=== PATIENT | female | born 1965 | race Caucasian/White ===

== ENCOUNTER 2017-04-23 14:02 | Inpatient (IN) | payer BC, OTHER ==
[2017-04-23 14:39] LABS: BASOPHIL % 0.1 % (0.0-0.4); Basophil (Absolute #) 0.01 (0-0.4); Eosinophil % 1.9 % (0.00-5.0); Eosinophil (Absolute #) 0.13 (0-0.5); Granulocyte Absolute (ANC) 4.84 (1.4-6.9); Granulocytes % 70.7 % (36.0-66.0); Hematocrit 44.1 % (35-47); Hemoglobin 14.4 gm/dl (12.0-16.0); Lymphocyte (Absolute #) 1.48 (1.0-4.6); Lymphocytes % 21.6 % (24.0-44.0); Mean Cell Volume 94.2 fl (78-100); Mean Corpuscular Hemoglobin 30.8 pg (26-32); Mean Corpuscular Hgb Concent. 32.7 g/dl (32-36); Mean Platelet Volume 10.5 fl (6-9.5); Monocyte (Absolute #) 0.39 (0.0-1.3); Monocytes % 5.7 % (0.0-12.0); Platelet Count 186 K/mm3 (150-450); Red Blood Count 4.68 M/mm3 (4.1-5.4); Red Cell Distribution Width 15.6 % (11.5-14.0); White Blood Count 6.9 K/mm3 (4.0-10.5)
--- NOTE | 2017-04-23 14:41 | ERPHSYRPT ---
- History of Present Illness Time Seen by Provider: 04/23/17 14:05 Source: patient, family Exam Limitations: no limitations Patient Subjective Stated Complaint: pt here for weakness,productive coug, chills. was seen at [facility] and dx with bronchitis. pt states she also she passed out and fell yesterday hurting left knee. pt able to bear wt on knee Triage Nursing Assessment: pt alert, resp easy. skin w/d pink, chest clear, no edema, able to transfer self from to bed without difficulty, Physician History: patient has syncope associated with hypoglycemia; no recent seizures or incontinence; no fever; some cough- non-productive; no vomiting or diarrhea; no fever; eating and drinkning ok; no travel; no known exposures; no recent change of meds other then started on ATBs for Bronchits 2 days ago. no MUKHERJEE; no neck pain ; hurt knee when fell two days ago- wearing a brace on left and checked at [place] and started on ATBs Witnessed: by family Prior Episodes: recent history Timing/Duration: week(s) (1), gradual onset, worse Precipitating Factors: other (when ambulates) Context: standing Loss of Consciousness: brief (seconds) Charcter of event(s): collapsed Allergies/Adverse Reactions: divalproex sodium [From Depakote] Allergy (Verified 04/23/17 14:19) morphine Allergy (Verified 04/23/17 14:19) Sulfa (Sulfonamide Antibiotics) Allergy (Verified 04/23/17 14:19) Home Medications: Albuterol Sulfate [Proair Hfa] 8.5 gm QID 04/23/17 [History] Azithromycin 250 mg [Zithromax 250 MG TABLET] 250 mg DAILY 04/23/17 [ History] Baclofen 20 mg TID 04/23/17 [History] Citalopram Hydrobromide 20 mg* [ceLEXa 20 MG] 20 mg DAILY 04/23/17 [History] Famotidine 20 mg [Pepcid 20 MG] 20 mg BID 04/23/17 [History] Meloxicam 15 mg [Meloxicam 15 MG] 15 mg PO DAILY 04/23/17 [History] Nortriptyline HCl [Pamelor] 100 mg HS 04/23/17 [History] Pantoprazole Sodium [Protonix] 40 mg BID 04/23/17 [History] Paroxetine HCl [Paxil Cr] 25 mg DAILY 04/23/17 [History] Temazepam [Restoril] 30 mg HS 04/23/17 [History] Hx Influenza Vaccination/Date Given: Yes Hx Pneumococcal Vaccination/Date Given: No Immunizations Up to Date: Yes - Past Medical History Pertinent Past Medical History: Yes Neurological History: Migraines Psycho-Social History: Anxiety, Depression - Past Surgical History Past Surgical History: Yes Female Surgical History: Section Other Surgical History: gastric bypass - Social History Smoking Status: Current every day smoker Exposure to second hand smoke: Yes Alcohol Use: Socially Drug Use: none Patient Lives Alone: No Significant Family History: no pertinent family hx - Female History Hx Last Menstrual Period: post Hx Now: No - Review of Systems Constitutional: Malaise, Weakness Eyes: No Symptoms Ears, Nose, & Throat: No Symptoms Respiratory: Cough, No Dyspnea, No Wheezing Cardiac: Syncope, No Chest Pain, No Edema, No Palpitations Abdominal/Gastrointestinal: Nausea, No Abdominal Pain, No Vomiting, No Diarrhea , No Constipation Genitourinary Symptoms: No Dysuria, No Frequency, No Hematuria, No Hesitancy, No Incontinence Musculoskeletal: Fall, Injury (left knee) Skin: No Symptoms Neurological: No Dizziness, No Focal Weakness, No Headache, No Seizure, No Vertigo Psychological: Anxiety, No Drug Abuse, No Suicidal Ideations, No Homicidal Ideations, No Hallucinations Endocrine: No Symptoms Hematologic/Lymphatic: No Symptoms Immunological/Allergic: No Symptoms Physical Exam - Nursing Vital Signs Nursing Vital Signs: Initial Vital Signs Temperature 97.5 F 04/23/17 14:09 Pulse Rate 100 H 04/23/17 14:09 Blood Pressure 108/84 04/23/17 14:09 O2 Sat by Pulse Oximetry 99 04/23/17 14:09 Pain Scale Pain Intensity 5 - [place] Coma Scale Best Eye Response (Diablo): (4) open spontaneously Best Verbal Response (Diablo): (5) oriented Best Motor Response (Diablo): (6) obeys commands [place] Total: 15 - Physical Exam General Appearance: mild distress, alert, anxiety, thin Eye Exam: bilateral eye: normal inspection, PERRL, EOMI Ears, Nose, Throat Exam: normal ENT inspection, TMs normal, pharynx normal, moist mucous membranes Neck Exam: normal inspection, non-tender, supple, full range of motion, No meningismus, No carotid bruit, No JVD Respiratory: normal breath sounds, lungs clear, airway intact, No chest tenderness, No respiratory distress Cardiovascular: regular rate/rhythm, normal heart sounds, normal peripheral pulses, tachycardia (100), capillary refill 2-3 sec, No murmur Gastrointestinal: soft, normal bowel sounds, No tenderness, No guarding, No pulsatile mass, No rebound, No organomegaly Pelvic Exam: deferred Rectal Exam: deferred Back Exam: normal inspection, normal range of motion, No CVA tenderness, No vertebral tenderness Extremity Exam: normal inspection, normal range of motion, joint swelling (left knee with brace old), tenderness (mild left knee general old), No pelvis stable , No alice's sign, No pedal edema Peripheral Pulses: carotid (R): 4+, carotid (L): 4+, femoral (R): 4+, femoral (L ): 4+, dorsalis-pedis (R): 3+, dorsalis-pedis (L): 3+ Mental Status: alert, oriented x 3, 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 Exam: normal hearing, normal speech, PERRL Coordination/Gait: negative Romberg's sign, No normal gait (light headed) Motor/Sensory: no motor deficit, no sensory deficit, no pronator drift, negative Babinski's sign DTR: knee (R): 4+ Skin Exam: normal color, warm, dry, No rash, No petechiae SpO2 Interpretation: normal SpO2: 99 Oxygen Delivery: Room Air - Course Nursing assessment & vital signs reviewed: Yes EKG Interpreted by Me: RATE (85), Left Midland Deviation, NORMAL INTERVALS, NORMAL QRS, Non-specific ST Changes Rhythm Strip: Rate (84), Normal Sinus Rhythm - Radiology Exams Chest X-ray Interpretation: Reviewed by me, Teleradiologist Report, Negative - CT Exams Chest CT Interpretation: Negative, Tele-radiologist Report, No PE Ordered Tests: Active Orders 24 hr Category Date Time Status Bedrest with BRP/BSC ROUTINE Activity 04/23/17 16:44 Active Accucheck ACHS Care 04/23/17 16:44 Active Accucheck STAT Care 04/23/17 14:33 Active Admission/Status Order ROUTINE Care 04/23/17 16:44 Active Call Admit Doctor for Orders ROUTINE Care 04/23/17 16:44 Active Director Agricultural Services STAT Care 04/23/17 14:35 Active Code Status Order ROUTINE Care 04/23/17 16:44 Active EKG-ER Only STAT Care 04/23/17 14:33 Active Fall Protocol ROUTINE Care 04/23/17 16:46 Active IV Care Q6H Care 04/23/17 16:44 Active IV Insertion STAT Care 04/23/17 14:33 Active Implement Chest Pain Pathway ROUTINE Care 04/23/17 16:44 Active Orthostatic Vital Signs STAT Care 04/23/17 14:33 Active Pulse Oximetry (ED) STAT Care 04/23/17 14:33 Active Re-Check Vital Signs STAT Care 04/23/17 14:33 Active Daniel Zelaya, Apply ROUTINE Care 04/23/17 16:44 Active Telemetry ROUTINE Care 04/23/17 16:44 Active Weight,Daily 0600 Care 04/23/17 16:44 Active Cardiac Diet Diet 04/23/17 Dinner Active CHEST 1 VIEW (PORTABLE) Stat Exams 04/23/17 14:51 Completed CHEST WITH CONTRAST [CT] Stat Exams 04/23/17 15:15 Completed CBC W DIFF Stat Lab 04/23/17 14:30 Completed CMP Stat Lab 04/23/17 14:30 Completed D-DIMER QUANTITATION Stat Lab 04/23/17 14:30 Completed ETHYL ALCOHOL Stat Lab 04/23/17 14:30 Completed LIPID PROFILE AM.LAB Lab 04/24/17 04:00 Ordered PROTIME WITH INR Stat Lab 04/23/17 14:30 Completed TROPONIN Q3H Lab 04/23/17 14:30 Completed TROPONIN Q3H Lab 04/23/17 18:00 Ordered TROPONIN Q3H Lab 04/23/17 21:00 Ordered TROPONIN Q3H Lab 04/24/17 00:00 Ordered TROPONIN Q3H Lab 04/24/17 03:00 Ordered EKG Q8HX2,QAMX3,PRN RT 04/23/17 16:44 Active Pulse Oximetry Q4H RT 04/23/17 16:44 Active Transfer Order Routine Transfer 04/23/17 Ordered Medication Summary Generic Name Dose Route Start Last Admin Trade Name Freq PRN Reason Stop Dose Admin Acetaminophen 650 mg 04/23/17 16:44 Tylenol 325 Mg PO 05/23/17 16:43 Q4H PRN PRN PAIN AND/OR FEVER Aspirin 325 mg 04/24/17 10:00 Ecotrin 325 Mg PO 05/24/17 09:59 DAILY GERI Sodium Chloride 1,000 mls @ 100 mls/hr 04/23/17 14:45 Sodium Chloride 0.9% 1000 Ml IV 05/23/17 14:44 .Q10H GERI Sodium Chloride 1,000 mls @ 999 mls/hr 04/23/17 16:21 04/23/17 14:40 Sodium Chloride 0.9% 1000 Ml IV 04/23/17 17:21 999 mls/hr .Q1H1M STA Administration Sodium Chloride 1,000 mls @ 999 mls/hr 04/23/17 16:22 04/23/17 16:23 Sodium Chloride 0.9% 1000 Ml IV 04/23/17 17:22 999 mls/hr .Q1H1M STA Administration Lab/Rad Data: Laboratory Result Diagrams 04/23/17 14:30 04/23/17 14:30 Laboratory Results 04/23/17 04/23/17 04/23/17 Range/Units 14:30 14:30 14:30 WBC (4.0-10.5) K/mm3 RBC (4.1-5.4) M/mm3 Hgb (12.0-16.0) gm/dl Hct (35-47) % MCV (78-100) fl MCH (26-32) pg MCHC (32-36) g/dl RDW (11.5-14.0) % Plt Count (150-450) K/mm3 MPV (6-9.5) fl Gran % (36.0-66.0) % Lymphocytes % (24.0-44.0) % Monocytes % (0.0-12.0) % Eosinophils % (0.00-5.0) % Basophils % (0.0-0.4) % Basophils # (0-0.4) INR 0.99 (0.8-3.0) D-Dimer 604.16 H* (0-500) ng/mL Sodium (136-145) mEq/L Potassium (3.5-5.1) mEq/L Chloride (98-107) mEq/L Carbon Dioxide (21-32) mEq/L Anion Gap (5-15) MEQ/L BUN (9-20) mg/dL Creatinine (0.55-1.30) mg/dl Estimated GFR ML/MIN Glucose (70-110) MG/DL Calcium (8.5-10.1) mg/dL Total Bilirubin (0.2-1.0) mg/dL AST (15-37) U/L ALT (12-78) U/L Alkaline Phosphatase (46-116) U/L Troponin I 0.137 H* (0.000-0.056) ng/ml Serum Total Protein (6.4-8.2) gm/dL Albumin (3.4-5.0) g/dL Ethyl Alcohol < 0.010 (0.00-0.01) % 04/23/17 04/23/17 Range/Units 14:30 14:30 WBC 6.9 (4.0-10.5) K/mm3 RBC 4.68 (4.1-5.4) M/mm3 Hgb 14.4 (12.0-16.0) gm/dl Hct 44.1 (35-47) % MCV 94.2 (78-100) fl MCH 30.8 (26-32) pg MCHC 32.7 (32-36) g/dl RDW 15.6 H (11.5-14.0) % Plt Count 186 (150-450) K/mm3 MPV 10.5 H (6-9.5) fl Gran % 70.7 H (36.0-66.0) % Lymphocytes % 21.6 L (24.0-44.0) % Monocytes % 5.7 (0.0-12.0) % Eosinophils % 1.9 (0.00-5.0) % Basophils % 0.1 (0.0-0.4) % Basophils # 0.01 (0-0.4) INR (0.8-3.0) D-Dimer (0-500) ng/mL Sodium 140 (136-145) mEq/L Potassium 3.9 (3.5-5.1) mEq/L Chloride 100 (98-107) mEq/L Carbon Dioxide 33.8 H (21-32) mEq/L Anion Gap 10.2 (5-15) MEQ/L BUN 15 (9-20) mg/dL Creatinine 1.41 H (0.55-1.30) mg/dl Estimated GFR 42 ML/MIN Glucose 117 H (70-110) MG/DL Calcium 9.3 (8.5-10.1) mg/dL Total Bilirubin 0.60 (0.2-1.0) mg/dL AST 17 (15-37) U/L ALT 13 (12-78) U/L Alkaline Phosphatase 114 (46-116) U/L Troponin I (0.000-0.056) ng/ml Serum Total Protein 7.6 (6.4-8.2) gm/dL Albumin 3.4 (3.4-5.0) g/dL Ethyl Alcohol (0.00-0.01) % reviewed - Progress Progress: improved (with fluids), re-examined Progress Note: 04/23/17 14:44 accu check 118; OSVS showed abn drop with laying to sitting so stipped and started IV fluid bolus; will monitor and recheck; EKG pending; xr pending 04/23/17 14:58 EKG non specific; cxr NAd; ; ETOH neg 04/23/17 15:16 D Dimer elevated will Get CTA to evaluate for PE 04/23/17 16:14 GRF off but we hydrated with IV Fluid bolus and then got CTA for PE- results pending; rechecked on return and feeling better; continuing IV fluids; Troponin slight elevated at 0.137; lytes ok CBC ok; will monitor and recheck 04/23/17 16:34 rechecked and still orthostatic hypotension but improved after a liter IV saline ;Dr Jones consulted and will admit ; patient and family notified Discussed with : Reza (consulted and will admit) Will see patient in: hospital (full admit) Counseled pt/family regarding: lab results, diagnosis, need for follow-up, rad results, smoking cessation - Departure Time of Disposition: 16:41 Departure Disposition: In-patient Admission Clinical Impression: Weakness, Syncope due to orthostatic hypotension, Orthostatic hypotension, Elevated troponin I level, possible non STEMI Condition: Critical Critical Care Time: Yes Critical Care Time(excluding separately billable procedures): 30-74 minutes Referrals: VIRGEN JONES MD [Primary Care Provider] -
[2017-04-23] MEDS: Sodium Chloride 0.9% 1000 ML 1,000 ML IV SCH ×3 (14:42→18:47)
[2017-04-23] MEDS ORDERED: Sodium Chloride 0.9% 1000 ML 1,000 ML ONE ×2 (14:42→16:19)
[2017-04-23 14:50] LABS: INR 0.99 (0.8-3.0)
[2017-04-23 14:57] LABS: ALBUMIN 3.4 g/dL (3.4-5.0); ANION GAP 10.2 MEQ/L (5-15); BILIRUBIN,TOTAL 0.6 mg/dL (0.2-1.0); Calcium 9.3 mg/dL (8.5-10.1); Carbon Dioxide 33.8 mEq/L (21-32); Creatinine 1 1.41 mg/dl (0.55-1.30); Potassium 3.9 mEq/L (3.5-5.1); Total Protein 7.6 gm/dL (6.4-8.2)
--- NOTE | 2017-04-23 14:59 | XRAY ---
Indication: Syncope upon standing. Comparison: None Portable chest demonstrates normal heart and lungs. Bony thorax intact with minimal degenerative changes.
[2017-04-23 15:15] LABS: D-DIMER QUANTITATION 604.16 ng/mL (0-500)
[2017-04-23] MEDS ORDERED: Sodium Chloride 0.9% 1000 ML 1,000 ML IV STA ×2 (16:21→16:22)
--- NOTE | 2017-04-23 16:22 | XRAY ---
Indication: Syncope. Elevated d-dimer. Multiple contiguous axial images obtained through the chest using 80 cc of Isovue-370 contrast and PE protocol. Comparison: None There is satisfactory opacification of the pulmonary arteries to include the lobar and segmental branches. No filling defect or pulmonary embolus. Heart is not enlarged. Aorta is normal in course and caliber. No pathologic mediastinal/hilar lymphadenopathy. Examination of the lung parenchyma demonstrates small focus of fibrosis/scarring in the inferior right upper lobe. No suspicious pulmonary mass, infiltrate, consolidation, or effusion. Bony thorax intact with mild degenerative changes throughout the spine and multilevel small Schmorl nodes. Limited upper abdomen demonstrates previous gastric bypass surgery. Impression: Negative pulmonary embolus. No acute cardiopulmonary abnormalities. CTDI 13.96
[2017-04-23] MEDS ORDERED: MILK OF MAGNESIA 30 ML PO PRN (16:44)
[2017-04-23] MEDS ORDERED: Senokot-S Tablet PO PRN (16:44)
[2017-04-23] MEDS ORDERED: MAALOX ES 30 ML UNIT DOSE PO PRN (16:44)
[2017-04-23] MEDS ORDERED: TYLENOL 325 MG PO PRN (16:44)
[2017-04-23] MEDS ORDERED: Zofran 4 MG/2 ML VIAL IV PRN (16:44)
[2017-04-23] MEDS: Nicoderm CQ 21 MG TOP SCH (21:23)
[2017-04-23] MEDS: Restoril 15 MG PO SCH (21:24)
[2017-04-23] MEDS ORDERED: Pepcid 20 MG VIAL IV SCH (22:00)
[2017-04-23] MEDS ORDERED: Restoril 15 MG PO SCH (22:00)
[2017-04-23] MEDS: ENOXAPARIN SODIUM SQ SCH (22:15)
[2017-04-23] MEDS ORDERED: PROVENTIL COMMON CANISTER IH PRN (23:46)
[2017-04-24] MEDS: Sodium Chloride 0.9% 1000 ML 1,000 ML IV SCH ×2 (03:55→13:49)
[2017-04-24 06:22] LABS: Risk Ratio 1.5
--- NOTE | 2017-04-24 09:27 | PCM.HP ---
History of Present Illness - Chief Complaint Chief Complaint: syncope History of Present Illness: is a 51 year old female.patient has syncope associated with hypoglycemia; no recent seizures or incontinence; no fever; some cough- non- productive; no vomiting or diarrhea; no fever; eating and drinkning ok; no travel; no known exposures; no recent change of meds other then started on ATBs for Bronchits 2 days ago. no MUKHERJEE; no neck pain; hurt knee when fell two days ago - wearing a brace on left and checked at [facility] and started on ATBs Witnessed: by family Prior Episodes: recent history Timing/Duration: week(s) (1), gradual onset, worse Precipitating Factors: other (when ambulates) Context: standing Loss of Consciousness: brief (seconds) Charcter of event(s): collapsed - Review of Systems Constitutional: No Fever, No Chills Eyes: No Symptoms Ears, Nose, & Throat: No Symptoms Respiratory: No Cough, No Short Of Breath Cardiac: No Chest Pain, No Edema, No Syncope Abdominal/Gastrointestinal: No Abdominal Pain, No Nausea, No Vomiting, No Diarrhea Genitourinary Symptoms: No Dysuria Musculoskeletal: No Back Pain, No Neck Pain Skin: No Rash Neurological: No Dizziness, No Focal Weakness, No Sensory Changes Psychological: No Symptoms Endocrine: No Symptoms Hematologic/Lymphatic: No Symptoms Immunological/Allergic: No Symptoms Medications & Allergies Home Medications: Home Medication List Albuterol Sulfate [Proair Hfa] 8.5 gm IH Q4HPRN PRN 04/23/17 [History Confirmed 04/24/17] Azithromycin 250 mg [Zithromax 250 MG TABLET] 250 mg PO DAILY 04/23/17 [ History Confirmed 04/24/17] Baclofen 20 mg PO TID 04/23/17 [History Confirmed 04/24/17] Citalopram Hydrobromide 20 mg* [ceLEXa 20 MG] 20 mg PO DAILY 04/23/17 [ History Confirmed 04/24/17] Famotidine 20 mg [Pepcid 20 MG] 20 mg PO BID 04/23/17 [History Confirmed 04/24/17] Meloxicam 15 mg [Meloxicam 15 MG] 15 mg PO DAILY 04/23/17 [History Confirmed ] Nortriptyline HCl [Pamelor] 100 mg PO HS 04/23/17 [History Confirmed 04/24/17] Pantoprazole Sodium [Protonix] 40 mg PO BID 04/23/17 [History Confirmed 04/24/17 ] Paroxetine HCl [Paxil Cr] 25 mg PO DAILY 04/23/17 [History Confirmed 04/24/17] Temazepam 15 mg [Restoril 15 MG] 15 mg PO HS 04/23/17 [History Confirmed 04/24/17] Temazepam [Restoril] 30 mg PO HS 04/23/17 [History Confirmed 04/24/17] Allergies/Adverse Reactions: Allergies Allergy/AdvReac Type Severity Reaction Status Date / Time divalproex sodium Allergy Verified 04/23/17 17:39 [From Depakote] morphine Allergy Verified 04/23/17 17:39 Sulfa (Sulfonamide Allergy Verified 04/23/17 17:39 Antibiotics) - Past Medical History Past Medical History: Yes Neurological History: Migraines ENT History: Cataracts Cardiac History: No Pertinent History Respiratory History: Asthma Endocrine Medical History: No Pertinent History Musculoskelatal History: No Pertinent History GI Medical History: No Pertinent History History: No Pertinent History Pyscho-Social History: Anxiety, Depression - Female History Hx Last Menstrual Period: post Are you now?: No - Past Surgical History Past Surgical History: Yes Neuro Surgical History: No Pertinent History Cardiac History: No Pertinent History Respiratory Surgery: No Pertinent History GI Surgical History: Other Genitourinary Surgical Hx: No Pertinent History Female Surgical History: Section, Other Other Surgical History: gastric bypass - Social History Smoking Status: Current every day smoker Exposure to second hand smoke: Yes Alcohol: Daily Drug Use: none Significant Family History: no pertinent family hx - Physical Exam Vital Signs: Vital Signs - 24 hr Temp Pulse Resp BP Pulse Ox 04/24/17 08:00 97.8 F 73 14 140/89 100 04/24/17 04:00 97.7 F 78 14 132/82 96 04/24/17 03:57 14 96 04/24/17 00:01 75 04/24/17 00:00 97.8 F 75 18 129/89 98 04/23/17 22:45 79 15 99 04/23/17 20:00 97.8 F 93 H 19 115/79 99 04/23/17 19:25 97.6 F 93 H 16 134/85 93 L 04/23/17 16:59 78 20 112/79 99 04/23/17 16:47 99 04/23/17 16:10 82 20 110/83 99 04/23/17 14:53 86 16 115/75 99 04/23/17 14:41 97 04/23/17 14:09 97.5 F 100 H 108/84 99 General Appearance: no apparent distress, alert Neurologic Exam: alert, oriented x 3, cooperative, normal mood/affect, nml cerebellar function, nml station & gait, sensation nml, No motor deficits Eye Exam: PERRL/EOMI, eyes nml inspection Ears, Nose, Throat Exam: normal ENT inspection, TMs normal, pharynx normal, moist mucous membranes Neck Exam: normal inspection, non-tender, supple, full range of motion Respiratory Exam: normal breath sounds, lungs clear, No respiratory distress Cardiovascular Exam: regular rate/rhythm, normal heart sounds, normal peripheral pulses Gastrointestinal/Abdomen Exam: soft, normal bowel sounds, No tenderness, No mass Back Exam: normal inspection, normal range of motion, No CVA tenderness, No vertebral tenderness Extremity Exam: normal inspection, normal range of motion, pelvis stable Skin Exam: normal color, warm, dry, No rash Lymphatic Exam: No adenopathy Results - Labs Lab/Micro Results: Accuchecks Date 04/24/17 Date 04/23/17 Time 06:21 Time 21:40 Accucheck Value: 77 Accucheck Value: 90 Lab Results-Last 24 Hours 04/23/17 04/23/17 04/24/17 Range/Units 18:05 21:30 00:30 Troponin I 0.086 H* 0.098 H* 0.086 H* (0.000-0.056) ng/ml Triglycerides (30-200) mg/dL Cholesterol (100-200) mg/dL LDL Cholesterol (5-99) mg/dL HDL Cholesterol (35-60) mg/dL Heart Disease Risk Ratio 04/24/17 04/24/17 Range/Units 04:00 04:00 Troponin I 0.074 H* (0.000-0.056) ng/ml Triglycerides 59 (30-200) mg/dL Cholesterol 139 (100-200) mg/dL LDL Cholesterol 34 (5-99) mg/dL HDL Cholesterol 91 H (35-60) mg/dL Heart Disease Risk Ratio 1.5 Accuchecks Date 04/24/17 Date 04/23/17 Time 06:21 Time 21:40 Accucheck Value: 77 Accucheck Value: 90 - Other Procedures and Tests Respiratory Therapy 04/23/17 23:46 Respiratory MDI PRN 04/25/17 05:00 EKG ONCE 04/26/17 05:00 EKG ONCE Assessment/Plan (1) NSTEMI (non-ST elevated myocardial infarction) Current Visit: Yes Status: Acute Assessment & Plan: Chief Complaint Diagnosis syncope, nonstemi, othostatic hypotension Allergies Allergy/AdvReac Type Severity Reaction Status Date / Time divalproex sodium Allergy Verified 04/23/17 17:39 [From Depakote] morphine Allergy Verified 04/23/17 17:39 Sulfa (Sulfonamide Allergy Verified 04/23/17 17:39 Antibiotics) Vital Signs (Last 24 hours) Temp Pulse Resp BP Pulse Ox 04/24/17 08:00 97.8 F 73 14 140/89 100 04/24/17 04:00 97.7 F 78 14 132/82 96 04/24/17 03:57 14 96 04/24/17 00:01 75 04/24/17 00:00 97.8 F 75 18 129/89 98 04/23/17 22:45 79 15 99 04/23/17 20:00 97.8 F 93 H 19 115/79 99 04/23/17 19:25 97.6 F 93 H 16 134/85 93 L 04/23/17 16:59 78 20 112/79 99 04/23/17 16:47 99 04/23/17 16:10 82 20 110/83 99 04/23/17 14:53 86 16 115/75 99 04/23/17 14:41 97 04/23/17 14:09 97.5 F 100 H 108/84 99 Home Medications Medication Instructions Recorded Confirmed Last Taken Type Albuterol Sulfate [Proair Hfa] 8.5 gm IH Q4HPRN PRN 04/23/17 04/24/17 04/23/17 History Azithromycin 250 mg [Zithromax 250 mg PO DAILY 04/23/17 04/24/17 04/23/17 History 250 MG TABLET] Baclofen 20 mg PO TID 04/23/17 04/24/17 04/23/17 History Citalopram Hydrobromide 20 mg* 20 mg PO DAILY 04/23/17 04/24/17 04/23/17 History [ceLEXa 20 MG] Famotidine 20 mg [Pepcid 20 20 mg PO BID 04/23/17 04/24/17 04/23/17 History MG] Meloxicam 15 mg [Meloxicam 15 MG] 15 mg PO DAILY 04/23/17 04/24/17 04/23/17 History Nortriptyline HCl [Pamelor] 100 mg PO HS 04/23/17 04/24/17 04/22/17 History Pantoprazole Sodium [Protonix] 40 mg PO BID 04/23/17 04/24/17 04/23/17 History Paroxetine HCl [Paxil Cr] 25 mg PO DAILY 04/23/17 04/24/17 04/23/17 History Temazepam 15 mg [Restoril 15 15 mg PO HS 04/23/17 04/24/17 04/22/17 History MG] Temazepam [Restoril] 30 mg PO HS 04/23/17 04/24/17 04/22/17 History Current Medications Generic Name Dose Route Start Last Admin Trade Name Freq PRN Reason Stop Dose Admin Acetaminophen 650 mg 04/23/17 16:44 Tylenol 325 Mg PO 05/23/17 16:43 Q4H PRN PRN PAIN AND/OR FEVER Al Hydrox/Mg Hydrox/Simethicone 30 ml 04/23/17 16:44 Maalox Es 30 Ml Unit Dose PO 05/23/17 16:43 Q4H PRN PRN INDIGESTION Albuterol Sulfate 2 puff 04/23/17 23:46 Proventil Common Canister IH 05/23/17 23:45 Q4HPRN PRN SHORTNESS OF BREATH/WHEEZING Aspirin 325 mg 04/24/17 10:00 Ecotrin 325 Mg PO 05/24/17 09:59 DAILY GERI Azithromycin 250 mg 04/24/17 10:00 Zithromax 250 Mg Tablet PO 04/25/17 10:01 DAILY GERI Baclofen 20 mg 04/24/17 10:00 Lioresal 10 Mg PO 05/24/17 09:59 TID GERI Citalopram Hydrobromide 20 mg 04/24/17 10:00 Celexa 20 Mg PO 05/24/17 09:59 DAILY GERI Enoxaparin Sodium 40 mg 04/23/17 22:00 04/23/17 22:15 Enoxaparin Sodium SQ 05/23/17 21:59 40 mg Q24H GERI Administration Famotidine 20 mg 04/24/17 10:00 Pepcid 20 Mg PO 05/24/17 09:59 BID GERI Sodium Chloride 1,000 mls @ 100 mls/hr 04/23/17 14:45 04/24/17 03:55 Sodium Chloride 0.9% 1000 Ml IV 05/23/17 14:44 100 mls/hr .Q10H GERI Administration Magnesium Hydroxide 30 - 60 ml 04/23/17 16:44 Milk Of Magnesia 30 Ml PO 05/23/17 16:43 QDP PRN CONSTIPATION Meloxicam 15 mg 04/24/17 10:00 Mobic 7.5 Mg PO 05/24/17 09:59 DAILY [facility] Nicotine 21 mg 04/23/17 21:00 04/23/17 21:23 Nicoderm Cq 21 Mg TOP 05/23/17 20:59 21 mg Q24H GERI Administration Nortriptyline HCl 100 mg 04/24/17 10:00 Nortriptyline Hcl PO 05/24/17 09:59 DAILY [facility] Ondansetron HCl 4 mg 04/23/17 16:44 Zofran 4 Mg/2 Ml Vial IV 05/23/17 16:43 Q4H PRN PRN NAUSEA/VOMITING Pantoprazole Sodium 40 mg 04/24/17 10:00 Protonix 40mg Tablet PO 05/24/17 09:59 BID [facility] Paroxetine HCl 25 mg 04/24/17 10:00 Paxil 12.5mg Cr PO 05/24/17 09:59 DAILY [facility] Senna/Docusate Sodium 2 udtab 04/23/17 16:44 Senokot-S Tablet PO 05/23/17 16:43 BID PRN PRN CONSTIPATION Temazepam 45 mg 04/24/17 22:00 Restoril 15 Mg PO 05/24/17 21:59 HS GERI Discontinued Medications Generic Name Dose Route Start Last Admin Trade Name Edwige PRN Reason Stop Dose Admin Famotidine 20 mg 04/23/17 22:00 04/23/17 21:24 Pepcid 20 Mg Vial IV 05/23/17 21:59 20 mg Q12HT GERI Administration Sodium Chloride 1,000 mls @ 999 mls/hr 04/23/17 16:21 04/23/17 14:40 Sodium Chloride 0.9% 1000 Ml IV 04/23/17 17:21 999 mls/hr .Q1H1M STA Administration Sodium Chloride 1,000 mls @ 999 mls/hr 04/23/17 16:22 04/23/17 16:23 Sodium Chloride 0.9% 1000 Ml IV 04/23/17 17:22 999 mls/hr .Q1H1M STA Administration Sodium Chloride Confirm 04/23/17 14:42 Sodium Chloride 0.9% 1000 Ml Administered 04/23/17 14:43 Dose 1,000 mls @ ud .ROUTE .STK-MED ONE Sodium Chloride Confirm 04/23/17 16:19 Sodium Chloride 0.9% 1000 Ml Administered 04/23/17 16:20 Dose 1,000 mls @ ud .ROUTE .STK-MED ONE Temazepam 15 mg 04/23/17 22:00 04/23/17 21:24 Restoril 15 Mg PO 05/23/17 21:59 15 mg HS GERI Administration Temazepam 30 mg 04/23/17 22:00 04/23/17 21:24 Restoril 15 Mg PO 05/23/17 21:59 30 mg HS GERI Administration Intake & Output (Last 24 hours) 04/21/17 04/22/17 04/23/17 04/24/17 11:59 11:59 11:59 11:59 Intake Total 1756 Balance 1756 Weight 76.6 kg Laboratory Results (Last 24 hours) 04/24/17 04/24/17 04/24/17 04:00 04:00 00:30 WBC RBC Hgb Hct MCV MCH MCHC RDW Plt Count MPV Gran % Lymphocytes % Monocytes % Eosinophils % Basophils % Basophils # INR D-Dimer Sodium Potassium Chloride Carbon Dioxide Anion Gap BUN Creatinine Estimated GFR Glucose Calcium Total Bilirubin AST ALT Alkaline Phosphatase Troponin I 0.074 H* 0.086 H* Serum Total Protein Albumin Triglycerides 59 Cholesterol 139 LDL Cholesterol 34 HDL Cholesterol 91 H Heart Disease Risk Ratio 1.5 Ethyl Alcohol 04/23/17 04/23/17 04/23/17 21:30 18:05 14:30 WBC RBC Hgb Hct MCV MCH MCHC RDW Plt Count MPV Gran % Lymphocytes % Monocytes % Eosinophils % Basophils % Basophils # INR D-Dimer Sodium Potassium Chloride Carbon Dioxide Anion Gap BUN Creatinine Estimated GFR Glucose Calcium Total Bilirubin AST ALT Alkaline Phosphatase Troponin I 0.098 H* 0.086 H* 0.137 H* Serum Total Protein Albumin Triglycerides Cholesterol LDL Cholesterol HDL Cholesterol Heart Disease Risk Ratio Ethyl Alcohol 04/23/17 04/23/17 04/23/17 14:30 14:30 14:30 WBC RBC Hgb Hct MCV MCH MCHC RDW Plt Count MPV Gran % Lymphocytes % Monocytes % Eosinophils % Basophils % Basophils # INR 0.99 D-Dimer 604.16 H* Sodium 140 Potassium 3.9 Chloride 100 Carbon Dioxide 33.8 H Anion Gap 10.2 BUN 15 Creatinine 1.41 H Estimated GFR 42 Glucose 117 H Calcium 9.3 Total Bilirubin 0.60 AST 17 ALT 13 Alkaline Phosphatase 114 Troponin I Serum Total Protein 7.6 Albumin 3.4 Triglycerides Cholesterol LDL Cholesterol HDL Cholesterol Heart Disease Risk Ratio Ethyl Alcohol < 0.010 04/23/17 14:30 WBC 6.9 RBC 4.68 Hgb 14.4 Hct 44.1 MCV 94.2 MCH 30.8 MCHC 32.7 RDW 15.6 H Plt Count 186 MPV 10.5 H Gran % 70.7 H Lymphocytes % 21.6 L Monocytes % 5.7 Eosinophils % 1.9 Basophils % 0.1 Basophils # 0.01 INR D-Dimer Sodium Potassium Chloride Carbon Dioxide Anion Gap BUN Creatinine Estimated GFR Glucose Calcium Total Bilirubin AST ALT Alkaline Phosphatase Troponin I Serum Total Protein Albumin Triglycerides Cholesterol LDL Cholesterol HDL Cholesterol Heart Disease Risk Ratio Ethyl Alcohol Orders (Last 24 hours) Category Date Time Status Bedrest with BRP/BSC ROUTINE Activity 04/23/17 16:44 Active Accucheck ACHS Care 04/23/17 16:44 Active Accucheck STAT Care 04/23/17 14:33 Completed Admission/Status Order ROUTINE Care 04/23/17 16:44 Active Call Admit Doctor for Orders ROUTINE Care 04/23/17 16:44 Active Family Engagement Specialist STAT Care 04/23/17 14:35 Active Code Status Order ROUTINE Care 04/23/17 16:44 Active EKG-ER Only STAT Care 04/23/17 14:33 Completed Fall Protocol Q1H Care 04/23/17 16:46 Active IV Care Q6H Care 04/23/17 16:44 Active IV Insertion STAT Care 04/23/17 14:33 Completed Implement Chest Pain Pathway ROUTINE Care 04/23/17 16:44 Active Orthostatic Vital Signs STAT Care 04/23/17 14:33 Completed Pulse Oximetry (ED) STAT Care 04/23/17 14:33 Completed Re-Check Vital Signs STAT Care 04/23/17 14:33 Completed Daniel Zelaya, [place] ROUTINE Care 04/23/17 16:44 Active Telemetry ROUTINE Care 04/23/17 16:44 Active Weight,Daily 0600 Care 04/23/17 16:44 Active Stock And Station Agent/Discharge Plan ROUTINE Cons 04/23/17 17:47 Active Cardiac Diet Diet 04/23/17 Dinner Active CHEST 1 VIEW (PORTABLE) Stat Exams 04/23/17 14:51 Completed CHEST WITH CONTRAST [CT] Stat Exams 04/23/17 15:15 Completed CBC W DIFF Stat Lab 04/23/17 14:30 Completed CMP Stat Lab 04/23/17 14:30 Completed D-DIMER QUANTITATION Stat Lab 04/23/17 14:30 Completed ETHYL ALCOHOL Stat Lab 04/23/17 14:30 Completed LIPID PROFILE AM.LAB Lab 04/24/17 04:00 Completed PROTIME WITH INR Stat Lab 04/23/17 14:30 Completed TROPONIN Q3H Lab 04/23/17 14:30 Completed TROPONIN Q3H Lab 04/23/17 18:05 Completed TROPONIN Q3H Lab 04/23/17 21:30 Completed TROPONIN Q3H Lab 04/24/17 00:30 Completed TROPONIN Q3H Lab 04/24/17 04:00 Completed Acetaminophen 325 mg [Tylenol 325 mg] Med 04/23/17 16:44 Active 650 mg PO Q4H PRN PRN Albuterol Common Canister [Proventil Common Canister Med 04/23/17 23:46 Active ] 2 puff IH Q4HPRN PRN Aspirin EC 325 mg [Ecotrin 325 MG] Med 04/24/17 10:00 Active 325 mg PO DAILY Azithromycin 250 mg [Zithromax 250 MG TABLET] Med 04/24/17 10:00 Active 250 mg PO DAILY Baclofen 10 mg [Lioresal 10 mg] Med 04/24/17 10:00 Active 20 mg PO TID Citalopram Hydrobromide 20 mg* [ceLEXa 20 MG] Med 04/24/17 10:00 Active 20 mg PO DAILY Enoxaparin Sodium [Enoxaparin Sodium] Med 04/23/17 22:00 Active 40 mg SQ Q24H Famotidine 20 mg Vial [Pepcid 20 MG VIAL] Med 04/23/17 22:00 Discontinued 20 mg IV Q12HT Famotidine 20 mg [Pepcid 20 MG] Med 04/24/17 10:00 Active 20 mg PO BID Mag Hydrox/Al Hydrox/Simeth [Maalox Es 30 ml Unit Med 04/23/17 16:44 Active Dose] 30 ml PO Q4H PRN PRN Magnesium Hydroxide 30 ml [Milk of Magnesia 30 ml Med 04/23/17 16:44 Active ] 30 - 60 ml PO QDP PRN Meloxicam 7.5 mg [Mobic 7.5 MG] Med 04/24/17 10:00 Active 15 mg PO DAILY NaCl 0.9% 1000 ml [Sodium Chloride 0.9% 1000 ML] 1,000 Med 04/23/17 14:42 Discontinued ml .ROUTE UD NaCl 0.9% 1000 ml [Sodium Chloride 0.9% 1000 ML] 1,000 Med 04/23/17 16:19 Discontinued ml .ROUTE UD NaCl 0.9% 1000 ml [Sodium Chloride 0.9% 1000 ML] 1,000 Med 04/23/17 14:45 Active ml IV 100 mls/hr NaCl 0.9% 1000 ml [Sodium Chloride 0.9% 1000 ML] 1,000 Med 04/23/17 16:21 Discontinued ml IV 999 mls/hr NaCl 0.9% 1000 ml [Sodium Chloride 0.9% 1000 ML] 1,000 Med 04/23/17 16:22 Discontinued ml IV 999 mls/hr Nicotine 21 mg [Nicoderm CQ 21 MG] Med 04/23/17 21:00 Active 21 mg TOP Q24H Nortriptyline HCl Med 04/24/17 10:00 Active 100 mg PO DAILY Ondansetron HCl 4 mg/2 ml [Zofran 4 MG/2 ML VIAL] Med 04/23/17 16:44 Active 4 mg IV Q4H PRN PRN PANTOPRAZOLE 40 mg Tablet [Protonix 40MG Tablet] Med 04/24/17 10:00 Active 40 mg PO BID Paroxetine HCl ER 12.5 mg [Paxil 12.5MG CR] Med 04/24/17 10:00 Active 25 mg PO DAILY Senna/Docusate Sodium Tab [Senokot-S Tablet] Med 04/23/17 16:44 Active 2 udtab PO BID PRN PRN Temazepam 15 mg [Restoril 15 MG] Med 04/23/17 22:00 Discontinued 15 mg PO HS Temazepam 15 mg [Restoril 15 MG] Med 04/23/17 22:00 Discontinued 30 mg PO HS Temazepam 15 mg [Restoril 15 MG] Med 04/24/17 22:00 Active 45 mg PO HS EKG ONCE RT 04/23/17 22:49 Completed EKG ONCE RT 04/24/17 05:00 Completed EKG ONCE RT 04/25/17 05:00 Active EKG ONCE RT 04/26/17 05:00 Active Pulse Oximetry Q4H RT 04/23/17 16:44 Active Respiratory MDI PRN RT 04/23/17 23:46 Active Respiratory Therapy Consult ROUTINE RT 04/23/17 23:47 Completed Smoking Cessation Education ONCE RT 04/23/17 19:41 Completed Code(s): I21.4 - NON-ST ELEVATION (NSTEMI) MYOCARDIAL INFARCTION (2) Elevated troponin I level Current Visit: Yes Status: Acute Code(s): R74.8 - ABNORMAL LEVELS OF OTHER SERUM ENZYMES (3) Orthostatic hypotension Current Visit: Yes Status: Acute Code(s): I95.1 - ORTHOSTATIC HYPOTENSION (4) Syncope due to orthostatic hypotension Current Visit: Yes Status: Acute Code(s): I95.1 - ORTHOSTATIC HYPOTENSION
[2017-04-24] MEDS ORDERED: NON-FORMULARY ITEM (Meloxicam 15 Mg [Meloxicam 15 Mg] 15 MG) PO SCH (10:00)
[2017-04-24] MEDS ORDERED: NORTRIPTYLINE HCL PO SCH (10:00)
[2017-04-24] MEDS: Protonix 40MG Tablet PO SCH ×2 (10:40→21:23)
[2017-04-24] MEDS: ceLEXa 20 MG PO SCH (10:40)
[2017-04-24] MEDS: LIORESAL 10 MG PO SCH ×3 (10:41→21:23)
[2017-04-24] MEDS: Ecotrin 325 MG PO SCH (10:41)
[2017-04-24] MEDS: Pepcid 20 MG PO SCH ×2 (10:41→21:23)
[2017-04-24] MEDS: Zithromax 250 MG TABLET PO SCH (10:41)
[2017-04-24] MEDS: Mobic 7.5 MG PO SCH (10:43)
[2017-04-24] MEDS: Paxil 12.5MG CR PO SCH (10:43)
--- NOTE | 2017-04-24 11:03 | XRAY ---
Indication: Chest pain. Positive troponins. Two-dimensional sonogram and color Doppler imaging of the carotid arteries of the neck performed. Comparison: None Examination of the right carotid circulation demonstrates very minimal soft arteriosclerotic plaquing at the level of the bulb and origin/proximal of the internal carotid artery. PSV of the CCA is 65 cm/s. PSV of the ICA is 96 cm/s. ICA/CCA ratio is 1.5. Normal antegrade vertebral artery flow. Examination of the left carotid circulation widely patent. PSV of the CCA is 71 cm/s. PSV of the ICA is 88 cm/s. ICA/CCA ratio is 1.2. Normal antegrade vertebral artery flow. Comparison: Minimal right carotid arteriosclerotic disease and widely patent left carotid circulation. Velocity measurements and ratios are negative for hemodynamically significant flow-limiting stenosis.
[2017-04-24] MEDS: Nicoderm CQ 21 MG TOP SCH (21:22)
[2017-04-24] MEDS: ENOXAPARIN SODIUM SQ SCH (21:23)
[2017-04-24] MEDS ORDERED: Restoril 15 MG PO SCH (22:00)
[2017-04-25] MEDS: Sodium Chloride 0.9% 1000 ML 1,000 ML IV SCH (00:20)
[2017-04-25] MEDS: Ecotrin 325 MG PO SCH (09:48)
[2017-04-25] MEDS: Zithromax 250 MG TABLET PO SCH (09:48)
[2017-04-25] MEDS: LIORESAL 10 MG PO SCH ×2 (09:48→14:48)
[2017-04-25] MEDS: Protonix 40MG Tablet PO SCH (09:48)
[2017-04-25] MEDS: Pepcid 20 MG PO SCH (09:48)
[2017-04-25] MEDS: ceLEXa 20 MG PO SCH (09:48)
[2017-04-25] MEDS: Mobic 7.5 MG PO SCH (09:49)
[2017-04-25] MEDS: Paxil 12.5MG CR PO SCH (09:49)
--- NOTE | 2017-04-25 13:44 | PCM.NOTE ---
Date and Time: 04/25/17 1343 Subjective Assessment: doing ok - Review of Systems Constitutional: No Fever, No Chills Eyes: No Symptoms Ears, Nose, & Throat: No Symptoms Respiratory: No Cough, No Short Of Breath Cardiac: No Chest Pain, No Edema, No Syncope Abdominal/Gastrointestinal: No Abdominal Pain, No Nausea, No Vomiting, No Diarrhea Genitourinary Symptoms: No Dysuria Musculoskeletal: No Back Pain, No Neck Pain Skin: No Rash Neurological: No Dizziness, No Focal Weakness, No Sensory Changes Psychological: No Symptoms Endocrine: No Symptoms Hematologic/Lymphatic: No Symptoms Immunological/Allergic: No Symptoms Objective Exam General Appearance: no apparent distress, alert Neurologic Exam: alert, oriented x 3, cooperative, normal mood/affect, nml cerebellar function, sensation nml, No motor deficits Skin Exam: normal color, warm, dry Eye Exam: PERRL, EOMI, eyes nml inspection Ears, Nose, Throat Exam: normal ENT inspection, pharynx normal, moist mucous membranes Neck Exam: normal inspection, non-tender, supple, full range of motion Respiratory Exam: normal breath sounds, lungs clear, No respiratory distress Cardiovascular Exam: regular rate/rhythm, normal heart sounds Gastrointestinal/Abdomen Exam: soft, No tenderness, No mass Extremity Exam: normal inspection, normal range of motion Back Exam: normal inspection, normal range of motion, No CVA tenderness, No vertebral tenderness Pelvic Exam: deferred Rectal Exam: deferred OBJECTIVE DATA Vital Signs: Vital Signs - 24 hr Temp Pulse Resp BP Pulse Ox 04/25/17 11:42 98 F 71 14 120/89 97 04/25/17 08:00 72 14 118/82 97 04/25/17 04:00 97.6 F 74 14 118/82 97 04/25/17 00:00 97.9 F 71 12 110/76 97 04/24/17 20:00 97.9 F 82 16 127/80 99 04/24/17 18:43 88 20 96 04/24/17 16:00 98.3 F 73 20 123/77 98 04/24/17 15:59 100 04/24/17 15:58 12 Pain Assessment - Last Documented Pain Intensity 0 Pain Scale Used 0-10 Pain Scale Intake and Output: Intake & Output 04/23/17 04/24/17 04/25/17 04/26/17 11:59 11:59 11:59 11:59 Intake Total 1756 4371 Balance 1756 4371 Weight 76.6 kg 80.6 kg Lab Results: Accuchecks Date 04/25/17 Date 04/25/17 Date 04/24/17 Time 11:06 Time 08:08 Time 21:30 Accucheck Value: 74 Accucheck Value: 80 Accucheck Value: 85 Accucheck Value: 81 Radiology Exams: Radiology Procedures Category Date Time Status CAROTID BILATERAL [US] Urgent Exams 04/24/17 10:50 Completed ECHO W/2D AND DOPPLER [US] Routine Exams 04/24/17 10:50 Taken Assessment/Plan (1) NSTEMI (non-ST elevated myocardial infarction) Current Visit: Yes Status: Resolved Code(s): I21.4 - NON-ST ELEVATION ( NSTEMI) MYOCARDIAL INFARCTION (2) Elevated troponin I level Current Visit: Yes Status: Resolved Code(s): R74.8 - ABNORMAL LEVELS OF OTHER SERUM ENZYMES (3) Orthostatic hypotension Current Visit: Yes Status: Resolved Code(s): I95.1 - ORTHOSTATIC HYPOTENSION (4) Syncope due to orthostatic hypotension Current Visit: Yes Status: Resolved Code(s): I95.1 - ORTHOSTATIC HYPOTENSION
[2017-04-25 15:50] VITALS: BP 125/79; PULSE 76; O2SAT 98
--- NOTE | 2017-04-26 08:23 | CONS ---
CONSULT DATE: 04/25/17 BRIEF HISTORY: This is a 51 y/o female who was seen because of passing out spells which have been going on for the last 1 month. She states that when she gets up she would faint. There were no reports of seizure activity. She finally was admitted to the hospital. Her serial troponin I is just marginally elevated. She denies any chest pains. She has had previous cardiac catheterization which shows no significant disease. She has undergone a bariatric surgery and a lot of those medications have been discontinued. However, she is still on 3 antidepressants and this has been adjusted. She denies any shortness of breath. No peripheral edema. CARDIOVASCULAR RISK FACTORS: Negative for diabetes. No hypertension. She has a history of smoking. 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 RESPIRATORY: No chronic cough. No hemoptysis. GI: No history of peptic ulcer or colon disorder. : Negative for dysuria. No hematuria. PERIPHERAL VASCULAR: No history of deep vein thrombosis or claudications. PHYSICAL EXAMINATION: Her BP is 141/88 with heart rate 77, respirations about 14. GENERAL: The patient is a middle-aged female who is alert and oriented who is not in any form of distress. HEENT: Unremarkable. NECK: No significant JVD. No carotid bruit. CHEST: The breath sounds are clear. CARDIAC: Heart tones are normal. There is no audible gallop. The rhythm is regular. ABDOMEN: Soft with normal bowel sounds. No bruit. EXTREMITIES: No significant edema with palpable distal pulses. The EKG shows normal sinus rhythm with poor R progression. CONCLUSION: IN ESSENCE, THE PATIENT HAD SOME EPISODES OF FAINTING SPELLS AND MAY BE SECONDARY TO SOME ORTHOSTASIS. Agree with stopping some of her antidepressants. Will continue to monitor her symptoms. If she continues to have fainting spells, she is to let me know. Her troponin I is marginally elevated, but she does have chest pains. I don't think she has any acute coronary syndromes at this time. Her previous cardiac catheterization did not show any significant disease. Will follow her up in the clinic.
--- NOTE | 2017-04-30 12:45 | ECHO ---
Transthoracic echocardiographic examination and color Doppler was done on 04/24/2017. INDICATION: Chest pain, history of myocardial infarction. IMPRESSION: 1) MILD LEFT VENTRICULAR HYPOKINESIA. EJECTION FRACTION AROUND 45%. 2) TRACE MITRAL REGURGITATION. 3) LEFT VENTRICULAR DIASTOLIC DYSFUNCTION. 4) LEFT VENTRICULAR HYPERTROPHY. The left ventricle is visualized and demonstrated mild left ventricular hypokinesia. Ejection fraction around 45%. There is mild left ventricular hypertrophy. The mitral valve is seen and this opens adequately. There trace mitral regurgitation. The aortic valve opens adequately. The right side chambers are normal. The Doppler study of the lateral mitral annulus suggested left ventricular diastolic dysfunction.
== END 2017-04-25 18:06 | disposition home or self-care (01) | DRG 282 ==
LOC: ED 14:02 → ICU 17:24
PROVIDERS: ADMIT General Practice; ATTEND General Practice
DX: I21.4 Non-ST elevation (NSTEMI) myocardial infarction (principal); R74.8 Abnormal levels of other serum enzymes; I95.1 Orthostatic hypotension; Z87.891 Personal history of nicotine dependence; Z79.899 Other long term (current) drug therapy; Z98.84 Bariatric surgery status
CPT/HCPCS: 36000; 36415; 71010; 71260; 80053; 80061; 82962; 83721; 84484; 85025; 85379; 85610; 93005; 93041; 93306; 93880; 94640; 96360; 96361; 99285; G0481; J1650; A9270-GY

== ENCOUNTER 2022-05-30 09:36 | Inpatient (IN) | payer OTHER ==
[2022-05-30] MEDS ORDERED: Sodium Chloride 0.9% 1000 ML 1,000 ML IV STA ×4 (10:00→13:02)
[2022-05-30] MEDS ORDERED: solu-MEDROL 125 MG, Sterile H2O 10 ml 2 ML IV ONE ×2 (10:00)
--- NOTE | 2022-05-30 10:34 | XRAY ---
Indication: Fever and cough. Comparison: April 23, 2017 Portable chest demonstrates new moderate left perihilar and mild right midlung hazy airspace disease without large effusion. Heart not enlarged. Bony thorax intact with mild degenerative changes.
[2022-05-30] MEDS ORDERED: Sodium Chloride 0.9% 1000 ML 1,000 ML ONE ×4 (10:42→13:02)
[2022-05-30] MEDS ORDERED: Sterile H2O 10 ml IJ ONE (10:42)
[2022-05-30] MEDS ORDERED: solu-MEDROL ONE (10:42)
[2022-05-30] MEDS ORDERED: SUBLIMAZE 100 MCG/2 ML IV ONE (11:17)
[2022-05-30 11:24] LABS: Hemoglobin 10.2 g/dL (12.0-16.0); Mean Cell Volume 86.6 fL (78-100); Mean Corpuscular Hemoglobin 26.8 pg (26-32); Mean Corpuscular Hgb Concent. 30.9 g/dL (32-36); Mean Platelet Volume 9.6 fL (7.5-11.0); Platelet Count 342 x10^3/uL (150-450); Red Blood Count 3.81 x10^6/uL (4.1-5.4); Red Cell Distribution Width 18.3 % (11.5-14.0); White Blood Count 23.4 x10^3/uL (4.0-10.5)
--- NOTE | 2022-05-30 11:37 | ERPHSYRPT ---
- History of Present Illness Time Seen by Provider: 05/30/22 11:35 Source: patient Exam Limitations: clinical condition Patient Subjective Stated Complaint: C/O migraine headache for 3 days. States that she currently has body aches and has been chilling. Patient reports that she had some nasal congestion prior to the start of the migraine. She is c/o weakness related to a decreased appetite; states nausea and diarrhea started last night. Triage Nursing Assessment: Patient brought back to ED in a W/C. She is alert and oriented. No SOB. Skin is pale, warm, dry, loose. Patient was able to transfer from w/c to bed with stand-by assist. Cough noted during assessment; patient reports this is not new, has been a smoker for years. Physician History: Patient is a 56-year-old female heavy smoker presents with a complaint of migraine headache for 3 days. She also complains of profound weakness. She is noted decreased urine output she has had fever since yesterday she has had generalized body aches and joint aches. Her appetite has been down she had nausea vomiting and diarrhea which started last night. She started feeling bad Saturday night and has been getting steadily worse.Patient stated that she has not urinated for 2 days. Timing/Duration: day(s) (4), worse Severity: severe Associated Symptoms: nausea, vomiting, shortness of breath, cough, fever, headaches, weakness Allergies/Adverse Reactions: divalproex sodium [From Depakote] Allergy (Verified 05/30/22 09:55) hives morphine Allergy (Verified 05/30/22 09:55) migraine Sulfa (Sulfonamide Antibiotics) Allergy (Verified 05/30/22 09:55) nausea and vomiting Home Medications: Citalopram Hydrobromide 20 mg* [ceLEXa 20 MG] 20 mg PO DAILY 04/23/17 [History] Famotidine 20 mg [Pepcid 20 MG] 20 mg PO HS 04/23/17 [History] Meloxicam 15 mg [Meloxicam 15 MG] 15 mg PO HS 04/23/17 [History] Pantoprazole Sodium [Protonix] 40 mg PO DAILY 04/23/17 [History] Fluoxetine HCl 20 mg [Prozac 20 MG] 1 cap PO DAILY 05/30/22 [History] Furosemide [Lasix] 1 tab PO DAILY 05/30/22 [History] Loratadine 10 mg [Claritin 10 mg] 1 tab PO DAILY PRN 05/30/22 [History] Montelukast Sodium 10 mg [Singulair 10 MG] 1 tab PO HS 05/30/22 [History] Ondansetron [Ondansetron Odt] 1 tab PO Q4-6HPRN PRN 05/30/22 [History] Ubrogepant [Ubrelvy] 1 tab PO Q2H/PRN PRN 05/30/22 [History] Verapamil HCl [Verapamil ER Pm] 1 cap PO HS 05/30/22 [History] lamoTRIgine [Lamotrigine] 1 tab PO TID 05/30/22 [History] Hx Tetanus, Diphtheria Vaccination/Date Given: Yes Hx Influenza Vaccination/Date Given: Yes Hx Pneumococcal Vaccination/Date Given: No Immunizations Up to Date: Yes Travel Risk - International Travel Have you traveled outside of the country in past 3 weeks: No - Coronavirus Screening Are you exhibiting any of the following symptoms?: Yes Symptoms: Fever, Cough: New Onset, Vomiting/Diarrhea, Headaches/Body Aches/Fatigue Close contact with a COVID-19 positive Pt in past 14-21 Days: No - Vaccine Status Have you recieved a Covid-19 vaccination: Yes Clinical Psychiatrist: Moderna - Vaccination Dates Date of 2cond Vaccination (if applicable): ? - Review of Systems Constitutional: Fever, Weakness, No Chills Eyes: No Symptoms Ears, Nose, & Throat: No Symptoms Respiratory: Cough, No Dyspnea Cardiac: No Chest Pain, No Edema, No Syncope Abdominal/Gastrointestinal: Nausea, Vomiting, Diarrhea, No Abdominal Pain Genitourinary Symptoms: No Dysuria Musculoskeletal: No Back Pain, No Neck Pain Skin: No Rash Neurological: No Dizziness, No Focal Weakness, No Sensory Changes Psychological: No Symptoms Endocrine: No Symptoms All Other Systems: Reviewed and Negative - Past Medical History Pertinent Past Medical History: Yes Neurological History: Migraines ENT History: Cataracts Cardiac History: No Pertinent History Respiratory History: Asthma, COPD Endocrine Medical History: No Pertinent History Musculoskeletal History: No Pertinent History GI Medical History: Gallbladder Disease History: No Pertinent History Psycho-Social History: Anxiety, Depression Female Reproductive Disorders: No Pertinent History Other Medical History: HYPOGLYCEMIA - Past Surgical History Past Surgical History: Yes Neuro Surgical History: No Pertinent History Cardiac: No Pertinent History Respiratory: No Pertinent History Gastrointestinal: Cholecystectomy, Other Genitourinary: No Pertinent History Female Surgical History: Section, Other Other Surgical History: gastric bypass - Social History Smoking Status: Current every day smoker How long have you smoked: "LONG TIME Exposure to second hand smoke: Yes Alcohol Use: Socially Drug Use: none Patient Lives Alone: No Significant Family History: no pertinent family hx - Nursing Vital Signs Nursing Vital Signs: Initial Vital Signs Temperature 98.3 F 05/30/22 09:55 Pulse Rate 74 05/30/22 09:55 Respiratory Rate 20 05/30/22 09:55 Blood Pressure 84/35 05/30/22 09:55 O2 Sat by Pulse Oximetry 99 05/30/22 09:55 Pain Scale Pain Intensity 10 - Physical Exam General Appearance: moderate distress Eye Exam: PERRL/EOMI, eyes nml inspection Ears, Nose, Throat Exam: dry mucous membranes Neck Exam: normal inspection, non-tender, supple, full range of motion Respiratory Exam: respiratory distress (Mild), airway intact, crackles/rales, rhonchi Cardiovascular Exam: regular rate/rhythm Gastrointestinal/Abdomen Exam: soft, normal bowel sounds Pelvic Exam: not done Rectal Exam: deferred Back Exam: normal inspection Extremity Exam: normal inspection Neurologic Exam: alert, oriented x 3 Skin Exam: normal color, warm, dry SpO2 Interpretation: normal SpO2: 96 O2 Delivery: Room Air - Course EKG Interpreted by Me: RATE (76), Sinus Rhythm, NORMAL AXIS, NORMAL INTERVALS, NORMAL ST-T - Radiology Exams Chest X-ray Interpretation: Reviewed by me - CT Exams Chest CT Interpretation: Other (CT scan shows bilateral pneumonia) Ordered Tests: Active Orders 24 hr Category Date Time Status EKG-ER Only STAT Care 05/30/22 10:00 Active CHEST 1 VIEW (PORTABLE) Stat Exams 05/30/22 10:01 Completed CHEST WITHOUT CONTRAST [CT] Stat Exams 05/30/22 10:47 Completed BLOOD CULTURE Stat Lab 05/30/22 11:05 Received CBC W DIFF Stat Lab 05/30/22 10:55 Completed CMP Stat Lab 05/30/22 10:55 Received CULTURE,URINE Stat Lab 05/30/22 10:03 Ordered D-DIMER QUANTITATIVE Stat Lab 05/30/22 10:55 Completed Lactic Acid Stat Lab 05/30/22 11:10 Completed Lactic Acid Stat Lab 05/30/22 13:13 Received Manual Differential NC Stat Lab 05/30/22 10:55 Completed PROCALCITONIN Stat Lab 05/30/22 10:55 Completed TROPONIN Q4H Lab 05/30/22 14:15 Ordered TROPONIN Q4H Lab 05/30/22 18:15 Ordered TROPONIN Q4H Lab 05/30/22 22:15 Ordered UA W/RFX UR CULTURE Stat Lab 05/30/22 10:00 Ordered Medication Summary Generic Name Dose Route Start Last Admin Trade Name Freq PRN Reason Stop Dose Admin Sodium Chloride 1,000 mls @ 999 mls/hr 05/30/22 13:02 05/30/22 13:03 Sodium Chloride 0.9% 1000 Ml IV 05/30/22 14:02 999 mls/hr .Q1H1M STA Administration Discontinued Medications Generic Name Dose Route Start Last Admin Trade Name Freq PRN Reason Stop Dose Admin Methylprednisolone Sodium 0 mg 05/30/22 10:00 05/30/22 10:43 Succinate 125 mg/ Sterile IV 05/30/22 10:01 125 mg Water 2 ml STAT ONE Administration Fentanyl Citrate 50 mcg 05/30/22 11:17 Fentanyl Citrate 100 Mcg/2 Ml* Vial IV 05/30/22 11:18 STAT ONE Sodium Chloride 1,000 mls @ 999 mls/hr 05/30/22 10:00 05/30/22 11:45 Sodium Chloride 0.9% 1000 Ml IV 05/30/22 11:00 Infused .Q1H1M STA Infusion Sodium Chloride Confirm 05/30/22 10:42 Sodium Chloride 0.9% 1000 Ml Administered 05/30/22 10:43 Dose 1,000 mls @ ud .ROUTE .STK-MED ONE Sodium Chloride 1,000 mls @ 999 mls/hr 05/30/22 11:40 05/30/22 12:51 Sodium Chloride 0.9% 1000 Ml IV 05/30/22 12:40 Infused .Q1H1M STA Infusion Sodium Chloride Confirm 05/30/22 11:40 Sodium Chloride 0.9% 1000 Ml Administered 05/30/22 11:41 Dose 1,000 mls @ ud .ROUTE .STK-MED ONE Sodium Chloride 1,000 mls @ 999 mls/hr 05/30/22 11:45 05/30/22 12:51 Sodium Chloride 0.9% 1000 Ml IV 05/30/22 12:45 Infused .Q1H1M STA Infusion Ceftriaxone Sodium/Dextrose 2 g in 50 mls @ 100 mls/hr 05/30/22 11:45 05/30/22 12:19 Rocephin 2 Gm-D5w 50ml Bag IV 05/30/22 12:14 Infused STAT STA Infusion Sodium Chloride Confirm 05/30/22 11:44 Sodium Chloride 0.9% 1000 Ml Administered 05/30/22 11:45 Dose 1,000 mls @ ud .ROUTE .STK-MED ONE Ceftriaxone Sodium/Dextrose Confirm 05/30/22 11:46 Rocephin 2 Gm-D5w 50ml Bag Administered 05/30/22 11:47 Dose 2 g in 50 mls @ ud IV .STK-MED ONE Sodium Chloride Confirm 05/30/22 13:02 Sodium Chloride 0.9% 1000 Ml Administered 05/30/22 13:03 Dose 1,000 mls @ ud .ROUTE .STK-MED ONE Methylprednisolone Sodium Succinate Confirm 05/30/22 10:42 Methylprednis Sod Succ 125 Mg/2 Ml Vial Administered 05/30/22 10:43 Dose 125 mg .ROUTE .STK-MED ONE Sterile Water Confirm 05/30/22 10:42 Water For Injection,Sterile 10 Ml Vial Administered 05/30/22 10:43 Dose 10 ml IJ .STK-MED ONE Lab/Rad Data: Laboratory Result Diagrams 05/30/22 10:55 05/30/22 10:55 Laboratory Results 05/30/22 05/30/22 05/30/22 Range/Units 11:10 10:55 10:55 WBC (4.0-10.5) x10^3/uL RBC (4.1-5.4) x10^6/uL Hgb (12.0-16.0) g/dL Hct (35-47) % MCV (78-100) fL MCH (26-32) pg MCHC (32-36) g/dL RDW (11.5-14.0) % Plt Count (150-450) x10^3/uL MPV (7.5-11.0) fL Segmented Neutrophils (36.0-66.0) % Band Neutrophils (0.0-2.0) % Lymphocytes (Manual) (24-44) % Monocytes (Manual) (0.0-12.0) % Eosinophils (Manual) (0.00-3.0) % Toxic Granulation Platelet Estimate (NORMAL) RBC Morphology D-Dimer (0.0-0.50) mg/L Sodium Direct (138-146) mmol/L Potassium (3.5-4.9) mmol/L Chloride (98-109) mmol/L Carbon Dioxide (24-29) mmol/L Venous BUN (8-26) mg/dL Creatinine (0.6-1.3) mg/dL Glucose (70-105) mg/dL Lactic Acid 4.3 H (0.4-2.0) Ionized Calcium (1.12-1.32) mmol/L Troponin (0.00-0.03) ng/mL Troponin I Procalcitonin 14.500 H* (0.030-0.080) ng/mL Influenza Type A Ag NEGATIVE (NEGATIVE) Influenza Type B Ag NEGATIVE (NEGATIVE) RSV (PCR) NEGATIVE (Negative) SARS-CoV-2 (PCR) NEGATIVE (NEGATIVE) 05/30/22 05/30/22 05/30/22 Range/Units 10:55 10:55 10:55 WBC 23.4 H (4.0-10.5) x10^3/uL RBC 3.81 L (4.1-5.4) x10^6/uL Hgb 10.2 L (12.0-16.0) g/dL Hct 33.0 L (35-47) % MCV 86.6 (78-100) fL MCH 26.8 (26-32) pg MCHC 30.9 L (32-36) g/dL RDW 18.3 H (11.5-14.0) % Plt Count 342 (150-450) x10^3/uL MPV 9.6 (7.5-11.0) fL Segmented Neutrophils 78 H (36.0-66.0) % Band Neutrophils 6 H (0.0-2.0) % Lymphocytes (Manual) 13 L (24-44) % Monocytes (Manual) 1 (0.0-12.0) % Eosinophils (Manual) 2 (0.00-3.0) % Toxic Granulation 2+ Platelet Estimate NORMAL (NORMAL) RBC Morphology NORMAL D-Dimer 1.26 H* (0.0-0.50) mg/L Sodium Direct 135 L (138-146) mmol/L Potassium 4.8 (3.5-4.9) mmol/L Chloride 103 (98-109) mmol/L Carbon Dioxide 19 L (24-29) mmol/L Venous BUN 37 H (8-26) mg/dL Creatinine 3.6 H (0.6-1.3) mg/dL Glucose 58 L (70-105) mg/dL Lactic Acid (0.4-2.0) Ionized Calcium 1.05 L (1.12-1.32) mmol/L Troponin 0.01 (0.00-0.03) ng/mL Troponin I Cancelled Procalcitonin (0.030-0.080) ng/mL Influenza Type A Ag (NEGATIVE) Influenza Type B Ag (NEGATIVE) RSV (PCR) (Negative) SARS-CoV-2 (PCR) (NEGATIVE) - Progress Progress: unchanged - Departure Departure Disposition: In-patient Admission Clinical Impression: Bilateral pneumonia, Acute kidney injury, Hypotension, Sepsis, Weakness Condition: Serious Critical Care Time: Yes Critical Care Time(excluding separately billable procedures): Critical 30-74 mins (55 minutes) Referrals: VIRGEN JONES MD [Primary Care Provider] - Follow up/PCP as directed
[2022-05-30] MEDS ORDERED: ROCEPHIN 2 Gm-D5w 50ML BAG** 2 G/50 ML IVPB IV STA (11:45)
[2022-05-30 11:46] LABS: BAND 6 % (0.0-2.0); Eosinophil 2 % (0.00-3.0); Lymphocytes 13 % (24-44); Monocyte 1 % (0.0-12.0); Neutrophils 78 % (36.0-66.0); Platelet Estimate NORMAL (NORMAL); Total Cells Counted 100
[2022-05-30] MEDS ORDERED: ROCEPHIN 2 Gm-D5w 50ML BAG** 2 G/50 ML IVPB IV ONE (11:46)
[2022-05-30 11:47] LABS: Toxic Granulation 2+
[2022-05-30 12:02] LABS: INFLUENZA A NEGATIVE (NEGATIVE); INFLUENZA B NEGATIVE (NEGATIVE); RESPIRATORY SYNCTIAL VIRUS NEGATIVE (Negative); SARS-CoV-2 Xpert Express NEGATIVE (NEGATIVE)
[2022-05-30 12:07] LABS: ISTAT CREA 3.6 mg/dL (0.6-1.3); ISTAT K 4.8 mmol/L (3.5-4.9); ISTAT iCA 1.05 mmol/L (1.12-1.32)
[2022-05-30 12:39] LABS: ISTAT cTNI 0.01 ng/mL (0.00-0.03)
--- NOTE | 2022-05-30 12:59 | XRAY ---
Indication: Chest pain and short of breath. Headache. Multiple contiguous axial images obtained through the chest without contrast. Comparison: April 06, 2022 New moderate-sized superior segment left lower lobe consolidating airspace disease. Also new smaller patchy right middle lobe consolidating airspace disease. No effusion or pneumothorax. Stable inferior right upper lobe fibrosis/scarring and tiny right lower lobe calcified granuloma. Heart not enlarged. Aorta is normal in course and caliber. Stable tiny right hilar calcified node. No pathologic mediastinal lymphadenopathy. Bony thorax intact again with mild degenerative changes of the spine and small multilevel Schmorl nodes. Limited upper abdomen again demonstrates gastric bypass surgery. Impression: New left lower lobe and lesser degree right middle lobe consolidating airspace disease.
[2022-05-30] MEDS ORDERED: DUONEB 0.5-3 MG/3 ml Neb IH ONE ×2 (13:58→14:01)
[2022-05-30] MEDS: Sodium Chloride 0.9% 1000 ML 1,000 ML IV SCH (14:55)
[2022-05-30] MEDS ORDERED: PHARMACY DOSING REQUEST MC ONE ×2 (16:37→16:39)
[2022-05-30] MEDS ORDERED: NON-FORMULARY ITEM (Ubrogepant [Ubrelvy] 100 MG Tablet) PO PRN (16:48)
[2022-05-30] MEDS ORDERED: NON-FORMULARY ITEM (Ondansetron 4 MG Tab.Rapdis) PO PRN (16:48)
[2022-05-30] MEDS ORDERED: ZOFRAN ODT 4 MG PO PRN (16:54)
[2022-05-30] MEDS ORDERED: MEDICATION INTERVENTION MC SCH ×2 (17:00)
[2022-05-30] MEDS ORDERED: VENTOLIN COMMON CANISTER IH PRN (17:20)
[2022-05-30] MEDS: PIPERACILLIN/TAZOBACTAM 4.5 GM in Sodium Chloride 100ML MINI-BAG PLUS 100 ML IV SCH ×2 (17:53→23:59)
[2022-05-30] MEDS: Nicoderm CQ 21 MG TOP SCH (17:54)
--- NOTE | 2022-05-30 18:19 | PCM.HP ---
History of Present Illness - Chief Complaint Chief Complaint: headache and weakness for 3 days History of Present Illness: is a 56 year old female.heavy smoker presents with a complaint of migraine headache for 3 days. She also complains of profound weakness. She is noted decreased urine output she has had fever since yesterday she has had generalized body aches and joint aches. Her appetite has been down she had nausea vomiting and diarrhea which started last night. She started feeling bad Saturday night and has been getting steadily worse.Patient stated that she has not urinated for 2 days. Timing/Duration: day(s) (4), worse Severity: severe Associated Symptoms: nausea, vomiting, shortness of breath, cough, fever, headaches, weakness - Review of Systems Constitutional: Fever, Chills, Fatigue, Lethargy, Malaise, Weakness Eyes: No Symptoms Ears, Nose, & Throat: No Symptoms Respiratory: Cough, Orthopnea, Short Of Breath, Wheezing Cardiac: Orthopnea, No Chest Pain, No Edema, No Syncope Abdominal/Gastrointestinal: No Abdominal Pain, No Nausea, No Vomiting, No Diarrhea Genitourinary Symptoms: No Dysuria Musculoskeletal: No Back Pain, No Neck Pain Skin: No Rash Neurological: Headache, No Dizziness, No Focal Weakness, No Sensory Changes Psychological: No Symptoms Endocrine: No Symptoms Hematologic/Lymphatic: No Symptoms Immunological/Allergic: No Symptoms Medications & Allergies Home Medications: Home Medication List Citalopram Hydrobromide 20 mg* [ceLEXa 20 MG] 20 mg PO DAILY 04/23/17 [History Confirmed 05/30/22] Famotidine 20 mg [Pepcid 20 MG] 20 mg PO HS 04/23/17 [History Confirmed 05/30/22] Meloxicam 15 mg [Meloxicam 15 MG] 15 mg PO HS 04/23/17 [History Confirmed 05/30/22] Pantoprazole Sodium [Protonix] 40 mg PO DAILY 04/23/17 [History Confirmed 05/30/22] Fluoxetine HCl 20 mg [Prozac 20 MG] 20 mg PO DAILY 05/30/22 [History Confirmed 05/30/22] Fluticasone/Umeclidin/Vilanter [Trelegy Ellipta 100-62.5-25] 1 puff IH DAILY 05/30/22 [History Confirmed 05/30/22] Furosemide [Lasix] 20 mg PO DAILY 05/30/22 [History Confirmed 05/30/22] Loratadine 10 mg [Claritin 10 mg] 10 mg PO DAILY 05/30/22 [History Confirmed 05/30/22] Montelukast Sodium 10 mg [Singulair 10 MG] 10 mg PO HS 05/30/22 [History Confirmed 05/30/22] Ondansetron [Ondansetron Odt] 4 mg PO Q8H PRN PRN 05/30/22 [History Confirmed 05/30/22] Ubrogepant [Ubrelvy] 100 mg PO Q2H/PRN PRN 05/30/22 [History Confirmed 05/30/22] Verapamil HCl [Verapamil ER Pm] 200 mg PO HS 05/30/22 [History Confirmed 05/30/22] lamoTRIgine [Lamotrigine] 200 mg PO TID 05/30/22 [History Confirmed 05/30/22] Allergies/Adverse Reactions: Allergies Allergy/AdvReac Type Severity Reaction Status Date / Time divalproex sodium Allergy Verified 05/30/22 09:55 [From Depakote] morphine Allergy Verified 05/30/22 09:55 Sulfa (Sulfonamide Allergy Verified 05/30/22 09:55 Antibiotics) - Past Medical History Past Medical History: Yes Neurological History: Migraines ENT History: Cataracts Cardiac History: No Pertinent History Respiratory History: Asthma, COPD Endocrine Medical History: No Pertinent History Musculoskelatal History: No Pertinent History GI Medical History: Gallbladder Disease History: No Pertinent History Pyscho-Social History: Anxiety, Depression Reproductive Disorders: No Pertinent History Comment: HYPOGLYCEMIA - Female History Are you now?: No - Past Surgical History Past Surgical History: Yes Neuro Surgical History: No Pertinent History Cardiac History: No Pertinent History Respiratory Surgery: No Pertinent History GI Surgical History: Cholecystectomy, Other Genitourinary Surgical Hx: No Pertinent History Female Surgical History: Section, Other Other Surgical History: gastric bypass - Social History Smoking Status: Heavy tobacco smoker How long have you smoked: 20 years Exposure to second hand smoke: No Alcohol: None Drug Use: none Significant Family History: no pertinent family hx - Physical Exam Vital Signs: Vital Signs - 24 hr Temp Pulse Resp BP Pulse Ox 05/30/22 17:23 78 22 97 05/30/22 15:29 77 18 97/48 100 05/30/22 15:18 97.7 F 80 15 97/48 98 05/30/22 15:04 78 19 77/53 99 05/30/22 14:02 96 05/30/22 13:38 76 18 87/51 96 05/30/22 12:47 78 19 86/56 99 05/30/22 11:48 78 20 52/30 98 05/30/22 10:36 81 16 69/35 96 05/30/22 09:55 98.3 F 74 20 84/35 99 General Appearance: no apparent distress, moderate distress, alert Neurologic Exam: alert, oriented x 3, cooperative, switching operator II-XII nml as tested, sensation nml, No motor deficits Eye Exam: PERRL/EOMI, eyes nml inspection Ears, Nose, Throat Exam: normal ENT inspection, TMs normal, pharynx normal, moist mucous membranes Neck Exam: normal inspection, non-tender, supple, full range of motion Respiratory Exam: diminished breath sounds, crackles/rales, rhonchi, wheezing, No respiratory distress Cardiovascular Exam: regular rate/rhythm, normal heart sounds, normal peripheral pulses Gastrointestinal/Abdomen Exam: soft, normal bowel sounds, No tenderness, No mass Back Exam: normal inspection, normal range of motion, No CVA tenderness, No vertebral tenderness Extremity Exam: normal inspection, normal range of motion, pelvis stable Skin Exam: normal color, warm, dry, No rash Lymphatic Exam: No adenopathy Results - Labs Lab/Micro Results: Lab Results-Last 24 Hours 05/30/22 05/30/22 05/30/22 Range/Units 10:55 10:55 10:55 WBC 23.4 H (4.0-10.5) x10^3/uL RBC 3.81 L (4.1-5.4) x10^6/uL Hgb 10.2 L (12.0-16.0) g/dL Hct 33.0 L (35-47) % MCV 86.6 (78-100) fL MCH 26.8 (26-32) pg MCHC 30.9 L (32-36) g/dL RDW 18.3 H (11.5-14.0) % Plt Count 342 (150-450) x10^3/uL MPV 9.6 (7.5-11.0) fL Segmented Neutrophils 78 H (36.0-66.0) % Band Neutrophils 6 H (0.0-2.0) % Lymphocytes (Manual) 13 L (24-44) % Monocytes (Manual) 1 (0.0-12.0) % Eosinophils (Manual) 2 (0.00-3.0) % Toxic Granulation 2+ Platelet Estimate NORMAL (NORMAL) RBC Morphology NORMAL D-Dimer 1.26 H* (0.0-0.50) mg/L Sodium Direct 135 L (138-146) mmol/L Potassium 4.8 (3.5-4.9) mmol/L Chloride 103 (98-109) mmol/L Carbon Dioxide 19 L (24-29) mmol/L Venous BUN 37 H (8-26) mg/dL Creatinine 3.6 H (0.6-1.3) mg/dL Glucose 58 L (70-105) mg/dL POC Glucometer (74 to 106) mg/dL Lactic Acid (0.4-2.0) Ionized Calcium 1.05 L (1.12-1.32) mmol/L Troponin 0.01 (0.00-0.03) ng/mL Troponin I Cancelled Procalcitonin (0.030-0.080) ng/mL Influenza Type A Ag (NEGATIVE) Influenza Type B Ag (NEGATIVE) RSV (PCR) (Negative) SARS-CoV-2 (PCR) (NEGATIVE) 05/30/22 05/30/22 05/30/22 Range/Units 10:55 10:55 11:10 WBC (4.0-10.5) x10^3/uL RBC (4.1-5.4) x10^6/uL Hgb (12.0-16.0) g/dL Hct (35-47) % MCV (78-100) fL MCH (26-32) pg MCHC (32-36) g/dL RDW (11.5-14.0) % Plt Count (150-450) x10^3/uL MPV (7.5-11.0) fL Segmented Neutrophils (36.0-66.0) % Band Neutrophils (0.0-2.0) % Lymphocytes (Manual) (24-44) % Monocytes (Manual) (0.0-12.0) % Eosinophils (Manual) (0.00-3.0) % Toxic Granulation Platelet Estimate (NORMAL) RBC Morphology D-Dimer (0.0-0.50) mg/L Sodium Direct (138-146) mmol/L Potassium (3.5-4.9) mmol/L Chloride (98-109) mmol/L Carbon Dioxide (24-29) mmol/L Venous BUN (8-26) mg/dL Creatinine (0.6-1.3) mg/dL Glucose (70-105) mg/dL POC Glucometer (74 to 106) mg/dL Lactic Acid 4.3 H (0.4-2.0) Ionized Calcium (1.12-1.32) mmol/L Troponin (0.00-0.03) ng/mL Troponin I Procalcitonin 14.500 H* (0.030-0.080) ng/mL Influenza Type A Ag NEGATIVE (NEGATIVE) Influenza Type B Ag NEGATIVE (NEGATIVE) RSV (PCR) NEGATIVE (Negative) SARS-CoV-2 (PCR) NEGATIVE (NEGATIVE) 05/30/22 05/30/22 05/30/22 Range/Units 13:13 14:33 16:34 WBC (4.0-10.5) x10^3/uL RBC (4.1-5.4) x10^6/uL Hgb (12.0-16.0) g/dL Hct (35-47) % MCV (78-100) fL MCH (26-32) pg MCHC (32-36) g/dL RDW (11.5-14.0) % Plt Count (150-450) x10^3/uL MPV (7.5-11.0) fL Segmented Neutrophils (36.0-66.0) % Band Neutrophils (0.0-2.0) % Lymphocytes (Manual) (24-44) % Monocytes (Manual) (0.0-12.0) % Eosinophils (Manual) (0.00-3.0) % Toxic Granulation Platelet Estimate (NORMAL) RBC Morphology D-Dimer (0.0-0.50) mg/L Sodium Direct (138-146) mmol/L Potassium (3.5-4.9) mmol/L Chloride (98-109) mmol/L Carbon Dioxide (24-29) mmol/L Venous BUN (8-26) mg/dL Creatinine (0.6-1.3) mg/dL Glucose (70-105) mg/dL POC Glucometer 103 (74 to 106) mg/dL Lactic Acid 2.5 H (0.4-2.0) Ionized Calcium (1.12-1.32) mmol/L Troponin (0.00-0.03) ng/mL Troponin I < 0.012 Procalcitonin (0.030-0.080) ng/mL Influenza Type A Ag (NEGATIVE) Influenza Type B Ag (NEGATIVE) RSV (PCR) (Negative) SARS-CoV-2 (PCR) (NEGATIVE) Accuchecks Date 05/30/22 Time 16:35 - Radiology Impressions Radiology Exams & Impressions: Radiology Procedures Category Date Time Status CHEST 1 VIEW (PORTABLE) Stat Exams 05/30/22 10:01 Completed CHEST WITHOUT CONTRAST [CT] Stat Exams 05/30/22 10:[address]/CHEST WITHOUT CONTRAST Indication: Chest pain and short of breath. Headache. Multiple contiguous axial images obtained through the chest without contrast. Comparison: April 06, 2022 New moderate-sized superior segment left lower lobe consolidating airspace disease. Also new smaller patchy right middle lobe consolidating airspace disease. No effusion or pneumothorax. Stable inferior right upper lobe fibrosis/scarring and tiny right lower lobe calcified granuloma. Heart not enlarged. Aorta is normal in course and caliber. Stable tiny right hilar calcified node. No pathologic mediastinal lymphadenopathy. Bony thorax intact again with mild degenerative changes of the spine and small multilevel Schmorl nodes. Limited upper abdomen again demonstrates gastric bypass surgery. Impression: New left lower lobe and lesser degree right middle lobe consolidating airspace disease. - Other Procedures and Tests Respiratory Therapy 05/30/22 17:20 Respiratory Therapy Assessment DAILY 05/30/22 17:21 Respiratory MDI BID Assessment/Plan (1) Sepsis Current Visit: Yes Status: Acute Qualifiers: Sepsis type: Pneumococcus Sepsis acute organ dysfunction status: with acute organ dysfunction Severe sepsis acute organ dysfunction type: acute renal failure Acute renal failure type: unspecified Severe sepsis shock status: with septic shock Qualified Code(s): A40.3 - Sepsis due to Streptococcus pneumoniae; R65.21 - Severe sepsis with septic shock; N17.9 - Acute kidney failure, unspecified Assessment & Plan: Chief Complaint Diagnosis sepsis Allergies Allergy/AdvReac Type Severity Reaction Status Date / Time divalproex sodium Allergy Verified 05/30/22 09:55 [From Depakote] morphine Allergy Verified 05/30/22 09:55 Sulfa (Sulfonamide Allergy Verified 05/30/22 09:55 Antibiotics) Vital Signs (Last 24 hours) Temp Pulse Resp BP Pulse Ox 05/30/22 17:23 78 22 97 05/30/22 15:29 77 18 97/48 100 05/30/22 15:18 97.7 F 80 15 97/48 98 05/30/22 15:04 78 19 77/53 99 05/30/22 14:02 96 05/30/22 13:38 76 18 87/51 96 05/30/22 12:47 78 19 86/56 99 05/30/22 11:48 78 20 52/30 98 05/30/22 10:36 81 16 69/35 96 05/30/22 09:55 98.3 F 74 20 84/35 99 Home Medications Medication Instructions Recorded Confirmed Last Taken Type Fluoxetine HCl 20 mg [Prozac 20 20 mg PO DAILY 05/30/22 05/30/22 05/30/22 History MG] Fluticasone/Umeclidin/Vilanter 1 puff IH DAILY 05/30/22 05/30/22 05/30/22 History [Trelegy Ellipta 100-62.5-25] Furosemide [Lasix] 20 mg PO DAILY 05/30/22 05/30/22 05/28/22 History Loratadine 10 mg [Claritin 10 10 mg PO DAILY 05/30/22 05/30/22 05/30/22 History mg] Montelukast Sodium 10 mg 10 mg PO HS 05/30/22 05/30/22 05/29/22 History [Singulair 10 MG] Ondansetron [Ondansetron Odt] 4 mg PO Q8H PRN PRN 05/30/22 05/30/22 Unknown History Ubrogepant [Ubrelvy] 100 mg PO Q2H/PRN PRN 05/30/22 05/30/22 Unknown History Verapamil HCl [Verapamil ER Pm] 200 mg PO HS 05/30/22 05/30/22 05/29/22 History lamoTRIgine [Lamotrigine] 200 mg PO TID 05/30/22 05/30/22 05/30/22 History Current Medications Generic Name Dose Route Start Last Admin Trade Name Freq PRN Reason Stop Dose Admin Albuterol Sulfate 4 puff 05/30/22 19:00 Albuterol Common Canister Inhaler 06/29/22 18:59 TIDRT GERI Albuterol Sulfate 4 puff 05/30/22 17:20 Albuterol Common Canister Inhaler 06/29/22 17:19 Q4H PRN PRN SHORTNESS OF BREATH/WHEEZING Citalopram Hydrobromide 20 mg 05/31/22 10:00 Citalopram Hydrobromide 20 Mg Tablet PO 06/30/22 09:59 DAILY GERI Famotidine 20 mg 05/30/22 22:00 Famotidine 20 Mg Tablet PO 06/29/22 21:59 HS GERI Fluoxetine HCl 20 mg 05/31/22 10:00 Fluoxetine Hcl 20 Mg Cap PO 06/30/22 09:59 DAILY GERI Sodium Chloride 1,000 mls @ 100 mls/hr 05/30/22 14:15 05/30/22 14:55 Sodium Chloride 0.9% 1000 Ml IV 06/29/22 14:14 100 mls/hr .Q10H GERI Administration Piperacillin Sod/Tazobactam 100 mls @ 200 mls/hr 05/30/22 18:00 05/30/22 17:53 Sod 4.5 gm/ Sodium Chloride IV 06/29/22 17:59 200 mls/hr Q6HT GERI Administration Levofloxacin/Dextrose 750 mg in 150 mls @ 100 mls/hr 05/30/22 20:00 Levofloxacin 750mg/150ml D5w IV 06/29/22 19:59 Q48H GERI Loratadine 10 mg 05/31/22 10:00 Loratadine 10 Mg Tablet PO 06/30/22 09:59 DAILY GERI Meloxicam 15 mg 05/30/22 22:00 Meloxicam 7.5 Mg Tablet PO 06/29/22 21:59 HS GERI Miscellaneous Information 1 each 05/30/22 17:00 Medication Intervention 1 Each Each 06/29/22 16:59 .RN TO CHECK GERI Miscellaneous Information 1 each 05/30/22 17:00 Medication Intervention 1 Each Each 06/29/22 16:59 .RN TO CHECK GERI Montelukast Sodium 10 mg 05/30/22 22:00 Montelukast Sodium 10 Mg Tablet PO 06/29/22 21:59 HS GERI Nicotine 21 mg 05/30/22 17:15 05/30/22 17:54 Nicotine 21 Mg/Patch Patch TOP 06/29/22 17:14 21 mg Q24H GERI Administration Ondansetron HCl 4 mg 05/30/22 16:54 Zofran 4 Mg/Udtablet Orally Disintegrating PO 06/29/22 16:53 Q8H PRN PRN NAUSEA Pantoprazole Sodium 40 mg 05/31/22 10:00 Protonix (Pantoprazole) 40 Mg Tablet PO 06/30/22 09:59 DAILY GERI Fluticasone/Salmeterol 2 puff 05/30/22 19:00 Fluticasone/Salmeterol 115/21 - 120 Puff Common Canister IH 06/29/22 18:59 BIDRT GERI Discontinued Medications Generic Name Dose Route Start Last Admin Trade Name Freq PRN Reason Stop Dose Admin Albuterol/Ipratropium Confirm 05/30/22 13:58 Ipratropium/Albuterol Sulfate 3 Ml Ampul.Neb Administered 05/30/22 13:59 Dose 3 ml IH .STK-MED ONE Albuterol/Ipratropium 3 ml 05/30/22 14:01 05/30/22 14:02 Ipratropium/Albuterol Sulfate 3 Ml Ampul.Neb IH 05/30/22 14:02 3 ml STAT ONE Administration Methylprednisolone Sodium 0 mg 05/30/22 10:00 05/30/22 10:43 Succinate 125 mg/ Sterile IV 05/30/22 10:01 125 mg Water 2 ml STAT ONE Administration Fentanyl Citrate 50 mcg 05/30/22 11:17 Fentanyl Citrate 100 Mcg/2 Ml* Vial IV 05/30/22 11:18 STAT ONE Sodium Chloride 1,000 mls @ 999 mls/hr 05/30/22 10:00 05/30/22 11:45 Sodium Chloride 0.9% 1000 Ml IV 05/30/22 11:00 Infused .Q1H1M STA Infusion Sodium Chloride Confirm 05/30/22 10:42 Sodium Chloride 0.9% 1000 Ml Administered 05/30/22 10:43 Dose 1,000 mls @ ud .ROUTE .STK-MED ONE Sodium Chloride 1,000 mls @ 999 mls/hr 05/30/22 11:40 05/30/22 12:51 Sodium Chloride 0.9% 1000 Ml IV 05/30/22 12:40 Infused .Q1H1M STA Infusion Sodium Chloride Confirm 05/30/22 11:40 Sodium Chloride 0.9% 1000 Ml Administered 05/30/22 11:41 Dose 1,000 mls @ ud .ROUTE .STK-MED ONE Sodium Chloride 1,000 mls @ 999 mls/hr 05/30/22 11:45 05/30/22 12:51 Sodium Chloride 0.9% 1000 Ml IV 05/30/22 12:45 Infused .Q1H1M STA Infusion Ceftriaxone Sodium/Dextrose 2 g in 50 mls @ 100 mls/hr 05/30/22 11:45 05/30/22 12:19 Rocephin 2 Gm-D5w 50ml Bag IV 05/30/22 12:14 Infused STAT STA Infusion Sodium Chloride Confirm 05/30/22 11:44 Sodium Chloride 0.9% 1000 Ml Administered 05/30/22 11:45 Dose 1,000 mls @ ud .ROUTE .STK-MED ONE Ceftriaxone Sodium/Dextrose Confirm 05/30/22 11:46 Rocephin 2 Gm-D5w 50ml Bag Administered 05/30/22 11:47 Dose 2 g in 50 mls @ ud IV .STK-MED ONE Sodium Chloride Confirm 05/30/22 13:02 Sodium Chloride 0.9% 1000 Ml Administered 05/30/22 13:03 Dose 1,000 mls @ ud .ROUTE .STK-MED ONE Sodium Chloride 1,000 mls @ 999 mls/hr 05/30/22 13:02 05/30/22 14:06 Sodium Chloride 0.9% 1000 Ml IV 05/30/22 14:02 Infused .Q1H1M STA Infusion Ceftriaxone Sodium/Dextrose 2 g in 50 mls @ 100 mls/hr 05/31/22 10:00 Rocephin 2 Gm-D5w 50ml Bag IV 06/03/22 09:59 Q24H10 GERI Methylprednisolone Sodium Succinate Confirm 05/30/22 10:42 Methylprednis Sod Succ 125 Mg/2 Ml Vial Administered 05/30/22 10:43 Dose 125 mg .ROUTE .STK-MED ONE Non-Formulary Medication 1 each 05/30/22 16:37 Pharmacy Dosing Request 05/30/22 16:38 STAT ONE Non-Formulary Medication 1 each 05/30/22 16:39 Pharmacy Dosing Request 05/30/22 16:40 STAT ONE Sterile Water Confirm 05/30/22 10:42 Water For Injection,Sterile 10 Ml Vial Administered 05/30/22 10:43 Dose 10 ml IJ .STK-MED ONE Intake & Output (Last 24 hours) 05/28/22 05/29/22 05/30/22 05/31/22 11:59 11:59 11:59 11:59 Intake Total 380 Balance 380 Weight 79.5 kg 83 kg Microbiology Results (Last 24 hours) 05/30/22 11:05 Blood Blood Culture Gram Stain - Pending 05/30/22 11:05 Blood Blood Culture - Pending 05/30/22 10:55 Blood Blood Culture Gram Stain - Pending 05/30/22 10:55 Blood Blood Culture - Pending Laboratory Results (Last 24 hours) 05/30/22 05/30/22 05/30/22 16:34 14:33 13:13 WBC RBC Hgb Hct MCV MCH MCHC RDW Plt Count MPV Segmented Neutrophils Band Neutrophils Lymphocytes (Manual) Monocytes (Manual) Eosinophils (Manual) Toxic Granulation Platelet Estimate RBC Morphology D-Dimer Sodium Direct Potassium Chloride Carbon Dioxide Venous BUN Creatinine Glucose POC Glucometer 103 Lactic Acid 2.5 H Ionized Calcium Troponin Troponin I < 0.012 Procalcitonin Influenza Type A Ag Influenza Type B Ag RSV (PCR) SARS-CoV-2 (PCR) 05/30/22 05/30/22 05/30/22 11:10 10:55 10:55 WBC RBC Hgb Hct MCV MCH MCHC RDW Plt Count MPV Segmented Neutrophils Band Neutrophils Lymphocytes (Manual) Monocytes (Manual) Eosinophils (Manual) Toxic Granulation Platelet Estimate RBC Morphology D-Dimer Sodium Direct Potassium Chloride Carbon Dioxide Venous BUN Creatinine Glucose POC Glucometer Lactic Acid 4.3 H Ionized Calcium Troponin Troponin I Procalcitonin 14.500 H* Influenza Type A Ag NEGATIVE Influenza Type B Ag NEGATIVE RSV (PCR) NEGATIVE SARS-CoV-2 (PCR) NEGATIVE 05/30/22 05/30/22 05/30/22 10:55 10:55 10:55 WBC 23.4 H RBC 3.81 L Hgb 10.2 L Hct 33.0 L MCV 86.6 MCH 26.8 MCHC 30.9 L RDW 18.3 H Plt Count 342 MPV 9.6 Segmented Neutrophils 78 H Band Neutrophils 6 H Lymphocytes (Manual) 13 L Monocytes (Manual) 1 Eosinophils (Manual) 2 Toxic Granulation 2+ Platelet Estimate NORMAL RBC Morphology NORMAL D-Dimer 1.26 H* Sodium Direct 135 L Potassium 4.8 Chloride 103 Carbon Dioxide 19 L Venous BUN 37 H Creatinine 3.6 H Glucose 58 L POC Glucometer Lactic Acid Ionized Calcium 1.05 L Troponin 0.01 Troponin I Cancelled Procalcitonin Influenza Type A Ag Influenza Type B Ag RSV (PCR) SARS-CoV-2 (PCR) Orders (Last 24 hours) Category Date Time Status Bedrest ROUTINE Activity 05/30/22 14:06 Active Admit as Inpatient ROUTINE Care 05/30/22 14:04 Active Catheter Care Record Q6H Care 05/30/22 17:27 Active Code Status Order ROUTINE Care 05/30/22 14:04 Active EKG-ER Only STAT Care 05/30/22 10:00 Completed [facility] [Catheter-[place] Arias] STAT Care 05/30/22 17:26 Active IV Care Q6H Care 05/30/22 14:04 Active Intake and Output 09,13,18,21 Care 05/30/22 14:04 Active Isolation, Initiate & Maintain Q6H Care 05/30/22 14:04 Completed Neuro Checks Q4H Care 05/30/22 14:04 Active POCT Glucose Check ACHS Care 05/30/22 14:04 Active Daniel Zelaya, Apply ROUTINE Care 05/30/22 14:04 Active Vital Signs Q4H Care 05/30/22 14:04 Active Weight,Daily 0600 Care 05/30/22 14:04 Active Infection Control Consult ROUTINE Cons 05/30/22 15:48 Active Promotions Intern/Discharge Plan ROUTINE Cons 05/30/22 15:48 Active Clear Liquid Diet 05/30/22 Dinner Active CHEST 1 VIEW (PORTABLE) Stat Exams 05/30/22 10:01 Completed CHEST WITHOUT CONTRAST [CT] Stat Exams 05/30/22 10:47 Completed BLOOD CULTURE Stat Lab 05/30/22 11:05 Received CBC W DIFF AM.LAB Lab 05/31/22 04:00 Ordered CBC W DIFF Stat Lab 05/30/22 10:55 Completed CMP AM.LAB Lab 05/31/22 04:00 Ordered CMP Stat Lab 05/30/22 10:55 Received COVID/FLU/RSV Panel Stat Lab 05/30/22 10:55 Completed D-DIMER QUANTITATIVE Stat Lab 05/30/22 10:55 Completed Lactic Acid AM.LAB Lab 05/31/22 04:00 Ordered Lactic Acid Stat Lab 05/30/22 11:10 Completed Lactic Acid Stat Lab 05/30/22 13:13 Completed Manual Differential NC Stat Lab 05/30/22 10:55 Completed POCT GLUCOSE Stat Lab 05/30/22 16:34 Completed PROCALCITONIN Stat Lab 05/30/22 10:55 Completed TROPONIN Q4H Lab 05/30/22 14:33 Completed TROPONIN Q4H Lab 05/30/22 18:15 Ordered TROPONIN Q4H Lab 05/30/22 22:15 Ordered UA W/RFX UR CULTURE Routine Lab 05/30/22 Ordered Albuterol Common Canister [Ventolin Common Canister* Med 05/30/22 17:20 Active ] 4 puff IH Q4H PRN PRN Albuterol Common Canister [Ventolin Common Canister* Med 05/30/22 19:00 Active ] 4 puff IH TIDRT Albuterol/Ipratropium 3ml Neb* [DUONEB 0.5-3 MG/3 ml Med 05/30/22 13:58 Discontinued Neb] 3 ml IH .STK-MED ONE Albuterol/Ipratropium 3ml Neb* [DUONEB 0.5-3 MG/3 ml Med 05/30/22 14:01 Discontinued Neb] 3 ml IH STAT ONE Ceftriaxone 2 GM/50 ML PREMIX* [ROCEPHIN 2 Gm-D5w 50ML Med 05/31/22 10:00 Discontinued BAG] 2 g in 50 ml IV Q24H10 Ceftriaxone 2 GM/50 ML PREMIX* [ROCEPHIN 2 Gm-D5w 50ML Med 05/30/22 11:45 Discontinued BAG] 2 g in 50 ml IV STAT Ceftriaxone 2 GM/50 ML PREMIX* [ROCEPHIN 2 Gm-D5w 50ML Med 05/30/22 11:46 Dis continued BAG] 2 g in 50 ml IV UD Citalopram Hydrobromide 20 mg* [ceLEXa 20 MG] Med 05/31/22 10:00 Active 20 mg PO DAILY Famotidine 20 mg [Pepcid 20 MG] Med 05/30/22 22:00 Active 20 mg PO HS Fentanyl Citrate 100 Mcg/2 ml* [Sublimaze 100 Mcg/2 ml* Med 05/30/22 11:17 Discontinued ] 50 mcg IV STAT ONE Fluoxetine HCl 20 mg [Prozac 20 MG] Med 05/31/22 10:00 Active 20 mg PO DAILY Fluticasone/Salmeterol 115/21 [Advair Hfa 115/21 Common Med 05/30/22 19:00 Active canister*] 2 puff IH BIDRT Levofloxacin [Levofloxacin 750Mg/150Ml D5w] Med 05/30/22 20:00 Active 750 mg in 150 ml IV Q48H Loratadine 10 mg [Claritin 10 mg] Med 05/31/22 10:00 Active 10 mg PO DAILY Medication Intervention Med 05/30/22 17:00 Active 1 each MC .RN TO CHECK Medication Intervention Med 05/30/22 17:00 Active 1 each MC .RN TO CHECK Meloxicam Med 05/30/22 22:00 Active 15 mg PO HS Methylprednis Sod Succ 125 mg* [solu-MEDROL] Med 05/30/22 10:42 Discontinued 125 mg .ROUTE .STK-MED ONE Methylprednis Sod Succ 125 mg* [solu-MEDROL] 125 mg Med 05/30/22 10:00 Discontinued Water For Injection,Sterile [Sterile H2O 10 ml] 2 ml IV STAT Montelukast Sodium 10 mg [Singulair 10 MG] Med 05/30/22 22:00 Active 10 mg PO HS NaCl 0.9% 1000 ml [Sodium Chloride 0.9% 1000 ML] 1,000 Med 05/30/22 10:42 Discontinued ml .ROUTE UD NaCl 0.9% 1000 ml [Sodium Chloride 0.9% 1000 ML] 1,000 Med 05/30/22 11:40 Discontinued ml .ROUTE UD NaCl 0.9% 1000 ml [Sodium Chloride 0.9% 1000 ML] 1,000 Med 05/30/22 11:44 Discontinued ml .ROUTE UD NaCl 0.9% 1000 ml [Sodium Chloride 0.9% 1000 ML] 000 Med 05/30/22 13:02 Discontinued ml .ROUTE UD NaCl 0.9% 1000 ml [Sodium Chloride 0.9% 1000 ML] Med 05/30/22 14:15 Active ml IV 100 mls/hr NaCl 0.9% 1000 ml [Sodium Chloride 0.9% 1000 ML] Med 05/30/22 10:00 Dis continued ml IV 999 mls/hr NaCl 0.9% 1000 ml [Sodium Chloride 0.9% 1000 ML] Med 05/30/22 11:40 Discontinued ml IV 999 mls/hr NaCl 0.9% 1000 ml [Sodium Chloride 0.9% 1000 ML] Med 05/30/22 11:45 Discontinued ml IV 999 mls/hr NaCl 0.9% 1000 ml [Sodium Chloride 0.9% 1000 ML] Med 05/30/22 13:02 Discontinued ml IV 999 mls/hr Nicotine 21 mg [Nicoderm CQ 21 MG] Med 05/30/22 17:15 Active 21 mg TOP Q24H Ondansetron ODT 4 MG [Zofran Odt 4 mg] Med 05/30/22 16:54 Active 4 mg PO Q8H PRN PRN PANTOPRAZOLE 40 mg Tablet [Protonix 40MG Tablet] Med 05/31/22 10:00 Active 40 mg PO DAILY Pharmacy Dosing Request Med 05/30/22 16:37 Discontinued 1 each MC STAT ONE Pharmacy Dosing Request Med 05/30/22 16:39 Discontinued 1 each MC STAT ONE Piperacillin/Tazobactam Inj [Piperacillin/Tazobactam] 4 Med 05/30/22 18:00 Active .5 gm NaCl 0.9% 100 ml Mini-Bag Plus [Sodium Chloride 100ML MINI-BAG PLUS] 100 ml IV Q6HT Water For Injection,Sterile [Sterile H2O 10 ml] Med 05/30/22 10:42 Discontinued 10 ml IJ .STK-MED ONE RT Screen per Nursing Assess ONCE RT 05/30/22 15:48 Completed Respiratory MDI BID RT 05/30/22 17:21 Active Respiratory Therapy Assessment DAILY RT 05/30/22 17:20 Active Smoking Cessation Education ONCE RT 05/30/22 15:48 Completed Transfer Order Routine Transfer 05/30/22 Completed Patient Care Notes (Last 24 hours) 05/30/22 17:28 Pharmacy Note by Cirilo Santillan PHARMACY TO DOSE ZOSYN SUGGESTED DOSE FOR PNEUMONIA: 4.5G Q6H CRCL: 43 ML/MIN RENALLY ADJUSTED DOSE: 4.5G Q6H (NO ADJUSTMENT FOR CRCL >40 ML/MIN) Initialized on 05/30/22 17:28 - END OF NOTE 05/30/22 17:26 Pharmacy Note by Cirilo Santillan PHARMACY TO DOSE LEVAQUIN SUGGESTED DOSE FOR PNEUMONIA: 750 MG Q24H CRCL: 43 ML/MIN RENALLY APPROPRIATE DOSING SELECTED: 750 MG Q48H Initialized on 05/30/22 17:26 - END OF NOTE (2) Acute kidney injury Current Visit: Yes Status: Acute Code(s): N17.9 - ACUTE KIDNEY FAILURE, UNSPECIFIED (3) Bilateral pneumonia Current Visit: Yes Status: Acute Qualifiers: Pneumonia type: due to Pneumococcus Code(s): J18.9 - PNEUMONIA, UNSPECIFIED ORGANISM (4) Hypotension Current Visit: Yes Status: Acute Code(s): I95.9 - HYPOTENSION, UNSPECIFIED
[2022-05-30] MEDS: Advair Hfa 115/21 Common canister IH SCH (18:21)
[2022-05-30] MEDS: VENTOLIN COMMON CANISTER IH SCH (18:21)
[2022-05-30 19:40] LABS: Appearance Turbid (Clear); Bilirubin Negative (Negative); Blood Small (Negative); Epithelial Cells Few /HPF (None Seen); Glucose, Urine Negative (Negative); Ketones Negative (Negative); Leukocyte Esterase Negative (Negative); Nitrite Negative (Negative); Protein,Urine Dip 100 (Negative); Specific Gravity 1.015 (1.005-1.030); Urobilinogen 0.2 mg/dL (0.2)
[2022-05-30 19:42] LABS: Hyaline Casts None Seen /LPF (0-2)
[2022-05-30 19:45] LABS: ADD URINE CULTURE? NO (NO); Bacteria Few /HPF (None Seen)
[2022-05-30 20:23] LABS: ALBUMIN 3.4 g/dL (3.5-5.0); ANION GAP 17.2 MEQ/L (5-15); BILIRUBIN,TOTAL 0.3 mg/dL (0.2-1.3); Creatinine 1 3.33 mg/dL (0.52-1.04); EST GLOMERULAR FILTRATION RATE 15.3 ML/MIN; Potassium 4.9 mmol/L (3.5-5.1); Total Protein 6.4 g/dL (6.3-8.2)
[2022-05-30] MEDS: Singulair 10 MG PO SCH (21:05)
[2022-05-30] MEDS: Pepcid 20 MG PO SCH (21:05)
[2022-05-30] MEDS: MELOXICAM PO SCH (21:06)
[2022-05-30] MEDS: LEVOFLOXACIN 750MG/150ML D5W 750 MG/150 ML BAG IV SCH (21:09)
[2022-05-30] MEDS ORDERED: NON-FORMULARY ITEM (Meloxicam 15 Mg [Meloxicam 15 Mg] 15 MG Tablet) PO SCH (22:00)
[2022-05-31] MEDS ORDERED: NOREPINEPHRINE 8 MG/250 ML-D5W 8 MG/250 ML PLAST..BAG IV PRN (00:09)
[2022-05-31] MEDS ORDERED: IMODIUM 2 MG PO PRN (00:18)
[2022-05-31] MEDS: Sodium Chloride 0.9% 1000 ML 1,000 ML IV SCH ×3 (01:48→23:09)
[2022-05-31 05:45] LABS: Hematocrit 28.9 % (35-47); Mean Cell Volume 85.3 fL (78-100); Mean Corpuscular Hemoglobin 26.5 pg (26-32); Mean Corpuscular Hgb Concent. 31.1 g/dL (32-36); Mean Platelet Volume 9.7 fL (7.5-11.0); Platelet Count 356 x10^3/uL (150-450); Red Blood Count 3.39 x10^6/uL (4.1-5.4); Red Cell Distribution Width 18.1 % (11.5-14.0)
[2022-05-31 05:55] LABS: White Blood Count 27.7 x10^3/uL (4.0-10.5)
[2022-05-31] MEDS: PIPERACILLIN/TAZOBACTAM 4.5 GM in Sodium Chloride 100ML MINI-BAG PLUS 100 ML IV SCH ×3 (05:57→21:04)
[2022-05-31 05:58] LABS: ALBUMIN 2.9 g/dL (3.5-5.0); ANION GAP 12.5 MEQ/L (5-15); BILIRUBIN,TOTAL 0.3 mg/dL (0.2-1.3); Calcium 7.3 mg/dL (8.4-10.2); Creatinine 1 1.92 mg/dL (0.52-1.04); EST GLOMERULAR FILTRATION RATE 28.8 ML/MIN; Potassium 3.9 mmol/L (3.5-5.1); Total Protein 5.8 g/dL (6.3-8.2)
[2022-05-31] MEDS: VENTOLIN COMMON CANISTER IH SCH ×3 (07:00→17:52)
[2022-05-31] MEDS: Advair Hfa 115/21 Common canister IH SCH ×2 (07:02→17:52)
--- NOTE | 2022-05-31 08:15 | PCM.NOTE ---
Date and Time: 05/31/22811 Subjective Assessment: doing better. labs reviewed. - Review of Systems Constitutional: No Fever, No Chills Eyes: No Symptoms Ears, Nose, & Throat: No Symptoms Respiratory: No Cough, No Short Of Breath Cardiac: No Chest Pain, No Edema, No Syncope Abdominal/Gastrointestinal: No Abdominal Pain, No Nausea, No Vomiting, No Diarrhea Genitourinary Symptoms: No Dysuria Musculoskeletal: No Back Pain, No Neck Pain Skin: No Rash Neurological: No Dizziness, No Focal Weakness, No Sensory Changes Psychological: No Symptoms Endocrine: No Symptoms Hematologic/Lymphatic: No Symptoms Immunological/Allergic: No Symptoms Objective Exam General Appearance: no apparent distress, alert Neurologic Exam: alert, oriented x 3, cooperative, normal mood/affect, nml cerebellar function, sensation nml, No motor deficits Skin Exam: normal color, warm, dry Eye Exam: PERRL, EOMI, eyes nml inspection Ears, Nose, Throat Exam: normal ENT inspection, pharynx normal, moist mucous membranes Neck Exam: normal inspection, non-tender, supple, full range of motion Respiratory Exam: diminished breath sounds, crackles/rales, rhonchi, wheezing, No respiratory distress Cardiovascular Exam: regular rate/rhythm, normal heart sounds Gastrointestinal/Abdomen Exam: soft, No tenderness, No mass Extremity Exam: normal inspection, normal range of motion Back Exam: normal inspection, normal range of motion, No CVA tenderness, No vertebral tenderness Pelvic Exam: deferred Rectal Exam: deferred OBJECTIVE DATA Vital Signs: Vital Signs - 24 hr Temp Pulse Resp BP Pulse Ox 05/31/22 07:47 85 05/31/22 07:14 98.0 F 80 20 120/65 98 05/31/22 06:30 78 16 120/65 98 05/31/22 06:00 82 18 115/54 98 05/31/22 05:30 80 17 106/52 97 05/31/22 05:00 82 15 113/58 97 05/31/22 04:30 81 18 112/56 96 05/31/22 04:00 98.4 F 80 22 102/53 96 05/31/22 03:30 80 17 96/52 97 05/31/22 03:00 81 17 95/55 97 05/31/22 02:30 80 19 112/62 97 05/31/22 02:00 78 19 123/63 97 05/31/22 01:49 72 20 109/58 99 05/31/22 01:00 78 19 82/47 96 05/31/22 00:01 80 05/31/22 00:00 97.9 F 80 16 84/47 98 05/30/22 23:00 83 20 86/49 97 05/30/22 22:00 74 18 90/46 99 05/30/22 21:00 76 18 87/54 97 05/30/22 20:00 76 16 104/59 97 05/30/22 19:39 78 05/30/22 19:00 98 F 78 18 92/61 98 05/30/22 18:21 80 16 97 05/30/22 17:23 78 22 97 05/30/22 15:29 77 18 97/48 100 05/30/22 15:18 97.7 F 80 15 97/48 98 05/30/22 15:04 78 19 77/53 99 05/30/22 14:02 96 05/30/22 13:38 76 18 87/51 96 05/30/22 12:47 78 19 86/56 99 05/30/22 11:48 78 20 52/30 98 05/30/22 10:36 81 16 69/35 96 05/30/22 09:55 98.3 F 74 20 84/35 99 Pain Assessment - Last Documented Pain Intensity 0 Intake and Output: Intake & Output 05/28/22 05/29/22 05/30/22 05/31/22 11:59 11:59 11:59 11:59 Intake Total 2646 Output Total 1250 Balance 1396 Weight 79.5 kg 83 kg Lab Results: Lab Results-Last 24 Hours 05/30/22 05/30/22 05/30/22 Range/Units 10:55 10:55 10:55 WBC 23.4 H (4.0-10.5) x10^3/uL RBC 3.81 L (4.1-5.4) x10^6/uL Hgb 10.2 L (12.0-16.0) g/dL Hct 33.0 L (35-47) % MCV 86.6 (78-100) fL MCH 26.8 (26-32) pg MCHC 30.9 L (32-36) g/dL RDW 18.3 H (11.5-14.0) % Plt Count 342 (150-450) x10^3/uL MPV 9.6 (7.5-11.0) fL Segmented Neutrophils 78 H (36.0-66.0) % Band Neutrophils 6 H (0.0-2.0) % Lymphocytes (Manual) 13 L (24-44) % Monocytes (Manual) 1 (0.0-12.0) % Eosinophils (Manual) 2 (0.00-3.0) % Toxic Granulation 2+ Platelet Estimate NORMAL (NORMAL) RBC Morphology NORMAL D-Dimer 1.26 H* (0.0-0.50) mg/L Sodium 135 L (137-145) mmol/L Sodium Direct (138-146) mmol/L Potassium 4.9 (3.5-5.1) mmol/L Chloride 105 (98-107) mmol/L Carbon Dioxide 19 L (22-30) mmol/L Anion Gap 17.2 H (5-15) MEQ/L BUN 30 H (7-17) mg/dL Venous BUN (8-26) mg/dL Creatinine 3.33 H (0.52-1.04) mg/dL Estimated GFR 15.3 ML/MIN Glucose 54 L (74-106) mg/dL POC Glucometer (74 to 106) mg/dL Hemoglobin A1c (4.5-6.0) % Lactic Acid (0.4-2.0) Calcium 8.0 L (8.4-10.2) mg/dL Ionized Calcium (1.12-1.32) mmol/L Total Bilirubin 0.30 (0.2-1.3) mg/dL AST 30 (14-36) U/L ALT 15 (0-35) U/L Alkaline Phosphatase 81 (38-126) U/L Troponin (0.00-0.03) ng/mL Troponin I Serum Total Protein 6.4 (6.3-8.2) g/dL Albumin 3.4 L (3.5-5.0) g/dL Procalcitonin (0.030-0.080) ng/mL Urine Color (Yellow) Urine Appearance (Clear) Urine pH (4.6-8.0) Ur Specific [place] (1.005-1.030) Urine Protein (Negative) Urine Glucose (UA) (Negative) mg/dL Urine Ketones (Negative) Urine Blood (Negative) Urine Nitrite (Negative) Urine Bilirubin (Negative) Urine Urobilinogen (0.2) mg/dL Ur Leukocyte Esterase (Negative) U Hyaline Cast (Auto) (0-2) /LPF Urine Microscopic RBC (0-5) /HPF Urine Microscopic WBC (0-5) /HPF Ur Epithelial Cells (None Seen) /HPF Urine Bacteria (None Seen) /HPF Urine Culture Reflexed (NO) Influenza Type A Ag (NEGATIVE) Influenza Type B Ag (NEGATIVE) RSV (PCR) (Negative) SARS-CoV-2 (PCR) (NEGATIVE) 05/30/22 05/30/22 05/30/22 Range/Units 10:55 10:55 10:55 WBC (4.0-10.5) x10^3/uL RBC (4.1-5.4) x10^6/uL Hgb (12.0-16.0) g/dL Hct (35-47) % MCV (78-100) fL MCH (26-32) pg MCHC (32-36) g/dL RDW (11.5-14.0) % Plt Count (150-450) x10^3/uL MPV (7.5-11.0) fL Segmented Neutrophils (36.0-66.0) % Band Neutrophils (0.0-2.0) % Lymphocytes (Manual) (24-44) % Monocytes (Manual) (0.0-12.0) % Eosinophils (Manual) (0.00-3.0) % Toxic Granulation Platelet Estimate (NORMAL) RBC Morphology D-Dimer (0.0-0.50) mg/L Sodium (137-145) mmol/L Sodium Direct 135 L (138-146) mmol/L Potassium 4.8 (3.5-5.1) mmol/L Chloride 103 (98-107) mmol/L Carbon Dioxide 19 L (22-30) mmol/L Anion Gap (5-15) MEQ/L BUN (7-17) mg/dL Venous BUN 37 H (8-26) mg/dL Creatinine 3.6 H (0.52-1.04) mg/dL Estimated GFR ML/MIN Glucose 58 L (74-106) mg/dL POC Glucometer (74 to 106) mg/dL Hemoglobin A1c (4.5-6.0) % Lactic Acid (0.4-2.0) Calcium (8.4-10.2) mg/dL Ionized Calcium 1.05 L (1.12-1.32) mmol/L Total Bilirubin (0.2-1.3) mg/dL AST (14-36) U/L ALT (0-35) U/L Alkaline Phosphatase (38-126) U/L Troponin 0.01 (0.00-0.03) ng/mL Troponin I Cancelled Serum Total Protein (6.3-8.2) g/dL Albumin (3.5-5.0) g/dL Procalcitonin 14.500 H* (0.030-0.080) ng/mL Urine Color (Yellow) Urine Appearance (Clear) Urine pH (4.6-8.0) Ur Specific [place] (1.005-1.030) Urine Protein (Negative) Urine Glucose (UA) (Negative) mg/dL Urine Ketones (Negative) Urine Blood (Negative) Urine Nitrite (Negative) Urine Bilirubin (Negative) Urine Urobilinogen (0.2) mg/dL Ur Leukocyte Esterase (Negative) U Hyaline Cast (Auto) (0-2) /LPF Urine Microscopic RBC (0-5) /HPF Urine Microscopic WBC (0-5) /HPF Ur Epithelial Cells (None Seen) /HPF Urine Bacteria (None Seen) /HPF Urine Culture Reflexed (NO) Influenza Type A Ag NEGATIVE (NEGATIVE) Influenza Type B Ag NEGATIVE (NEGATIVE) RSV (PCR) NEGATIVE (Negative) SARS-CoV-2 (PCR) NEGATIVE (NEGATIVE) 05/30/22 05/30/22 05/30/22 Range/Units 11:10 13:13 14:33 WBC (4.0-10.5) x10^3/uL RBC (4.1-5.4) x10^6/uL Hgb (12.0-16.0) g/dL Hct (35-47) % MCV (78-100) fL MCH (26-32) pg MCHC (32-36) g/dL RDW (11.5-14.0) % Plt Count (150-450) x10^3/uL MPV (7.5-11.0) fL Segmented Neutrophils (36.0-66.0) % Band Neutrophils (0.0-2.0) % Lymphocytes (Manual) (24-44) % Monocytes (Manual) (0.0-12.0) % Eosinophils (Manual) (0.00-3.0) % Toxic Granulation Platelet Estimate (NORMAL) RBC Morphology D-Dimer (0.0-0.50) mg/L Sodium (137-145) mmol/L Sodium Direct (138-146) mmol/L Potassium (3.5-5.1) mmol/L Chloride (98-107) mmol/L Carbon Dioxide (22-30) mmol/L Anion Gap (5-15) MEQ/L BUN (7-17) mg/dL Venous BUN (8-26) mg/dL Creatinine (0.52-1.04) mg/dL Estimated GFR ML/MIN Glucose (74-106) mg/dL POC Glucometer (74 to 106) mg/dL Hemoglobin A1c (4.5-6.0) % Lactic Acid 4.3 H 2.5 H (0.4-2.0) Calcium (8.4-10.2) mg/dL Ionized Calcium (1.12-1.32) mmol/L Total Bilirubin (0.2-1.3) mg/dL AST (14-36) U/L ALT (0-35) U/L Alkaline Phosphatase (38-126) U/L Troponin (0.00-0.03) ng/mL Troponin I < 0.012 Serum Total Protein (6.3-8.2) g/dL Albumin (3.5-5.0) g/dL Procalcitonin (0.030-0.080) ng/mL Urine Color (Yellow) Urine Appearance (Clear) Urine pH (4.6-8.0) Ur Specific [place] (1.005-1.030) Urine Protein (Negative) Urine Glucose (UA) (Negative) mg/dL Urine Ketones (Negative) Urine Blood (Negative) Urine Nitrite (Negative) Urine Bilirubin (Negative) Urine Urobilinogen (0.2) mg/dL Ur Leukocyte Esterase (Negative) U Hyaline Cast (Auto) (0-2) /LPF Urine Microscopic RBC (0-5) /HPF Urine Microscopic WBC (0-5) /HPF Ur Epithelial Cells (None Seen) /HPF Urine Bacteria (None Seen) /HPF Urine Culture Reflexed (NO) Influenza Type A Ag (NEGATIVE) Influenza Type B Ag (NEGATIVE) RSV (PCR) (Negative) SARS-CoV-2 (PCR) (NEGATIVE) 05/30/22 05/30/22 05/30/22 Range/Units 16:34 19:00 19:00 WBC (4.0-10.5) x10^3/uL RBC (4.1-5.4) x10^6/uL Hgb (12.0-16.0) g/dL Hct (35-47) % MCV (78-100) fL MCH (26-32) pg MCHC (32-36) g/dL RDW (11.5-14.0) % Plt Count (150-450) x10^3/uL MPV (7.5-11.0) fL Segmented Neutrophils (36.0-66.0) % Band Neutrophils (0.0-2.0) % Lymphocytes (Manual) (24-44) % Monocytes (Manual) (0.0-12.0) % Eosinophils (Manual) (0.00-3.0) % Toxic Granulation Platelet Estimate (NORMAL) RBC Morphology D-Dimer (0.0-0.50) mg/L Sodium (137-145) mmol/L Sodium Direct (138-146) mmol/L Potassium (3.5-5.1) mmol/L Chloride (98-107) mmol/L Carbon Dioxide (22-30) mmol/L Anion Gap (5-15) MEQ/L BUN (7-17) mg/dL Venous BUN (8-26) mg/dL Creatinine (0.52-1.04) mg/dL Estimated GFR ML/MIN Glucose (74-106) mg/dL POC Glucometer 103 (74 to 106) mg/dL Hemoglobin A1c 4.96 (4.5-6.0) % Lactic Acid (0.4-2.0) Calcium (8.4-10.2) mg/dL Ionized Calcium (1.12-1.32) mmol/L Total Bilirubin (0.2-1.3) mg/dL AST (14-36) U/L ALT (0-35) U/L Alkaline Phosphatase (38-126) U/L Troponin (0.00-0.03) ng/mL Troponin I < 0.012 Serum Total Protein (6.3-8.2) g/dL Albumin (3.5-5.0) g/dL Procalcitonin (0.030-0.080) ng/mL Urine Color (Yellow) Urine Appearance (Clear) Urine pH (4.6-8.0) Ur Specific [place] (1.005-1.030) Urine Protein (Negative) Urine Glucose (UA) (Negative) mg/dL Urine Ketones (Negative) Urine Blood (Negative) Urine Nitrite (Negative) Urine Bilirubin (Negative) Urine Urobilinogen (0.2) mg/dL Ur Leukocyte Esterase (Negative) U Hyaline Cast (Auto) (0-2) /LPF Urine Microscopic RBC (0-5) /HPF Urine Microscopic WBC (0-5) /HPF Ur Epithelial Cells (None Seen) /HPF Urine Bacteria (None Seen) /HPF Urine Culture Reflexed (NO) Influenza Type A Ag (NEGATIVE) Influenza Type B Ag (NEGATIVE) RSV (PCR) (Negative) SARS-CoV-2 (PCR) (NEGATIVE) 05/30/22 05/30/22 05/31/22 Range/Units 21:31 Unknown 05:36 WBC 27.7 H* (4.0-10.5) x10^3/uL RBC 3.39 L (4.1-5.4) x10^6/uL Hgb 9.0 L (12.0-16.0) g/dL Hct 28.9 L (35-47) % MCV 85.3 (78-100) fL MCH 26.5 (26-32) pg MCHC 31.1 L (32-36) g/dL RDW 18.1 H (11.5-14.0) % Plt Count 356 (150-450) x10^3/uL MPV 9.7 (7.5-11.0) fL Segmented Neutrophils (36.0-66.0) % Band Neutrophils (0.0-2.0) % Lymphocytes (Manual) (24-44) % Monocytes (Manual) (0.0-12.0) % Eosinophils (Manual) (0.00-3.0) % Toxic Granulation Platelet Estimate (NORMAL) RBC Morphology D-Dimer (0.0-0.50) mg/L Sodium (137-145) mmol/L Sodium Direct (138-146) mmol/L Potassium (3.5-5.1) mmol/L Chloride (98-107) mmol/L Carbon Dioxide (22-30) mmol/L Anion Gap (5-15) MEQ/L BUN (7-17) mg/dL Venous BUN (8-26) mg/dL Creatinine (0.52-1.04) mg/dL Estimated GFR ML/MIN Glucose (74-106) mg/dL POC Glucometer 196 H (74 to 106) mg/dL Hemoglobin A1c (4.5-6.0) % Lactic Acid (0.4-2.0) Calcium (8.4-10.2) mg/dL Ionized Calcium (1.12-1.32) mmol/L Total Bilirubin (0.2-1.3) mg/dL AST (14-36) U/L ALT (0-35) U/L Alkaline Phosphatase (38-126) U/L Troponin (0.00-0.03) ng/mL Troponin I Serum Total Protein (6.3-8.2) g/dL Albumin (3.5-5.0) g/dL Procalcitonin (0.030-0.080) ng/mL Urine Color Yellow (Yellow) Urine Appearance Turbid A (Clear) Urine pH 5.0 (4.6-8.0) Ur Specific [place] 1.015 (1.005-1.030) Urine Protein 100 A (Negative) Urine Glucose (UA) Negative (Negative) mg/dL Urine Ketones Negative (Negative) Urine Blood Small A (Negative) Urine Nitrite Negative (Negative) Urine Bilirubin Negative (Negative) Urine Urobilinogen 0.2 (0.2) mg/dL Ur Leukocyte Esterase Negative (Negative) U Hyaline Cast (Auto) None Seen (0-2) /LPF Urine Microscopic RBC 3-5 (0-5) /HPF Urine Microscopic WBC 3-5 (0-5) /HPF Ur Epithelial Cells Few (None Seen) /HPF Urine Bacteria Few A (None Seen) /HPF Urine Culture Reflexed NO (NO) Influenza Type A Ag (NEGATIVE) Influenza Type B Ag (NEGATIVE) RSV (PCR) (Negative) SARS-CoV-2 (PCR) (NEGATIVE) 05/31/22 05/31/22 05/31/22 Range/Units 05:36 05:45 06:56 WBC (4.0-10.5) x10^3/uL RBC (4.1-5.4) x10^6/uL Hgb (12.0-16.0) g/dL Hct (35-47) % MCV (78-100) fL MCH (26-32) pg MCHC (32-36) g/dL RDW (11.5-14.0) % Plt Count (150-450) x10^3/uL MPV (7.5-11.0) fL Segmented Neutrophils (36.0-66.0) % Band Neutrophils (0.0-2.0) % Lymphocytes (Manual) (24-44) % Monocytes (Manual) (0.0-12.0) % Eosinophils (Manual) (0.00-3.0) % Toxic Granulation Platelet Estimate (NORMAL) RBC Morphology D-Dimer (0.0-0.50) mg/L Sodium 136 L (137-145) mmol/L Sodium Direct (138-146) mmol/L Potassium 3.9 D (3.5-5.1) mmol/L Chloride 112 H (98-107) mmol/L Carbon Dioxide 15 L* (22-30) mmol/L Anion Gap 12.5 (5-15) MEQ/L BUN 28 H (7-17) mg/dL Venous BUN (8-26) mg/dL Creatinine 1.92 H (0.52-1.04) mg/dL Estimated GFR 28.8 ML/MIN Glucose 103 (74-106) mg/dL POC Glucometer 101 (74 to 106) mg/dL Hemoglobin A1c (4.5-6.0) % Lactic Acid 1.9 (0.4-2.0) Calcium 7.3 L (8.4-10.2) mg/dL Ionized Calcium (1.12-1.32) mmol/L Total Bilirubin 0.30 (0.2-1.3) mg/dL AST 24 (14-36) U/L ALT 17 (0-35) U/L Alkaline Phosphatase 70 (38-126) U/L Troponin (0.00-0.03) ng/mL Troponin I Serum Total Protein 5.8 L (6.3-8.2) g/dL Albumin 2.9 L (3.5-5.0) g/dL Procalcitonin (0.030-0.080) ng/mL Urine Color (Yellow) Urine Appearance (Clear) Urine pH (4.6-8.0) Ur Specific [place] (1.005-1.030) Urine Protein (Negative) Urine Glucose (UA) (Negative) mg/dL Urine Ketones (Negative) Urine Blood (Negative) Urine Nitrite (Negative) Urine Bilirubin (Negative) Urine Urobilinogen (0.2) mg/dL Ur Leukocyte Esterase (Negative) U Hyaline Cast (Auto) (0-2) /LPF Urine Microscopic RBC (0-5) /HPF Urine Microscopic WBC (0-5) /HPF Ur Epithelial Cells (None Seen) /HPF Urine Bacteria (None Seen) /HPF Urine Culture Reflexed (NO) Influenza Type A Ag (NEGATIVE) Influenza Type B Ag (NEGATIVE) RSV (PCR) (Negative) SARS-CoV-2 (PCR) (NEGATIVE) Radiology Exams: Radiology Procedures Category Date Time Status CHEST 1 VIEW (PORTABLE) Stat Exams 05/30/22 10:01 Completed CHEST WITHOUT CONTRAST [CT] Stat Exams 05/30/22 10:47 Completed Multi-Disciplinary Progress Notes: Multi-Disciplinary Progress Notes 05/30/22 17:28 Pharmacy Note by Cirilo Santillan PHARMACY TO DOSE ZOSYN SUGGESTED DOSE FOR PNEUMONIA: 4.5G Q6H CRCL: 43 ML/MIN RENALLY ADJUSTED DOSE: 4.5G Q6H (NO ADJUSTMENT FOR CRCL >40 ML/MIN) Initialized on 05/30/22 17:28 - END OF NOTE 05/30/22 17:26 Pharmacy Note by Cirilo Santillan PHARMACY TO DOSE LEVAQUIN SUGGESTED DOSE FOR PNEUMONIA: 750 MG Q24H CRCL: 43 ML/MIN RENALLY APPROPRIATE DOSING SELECTED: 750 MG Q48H Initialized on 05/30/22 17:26 - END OF NOTE Assessment/Plan (1) Sepsis Current Visit: Yes Status: Acute Qualifiers: Sepsis type: Pneumococcus Sepsis acute organ dysfunction status: with acute organ dysfunction Severe sepsis acute organ dysfunction type: acute renal failure Acute renal failure type: unspecified Severe sepsis shock status: with septic shock Qualified Code(s): A40.3 - Sepsis due to Streptococcus pneumoniae; R65.21 - Severe sepsis with septic shock; N17.9 - Acute kidney failure, unspecified Assessment & Plan: Chief Complaint Diagnosis headache and weakness for 3 days Allergies Allergy/AdvReac Type Severity Reaction Status Date / Time divalproex sodium Allergy Verified 05/30/22 09:55 [From Depakote] morphine Allergy Verified 05/30/22 09:55 Sulfa (Sulfonamide Allergy Verified 05/30/22 09:55 Antibiotics) Vital Signs (Last 24 hours) Temp Pulse Resp BP Pulse Ox 05/31/22 07:47 85 05/31/22 07:14 98.0 F 80 20 120/65 98 05/31/22 06:30 78 16 120/65 98 05/31/22 06:00 82 18 115/54 98 05/31/22 05:30 80 17 106/52 97 05/31/22 05:00 82 15 113/58 97 05/31/22 04:30 81 18 112/56 96 05/31/22 04:00 98.4 F 80 22 102/53 96 05/31/22 03:30 80 17 96/52 97 05/31/22 03:00 81 17 95/55 97 05/31/22 02:30 80 19 112/62 97 05/31/22 02:00 78 19 123/63 97 05/31/22 01:49 72 20 109/58 99 05/31/22 01:00 78 19 82/47 96 05/31/22 00:01 80 05/31/22 00:00 97.9 F 80 16 84/47 98 05/30/22 23:00 83 20 86/49 97 05/30/22 22:00 74 18 90/46 99 05/30/22 21:00 76 18 87/54 97 05/30/22 20:00 76 16 104/59 97 05/30/22 19:39 78 05/30/22 19:00 98 F 78 18 92/61 98 05/30/22 18:21 80 16 97 05/30/22 17:23 78 22 97 05/30/22 15:29 77 18 97/48 100 05/30/22 15:18 97.7 F 80 15 97/48 98 05/30/22 15:04 78 19 77/53 99 05/30/22 14:02 96 05/30/22 13:38 76 18 87/51 96 05/30/22 12:47 78 19 86/56 99 05/30/22 11:48 78 20 52/30 98 05/30/22 10:36 81 16 69/35 96 05/30/22 09:55 98.3 F 74 20 84/35 99 Home Medications Medication Instructions Recorded Confirmed Last Taken Type Fluoxetine HCl 20 mg [Prozac 20 20 mg PO DAILY 05/30/22 05/30/22 05/30/22 H istory MG] Fluticasone/Umeclidin/Vilanter 1 puff IH DAILY 05/30/22 05/30/22 05/30/22 History [Trelegy Ellipta 100-62.5-25] Furosemide [Lasix] 20 mg PO DAILY 05/30/22 05/30/22 05/28/22 History Loratadine 10 mg [Claritin 10 10 mg PO DAILY 05/30/22 05/30/22 05/30/22 History mg] Montelukast Sodium 10 mg 10 mg PO 05/30/22 05/30/22 05/29/22 History [Singulair 10 MG] Ondansetron [Ondansetron Odt] 4 mg PO Q8H PRN PRN 05/30/22 05/30/22 Unknown History Ubrogepant [Ubrelvy] 100 mg PO Q2H/PRN PRN 05/30/22 05/30/22 Unknown History Verapamil HCl [Verapamil ER Pm] 200 mg PO 05/30/22 05/30/22 05/29/22 History lamoTRIgine [Lamotrigine] 200 mg PO TID 05/30/22 05/30/22 05/30/22 History Current Medications Generic Name Dose Route Start Last Admin Trade Name Freq PRN Reason Stop Dose Admin Albuterol Sulfate 4 puff 05/30/22 19:00 05/31/22 07:00 Albuterol Common Canister Inhaler 06/29/22 18:59 4 puff TIDRT GERI Administration Albuterol Sulfate 4 puff 05/30/22 17:20 Albuterol Common Canister Inhaler 06/29/22 17:19 Q4H PRN PRN SHORTNESS OF BREATH/WHEEZING Citalopram Hydrobromide 20 mg 05/31/22 10:00 Citalopram Hydrobromide 20 Mg Tablet PO 06/30/22 09:59 DAILY GERI Famotidine 20 mg 05/30/22 22:00 05/30/22 21:05 Famotidine 20 Mg Tablet PO 06/29/22 21:59 20 mg HS GERI Administration Fluoxetine HCl 20 mg 05/31/22 10:00 Fluoxetine Hcl 20 Mg Cap PO 06/30/22 09:59 DAILY GERI Sodium Chloride 1,000 mls @ 100 mls/hr 05/30/22 14:15 05/31/22 01:48 Sodium Chloride 0.9% 1000 Ml IV 06/29/22 14:14 100 mls/hr .Q10H GERI Administration Levofloxacin/Dextrose 750 mg in 150 mls @ 100 mls/hr 05/30/22 20:00 05/30/22 21:09 Levofloxacin 750mg/150ml D5w IV 06/29/22 19:59 100 mls/hr Q48H GERI Administration Norepinephrine/Dextrose 8 mg in 250 mls @ 15 mls/hr 05/31/22 00:09 05/31/22 06:56 Norepinephrine 8 Mg/250 Ml-D5w IV 06/30/22 00:08 4 mcg/min .[id number] PRN 7.5 mls/hr HYPOTENSION Titration Protocol 8 MCG/MIN Piperacillin Sod/Tazobactam 100 mls @ 200 mls/hr 05/31/22 14:00 Sod 4.5 gm/ Sodium Chloride IV 06/30/22 13:59 Q8HT GERI Loperamide HCl 2 mg 05/31/22 00:18 Loperamide Hcl 2 Mg Capsule PO 06/30/22 00:17 PRN PRN DIARRHEA Loratadine 10 mg 05/31/22 10:00 Loratadine 10 Mg Tablet PO 06/30/22 09:59 DAILY GERI Meloxicam 15 mg 05/30/22 22:00 05/30/22 21:06 Meloxicam 7.5 Mg Tablet PO 06/29/22 21:59 15 mg HS GERI Administration Miscellaneous Information 1 each 05/30/22 17:00 Medication Intervention 1 Each Each 06/29/22 16:59 .RN TO CHECK GERI Miscellaneous Information 1 each 05/30/22 17:00 Medication Intervention 1 Each Each 06/29/22 16:59 .RN TO CHECK GERI Montelukast Sodium 10 mg 05/30/22 22:00 05/30/22 21:05 Montelukast Sodium 10 Mg Tablet PO 06/29/22 21:59 10 mg HS GERI Administration Nicotine 21 mg 05/30/22 17:15 05/30/22 17:54 Nicotine 21 Mg/Patch Patch TOP 06/29/22 17:14 21 mg Q24H GERI Administration Ondansetron HCl 4 mg 05/30/22 16:54 Zofran 4 Mg/Udtablet Orally Disintegrating PO 06/29/22 16:53 Q8H PRN PRN NAUSEA Pantoprazole Sodium 40 mg 05/31/22 10:00 Protonix (Pantoprazole) 40 Mg Tablet PO 06/30/22 09:59 DAILY GERI Fluticasone/Salmeterol 2 puff 05/30/22 19:00 05/31/22 07:02 Fluticasone/Salmeterol 115/21 - 120 Puff Common Canister 06/29/22 18:59 2 puff BIDRT GERI Administration Discontinued Medications Generic Name Dose Route Start Last Admin Trade Name Freq PRN Reason Stop Dose Admin Albuterol/Ipratropium Confirm 05/30/22 13:58 Ipratropium/Albuterol Sulfate 3 Ml Ampul.Neb Administered 05/30/22 13:59 Dose 3 ml IH .STK-MED ONE Albuterol/Ipratropium 3 ml 05/30/22 14:01 05/30/22 14:02 Ipratropium/Albuterol Sulfate 3 Ml Ampul.Neb 05/30/22 14:02 3 ml STAT ONE Administration Methylprednisolone Sodium 0 mg 05/30/22 10:00 05/30/22 10:43 Succinate 125 mg/ Sterile IV 05/30/22 10:01 125 mg Water 2 ml STAT ONE Administration Fentanyl Citrate 50 mcg 05/30/22 11:17 Fentanyl Citrate 100 Mcg/2 Ml* Vial IV 05/30/22 11:18 STAT ONE Sodium Chloride 1,000 mls @ 999 mls/hr 05/30/22 10:00 05/30/22 11:45 Sodium Chloride 0.9% 1000 Ml IV 05/30/22 11:00 Infused .Q1H1M STA Infusion Sodium Chloride Confirm 05/30/22 10:42 Sodium Chloride 0.9% 1000 Ml Administered 05/30/22 10:43 Dose 1,000 mls @ ud .ROUTE .STK-MED ONE Sodium Chloride 1,000 mls @ 999 mls/hr 05/30/22 11:40 05/30/22 12:51 Sodium Chloride 0.9% 1000 Ml IV 05/30/22 12:40 Infused .Q1H1M STA Infusion Sodium Chloride Confirm 05/30/22 11:40 Sodium Chloride 0.9% 1000 Ml Administered 05/30/22 11:41 Dose 1,000 mls @ ud .ROUTE .STK-MED ONE Sodium Chloride 1,000 mls @ 999 mls/hr 05/30/22 11:45 05/30/22 12:51 Sodium Chloride 0.9% 1000 Ml IV 05/30/22 12:45 Infused .Q1H1M STA Infusion Ceftriaxone Sodium/Dextrose 2 g in 50 mls @ 100 mls/hr 05/30/22 11:45 05/30/22 12:19 Rocephin 2 Gm-D5w 50ml Bag IV 05/30/22 12:14 Infused STAT STA Infusion Sodium Chloride Confirm 05/30/22 11:44 Sodium Chloride 0.9% 1000 Ml Administered 05/30/22 11:45 Dose 1,000 mls @ ud .ROUTE .STK-MED ONE Ceftriaxone Sodium/Dextrose Confirm 05/30/22 11:46 Rocephin 2 Gm-D5w 50ml Bag Administered 05/30/22 11:47 Dose 2 g in 50 mls @ ud IV .STK-MED ONE Sodium Chloride Confirm 05/30/22 13:02 Sodium Chloride 0.9% 1000 Ml Administered 05/30/22 13:03 Dose 1,000 mls @ ud .ROUTE .STK-MED ONE Sodium Chloride 1,000 mls @ 999 mls/hr 05/30/22 13:02 05/30/22 14:06 Sodium Chloride 0.9% 1000 Ml IV 05/30/22 14:02 Infused .Q1H1M STA Infusion Ceftriaxone Sodium/Dextrose 2 g in 50 mls @ 100 mls/hr 05/31/22 10:00 Rocephin 2 Gm-D5w 50ml Bag IV 06/03/22 09:59 Q24H10 GERI Piperacillin Sod/Tazobactam 100 mls @ 200 mls/hr 05/30/22 18:00 05/31/22 05:57 Sod 4.5 gm/ Sodium Chloride IV 06/29/22 17:59 200 mls/hr Q6HT GERI Administration Methylprednisolone Sodium Succinate Confirm 05/30/22 10:42 Methylprednis Sod Succ 125 Mg/2 Ml Vial Administered 05/30/22 10:43 Dose 125 mg .ROUTE .STK-MED ONE Non-Formulary Medication 1 each 05/30/22 16:37 Pharmacy Dosing Request 05/30/22 16:38 STAT ONE Non-Formulary Medication 1 each 05/30/22 16:39 Pharmacy Dosing Request 05/30/22 16:40 STAT ONE Sterile Water Confirm 05/30/22 10:42 Water For Injection,Sterile 10 Ml Vial Administered 05/30/22 10:43 Dose 10 ml IJ .STK-MED ONE Intake & Output (Last 24 hours) 05/28/22 05/29/22 05/30/22 05/31/22 11:59 11:59 11:59 11:59 Intake Total 2646 Output Total 1250 Balance 1396 Weight 79.5 kg 83 kg Microbiology Results (Last 24 hours) 05/30/22 11:05 Blood Blood Culture Gram Stain - Pending 05/30/22 11:05 Blood Blood Culture - Pending 05/30/22 10:55 Blood Blood Culture Gram Stain - Pending 05/30/22 10:55 Blood Blood Culture - Pending Laboratory Results (Last 24 hours) 05/31/22 05/31/22 05/31/22 06:56 05:45 05:36 WBC RBC Hgb Hct MCV MCH MCHC RDW Plt Count MPV Segmented Neutrophils Band Neutrophils Lymphocytes (Manual) Monocytes (Manual) Eosinophils (Manual) Toxic Granulation Platelet Estimate RBC Morphology D-Dimer Sodium 136 L Sodium Direct Potassium 3.9 D Chloride 112 H Carbon Dioxide 15 L* Anion Gap 12.5 BUN 28 H Venous BUN Creatinine 1.92 H Estimated GFR 28.8 Glucose 103 POC Glucometer 101 Hemoglobin A1c Lactic Acid 1.9 Calcium 7.3 L Ionized Calcium Total Bilirubin 0.30 AST 24 ALT 17 Alkaline Phosphatase 70 Troponin Troponin I Serum Total Protein 5.8 L Albumin 2.9 L Procalcitonin Urine Color Urine Appearance Urine pH Ur Specific [place] Urine Protein Urine Glucose (UA) Urine Ketones Urine Blood Urine Nitrite Urine Bilirubin Urine Urobilinogen Ur Leukocyte Esterase U Hyaline Cast (Auto) Urine Microscopic RBC Urine Microscopic WBC Ur Epithelial Cells Urine Bacteria Urine Culture Reflexed Influenza Type A Ag Influenza Type B Ag RSV (PCR) SARS-CoV-2 (PCR) 05/31/22 05/30/22 05/30/22 05:36 Unknown 21:31 WBC 27.7 H* RBC 3.39 L Hgb 9.0 L Hct 28.9 L MCV 85.3 MCH 26.5 MCHC 31.1 L RDW 18.1 H Plt Count 356 MPV 9.7 Segmented Neutrophils Band Neutrophils Lymphocytes (Manual) Monocytes (Manual) Eosinophils (Manual) Toxic Granulation Platelet Estimate RBC Morphology D-Dimer Sodium Sodium Direct Potassium Chloride Carbon Dioxide Anion Gap BUN Venous BUN Creatinine Estimated GFR Glucose POC Glucometer 196 H Hemoglobin A1c Lactic Acid Calcium Ionized Calcium Total Bilirubin AST ALT Alkaline Phosphatase Troponin Troponin I Serum Total Protein Albumin Procalcitonin Urine Color Yellow Urine Appearance Turbid A Urine pH 5.0 Ur Specific [place] 1.015 Urine Protein 100 A Urine Glucose (UA) Negative Urine Ketones Negative Urine Blood Small A Urine Nitrite Negative Urine Bilirubin Negative Urine Urobilinogen 0.2 Ur Leukocyte Esterase Negative U Hyaline Cast (Auto) None Seen Urine Microscopic RBC 3-5 Urine Microscopic WBC 3-5 Ur Epithelial Cells Few Urine Bacteria Few A Urine Culture Reflexed NO Influenza Type A Ag Influenza Type B Ag RSV (PCR) SARS-CoV-2 (PCR) 05/30/22 05/30/22 05/30/22 19:00 19:00 16:34 WBC RBC Hgb Hct MCV MCH MCHC RDW Plt Count MPV Segmented Neutrophils Band Neutrophils Lymphocytes (Manual) Monocytes (Manual) Eosinophils (Manual) Toxic Granulation Platelet Estimate RBC Morphology D-Dimer Sodium Sodium Direct Potassium Chloride Carbon Dioxide Anion Gap BUN Venous BUN Creatinine Estimated GFR Glucose POC Glucometer 103 Hemoglobin A1c 4.96 Lactic Acid Calcium Ionized Calcium Total Bilirubin AST ALT Alkaline Phosphatase Troponin Troponin I < 0.012 Serum Total Protein Albumin Procalcitonin Urine Color Urine Appearance Urine pH Ur Specific [place] Urine Protein Urine Glucose (UA) Urine Ketones Urine Blood Urine Nitrite Urine Bilirubin Urine Urobilinogen Ur Leukocyte Esterase U Hyaline Cast (Auto) Urine Microscopic RBC Urine Microscopic WBC Ur Epithelial Cells Urine Bacteria Urine Culture Reflexed Influenza Type A Ag Influenza Type B Ag RSV (PCR) SARS-CoV-2 (PCR) 05/30/22 05/30/22 05/30/22 14:33 13:13 11:10 WBC RBC Hgb Hct MCV MCH MCHC RDW Plt Count MPV Segmented Neutrophils Band Neutrophils Lymphocytes (Manual) Monocytes (Manual) Eosinophils (Manual) Toxic Granulation Platelet Estimate RBC Morphology D-Dimer Sodium Sodium Direct Potassium Chloride Carbon Dioxide Anion Gap BUN Venous BUN Creatinine Estimated GFR Glucose POC Glucometer Hemoglobin A1c Lactic Acid 2.5 H 4.3 H Calcium Ionized Calcium Total Bilirubin AST ALT Alkaline Phosphatase Troponin Troponin I < 0.012 Serum Total Protein Albumin Procalcitonin Urine Color Urine Appearance Urine pH Ur Specific [place] Urine Protein Urine Glucose (UA) Urine Ketones Urine Blood Urine Nitrite Urine Bilirubin Urine Urobilinogen Ur Leukocyte Esterase U Hyaline Cast (Auto) Urine Microscopic RBC Urine Microscopic WBC Ur Epithelial Cells Urine Bacteria Urine Culture Reflexed Influenza Type A Ag Influenza Type B Ag RSV (PCR) SARS-CoV-2 (PCR) 05/30/22 05/30/22 05/30/22 10:55 10:55 10:55 WBC RBC Hgb Hct MCV MCH MCHC RDW Plt Count MPV Segmented Neutrophils Band Neutrophils Lymphocytes (Manual) Monocytes (Manual) Eosinophils (Manual) Toxic Granulation Platelet Estimate RBC Morphology D-Dimer Sodium Sodium Direct 135 L Potassium 4.8 Chloride 103 Carbon Dioxide 19 L Anion Gap BUN Venous BUN 37 H Creatinine 3.6 H Estimated GFR Glucose 58 L POC Glucometer Hemoglobin A1c Lactic Acid Calcium Ionized Calcium 1.05 L Total Bilirubin AST ALT Alkaline Phosphatase Troponin 0.01 Troponin I Cancelled Serum Total Protein Albumin Procalcitonin 14.500 H* Urine Color Urine Appearance Urine pH Ur Specific [place] Urine Protein Urine Glucose (UA) Urine Ketones Urine Blood Urine Nitrite Urine Bilirubin Urine Urobilinogen Ur Leukocyte Esterase U Hyaline Cast (Auto) Urine Microscopic RBC Urine Microscopic WBC Ur Epithelial Cells Urine Bacteria Urine Culture Reflexed Influenza Type A Ag NEGATIVE Influenza Type B Ag NEGATIVE RSV (PCR) NEGATIVE SARS-CoV-2 (PCR) NEGATIVE 05/30/22 05/30/22 05/30/22 10:55 10:55 10:55 WBC 23.4 H RBC 3.81 L Hgb 10.2 L Hct 33.0 L MCV 86.6 MCH 26.8 MCHC 30.9 L RDW 18.3 H Plt Count 342 MPV 9.6 Segmented Neutrophils 78 H Band Neutrophils 6 H Lymphocytes (Manual) 13 L Monocytes (Manual) 1 Eosinophils (Manual) 2 Toxic Granulation 2+ Platelet Estimate NORMAL RBC Morphology NORMAL D-Dimer 1.26 H* Sodium 135 L Sodium Direct Potassium 4.9 Chloride 105 Carbon Dioxide 19 L Anion Gap 17.2 H BUN 30 H Venous BUN Creatinine 3.33 H Estimated GFR 15.3 Glucose 54 L POC Glucometer Hemoglobin A1c Lactic Acid Calcium 8.0 L Ionized Calcium Total Bilirubin 0.30 AST 30 ALT 15 Alkaline Phosphatase 81 Troponin Troponin I Serum Total Protein 6.4 Albumin 3.4 L Procalcitonin Urine Color Urine Appearance Urine pH Ur Specific [place] Urine Protein Urine Glucose (UA) Urine Ketones Urine Blood Urine Nitrite Urine Bilirubin Urine Urobilinogen Ur Leukocyte Esterase U Hyaline Cast (Auto) Urine Microscopic RBC Urine Microscopic WBC Ur Epithelial Cells Urine Bacteria Urine Culture Reflexed Influenza Type A Ag Influenza Type B Ag RSV (PCR) SARS-CoV-2 (PCR) Orders (Last 24 hours) Category Date Time Status Bedrest ROUTINE Activity 05/30/22 14:06 Active Admit as Inpatient ROUTINE Care 05/30/22 14:04 Active Catheter Care Record Q12H Care 05/30/22 17:27 Active Code Status Order ROUTINE Care 05/30/22 14:04 Active EKG-ER Only STAT Care 05/30/22 10:00 Completed Arias [Catheter-[place] Arias] STAT Care 05/30/22 17:26 Active IV Care Q6H Care 05/30/22 14:04 Active Intake and Output 09,13,18,21 Care 05/30/22 14:04 Active Isolation, Initiate & Maintain Q6H Care 05/30/22 14:04 Completed Neuro Checks Q4H Care 05/30/22 14:04 Active POCT Glucose Check ACHS Care 05/30/22 14:04 Active Vital Signs Q4H Care 05/30/22 14:04 Active Weight,Daily 0600 Care 05/30/22 14:04 Active Infection Control Consult ROUTINE Cons 05/30/22 15:48 Active 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 [employer]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 ROUTINE Cons 05/30/22 15:48 Active Clear Liquid Diet 05/30/22 Dinner Active CHEST 1 VIEW (PORTABLE) Stat Exams 05/30/22 10:01 Completed CHEST WITHOUT CONTRAST [CT] Stat Exams 05/30/22 10:47 Completed BLOOD CULTURE Stat Lab 05/30/22 11:05 Received CBC W DIFF AM.LAB Lab 05/31/22 05:36 Completed CBC W DIFF Stat Lab 05/30/22 10:55 Completed CMP AM.LAB Lab 05/31/22 05:36 Completed CMP Stat Lab 05/30/22 10:55 Completed COVID/FLU/RSV Panel Stat Lab 05/30/22 10:55 Completed D-DIMER QUANTITATIVE Stat Lab 05/30/22 10:55 Completed HEMOGLOBIN A1C Routine Lab 05/30/22 19:00 Completed Lactic Acid AM.LAB Lab 05/31/22 05:45 Completed Lactic Acid Stat Lab 05/30/22 11:10 Completed Lactic Acid Stat Lab 05/30/22 13:13 Completed Manual Differential NC Routine Lab 05/31/22 05:36 Completed Manual Differential NC Stat Lab 05/30/22 10:55 Completed POCT GLUCOSE Stat Lab 05/30/22 16:34 Completed POCT GLUCOSE Stat Lab 05/30/22 21:31 Completed POCT GLUCOSE Stat Lab 05/31/22 06:56 Completed PROCALCITONIN Stat Lab 05/30/22 10:55 Completed TROPONIN Q4H Lab 05/30/22 14:33 Completed TROPONIN Q4H Lab 05/30/22 19:00 Completed Albuterol Common Canister [Ventolin Common Canister* Med 05/30/22 17:20 Active ] 4 puff IH Q4H PRN PRN Albuterol Common Canister [Ventolin Common Canister* Med 05/30/22 19:00 Active ] 4 puff IH TIDRT Albuterol/Ipratropium 3ml Neb* [DUONEB 0.5-3 MG/3 ml Med 05/30/22 13:58 Discontinued Neb] 3 ml IH .STK-MED ONE Albuterol/Ipratropium 3ml Neb* [DUONEB 0.5-3 MG/3 ml Med 05/30/22 14:01 Discontinued Neb] 3 ml IH STAT ONE Ceftriaxone 2 GM/50 ML PREMIX* [ROCEPHIN 2 Gm-D5w 50ML Med 05/31/22 10:00 Discontinued BAG] 2 g in 50 ml IV Q24H10 Ceftriaxone 2 GM/50 ML PREMIX* [ROCEPHIN 2 Gm-D5w 50ML Med 05/30/22 11:45 Disc ontinued BAG] 2 g in 50 ml IV STAT Ceftriaxone 2 GM/50 ML PREMIX* [ROCEPHIN 2 Gm-D5w 50ML Med 05/30/22 11:46 Discontinued BAG] 2 g in 50 ml IV UD Citalopram Hydrobromide 20 mg* [ceLEXa 20 MG] Med 05/31/22 10:00 Active 20 mg PO DAILY Famotidine 20 mg [Pepcid 20 MG] Med 05/30/22 22:00 Active 20 mg PO HS Fentanyl Citrate 100 Mcg/2 ml* [Sublimaze 100 Mcg/2 ml* Med 05/30/22 11:17 Discontinued ] 50 mcg IV STAT ONE Fluoxetine HCl 20 mg [Prozac 20 MG] Med 05/31/22 10:00 Active 20 mg PO DAILY Fluticasone/Salmeterol [Advair Hfa Common Med 05/30/22 19:00 Active canister*] 2 puff IH BIDRT Levofloxacin [Levofloxacin 750Mg/150Ml D5w] Med 05/30/22 20:00 Active 750 mg in 150 ml IV Q48H Loperamide HCl 2 mg [Imodium 2 mg] Med 05/31/22 00:18 Active 2 mg PO PRN PRN Loratadine 10 mg [Claritin 10 mg] Med 05/31/22 10:00 Active 10 mg PO DAILY Medication Intervention Med 05/30/22 17:00 Active 1 each MC .RN TO CHECK Medication Intervention Med 05/30/22 17:00 Active 1 each MC .RN TO CHECK Meloxicam Med 05/30/22 22:00 Active 15 mg PO HS Methylprednis Sod Succ 125 mg* [solu-MEDROL] Med 05/30/22 10:42 Discontinued 125 mg .ROUTE .STK-MED ONE Methylprednis Sod Succ 125 mg* [solu-MEDROL] 125 mg Med 05/30/22 10:00 Discont inued Water For Injection,Sterile [Sterile H2O 10 ml] 2 ml IV STAT Montelukast Sodium 10 mg [Singulair 10 MG] Med 05/30/22 22:00 Active 10 mg PO HS NaCl 0.9% 1000 ml [Sodium Chloride 0.9% 1000 ML] 1,000 Med 05/30/22 10:42 Discontinued ml .ROUTE UD NaCl 0.9% 1000 ml [Sodium Chloride 0.9% 1000 ML] 1,000 Med 05/30/22 11:40 Discontinued ml .ROUTE UD NaCl 0.9% 1000 ml [Sodium Chloride 0.9% 1000 ML] 1000 Med 05/30/22 11:44 Discontinued ml .ROUTE UD NaCl 0.9% 1000 ml [Sodium Chloride 0.9% 1000 ML] ,000 Med 05/30/22 13:02 Discontinued ml .ROUTE UD NaCl 0.9% 1000 ml [Sodium Chloride 0.9% 1000 ML] 1,000 Med 05/30/22 14:15 Active ml IV 100 mls/hr NaCl 0.9% 1000 ml [Sodium Chloride 0.9% 1000 ML] 000 Med 05/30/22 10:00 Discontinued ml IV 999 mls/hr NaCl 0.9% 1000 ml [Sodium Chloride 0.9% 1000 ML] 1,000 Med 05/30/22 11:40 Discontinued ml IV 999 mls/hr NaCl 0.9% 1000 ml [Sodium Chloride 0.9% 1000 ML] 1000 Med 05/30/22 11:45 Discontinued ml IV 999 mls/hr NaCl 0.9% 1000 ml [Sodium Chloride 0.9% 1000 ML] 1000 Med 05/30/22 13:02 Discontinued ml IV 999 mls/hr Nicotine 21 mg [Nicoderm CQ 21 MG] Med 05/30/22 17:15 Active 21 mg TOP Q24H Norepinephrine Bitartrate/D5w [Norepinephrine 8 mg/250 Med 05/31/22 00:09 Active ml-D5w] 8 mg in 250 ml IV 8 mcg/min Ondansetron ODT 4 MG [Zofran Odt 4 mg] Med 05/30/22 16:54 Active 4 mg PO Q8H PRN PRN PANTOPRAZOLE 40 mg Tablet [Protonix 40MG Tablet] [facility] 05/31/22 10:00 Active 40 mg PO DAILY Pharmacy Dosing Request [facility] 05/30/22 16:37 Discontinued 1 each MC STAT ONE Pharmacy Dosing Request Med 05/30/22 16:39 Discontinued 1 each MC STAT ONE Piperacillin/Tazobactam Inj [Piperacillin/Tazobactam] 4 Med 05/30/22 18:00 Discontinued .5 gm NaCl 0.9% 100 ml Mini-Bag Plus [Sodium Chloride 100ML MINI-BAG PLUS] 100 ml IV Q6HT Piperacillin/Tazobactam Inj [Piperacillin/Tazobactam] 4 Med 05/31/22 14:00 Active .5 gm NaCl 0.9% 100 ml Mini-Bag Plus [Sodium Chloride 100ML MINI-BAG PLUS] 100 ml IV Q8HT Water For Injection,Sterile [Sterile H2O 10 ml] Med 05/30/22 10:42 Discontinued 10 ml IJ .STK-MED ONE RT Screen per Nursing Assess ONCE RT 05/30/22 15:48 Completed Respiratory MDI BID RT 05/30/22 17:21 Active Respiratory Therapy Assessment DAILY RT 05/30/22 17:20 Active Smoking Cessation Education ONCE RT 05/30/22 15:48 Completed Patient Care Notes (Last 24 hours) 05/30/22 17:28 Pharmacy Note by Cirilo Santillan PHARMACY TO DOSE ZOSYN SUGGESTED DOSE FOR PNEUMONIA: 4.5G Q6H CRCL: 43 ML/MIN RENALLY ADJUSTED DOSE: 4.5G Q6H (NO ADJUSTMENT FOR CRCL >40 ML/MIN) Initialized on 05/30/22 17:28 - END OF NOTE 05/30/22 17:26 Pharmacy Note by Cirilo Santillan PHARMACY TO DOSE LEVAQUIN SUGGESTED DOSE FOR PNEUMONIA: 750 MG Q24H CRCL: 43 ML/MIN RENALLY APPROPRIATE DOSING SELECTED: 750 MG Q48H Initialized on 05/30/22 17:26 - END OF NOTE (2) Acute kidney injury Current Visit: Yes Status: Acute Code(s): N17.9 - ACUTE KIDNEY FAILURE, UNSPECIFIED (3) Bilateral pneumonia Current Visit: Yes Status: Acute Qualifiers: Pneumonia type: due to Pneumococcus Lung location: lower lobe of lung Qualified Code(s): J13 - Pneumonia due to Streptococcus pneumoniae Code(s): J18.9 - PNEUMONIA, UNSPECIFIED ORGANISM (4) Hypotension Current Visit: Yes Status: Acute Qualifiers: Hypotension type: hypotension due to hypovolemia Qualified Code(s): I95.89 - Other hypotension; E86.1 - Hypovolemia Code(s): I95.9 - HYPOTENSION, UNSPECIFIED
[2022-05-31 08:40] LABS: BAND 16 % (0.0-2.0); Lymphocytes 1 % (24-44); Monocyte 9 % (0.0-12.0); Neutrophils 74 % (36.0-66.0); Platelet Estimate NORMAL (NORMAL); Total Cells Counted 100
[2022-05-31] MEDS ORDERED: ROCEPHIN 2 Gm-D5w 50ML BAG** 2 G/50 ML IVPB IV SCH (10:00)
[2022-05-31] MEDS ORDERED: NON-FORMULARY ITEM (Fluticasone/Umeclidin/Vilanter [Trelegy Ellipta 100-62.5-25] 1 EACH Bl IH SCH (10:00)
[2022-05-31] MEDS: Prozac 20 MG PO SCH (10:27)
[2022-05-31] MEDS: Protonix 40MG Tablet PO SCH (10:27)
[2022-05-31] MEDS: CLARITIN 10 MG PO SCH (10:27)
[2022-05-31] MEDS: ceLEXa 20 MG PO SCH (10:27)
[2022-05-31] MEDS: lamICTAL 100MG TABLET PO SCH ×2 (12:23→21:04)
[2022-05-31] MEDS: Nicoderm CQ 21 MG TOP SCH (18:14)
[2022-05-31] MEDS: MELOXICAM PO SCH (21:03)
[2022-05-31] MEDS: Singulair 10 MG PO SCH (21:03)
[2022-05-31] MEDS: Pepcid 20 MG PO SCH (21:03)
[2022-05-31] MEDS: Restoril 15 MG PO SCH (21:09)
[2022-06-01] MEDS: PIPERACILLIN/TAZOBACTAM 4.5 GM in Sodium Chloride 100ML MINI-BAG PLUS 100 ML IV SCH ×2 (05:13→14:06)
[2022-06-01] MEDS: VENTOLIN COMMON CANISTER IH SCH ×3 (05:51→17:10)
[2022-06-01] MEDS: Advair Hfa 115/21 Common canister IH SCH ×2 (05:51→17:11)
[2022-06-01 09:51] LABS: ALBUMIN 2.9 g/dL (3.5-5.0); ANION GAP 11.4 MEQ/L (5-15); BILIRUBIN,TOTAL 0.3 mg/dL (0.2-1.3); Calcium 7.9 mg/dL (8.4-10.2); Creatinine 1 1.17 mg/dL (0.52-1.04); Potassium 3.5 mmol/L (3.5-5.1); Total Protein 5.9 g/dL (6.3-8.2)
[2022-06-01 10:01] LABS: Absolute Neutrophil Ct (ANC) 11.82 x10^3/uL (1.4-6.9); BASOPHIL % 0.2 % (0.0-0.4); Basophil (Absolute #) 0.03 x10^3/uL (0-0.4); Eosinophil % 0.1 % (0.00-5.0); Eosinophil (Absolute #) 0.02 x10^3/uL (0-0.5); Hematocrit 27.4 % (35-47); Hemoglobin 8.6 g/dL (12.0-16.0); IMMATURE GRAN # 0.11 x10^3u/L (0.00-0.03); IMMATURE GRAN % 0.8 % (0.00-0.4); Lymphocyte (Absolute #) 1.13 x10^3/uL (1.0-4.6); Lymphocytes % 8.2 % (24.0-44.0); Mean Cell Volume 85.1 fL (78-100); Mean Corpuscular Hemoglobin 26.7 pg (26-32); Mean Corpuscular Hgb Concent. 31.4 g/dL (32-36); Mean Platelet Volume 9.9 fL (7.5-11.0); Monocyte (Absolute #) 0.61 x10^3/uL (0.0-1.3); Monocytes % 4.4 % (0.0-12.0); Neutrophil % 86.3 % (36.0-66.0); Platelet Count 294 x10^3/uL (150-450); Red Blood Count 3.22 x10^6/uL (4.1-5.4); Red Cell Distribution Width 18.7 % (11.5-14.0); White Blood Count 13.7 x10^3/uL (4.0-10.5)
[2022-06-01] MEDS: ceLEXa 20 MG PO SCH (10:13)
[2022-06-01] MEDS: Protonix 40MG Tablet PO SCH (10:13)
[2022-06-01] MEDS: Prozac 20 MG PO SCH (10:13)
[2022-06-01] MEDS: CLARITIN 10 MG PO SCH (10:13)
[2022-06-01] MEDS: lamICTAL 100MG TABLET PO SCH ×2 (10:13→22:29)
[2022-06-01] MEDS: Sodium Chloride 0.9% 1000 ML 1,000 ML IV SCH ×3 (10:16→21:16)
--- NOTE | 2022-06-01 14:26 | PCM.NOTE ---
Date and Time: 06/01/221421 Subjective Assessment: doing ok. off levaphed drip - Review of Systems Constitutional: No Fever, No Chills Eyes: No Symptoms Ears, Nose, & Throat: No Symptoms Respiratory: Orthopnea, Short Of Breath, Wheezing Cardiac: No Chest Pain, No Edema, No Syncope Abdominal/Gastrointestinal: No Abdominal Pain, No Nausea, No Vomiting, No Diarrhea Genitourinary Symptoms: No Dysuria Musculoskeletal: No Back Pain, No Neck Pain Skin: No Rash Neurological: No Dizziness, No Focal Weakness, No Sensory Changes Psychological: No Symptoms Endocrine: No Symptoms Hematologic/Lymphatic: No Symptoms Immunological/Allergic: No Symptoms Objective Exam General Appearance: no apparent distress, alert Neurologic Exam: alert, oriented x 3, cooperative, normal mood/affect, nml cerebellar function, sensation nml, No motor deficits Skin Exam: normal color, warm, dry Eye Exam: PERRL, EOMI, eyes nml inspection Ears, Nose, Throat Exam: normal ENT inspection, pharynx normal, moist mucous membranes Neck Exam: normal inspection, non-tender, supple, full range of motion Respiratory Exam: diminished breath sounds, crackles/rales, rhonchi, wheezing, No respiratory distress Cardiovascular Exam: regular rate/rhythm, normal heart sounds Gastrointestinal/Abdomen Exam: soft, No tenderness, No mass Extremity Exam: normal inspection, normal range of motion Back Exam: normal inspection, normal range of motion, No CVA tenderness, No vertebral tenderness Pelvic Exam: deferred Rectal Exam: deferred OBJECTIVE DATA Vital Signs: Vital Signs - 24 hr Temp Pulse Resp BP Pulse Ox 06/01/22 12:43 79 15 97 06/01/22 11:00 98.5 F 80 20 104/54 98 06/01/22 08:00 80 06/01/22 07:03 77 110/68 06/01/22 05:52 87 16 97 06/01/22 05:03 76 115/66 06/01/22 04:04 73 21 104/61 94 L 06/01/22 03:08 77 06/01/22 03:01 98.2 F 74 22 106/65 94 L 06/01/22 02:32 98 F 79 16 99/59 96 06/01/22 02:00 80 22 103/58 93 L 06/01/22 01:03 98.4 F 78 18 103/61 93 L 06/01/22 00:00 78 18 99/57 94 L 05/31/22 23:30 83 25 H 98/63 94 L 05/31/22 23:00 86 21 91/50 95 05/31/22 22:30 86 19 95/43 94 L 05/31/22 22:00 87 19 107/54 97 05/31/22 21:30 85 22 103/71 98 05/31/22 21:00 80 13 113/66 98 05/31/22 20:30 84 22 106/64 97 05/31/22 20:00 98.0 F 86 20 109/60 98 05/31/22 19:30 98 F 85 17 106/66 98 05/31/22 17:54 78 18 100 05/31/22 16:00 76 05/31/22 15:00 98.5 F 84 16 100/60 100 Pain Assessment - Last Documented Pain Intensity 0 Intake and Output: Intake & Output 05/30/22 05/31/22 06/01/22 06/02/22 11:59 11:59 11:59 11:59 Intake Total 2886 2618 360 Output Total 1999 2700 1350 Balance 886 -82 -990 Weight 79.5 kg 83.1 kg Lab Results: Lab Results-Last 24 Hours 05/31/22 05/31/22 06/01/22 Range/Units 16:42 22:20 07:30 WBC (4.0-10.5) x10^3/uL RBC (4.1-5.4) x10^6/uL Hgb (12.0-16.0) g/dL Hct (35-47) % MCV (78-100) fL MCH (26-32) pg MCHC (32-36) g/dL RDW (11.5-14.0) % Plt Count (150-450) x10^3/uL MPV (7.5-11.0) fL Gran % (36.0-66.0) % Immature Gran % (Auto) (0.00-0.4) % Nucleat RBC Rel Count (0.00-0.1) % Eos # (Auto) (0-0.5) x10^3/uL Immature Gran # (Auto) (0.00-0.03) x10^3u/L Absolute Lymphs (auto) (1.0-4.6) x10^3/uL Absolute Monos (auto) (0.0-1.3) x10^3/uL Absolute Nucleated RBC (0.00-0.01) x10^3u/L Lymphocytes % (24.0-44.0) % Monocytes % (0.0-12.0) % Eosinophils % (0.00-5.0) % Basophils % (0.0-0.4) % Absolute Granulocytes (1.4-6.9) x10^3/uL Basophils # (0-0.4) x10^3/uL Sodium (137-145) mmol/L Potassium (3.5-5.1) mmol/L Chloride (98-107) mmol/L Carbon Dioxide (22-30) mmol/L Anion Gap (5-15) MEQ/L BUN (7-17) mg/dL Creatinine (0.52-1.04) mg/dL Estimated GFR ML/MIN Glucose (74-106) mg/dL POC Glucometer 129 H 115 H 85 (74 to 106) mg/dL Calcium (8.4-10.2) mg/dL Total Bilirubin (0.2-1.3) mg/dL AST (14-36) U/L ALT (0-35) U/L Alkaline Phosphatase (38-126) U/L Serum Total Protein (6.3-8.2) g/dL Albumin (3.5-5.0) g/dL Procalcitonin (0.030-0.080) ng/mL 06/01/22 06/01/22 06/01/22 Range/Units 09:32 09:32 09:32 WBC 13.7 H (4.0-10.5) x10^3/uL RBC 3.22 L (4.1-5.4) x10^6/uL Hgb 8.6 L (12.0-16.0) g/dL Hct 27.4 L (35-47) % MCV 85.1 (78-100) fL MCH 26.7 (26-32) pg MCHC 31.4 L (32-36) g/dL RDW 18.7 H (11.5-14.0) % Plt Count 294 (150-450) x10^3/uL MPV 9.9 (7.5-11.0) fL Gran % 86.3 H (36.0-66.0) % Immature Gran % (Auto) 0.8 H (0.00-0.4) % Nucleat RBC Rel Count 0.0 (0.00-0.1) % Eos # (Auto) 0.02 (0-0.5) x10^3/uL Immature Gran # (Auto) 0.11 H (0.00-0.03) x10^3u/L Absolute Lymphs (auto) 1.13 (1.0-4.6) x10^3/uL Absolute Monos (auto) 0.61 (0.0-1.3) x10^3/uL Absolute Nucleated RBC 0.00 (0.00-0.01) x10^3u/L Lymphocytes % 8.2 L (24.0-44.0) % Monocytes % 4.4 (0.0-12.0) % Eosinophils % 0.1 (0.00-5.0) % Basophils % 0.2 (0.0-0.4) % Absolute Granulocytes 11.82 H (1.4-6.9) x10^3/uL Basophils # 0.03 (0-0.4) x10^3/uL Sodium 141 (137-145) mmol/L Potassium 3.5 (3.5-5.1) mmol/L Chloride 117 H (98-107) mmol/L Carbon Dioxide 17 L (22-30) mmol/L Anion Gap 11.4 (5-15) MEQ/L BUN 21 H (7-17) mg/dL Creatinine 1.17 H (0.52-1.04) mg/dL Estimated GFR 51.0 ML/MIN Glucose 106 (74-106) mg/dL POC Glucometer (74 to 106) mg/dL Calcium 7.9 L (8.4-10.2) mg/dL Total Bilirubin 0.30 (0.2-1.3) mg/dL AST 21 (14-36) U/L ALT 15 (0-35) U/L Alkaline Phosphatase 83 (38-126) U/L Serum Total Protein 5.9 L (6.3-8.2) g/dL Albumin 2.9 L (3.5-5.0) g/dL Procalcitonin 4.130 H* (0.030-0.080) ng/mL 06/01/22 Range/Units 11:13 WBC (4.0-10.5) x10^3/uL RBC (4.1-5.4) x10^6/uL Hgb (12.0-16.0) g/dL Hct (35-47) % MCV (78-100) fL MCH (26-32) pg MCHC (32-36) g/dL RDW (11.5-14.0) % Plt Count (150-450) x10^3/uL MPV (7.5-11.0) fL Gran % (36.0-66.0) % Immature Gran % (Auto) (0.00-0.4) % Nucleat RBC Rel Count (0.00-0.1) % Eos # (Auto) (0-0.5) x10^3/uL Immature Gran # (Auto) (0.00-0.03) x10^3u/L Absolute Lymphs (auto) (1.0-4.6) x10^3/uL Absolute Monos (auto) (0.0-1.3) x10^3/uL Absolute Nucleated RBC (0.00-0.01) x10^3u/L Lymphocytes % (24.0-44.0) % Monocytes % (0.0-12.0) % Eosinophils % (0.00-5.0) % Basophils % (0.0-0.4) % Absolute Granulocytes (1.4-6.9) x10^3/uL Basophils # (0-0.4) x10^3/uL Sodium (137-145) mmol/L Potassium (3.5-5.1) mmol/L Chloride (98-107) mmol/L Carbon Dioxide (22-30) mmol/L Anion Gap (5-15) MEQ/L BUN (7-17) mg/dL Creatinine (0.52-1.04) mg/dL Estimated GFR ML/MIN Glucose (74-106) mg/dL POC Glucometer 84 (74 to 106) mg/dL Calcium (8.4-10.2) mg/dL Total Bilirubin (0.2-1.3) mg/dL AST (14-36) U/L ALT (0-35) U/L Alkaline Phosphatase (38-126) U/L Serum Total Protein (6.3-8.2) g/dL Albumin (3.5-5.0) g/dL Procalcitonin (0.030-0.080) ng/mL Multi-Disciplinary Progress Notes: Multi-Disciplinary Progress Notes 06/01/22 11:13 Case Management Note by Anjali Mcintosh S/Jez PATIENT- SHE CONTINUES TO DENY ANY NEEDS AT TIME OF DC. SHE PLANS TO RETURN HOME TO HER PLF AT TIME OF DC. SHE DECLINED [facility] Initialized on 06/01/22 11:13 - END OF NOTE Assessment/Plan (1) Sepsis Current Visit: Yes Status: Acute Qualifiers: Sepsis type: Pneumococcus Sepsis acute organ dysfunction status: with acute organ dysfunction Severe sepsis acute organ dysfunction type: acute renal failure Acute renal failure type: unspecified Severe sepsis shock status: with septic shock Qualified Code(s): A40.3 - Sepsis due to Streptococcus pneumoniae; R65.21 - Severe sepsis with septic shock; N17.9 - Acute kidney failure, unspecified Assessment & Plan: Improving. labs reviewed. Chief Complaint Diagnosis headache and weakness for 3 days Allergies Allergy/AdvReac Type Severity Reaction Status Date / Time divalproex sodium Allergy Verified 05/30/22 09:55 [From Depakote] morphine Allergy Verified 05/30/22 09:55 Sulfa (Sulfonamide Allergy Verified 05/30/22 09:55 Antibiotics) Vital Signs (Last 24 hours) Temp Pulse Resp BP Pulse Ox 06/01/22 12:43 79 15 97 06/01/22 11:00 98.5 F 80 20 104/54 98 06/01/22 08:00 80 06/01/22 07:03 77 110/68 06/01/22 05:52 87 16 97 06/01/22 05:03 76 115/66 06/01/22 04:04 73 21 104/61 94 L 06/01/22 03:08 77 06/01/22 03:01 98.2 F 74 22 106/65 94 L 06/01/22 02:32 98 F 79 16 99/59 96 06/01/22 02:00 80 22 103/58 93 L 06/01/22 01:03 98.4 F 78 18 103/61 93 L 06/01/22 00:00 78 18 99/57 94 L 05/31/22 23:30 83 25 H 98/63 94 L 05/31/22 23:00 86 21 91/50 95 05/31/22 22:30 86 19 95/43 94 L 05/31/22 22:00 87 19 107/54 97 05/31/22 21:30 85 22 103/71 98 05/31/22 21:00 80 13 113/66 98 05/31/22 20:30 84 22 106/64 97 05/31/22 20:00 98.0 F 86 20 109/60 98 05/31/22 19:30 98 F 85 17 106/66 98 05/31/22 17:54 78 18 100 05/31/22 16:00 76 05/31/22 15:00 98.5 F 84 16 100/60 100 Home Medications Medication Instructions Recorded Confirmed Last Taken Type Fluoxetine HCl 20 mg [Prozac 20 20 mg PO DAILY 05/30/22 05/30/22 05/30/22 History MG] Fluticasone/Umeclidin/Vilanter 1 puff IH DAILY 05/30/22 05/30/22 05/30/22 History [Trelegy Ellipta 100-62.5-25] Furosemide [Lasix] 20 mg PO DAILY 05/30/22 05/30/22 05/28/22 History Loratadine 10 mg [Claritin 10 10 mg PO DAILY 05/30/22 05/30/22 05/30/22 History mg] Montelukast Sodium 10 mg 10 mg PO HS 05/30/22 05/30/22 05/29/22 History [Singulair 10 MG] Ondansetron [Ondansetron Odt] 4 mg PO Q8H PRN PRN 05/30/22 05/30/22 Unknown History Ubrogepant [Ubrelvy] 100 mg PO Q2H/PRN PRN 05/30/22 05/30/22 Unknown History Verapamil HCl [Verapamil ER Pm] 200 mg PO HS 05/30/22 05/30/22 05/29/22 History lamoTRIgine [Lamotrigine] 200 mg PO 05/30/22 05/31/22 05/30/22 History Gabapentin [Neurontin ] 100 mg PO 05/31/22 05/31/22 Unknown History Temazepam [Restoril] 45 mg PO 05/31/22 05/31/22 Unknown History Current Medications Generic Name Dose Route Start Last Admin Trade Name Freq PRN Reason Stop Dose Admin Albuterol Sulfate 4 puff 05/30/22 19:00 06/01/22 12:38 Albuterol Common Canister Inhaler 06/29/22 18:59 4 puff TIDRT GERI Administration Albuterol Sulfate 4 puff 05/30/22 17:20 Albuterol Common Canister Inhaler 06/29/22 17:19 Q4H PRN PRN SHORTNESS OF BREATH/WHEEZING Citalopram Hydrobromide 20 mg 05/31/22 10:00 06/01/22 10:13 Citalopram Hydrobromide 20 Mg Tablet PO 06/30/22 09:59 20 mg DAILY GERI Administration Famotidine 20 mg 05/30/22 22:00 05/31/22 21:03 Famotidine 20 Mg Tablet PO 06/29/22 21:59 20 mg HS GERI Administration Fluoxetine HCl 20 mg 05/31/22 10:00 06/01/22 10:13 Fluoxetine Hcl 20 Mg Cap PO 06/30/22 09:59 20 mg DAILY GERI Administration Sodium Chloride 1,000 mls @ 100 mls/hr 05/30/22 14:15 06/01/22 10:16 Sodium Chloride 0.9% 1000 Ml IV 06/29/22 14:14 100 mls/hr .Q10H GERI Administration Levofloxacin/Dextrose 750 mg in 150 mls @ 100 mls/hr 05/30/22 20:00 05/30/22 21:09 Levofloxacin 750mg/150ml D5w IV 06/29/22 19:59 100 mls/hr Q48H GERI Administration Norepinephrine/Dextrose 8 mg in 250 mls @ 15 mls/hr 05/31/22 00:09 05/31/22 23:30 Norepinephrine 8 Mg/250 Ml-D5w IV 06/30/22 00:08 0 mcg/min .[id number] PRN 0 mls/hr HYPOTENSION Titration Protocol 8 MCG/MIN Piperacillin Sod/Tazobactam 100 mls @ 200 mls/hr 05/31/22 14:00 06/01/22 14:06 Sod 4.5 gm/ Sodium Chloride IV 06/30/22 13:59 200 mls/hr Q8HT GERI Administration Lamotrigine 200 mg 05/31/22 12:01 06/01/22 10:13 Lamotrigine 100 Mg Tab PO 06/30/22 12:00 200 mg DAILY GERI Administration Lamotrigine 400 mg 05/31/22 22:00 05/31/22 21:04 Lamotrigine 100 Mg Tab PO 06/30/22 21:59 400 mg HS GERI Administration Loperamide HCl 2 mg 05/31/22 00:18 06/01/22 06:23 Loperamide Hcl 2 Mg Capsule PO 06/30/22 00:17 2 mg PRN PRN Administration DIARRHEA Loratadine 10 mg 05/31/22 10:00 06/01/22 10:13 Loratadine 10 Mg Tablet PO 06/30/22 09:59 10 mg DAILY GERI Administration Meloxicam 15 mg 05/30/22 22:00 05/31/22 21:03 Meloxicam 7.5 Mg Tablet PO 06/29/22 21:59 15 mg HS GERI Administration Miscellaneous Information 1 each 05/30/22 17:00 Medication Intervention 1 Each Each 06/29/22 16:59 .RN TO CHECK GERI Montelukast Sodium 10 mg 05/30/22 22:00 05/31/22 21:03 Montelukast Sodium 10 Mg Tablet PO 06/29/22 21:59 10 mg HS GERI Administration Nicotine 21 mg 05/30/22 17:15 05/31/22 18:14 Nicotine 21 Mg/Patch Patch TOP 06/29/22 17:14 21 mg Q24H GERI Administration Ondansetron HCl 4 mg 05/30/22 16:54 Zofran 4 Mg/Udtablet Orally Disintegrating PO 06/29/22 16:53 Q8H PRN PRN NAUSEA Pantoprazole Sodium 40 mg 05/31/22 10:00 06/01/22 10:13 Protonix (Pantoprazole) 40 Mg Tablet PO 06/30/22 09:59 40 mg DAILY GERI Administration Fluticasone/Salmeterol 2 puff 05/30/22 19:00 06/01/22 05:51 Fluticasone/Salmeterol 115/21 - 120 Puff Common Canister IH 06/29/22 18:59 2 puff BIDRT GERI Administration Temazepam 15 mg 05/31/22 22:00 05/31/22 21:09 Temazepam 15 Mg Capsule PO 06/30/22 21:59 15 mg HS GERI Administration Discontinued Medications Generic Name Dose Route Start Last Admin Trade Name Edwige PRN Reason Stop Dose Admin Albuterol/Ipratropium Confirm 05/30/22 13:58 Ipratropium/Albuterol Sulfate 3 Ml Ampul.Neb Administered 05/30/22 13:59 Dose 3 ml IH .STK-MED ONE Albuterol/Ipratropium 3 ml 05/30/22 14:01 05/30/22 14:02 Ipratropium/Albuterol Sulfate 3 Ml Ampul.Neb IH 05/30/22 14:02 3 ml STAT ONE Administration Methylprednisolone Sodium 0 mg 05/30/22 10:00 05/30/22 10:43 Succinate 125 mg/ Sterile IV 05/30/22 10:01 125 mg Water 2 ml STAT ONE Administration Fentanyl Citrate 50 mcg 05/30/22 11:17 Fentanyl Citrate 100 Mcg/2 Ml* Vial IV 05/30/22 11:18 STAT ONE Sodium Chloride 1,000 mls @ 999 mls/hr 05/30/22 10:00 05/30/22 11:45 Sodium Chloride 0.9% 1000 Ml IV 05/30/22 11:00 Infused .Q1H1M STA Infusion Sodium Chloride Confirm 05/30/22 10:42 Sodium Chloride 0.9% 1000 Ml Administered 05/30/22 10:43 Dose 1,000 mls @ ud .ROUTE .STK-MED ONE Sodium Chloride 1,000 mls @ 999 mls/hr 05/30/22 11:40 05/30/22 12:51 Sodium Chloride 0.9% 1000 Ml IV 05/30/22 12:40 Infused .Q1H1M STA Infusion Sodium Chloride Confirm 05/30/22 11:40 Sodium Chloride 0.9% 1000 Ml Administered 05/30/22 11:41 Dose 1,000 mls @ ud .ROUTE .STK-MED ONE Sodium Chloride 1,000 mls @ 999 mls/hr 05/30/22 11:45 05/30/22 12:51 Sodium Chloride 0.9% 1000 Ml IV 05/30/22 12:45 Infused .Q1H1M STA Infusion Ceftriaxone Sodium/Dextrose 2 g in 50 mls @ 100 mls/hr 05/30/22 11:45 05/30/22 12:19 Rocephin 2 Gm-D5w 50ml Bag IV 05/30/22 12:14 Infused STAT STA Infusion Sodium Chloride Confirm 05/30/22 11:44 Sodium Chloride 0.9% 1000 Ml Administered 05/30/22 11:45 Dose 1,000 mls @ ud .ROUTE .STK-MED ONE Ceftriaxone Sodium/Dextrose Confirm 05/30/22 11:46 Rocephin 2 Gm-D5w 50ml Bag Administered 05/30/22 11:47 Dose 2 g in 50 mls @ ud IV .STK-MED ONE Sodium Chloride Confirm 05/30/22 13:02 Sodium Chloride 0.9% 1000 Ml Administered 05/30/22 13:03 Dose 1,000 mls @ ud .ROUTE .STK-MED ONE Sodium Chloride 1,000 mls @ 999 mls/hr 05/30/22 13:02 05/30/22 14:06 Sodium Chloride 0.9% 1000 Ml IV 05/30/22 14:02 Infused .Q1H1M STA Infusion Ceftriaxone Sodium/Dextrose 2 g in 50 mls @ 100 mls/hr 05/31/22 10:00 Rocephin 2 Gm-D5w 50ml Bag IV 06/03/22 09:59 Q24H10 GERI Piperacillin Sod/Tazobactam 100 mls @ 200 mls/hr 05/30/22 18:00 05/31/22 05:57 Sod 4.5 gm/ Sodium Chloride IV 06/29/22 17:59 200 mls/hr Q6HT GERI Administration Methylprednisolone Sodium Succinate Confirm 05/30/22 10:42 Methylprednis Sod Succ 125 Mg/2 Ml Vial Administered 05/30/22 10:43 Dose 125 mg .ROUTE .STK-MED ONE Miscellaneous Information 1 each 05/30/22 17:00 Medication Intervention 1 Each Each 06/29/22 16:59 .RN TO CHECK GERI Non-Formulary Medication 1 each 05/30/22 16:37 Pharmacy Dosing Request 05/30/22 16:38 STAT ONE Non-Formulary Medication 1 each 05/30/22 16:39 Pharmacy Dosing Request [facility] 05/30/22 16:40 STAT ONE Sterile Water Confirm 05/30/22 10:42 Water For Injection,Sterile 10 Ml Vial Administered 05/30/22 10:43 Dose 10 ml IJ .STK-MED ONE Intake & Output (Last 24 hours) 05/30/22 05/31/22 06/01/22 06/02/22 11:59 11:59 11:59 11:59 Intake Total 2886 2618 360 Output Total 19990 1350 Balance 886 -82 -990 Weight 79.5 kg 83.1 kg Microbiology Results (Last 24 hours) 05/30/22 11:05 Blood Blood Culture Gram Stain - Pending 05/30/22 11:05 Blood Blood Culture - Preliminary NO GROWTH TO DATE 05/30/22 10:55 Blood Blood Culture Gram Stain - Pending 05/30/22 10:55 Blood Blood Culture - Preliminary NO GROWTH TO DATE Laboratory Results (Last 24 hours) 06/01/22 06/01/22 06/01/22 11:13 09:32 09:32 WBC RBC Hgb Hct MCV MCH MCHC RDW Plt Count MPV Gran % Immature Gran % (Auto) Nucleat RBC Rel Count Eos # (Auto) Immature Gran # (Auto) Absolute Lymphs (auto) Absolute Monos (auto) Absolute Nucleated RBC Lymphocytes % Monocytes % Eosinophils % Basophils % Absolute Granulocytes Basophils # Sodium 141 Potassium 3.5 Chloride 117 H Carbon Dioxide 17 L Anion Gap 11.4 BUN 21 H Creatinine 1.17 H Estimated GFR 51.0 Glucose 106 POC Glucometer 84 Calcium 7.9 L Total Bilirubin 0.30 AST 21 ALT 15 Alkaline Phosphatase 83 Serum Total Protein 5.9 L Albumin 2.9 L Procalcitonin 4.130 H* 06/01/22 06/01/22 05/31/22 09:32 07:30 22:20 WBC 13.7 H RBC 3.22 L Hgb 8.6 L Hct 27.4 L MCV 85.1 MCH 26.7 MCHC 31.4 L RDW 18.7 H Plt Count 294 MPV 9.9 Gran % 86.3 H Immature Gran % (Auto) 0.8 H Nucleat RBC Rel Count 0.0 Eos # (Auto) 0.02 Immature Gran # (Auto) 0.11 H Absolute Lymphs (auto) 1.13 Absolute Monos (auto) 0.61 Absolute Nucleated RBC 0.00 Lymphocytes % 8.2 L Monocytes % 4.4 Eosinophils % 0.1 Basophils % 0.2 Absolute Granulocytes 11.82 H Basophils # 0.03 Sodium Potassium Chloride Carbon Dioxide Anion Gap BUN Creatinine Estimated GFR Glucose POC Glucometer 85 115 H Calcium Total Bilirubin AST ALT Alkaline Phosphatase Serum Total Protein Albumin Procalcitonin 05/31/22 16:42 WBC RBC Hgb Hct MCV MCH MCHC RDW Plt Count MPV Gran % Immature Gran % (Auto) Nucleat RBC Rel Count Eos # (Auto) Immature Gran # (Auto) Absolute Lymphs (auto) Absolute Monos (auto) Absolute Nucleated RBC Lymphocytes % Monocytes % Eosinophils % Basophils % Absolute Granulocytes Basophils # Sodium Potassium Chloride Carbon Dioxide Anion Gap BUN Creatinine Estimated GFR Glucose POC Glucometer 129 H Calcium Total Bilirubin AST ALT Alkaline Phosphatase Serum Total Protein Albumin Procalcitonin Orders (Last 24 hours) Category Date Time Status House Regular Diet Diet 05/31/22 Dinner Active CBC W DIFF Urgent Lab 06/01/22 09:32 Completed CMP Urgent Lab 06/01/22 09:32 Completed POCT GLUCOSE Stat Lab 05/31/22 16:42 Completed POCT GLUCOSE Stat Lab 05/31/22 22:20 Completed POCT GLUCOSE Stat Lab 06/01/22 07:30 Completed POCT GLUCOSE Stat Lab 06/01/22 11:13 Completed PROCALCITONIN Urgent Lab 06/01/22 09:32 Completed Lamotrigine 100 mg [lamICTAL 100MG TABLET] Med 05/31/22 22:00 Active 400 mg PO HS Piperacillin/Tazobactam Inj [Piperacillin/Tazobactam] 4 Med 05/31/22 14:00 Active .5 gm NaCl 0.9% 100 ml Mini-Bag Plus [Sodium Chloride 100ML MINI-BAG PLUS] 100 ml IV Q8HT Temazepam 15 mg [Restoril 15 MG] Med 05/31/22 22:00 Active 15 mg PO HS Pulse Oximetry .continuos RT 05/31/22 18:02 Active Transfer Order Routine Transfer 06/01/22 Completed Patient Care Notes (Last 24 hours) 06/01/22 11:13 Case Management Note by Anjali Mcintosh S/W PATIENT- SHE CONTINUES TO DENY ANY NEEDS AT TIME OF DC. SHE PLANS TO RETURN HOME TO HER PLF AT TIME OF DC. SHE DECLINED [facility] Initialized on 06/01/22 11:13 - END OF NOTE (2) Acute kidney injury Current Visit: Yes Status: Acute Code(s): N17.9 - ACUTE KIDNEY FAILURE, UNSPECIFIED (3) Bilateral pneumonia Current Visit: Yes Status: Acute Qualifiers: Pneumonia type: due to Pneumococcus Lung location: lower lobe of lung Qualified Code(s): J13 - Pneumonia due to Streptococcus pneumoniae Code(s): J18.9 - PNEUMONIA, UNSPECIFIED ORGANISM (4) Hypotension Current Visit: Yes Status: Acute Qualifiers: Hypotension type: hypotension due to hypovolemia Qualified Code(s): I95.89 - Other hypotension; E86.1 - Hypovolemia Code(s): I95.9 - HYPOTENSION, UNSPECIFIED
[2022-06-01] MEDS: Nicoderm CQ 21 MG TOP SCH (17:53)
[2022-06-01] MEDS: MELOXICAM PO SCH (22:29)
[2022-06-01] MEDS: Restoril 15 MG PO SCH (22:29)
[2022-06-01] MEDS: Pepcid 20 MG PO SCH (22:29)
[2022-06-01] MEDS: LEVOFLOXACIN 750MG/150ML D5W 750 MG/150 ML BAG IV SCH (22:29)
[2022-06-01] MEDS: Singulair 10 MG PO SCH (22:29)
[2022-06-01] MEDS ORDERED: Levofloxacin 250MG Tablet PO ONE (22:44)
[2022-06-01] MEDS ORDERED: Levofloxacin 500 MG Tablet ONE (22:48)
[2022-06-02] MEDS: LEVOFLOXACIN 750MG/150ML D5W 750 MG/150 ML BAG IV SCH (00:03)
[2022-06-02] MEDS: PIPERACILLIN/TAZOBACTAM 4.5 GM in Sodium Chloride 100ML MINI-BAG PLUS 100 ML IV SCH (00:03)
[2022-06-02] MEDS: Advair Hfa 115/21 Common canister IH SCH (08:31)
[2022-06-02 08:34] VITALS: PULSE 81; O2SAT 94
[2022-06-02 08:37] VITALS: BP 132/66
[2022-06-02] MEDS: lamICTAL 100MG TABLET PO SCH (08:54)
[2022-06-02] MEDS: Prozac 20 MG PO SCH (08:54)
[2022-06-02] MEDS: CLARITIN 10 MG PO SCH (08:54)
[2022-06-02] MEDS: ceLEXa 20 MG PO SCH (08:54)
[2022-06-02] MEDS: Protonix 40MG Tablet PO SCH (08:54)
--- NOTE | 2022-06-04 17:49 | PCM.DS ---
Discharge Summary Date of Admission: 05/30/22 15:16 Admitting Physician: VIRGEN JONES Primary Care Provider: VIRGEN JONES Allergies Allergies divalproex sodium [From Depakote] Allergy (Verified 05/30/22 09:55) hives morphine Allergy (Verified 05/30/22 09:55) migraine Sulfa (Sulfonamide Antibiotics) Allergy (Verified 05/30/22 09:55) nausea and vomiting Hospital Summary - Hospital Course Hospital Course: Chief Complaint Diagnosis headache and weakness for 3 days Allergies Allergy/AdvReac Type Severity Reaction Status Date / Time divalproex sodium Allergy Verified 05/30/22 09:55 [From Depakote] morphine Allergy Verified 05/30/22 09:55 Sulfa (Sulfonamide Allergy Verified 05/30/22 09:55 Antibiotics) Home Medications Medication Instructions Recorded Confirmed Last Taken Type Fluoxetine HCl 20 mg [Prozac 20 20 mg PO DAILY 05/30/22 05/30/22 05/30/22 History MG] Fluticasone/Umeclidin/Vilanter 1 puff IH DAILY 05/30/22 05/30/22 05/30/22 History [Trelegy Ellipta 100-62.5-25] Loratadine 10 mg [Claritin 10 10 mg PO DAILY 05/30/22 05/30/22 05/30/22 History mg] Montelukast Sodium 10 mg 10 mg PO HS 05/30/22 05/30/22 05/29/22 History [Singulair 10 MG] Ondansetron [Ondansetron Odt] 4 mg PO Q8H PRN PRN 05/30/22 05/30/22 Unknown History Ubrogepant [Ubrelvy] 100 mg PO Q2H/PRN PRN 05/30/22 05/30/22 Unknown History lamoTRIgine [Lamotrigine] 200 mg PO UD 05/30/22 05/31/22 05/30/22 History Gabapentin [Neurontin ] 100 mg PO HS 05/31/22 05/31/22 Unknown History Temazepam [Restoril] 45 mg PO HS 05/31/22 05/31/22 Unknown History levoFLOXacin [Levofloxacin] 750 mg PO Q48H #2 tablet 06/02/22 Unknown Rx Current Medications Discontinued Medications Generic Name Dose Route Start Last Admin Trade Name Freq PRN Reason Stop Dose Admin Albuterol Sulfate 4 puff 05/30/22 19:00 06/01/22 17:10 Albuterol Common Canister Inhaler 06/29/22 18:59 4 puff TIDRT GERI Administration Albuterol Sulfate 4 puff 05/30/22 17:20 06/02/22 08:31 Albuterol Common Canister Inhaler 06/29/22 17:19 4 puff Q4H PRN PRN Administration SHORTNESS OF BREATH/WHEEZING Albuterol/Ipratropium Confirm 05/30/22 13:58 Ipratropium/Albuterol Sulfate 3 Ml Ampul.Neb Administered 05/30/22 13:59 Dose 3 ml IH .STK-MED ONE Albuterol/Ipratropium 3 ml 05/30/22 14:01 05/30/22 14:02 Ipratropium/Albuterol Sulfate 3 Ml Ampul.Neb 05/30/22 14:02 3 ml STAT ONE Administration Citalopram Hydrobromide 20 mg 05/31/22 10:00 06/02/22 08:54 Citalopram Hydrobromide 20 Mg Tablet PO 06/30/22 09:59 20 mg DAILY GERI Administration Methylprednisolone Sodium 0 mg 05/30/22 10:00 05/30/22 10:43 Succinate 125 mg/ Sterile IV 05/30/22 10:01 125 mg Water 2 ml STAT ONE Administration Famotidine 20 mg 05/30/22 22:00 06/01/22 22:29 Famotidine 20 Mg Tablet PO 06/29/22 21:59 20 mg HS GERI Administration Fentanyl Citrate 50 mcg 05/30/22 11:17 06/02/22 00:06 Fentanyl Citrate 100 Mcg/2 Ml* Vial IV 05/30/22 11:18 Not Given STAT ONE Fluoxetine HCl 20 mg 05/31/22 10:00 06/02/22 08:54 Fluoxetine Hcl 20 Mg Cap PO 06/30/22 09:59 20 mg DAILY GERI Administration Sodium Chloride 1,000 mls @ 999 mls/hr 05/30/22 10:00 05/30/22 11:45 Sodium Chloride 0.9% 1000 Ml IV 05/30/22 11:00 Infused .Q1H1M STA Infusion Sodium Chloride Confirm 05/30/22 10:42 Sodium Chloride 0.9% 1000 Ml Administered 05/30/22 10:43 Dose 1,000 mls @ ud .ROUTE .STK-MED ONE Sodium Chloride 1,000 mls @ 999 mls/hr 05/30/22 11:40 05/30/22 12:51 Sodium Chloride 0.9% 1000 Ml IV 05/30/22 12:40 Infused .Q1H1M STA Infusion Sodium Chloride Confirm 05/30/22 11:40 Sodium Chloride 0.9% 1000 Ml Administered 05/30/22 11:41 Dose 1,000 mls @ ud .ROUTE .STK-MED ONE Sodium Chloride 1,000 mls @ 999 mls/hr 05/30/22 11:45 05/30/22 12:51 Sodium Chloride 0.9% 1000 Ml IV 05/30/22 12:45 Infused .Q1H1M STA Infusion Ceftriaxone Sodium/Dextrose 2 g in 50 mls @ 100 mls/hr 05/30/22 11:45 05/30/22 12:19 Rocephin 2 Gm-D5w 50ml Bag IV 05/30/22 12:14 Infused STAT STA Infusion Sodium Chloride Confirm 05/30/22 11:44 Sodium Chloride 0.9% 1000 Ml Administered 05/30/22 11:45 Dose 1,000 mls @ ud .ROUTE .STK-MED ONE Ceftriaxone Sodium/Dextrose Confirm 05/30/22 11:46 Rocephin 2 Gm-D5w 50ml Bag Administered 05/30/22 11:47 Dose 2 g in 50 mls @ ud IV .STK-MED ONE Sodium Chloride Confirm 05/30/22 13:02 Sodium Chloride 0.9% 1000 Ml Administered 05/30/22 13:03 Dose 1,000 mls @ ud .ROUTE .STK-MED ONE Sodium Chloride 1,000 mls @ 999 mls/hr 05/30/22 13:02 05/30/22 14:06 Sodium Chloride 0.9% 1000 Ml IV 05/30/22 14:02 Infused .Q1H1M STA Infusion Sodium Chloride 1,000 mls @ 100 mls/hr 05/30/22 14:15 06/01/22 21:16 Sodium Chloride 0.9% 1000 Ml IV 06/29/22 14:14 100 mls/hr .Q10H GERI Administration Ceftriaxone Sodium/Dextrose 2 g in 50 mls @ 100 mls/hr 05/31/22 10:00 Rocephin 2 Gm-D5w 50ml Bag IV 06/03/22 09:59 Q24H10 GERI Piperacillin Sod/Tazobactam 100 mls @ 200 mls/hr 05/30/22 18:00 05/31/22 05:57 Sod 4.5 gm/ Sodium Chloride IV 06/29/22 17:59 200 mls/hr Q6HT GERI Administration Levofloxacin/Dextrose 750 mg in 150 mls @ 100 mls/hr 05/30/22 20:00 06/02/22 00:03 Levofloxacin 750mg/150ml D5w IV 06/29/22 19:59 Not Given Q48H GERI Norepinephrine/Dextrose 8 mg in 250 mls @ 15 mls/hr 05/31/22 00:09 05/31/22 23:30 Norepinephrine 8 Mg/250 Ml-D5w IV 06/30/22 00:08 0 mcg/min .[id number] PRN 0 mls/hr HYPOTENSION Titration Protocol 8 MCG/MIN Piperacillin Sod/Tazobactam 100 mls @ 200 mls/hr 05/31/22 14:00 06/02/22 00:03 Sod 4.5 gm/ Sodium Chloride IV 06/30/22 13:59 Not Given Q8HT GERI Lamotrigine 200 mg 05/31/22 12:01 06/02/22 08:54 Lamotrigine 100 Mg Tab PO 06/30/22 12:00 200 mg DAILY GERI Administration Lamotrigine 400 mg 05/31/22 22:00 06/01/22 22:29 Lamotrigine 100 Mg Tab PO 06/30/22 21:59 400 mg HS GERI Administration Levofloxacin 750 mg 06/01/22 22:44 06/01/22 22:53 Levofloxacin 250 Mg Tab PO 06/01/22 22:45 750 mg ONCE ONE Administration Levofloxacin Confirm 06/01/22 22:48 Levofloxacin 500 Mg Tablet Administered 06/01/22 22:49 Dose 1,000 mg .ROUTE .STK-MED ONE Loperamide HCl 2 mg 05/31/22 00:18 06/01/22 06:23 Loperamide Hcl 2 Mg Capsule PO 06/30/22 00:17 2 mg PRN PRN Administration DIARRHEA Loratadine 10 mg 05/31/22 10:00 06/02/22 08:54 Loratadine 10 Mg Tablet PO 06/30/22 09:59 10 mg DAILY GERI Administration Meloxicam 15 mg 05/30/22 22:00 06/01/22 22:29 Meloxicam 7.5 Mg Tablet PO 06/29/22 21:59 15 mg HS GERI Administration Methylprednisolone Sodium Succinate Confirm 05/30/22 10:42 Methylprednis Sod Succ 125 Mg/2 Ml Vial Administered 05/30/22 10:43 Dose 125 mg .ROUTE .STK-MED ONE Miscellaneous Information 1 each 05/30/22 17:00 Medication Intervention 1 Each Each 06/29/22 16:59 .RN TO CHECK GERI Miscellaneous Information 1 each 05/30/22 17:00 Medication Intervention 1 Each Each 06/29/22 16:59 .RN TO CHECK GERI Montelukast Sodium 10 mg 05/30/22 22:00 06/01/22 22:29 Montelukast Sodium 10 Mg Tablet PO 06/29/22 21:59 10 mg HS GERI Administration Nicotine 21 mg 05/30/22 17:15 06/01/22 17:53 Nicotine 21 Mg/Patch Patch TOP 06/29/22 17:14 21 mg Q24H GERI Administration Non-Formulary Medication 1 each 05/30/22 16:37 06/02/22 00:06 Pharmacy Dosing Request 05/30/22 16:38 Not Given STAT ONE Non-Formulary Medication 1 each 05/30/22 16:39 06/02/22 00:06 Pharmacy Dosing Request 05/30/22 16:40 Not Given STAT ONE Ondansetron HCl 4 mg 05/30/22 16:54 Zofran 4 Mg/Udtablet Orally Disintegrating PO 06/29/22 16:53 Q8H PRN PRN NAUSEA Pantoprazole Sodium 40 mg 05/31/22 10:00 06/02/22 08:54 Protonix (Pantoprazole) 40 Mg Tablet PO 06/30/22 09:59 40 mg DAILY GERI Administration Fluticasone/Salmeterol 2 puff 05/30/22 19:00 06/02/22 08:31 Fluticasone/Salmeterol 115/21 - 120 Puff Common Canister IH 06/29/22 18:59 2 puff BIDRT GERI Administration Sterile Water Confirm 05/30/22 10:42 Water For Injection,Sterile 10 Ml Vial Administered 05/30/22 10:43 Dose 10 ml IJ .STK-MED ONE Temazepam 15 mg 05/31/22 22:00 06/01/22 22:29 Temazepam 15 Mg Capsule PO 06/30/22 21:59 15 mg HS GERI Administration Intake & Output (Last 24 hours) 06/02/22 06/03/22 06/04/22 06/05/22 11:59 11:59 11:59 11:59 Intake Total 4487 Output Total 2800 Balance 1687 Weight 83.1 kg Microbiology Results (Last 24 hours) 05/30/22 11:05 Blood Blood Culture Gram Stain - Final Not Reportable 05/30/22 11:05 Blood Blood Culture - Final NO GROWTH 05/30/22 10:55 Blood Blood Culture Gram Stain - Final Not Reportable 05/30/22 10:55 Blood Blood Culture - Final NO GROWTH Patient Care Notes (Last 24 hours) 06/04/22 14:00 Case Management Note by Anjali Mcintosh Addendum entered by Anjali Mcintosh 06/04/22 14:02: SHE ALSO REPORTS SHE IS HOLDING HER VERAPAMIL AND LASIX INSTRUCTED Original Note: S/W PATIENT FOR FOLLOW UP PHONE CALL- SHE REPORTS HE IS DOING WELL JUST STRUGGLING WITH A COUGH. SHE IS TAKING HER ANTIBIOTIC INSTRUCTED. 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 NO NEW ISSUES/CONCERNS AT THIS TIME. Initialized on 06/04/22 14:00 - END OF NOTE - Vitals & Intake/Output Vital Signs: Vital Signs Temperature 97.5 F 06/02/22 08:00 Pulse Rate 81 06/02/22 08:32 Respiratory Rate 16 06/02/22 08:32 Blood Pressure 132/66 06/02/22 08:00 O2 Sat by Pulse Oximetry 94 L 06/02/22 08:32 Intake & Output: Intake & Output 06/02/22 06/03/22 06/04/22 06/05/22 11:59 11:59 11:59 11:59 Intake Total 4487 Output Total 2800 Balance 1687 Weight 83.1 kg - Lab Result Diagrams: 06/01/22 09:32 06/01/22 09:32 Micro Results-Entire Visit: Microbiology 05/30/22 11:05 Blood Culture Gram Stain - Final Blood Not Reportable Blood Culture - Final NO GROWTH 05/30/22 10:55 Blood Culture Gram Stain - Final Blood Not Reportable Blood Culture - Final NO GROWTH - Procedures and Test Procedures and Tests throughout Hospitalization: Therapy Orders & Screens 05/30/22 15:48 RT Screen per Nursing Assess ONCE Comment: Protocol Order Physician Instructions: Greater than 3 points order RT Admission Screen Reason For Exam: Triggered on Admission Diagnosis: sepsis Diagnosis: sepsis Pneumonia: No Home O2: No Asthma: Yes CHF: No Home CPAP/BIPAP: No Home Nebs/MDI: Yes Total Points: 9 Smoking Cessation Education ONCE Comment: Diagnosis: sepsis Smoking Status: Heavy tobacco smoker How long have you smoked: 20 years Have you smoked in the past 12 months: Yes Approximately how many cigarettes per day: 20 Do you dip or chew tobacco: No 05/30/22 17:20 Respiratory Therapy Assessment DAILY Comment: Diagnosis: sepsis 05/30/22 17:21 Respiratory MDI BID Comment: Diagnosis: sepsis Discharge Exam General Appearance: no apparent distress, alert Neurologic Exam: alert, oriented x 3, cooperative, normal mood/affect, nml cerebellar function, sensation nml, No motor deficits Eye Exam: PERRL, EOMI, eyes nml inspection Ears, Nose, Throat Exam: normal ENT inspection, pharynx normal, moist mucous membranes Neck Exam: normal inspection, non-tender, supple, full range of motion Respiratory Exam: diminished breath sounds, No respiratory distress Cardiovascular Exam: regular rate/rhythm, normal heart sounds Gastrointestinal/Abdomen Exam: soft, No tenderness, No mass Pelvic Exam: deferred Rectal Exam: deferred Back Exam: normal inspection, normal range of motion, No CVA tenderness, No vertebral tenderness Extremity Exam: normal inspection, normal range of motion Skin Exam: normal color, warm, dry Final Diagnosis/Problem List - Final Discharge Diagnosis/Problem (1) Sepsis Status: Resolved (2) Acute kidney injury Status: Resolved Code(s): N17.9 - ACUTE KIDNEY FAILURE, UNSPECIFIED (3) Bilateral pneumonia Status: Resolved Code(s): J18.9 - PNEUMONIA, UNSPECIFIED ORGANISM (4) Hypotension Status: Resolved Code(s): I95.9 - HYPOTENSION, UNSPECIFIED - Discharge Discharge Date: 06/02/22 Disposition: Home, Self-Care Condition: Stable Prescriptions: New levoFLOXacin [Levofloxacin] 750 mg PO Q48H #2 tablet Continue Pantoprazole Sodium [Protonix] 40 mg PO DAILY Famotidine 20 mg [Pepcid 20 MG] 20 mg PO HS Meloxicam 15 mg [Meloxicam 15 MG] 15 mg PO HS Citalopram Hydrobromide 20 mg* [ceLEXa 20 MG] 20 mg PO DAILY Fluoxetine HCl 20 mg [Prozac 20 MG] 20 mg PO DAILY Montelukast Sodium 10 mg [Singulair 10 MG] 10 mg PO HS Ondansetron [Ondansetron Odt] 4 mg PO Q8H PRN PRN PRN Reason: Nausea Ubrogepant [Ubrelvy] 100 mg PO Q2H/PRN PRN PRN Reason: Headache lamoTRIgine [Lamotrigine] 200 mg PO UD Loratadine 10 mg [Claritin 10 mg] 10 mg PO DAILY Fluticasone/Umeclidin/Vilanter [Trelegy Ellipta 100-62.5-25] 1 puff IH DAILY Temazepam [Restoril] 45 mg PO HS Gabapentin [Neurontin ] 100 mg PO HS Discontinued Furosemide [Lasix] 20 mg PO DAILY Verapamil HCl [Verapamil ER Pm] 200 mg PO HS Instructions: Sepsis, Adult (DC), Low Blood Pressure (DC) Additional Instructions: CALL DR JONES'S OFFICE SATURDAY TO SET UP A FOLLOW UP APPT FOR 1 WEEK HOLD VERAPAMIL AND LASIX UNTIL APPT FOLLOW UP APPT
== END 2022-06-02 11:20 | disposition home or self-care (01) | DRG 871 ==
LOC: ED 09:36 → ICU 15:16 → MED SURG 06-01 15:55
PROVIDERS: ADMIT General Practice; ATTEND General Practice
DX: A41.9 Sepsis, unspecified organism (principal); J18.9 Pneumonia, unspecified organism; R65.21 Severe sepsis with septic shock; N17.9 Acute kidney failure, unspecified; I95.9 Hypotension, unspecified; Z79.899 Other long term (current) drug therapy; Z20.828 Contact with and (suspected) exposure to other viral communicable diseases; Z72.0 Tobacco use
CPT/HCPCS: 0241U; 36000; 36415; 71045; 71250; 80047; 80053; 81001; 82947; 83036; 83605; 84145; 84484; 85025; 85379; 87040; 93005; 94640; 96360; 96361; 96365; 96374; 99285; 99291; J0696; J1956; J2543; J2930; A9270-GY

== ENCOUNTER 2022-06-18 19:05 | Emergency (ER) | payer OTHER ==
--- NOTE | 2022-06-18 19:17 | ERPHSYRPT ---
- History of Present Illness Time Seen by Provider: 06/18/22 19:16 Source: patient Exam Limitations: no limitations Physician History: This is a 56-year-old white female patient of Dr. Jones who fell and hit the left side of her head and left face over 30 hours ago at approximately 2:30 in the morning. She states since that time she has had headache as well as vomiting every time she eats something. She denies neck pain. She denies chest pain. She denies shortness of breath. Patient has a history of anxiety, migraine headaches, asthma and COPD. Occurred: hours ago (Greater than 30 hours ago) Injuries/Pain Location: head (Left side), face (Left side) Loss of Consciousness: no loss of consciousness Quality: aching Severity of Pain-Max: moderate Severity of Pain-Current: moderate Associated Symptoms (Fall): headache, No neck pain, No shortness of breath, No vision changes Allergies/Adverse Reactions: divalproex sodium [From Depakote] Allergy (Verified 06/18/22 19:56) hives morphine Allergy (Verified 06/18/22 19:56) migraine Sulfa (Sulfonamide Antibiotics) Allergy (Verified 06/18/22 19:56) nausea and vomiting Home Medications: Citalopram Hydrobromide 20 mg* [ceLEXa 20 MG] 20 mg PO DAILY 04/23/17 [Hist ory] Famotidine 20 mg [Pepcid 20 MG] 20 mg PO HS 04/23/17 [History] Meloxicam 15 mg [Meloxicam 15 MG] 15 mg PO HS 04/23/17 [History] Pantoprazole Sodium [Protonix] 40 mg PO DAILY 04/23/17 [History] Fluoxetine HCl 20 mg [Prozac 20 MG] 20 mg PO DAILY 05/30/22 [History] Fluticasone/Umeclidin/Vilanter [Trelegy Ellipta 100-62.5-25] 1 puff IH DAILY 05/30/22 [History] Loratadine 10 mg [Claritin 10 mg] 10 mg PO DAILY 05/30/22 [History] Montelukast Sodium 10 mg [Singulair 10 MG] 10 mg PO HS 05/30/22 [History] Ondansetron [Ondansetron Odt] 4 mg PO Q8H PRN PRN 05/30/22 [History] Ubrogepant [Ubrelvy] 100 mg PO Q2H/PRN PRN 05/30/22 [History] lamoTRIgine [Lamotrigine] 200 mg PO UD 05/30/22 [History] Gabapentin [Neurontin ] 100 mg PO HS 05/31/22 [History] Temazepam [Restoril] 45 mg PO HS 05/31/22 [History] Hx Tetanus, Diphtheria Vaccination/Date Given: Yes Hx Influenza Vaccination/Date Given: Yes Hx Pneumococcal Vaccination/Date Given: No Travel Risk - International Travel Have you traveled outside of the country in past 3 weeks: No - Coronavirus Screening Are you exhibiting any of the following symptoms?: No Close contact with a COVID-19 positive Pt in past 14-21 Days: No - Vaccine Status Have you recieved a Covid-19 vaccination: Yes 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 - Review of Systems Constitutional: No Symptoms Eyes: No Symptoms Ears, Nose, & Throat: No Symptoms Respiratory: No Symptoms Cardiac: No Symptoms Abdominal/Gastrointestinal: No Symptoms Genitourinary Symptoms: No Symptoms Musculoskeletal: No Symptoms Skin: No Symptoms, Other (Healing small abrasion/laceration left cheek) Neurological: Headache Psychological: No Symptoms Endocrine: No Symptoms Hematologic/Lymphatic: No Symptoms Immunological/Allergic: No Symptoms All Other Systems: Reviewed and Negative - Past Medical History Pertinent Past Medical History: Yes Neurological History: Migraines ENT History: Cataracts Cardiac History: No Pertinent History Respiratory History: Asthma, COPD Endocrine Medical History: No Pertinent History Musculoskeletal History: No Pertinent History GI Medical History: Gallbladder Disease History: No Pertinent History Psycho-Social History: Anxiety, Depression Female Reproductive Disorders: No Pertinent History Other Medical History: HYPOGLYCEMIA - Past Surgical History Past Surgical History: Yes Neuro Surgical History: No Pertinent History Cardiac: No Pertinent History Respiratory: No Pertinent History Gastrointestinal: Cholecystectomy, Other Genitourinary: No Pertinent History Female Surgical History: Section, Other Other Surgical History: gastric bypass - Social History Smoking Status: Heavy tobacco smoker How long have you smoked: 20 years Exposure to second hand smoke: No Alcohol Use: Socially Drug Use: none Patient Lives Alone: No Significant Family History: no pertinent family hx - Nursing Vital Signs Nursing Vital Signs: Initial Vital Signs Temperature 98.1 F 06/18/22 19:40 Pulse Rate 74 06/18/22 19:40 Respiratory Rate 16 06/18/22 19:40 Blood Pressure 133/77 06/18/22 19:40 O2 Sat by Pulse Oximetry 95 06/18/22 19:40 Pain Scale Pain Intensity 9 - [place] Coma Score Best Eye Response ([place]): (4) open spontaneously Best Verbal Response ([place]): (5) oriented Best Motor Response ([place]): (6) obeys commands [place] Total: 15 - Physical Exam General Appearance: no apparent distress, alert, anxiety Head Injury: no evidence of injury Eye Exam: PERRL/EOMI, eyes nml inspection ENT Exam: airway nml, nml ext.inspection, No evidence of ENT injury Neck Exam: supple, trachea midline, full range of motion, normal alignment, normal inspection Respiratory/Chest Exam: normal breath sounds, No chest tenderness, No respiratory distress, No ecchymosis, No crepitus Gastrointestinal Exam: soft, normal bowel sounds, No tenderness Rectal Exam: not done Back Exam: normal inspection, normal range of motion, vertebral tenderness, No CVA tenderness Extremity Exam: normal inspection, normal range of motion, capillary refill <3 sec, pelvis stable Neurologic Exam: alert, oriented x 3, cooperative, 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 Healing. No bleeding) SpO2 Interpretation: normal O2 Delivery: Room Air - Course Nursing assessment & vital signs reviewed: Yes Ordered Tests: Active Orders 24 hr Category Date Time Status FACIAL BONES WO CONTRAST [CT] Stat Exams 06/18/22 20:01 Taken HEAD WITHOUT CONTRAST [CT] Stat Exams 06/18/22 19:43 Taken - Progress Progress: unchanged, pain not gone completely Progress Note: 06/18/22 21:43 CT scan of facial bones without contrast shows C3-C6 degenerative disc disease with C3 anterolisthesis that is minimal. There is right maxillary sinus disease. Otherwise normal facial bones. CT scan of the head without contrast is normal. Counseled pt/family regarding: diagnosis, need for follow-up, rad results Medical Desision Making - Independent Historian Additional History obtained from: Family - Discussion of managment Reviewed:: Test results Agreed on:: Treatment plan, need for follow-up - Diagnostic Testing Radiological Interpretation: Reviewed by me, Teleradiologist Report - Risk of complications Minimal Risk: Minimal risk of morbidity - Departure Departure Disposition: Home Clinical Impression: Sinusitis, Facial contusion, Head contusion Condition: Stable Critical Care Time: No Referrals: VIRGEN JONES MD [Primary Care Provider] - Follow up/PCP as directed Additional Instructions: Keep abrasion/laceration site clean with soap and water daily. Cover with bandage each day and antibiotic ointment. Take your antibiotics as prescribed. Use Tylenol and ibuprofen for pain control. Prescriptions: Azithromycin 250 mg [Zithromax 250 MG TABLET] 250 mg PO ZPACK #6 tablet
[2022-06-18] MEDS ORDERED: NORCO 5/325 MG PO ONE (21:46)
[2022-06-18] MEDS ORDERED: NORCO 5/325 MG ONE ×2 (21:55)
[2022-06-18 22:17] VITALS: BP 139/79; PULSE 69; O2SAT 98
--- NOTE | 2022-06-19 08:53 | XRAY ---
Indication: Left head injury following fall. Headache, dizziness, nausea, and vomiting. Multiple contiguous axial images obtained through the head without contrast. Comparison: None Normal appearing brain parenchyma, ventricles, and bony calvarium for patient's age. Mild mucosal thickening right maxillary sinus with fluid leveling. Remaining paranasal sinuses and mastoid air cells are clear. Impression: Right maxillary sinus disease. Remaining CT head without contrast exam is normal.
--- NOTE | 2022-06-19 08:55 | XRAY ---
Indication: Left head injury following fall. Headache, dizziness, nausea, and vomiting. Multiple contiguous axial images obtained through the facial bones. Sagittal and coronal reformatted images obtained. Comparison: None No acute fracture, suspicious bony lesions, or radiopaque foreign body. Orbits including roof, gonzalez, and floors are intact. Visualized cervical spine demonstrates moderate/advanced C3-C6 degenerative changes with 3 mm anterolisthesis of C3 on C4. Minimal mucosal thickening inferior right maxillary sinus with small fluid leveling. Remaining paranasal sinuses and nasal passages are clear. Incidental mild nasoseptal deviation to the left. Visualized noncontrasted soft tissues including base of brain unremarkable. Impression: 1. C3-C6 degenerative spondylosis with grade 1 C3 listhesis. 2. Right maxillary sinus disease and minimal nasal septal deviation. 3. Remaining CT facial bones negative.
== END 2022-06-18 22:12 | disposition home or self-care (01) ==
LOC: ED 19:05
DX: S00.83XA Contusion of other part of head, initial encounter (principal); S00.93XA Contusion of unspecified part of head, initial encounter; W19.XXXA Unspecified fall, initial encounter; J32.0 Chronic maxillary sinusitis; R51.9 Headache, unspecified; R11.2 Nausea with vomiting, unspecified; Z79.899 Other long term (current) drug therapy; Z72.0 Tobacco use
CPT/HCPCS: 70450; 70486; 99283; A9270-GY

== ENCOUNTER 2024-06-06 19:48 | Emergency (ER) | payer BC ==
--- NOTE | 2024-06-06 20:40 | ERPHSYRPT ---
- History of Present Illness Source: patient Exam Limitations: no limitations Physician History: Patient's had a weakness has been going on for about 2 weeks its gotten progressively worse. She has fallen a few times over the last few days she is unable to get up after she falls. She has just generalized weakness. She has not had any chest pain. She has had no abdominal pain. She says that she has had decreased appetite and p.o. intake. She thinks she may be a little bit dehydrated.The says she at times has bouts of confusion it usually resolves. She has not had any focal neurological deficits or strokelike symptoms or TIAType symptoms.She cannot think of anything that may be causing this. She has had no real major changes in her life or medications. Allergies/Adverse Reactions: divalproex sodium [From Depakote] Allergy (Verified 06/06/24 20:41) hives morphine Allergy (Verified 06/06/24 20:41) migraine Sulfa (Sulfonamide Antibiotics) Allergy (Verified 06/06/24 20:41) nausea and vomiting Home Medications: Citalopram Hydrobromide 20 mg* [ceLEXa 20 MG] 20 mg PO DAILY 04/23/17 [History] Famotidine 20 mg [Pepcid 20 MG] 20 mg PO HS 04/23/17 [History] Meloxicam 15 mg [Meloxicam 15 MG] 15 mg PO HS 04/23/17 [History] Pantoprazole Sodium [Protonix] 40 mg PO DAILY 04/23/17 [History] Fluoxetine HCl 20 mg [Prozac 20 MG] 20 mg PO DAILY 05/30/22 [History] Fluticasone/Umeclidin/Vilanter [Trelegy Ellipta 100-62.5-25] 1 puff IH DAILY 05/30/22 [History] Loratadine 10 mg [Claritin 10 mg] 10 mg PO DAILY 05/30/22 [History] Montelukast Sodium 10 mg [Singulair 10 MG] 10 mg PO HS 05/30/22 [History] Ondansetron [Ondansetron Odt] 4 mg PO Q8H PRN PRN 05/30/22 [History] Ubrogepant [Ubrelvy] 100 mg PO Q2H/PRN PRN 05/30/22 [History] lamoTRIgine [Lamotrigine] 200 mg PO UD 05/30/22 [History] Gabapentin [Neurontin ] 100 mg PO HS 05/31/22 [History] Temazepam [Restoril] 45 mg PO HS 05/31/22 [History] Hx Tetanus, Diphtheria Vaccination/Date Given: Yes Hx Influenza Vaccination/Date Given: Yes Hx Pneumococcal Vaccination/Date Given: No - Review of Systems Constitutional: Weakness Eyes: No Symptoms Ears, Nose, & Throat: No Symptoms Respiratory: No Symptoms Cardiac: No Symptoms Abdominal/Gastrointestinal: No Symptoms Genitourinary Symptoms: No Symptoms Skin: No Symptoms Neurological: No Symptoms Psychological: No Symptoms All Other Systems: Reviewed and Negative - Past Medical History Pertinent Past Medical History: Yes Neurological History: Migraines ENT History: Cataracts Cardiac History: No Pertinent History Respiratory History: Asthma, COPD Endocrine Medical History: No Pertinent History Musculoskeletal History: No Pertinent History GI Medical History: Gallbladder Disease History: No Pertinent History Psycho-Social History: Anxiety, Depression Female Reproductive Disorders: No Pertinent History Other Medical History: HYPOGLYCEMIA - Past Surgical History Past Surgical History: Yes Neuro Surgical History: No Pertinent History Cardiac: No Pertinent History Respiratory: No Pertinent History Gastrointestinal: Cholecystectomy, Other Genitourinary: No Pertinent History Female Surgical History: Section, Other Other Surgical History: gastric bypass Significant Family History: no pertinent family hx - Social History Smoking Status: Heavy tobacco smoker How long have you smoked: 20 years Exposure to second hand smoke: No Alcohol Use: Socially Drug Use: none Patient Lives Alone: No - Nursing Vital Signs Nursing Vital Signs: Initial Vital Signs Temperature 98 F 06/06/24 20:33 Pulse Rate 77 06/06/24 20:33 Respiratory Rate 18 06/06/24 20:33 Blood Pressure 142/88 06/06/24 20:33 O2 Sat by Pulse Oximetry 98 06/06/24 20:33 Pain Scale Pain Intensity 0 - Physical Exam General Appearance: no apparent distress Eye Exam: PERRL/EOMI Neck Exam: normal inspection Respiratory Exam: normal breath sounds Cardiovascular Exam: regular rate/rhythm Gastrointestinal/Abdomen Exam: soft Neurologic Exam: alert, oriented x 3, cooperative Skin Exam: normal color, warm - Course Nursing assessment & vital signs reviewed: Yes EKG Interpreted by Me: RATE, NORMAL AXIS, NORMAL INTERVALS, NORMAL QRS Ordered Tests: Active Orders 24 hr Category Date Time Status EKG-ER Only STAT Care 06/06/24 20:37 Active CHEST 1 VIEW (PORTABLE) Stat Exams 06/06/24 20:37 Completed CBC Q48H Lab 06/07/24 06:00 Ordered CBC Q48H Lab 06/09/24 06:00 Ordered CBC Q48H Lab 06/11/24 06:00 Ordered CBC Q48H Lab 06/13/24 06:00 Ordered CBC Q48H Lab 06/15/24 06:00 Ordered CBC Q48H Lab 06/17/24 06:00 Ordered CBC Q48H Lab 06/19/24 06:00 Ordered CBC Stat Lab 06/06/24 23:30 Completed CBC W DIFF Stat Lab 06/06/24 22:03 Completed CMP Stat Lab 06/06/24 22:03 Completed PROTIME WITH INR Stat Lab 06/06/24 23:30 Received PTT Q4H Lab 06/07/24 03:00 Ordered PTT Q4H Lab 06/07/24 03:46 Ordered PTT Q4H Lab 06/07/24 07:00 Ordered PTT Q4H Lab 06/07/24 07:46 Ordered PTT Q4H Lab 06/07/24 11:00 Ordered PTT Q4H Lab 06/07/24 11:46 Ordered PTT Q4H Lab 06/07/24 15:00 Ordered PTT Q4H Lab 06/07/24 15:46 Ordered PTT Q4H Lab 06/07/24 19:00 Ordered PTT Q4H Lab 06/07/24 19:46 Ordered PTT Q4H Lab 06/07/24 23:00 Ordered PTT Q4H Lab 06/07/24 23:46 Ordered PTT Q4H Lab 06/08/24 03:00 Ordered PTT Q4H Lab 06/08/24 03:46 Ordered PTT Q4H Lab 06/08/24 07:00 Ordered PTT Q4H Lab 06/08/24 07:46 Ordered PTT Q4H Lab 06/08/24 11:00 Ordered PTT Q4H Lab 06/08/24 11:46 Ordered PTT Q4H Lab 06/08/24 15:00 Ordered PTT Q4H Lab 06/08/24 15:46 Ordered PTT Q4H Lab 06/08/24 19:00 Ordered PTT Q4H Lab 06/08/24 19:46 Ordered PTT Stat Lab 06/06/24 23:30 Received TROPONIN Q4H Lab 06/06/24 22:03 Completed TROPONIN Q4H Lab 06/07/24 00:45 Ordered TROPONIN Q4H Lab 06/07/24 04:45 Ordered Medication Summary Generic Name Dose Route Start Last Admin Trade Name Freq PRN Reason Stop Dose Admin Heparin Sodium/Dextrose 25,000 units in 250 mls @ 9.552 mls/hr 06/06/24 23:45 06/06/24 23:52 Heparin 25,000 Units/D5w: Use Order Set Sam IV 07/06/24 23:44 12 units/kg/hr .Q24H GERI 9.552 mls/hr Administration Protocol 12 UNITS/KG/HR Discontinued Medications Generic Name Dose Route Start Last Admin Trade Name Freq PRN Reason Stop Dose Admin Clopidogrel Bisulfate 150 mg 06/06/24 23:57 Clopidogrel Bisulfate 75 Mg Tablet PO 06/06/24 23:58 STAT ONE Heparin Sodium (Beef Lung) 5,000 unit 06/06/24 23:00 06/06/24 23:49 Heparin 5000 Units/0.5 Ml 5,000 Unit/0.5 Ml Syr IV 06/06/24 23:01 5,000 unit STAT ONE Administration Heparin Sodium (Beef Lung) 4,800 unit 06/06/24 23:17 Heparin 5000 Units/0.5 Ml 5,000 Unit/0.5 Ml Syr 60 unit/kg (4800 unit) 06/06/24 23:18 IV STAT STA Heparin Sodium (Beef Lung) Confirm 06/06/24 23:45 Heparin 5000 Units/0.5 Ml 5,000 Unit/0.5 Ml Syr Administered 06/06/24 23:46 Dose 5,000 unit .ROUTE .[facility] Lab/Rad Data: Laboratory Result Diagrams 06/06/24 23:30 06/06/24 22:03 Laboratory Results 06/06/24 06/06/24 06/06/24 Range/Units 23:30 22:03 22:03 WBC 8.9 (3.98-10.04) x10^3/uL RBC 4.08 (3.93-5.22) x10^6/uL Hgb 11.3 (11.2-15.7) g/dL Hct 35.0 (34.1-44.9) % MCV 85.8 (79.4-94.8) fL MCH 27.7 (25.6-32.2) pg MCHC 32.3 (32.2-35.5) g/dL RDW 18.7 H (11.7-14.4) % Plt Count 353 (182-369) x10^3/uL MPV 8.5 L (9.4-12.3) fL Gran % (34.0-71.1) % Immature Gran % (Auto) (0.001-0.429) % Nucleat RBC Rel Count (0.00-0.2) % Eos # (Auto) (0.04-0.36) x10^3/uL Immature Gran # (Auto) (0.001-0.031) x10^3u/L Absolute Lymphs (auto) (1.18-3.74) x10^3/uL Absolute Monos (auto) (0.24-0.86) x10^3/uL Absolute Nucleated RBC (0.00-0.012) x10^3u/L Lymphocytes % (19.3-51.7) % Monocytes % (4.7-12.5) % Eosinophils % (0.7-5.8) % Basophils % (0.1-1.2) % Absolute Granulocytes (1.56-6.13) x10^3/uL Basophils # (0.01-0.08) x10^3/uL Sodium 136 (135-145) mmol/L Potassium 3.8 (3.5-5.1) mmol/L Chloride 104 (98-107) mmol/L Carbon Dioxide 29 (22-30) mmol/L Anion Gap 5.9 (5-15) MEQ/L BUN 15 (7-17) mg/dL Creatinine 1.44 H (0.52-1.04) mg/dL Estimated GFR 42.4 ML/MIN Glucose 82 (74-106) mg/dL Calcium 8.1 L (8.4-10.2) mg/dL Total Bilirubin 0.40 (0.2-1.3) mg/dL AST 31 (14-36) U/L ALT 17 (0-35) U/L Alkaline Phosphatase 182 H (38-126) U/L Troponin I 0.106 H* (0.000-0.033) ng/mL Serum Total Protein 6.1 L (6.3-8.2) g/dL Albumin 3.1 L (3.5-5.0) g/dL 06/06/24 Range/Units 22:03 WBC 9.2 (3.98-10.04) x10^3/uL RBC 4.27 (3.93-5.22) x10^6/uL Hgb 11.8 (11.2-15.7) g/dL Hct 37.2 (34.1-44.9) % MCV 87.1 (79.4-94.8) fL MCH 27.6 (25.6-32.2) pg MCHC 31.7 L (32.2-35.5) g/dL RDW 19.0 H (11.7-14.4) % Plt Count 390 H (182-369) x10^3/uL MPV 8.6 L (9.4-12.3) fL Gran % 60.5 (34.0-71.1) % Immature Gran % (Auto) 0.3 (0.001-0.429) % Nucleat RBC Rel Count 0.0 (0.00-0.2) % Eos # (Auto) 0.15 (0.04-0.36) x10^3/uL Immature Gran # (Auto) 0.03 (0.001-0.031) x10^3u/L Absolute Lymphs (auto) 2.50 (1.18-3.74) x10^3/uL Absolute Monos (auto) 0.90 H (0.24-0.86) x10^3/uL Absolute Nucleated RBC 0.00 (0.00-0.012) x10^3u/L Lymphocytes % 27.3 (19.3-51.7) % Monocytes % 9.8 (4.7-12.5) % Eosinophils % 1.6 (0.7-5.8) % Basophils % 0.5 (0.1-1.2) % Absolute Granulocytes 5.53 (1.56-6.13) x10^3/uL Basophils # 0.05 (0.01-0.08) x10^3/uL Sodium (135-145) mmol/L Potassium (3.5-5.1) mmol/L Chloride (98-107) mmol/L Carbon Dioxide (22-30) mmol/L Anion Gap (5-15) MEQ/L BUN (7-17) mg/dL Creatinine (0.52-1.04) mg/dL Estimated GFR ML/MIN Glucose (74-106) mg/dL Calcium (8.4-10.2) mg/dL Total Bilirubin (0.2-1.3) mg/dL AST (14-36) U/L ALT (0-35) U/L Alkaline Phosphatase (38-126) U/L Troponin I (0.000-0.033) ng/mL Serum Total Protein (6.3-8.2) g/dL Albumin (3.5-5.0) g/dL - Progress Progress: unchanged Progress Note: Patient's EKG showed no acute findings. Her troponin was elevated at 0.106. I think she is having a NSTEMII am going to start her on heparin.She was given aspirin as well. I spoke with the hospitalist at [facility] I believe the patient has an NSTEMI. She was given heparin and aspirin and Plavix. She will be transferred to [facility] as soon as we can. 06/06/24 22:55 06/07/24 00:05 Medical Desision Making - Diagnostic Testing Radiological Interpretation: Interpreted by me - Risk of complications The pt has a mod risk of morbidity or mortality based on: Need for prescription drug management - Departure Departure Disposition: Transfer Clinical Impression: NSTEMI (non-ST elevated myocardial infarction) Condition: Stable Referrals: VIRGEN JONES MD [Primary Care Provider] - Follow up/PCP as directed
[2024-06-06 22:05] LABS: Absolute Neutrophil Ct (ANC) 5.53 x10^3/uL (1.56-6.13); BASOPHIL % 0.5 % (0.1-1.2); Basophil (Absolute #) 0.05 x10^3/uL (0.01-0.08); Eosinophil % 1.6 % (0.7-5.8); Eosinophil (Absolute #) 0.15 x10^3/uL (0.04-0.36); Hematocrit 37.2 % (34.1-44.9); Hemoglobin 11.8 g/dL (11.2-15.7); IMMATURE GRAN # 0.03 x10^3u/L (0.001-0.031); IMMATURE GRAN % 0.3 % (0.001-0.429); Lymphocytes % 27.3 % (19.3-51.7); Mean Cell Volume 87.1 fL (79.4-94.8); Mean Corpuscular Hemoglobin 27.6 pg (25.6-32.2); Mean Corpuscular Hgb Concent. 31.7 g/dL (32.2-35.5); Mean Platelet Volume 8.6 fL (9.4-12.3); Monocytes % 9.8 % (4.7-12.5); Neutrophil % 60.5 % (34.0-71.1); Platelet Count 390 x10^3/uL (182-369); Red Blood Count 4.27 x10^6/uL (3.93-5.22); White Blood Count 9.2 x10^3/uL (3.98-10.04)
[2024-06-06 22:15] LABS: ALBUMIN 3.1 g/dL (3.5-5.0); ANION GAP 5.9 MEQ/L (5-15); BILIRUBIN,TOTAL 0.4 mg/dL (0.2-1.3); Calcium 8.1 mg/dL (8.4-10.2); Creatinine 1 1.44 mg/dL (0.52-1.04); EST GLOMERULAR FILTRATION RATE 42.4 ML/MIN; Potassium 3.8 mmol/L (3.5-5.1); Total Protein 6.1 g/dL (6.3-8.2)
--- NOTE | 2024-06-06 22:16 | XRAY ---
Indication: Weakness. Comparison: May 30, 2022 Portable chest inflated and is now clear. Heart not enlarged. Bony thorax intact. No acute findings.
[2024-06-06] MEDS ORDERED: HEPARIN 5000 UNITS/0.5 ML (HIGH RISK MED) IV STA (23:17)
[2024-06-06] MEDS ORDERED: HEPARIN 5000 UNITS/0.5 ML (HIGH RISK MED) ONE (23:45)
[2024-06-06] MEDS: HEPARIN 5000 UNITS/0.5 ML (HIGH RISK MED) IV ONE (23:49)
[2024-06-06] MEDS ORDERED: Heparin 25,000 units/D5W: USE ORDER SET PROTO 25,000 UNITS/250 ML BAG IV ONE (23:50)
[2024-06-06] MEDS: Heparin 25,000 units/D5W: USE ORDER SET PROTO 25,000 UNITS/250 ML BAG IV SCH (23:52)
[2024-06-06 23:56] LABS: Hemoglobin 11.3 g/dL (11.2-15.7); Mean Cell Volume 85.8 fL (79.4-94.8); Mean Corpuscular Hemoglobin 27.7 pg (25.6-32.2); Mean Corpuscular Hgb Concent. 32.3 g/dL (32.2-35.5); Mean Platelet Volume 8.5 fL (9.4-12.3); Platelet Count 353 x10^3/uL (182-369); Red Blood Count 4.08 x10^6/uL (3.93-5.22); Red Cell Distribution Width 18.7 % (11.7-14.4); White Blood Count 8.9 x10^3/uL (3.98-10.04)
[2024-06-07 00:07] LABS: INR 1.04 (0.8-3.0); PROTIME 11.3 SECONDS (9.4-12.5)
[2024-06-07] MEDS ORDERED: PLAVIX Tablet ONE (00:57)
[2024-06-07] MEDS: PLAVIX Tablet PO ONE (00:57)
[2024-06-07 04:01] VITALS: BP 117/66; PULSE 59; RESP 10; O2SAT 96
[2024-06-07 04:09] VITALS: TEMP 97.3
== END 2024-06-07 04:10 | disposition short-term general hospital (02) ==
LOC: ED 19:48
DX: I21.4 Non-ST elevation (NSTEMI) myocardial infarction (principal); R53.1 Weakness; Z79.899 Other long term (current) drug therapy; Z72.0 Tobacco use
CPT/HCPCS: 36415; 71045; 80053; 84484; 85025; 85027; 85610; 85730; 93005; 96374; 99285; J1644; A9270-GY

== ENCOUNTER 2024-06-14 15:48 | Observation (INO) | payer BC ==
--- NOTE | 2024-06-14 16:38 | ERPHSYRPT ---
- History of Present Illness Time Seen by Provider: 06/14/24 16:20 Source: patient Exam Limitations: no limitations Patient Subjective Stated Complaint: pt here for weakness for several weeks now, pt was seen here and transfered to [place] 2 weeks ago, spouse states he was tokd she had a mild heart attack, he states she is getting more confused and is falling Triage Nursing Assessment: pt alert, staring off in space at times, pt confused to time and date, she does know her name and date pf , skin w/d/p. moves all ext well, needs assistance to undress and get into bed, has bruising to both arms and knees, no edema noted Physician History: 58-year-old female history of alcohol use now sober however current smoker presents to our ED for evaluation of generalized weakness, confusion progressive over 3 to 4 weeks. Patient was in our ED approximately 2 weeks ago for heart related issue. Patient was transferred to an outside hospital she was advised that she had a "mild heart attack. reports that she frequently falls. Patient has some bruising throughout her legs. However over bony prominences. Patient denies pain. No neck pain. Cervical spine cleared clinically. Symptoms are mild to moderate in intensity. No specific worsening improving factors. Patient voices no other complaints or concerns at this time. Portions of this note were created with voice recognition technology. There may be grammatical, spelling, punctuation or sound alike errors Timing/Duration: week(s) (Several weeks) Severity: mild Modifying Factors: Improves With: nothing Associated Symptoms: other (Confusion, falls) Allergies/Adverse Reactions: divalproex sodium [From Depakote] Allergy (Verified 06/14/24 15:50) hives morphine Allergy (Verified 06/14/24 15:50) migraine Sulfa (Sulfonamide Antibiotics) Allergy (Verified 06/14/24 15:50) nausea and vomiting Home Medications: Citalopram Hydrobromide 20 mg* [ceLEXa 20 MG] 20 mg PO DAILY 04/23/17 [History] Famotidine 20 mg [Pepcid 20 MG] 20 mg PO HS 04/23/17 [History] Meloxicam 15 mg [Meloxicam 15 MG] 15 mg PO HS 04/23/17 [History] Pantoprazole Sodium [Protonix] 40 mg PO DAILY 04/23/17 [History] Fluoxetine HCl 20 mg [Prozac 20 MG] 20 mg PO DAILY 05/30/22 [History] Fluticasone/Umeclidin/Vilanter [Trelegy Ellipta 100-62.5-25] 1 puff IH DAILY 05/30/22 [History] Loratadine 10 mg [Claritin 10 mg] 10 mg PO DAILY 05/30/22 [History] Montelukast Sodium 10 mg [Singulair 10 MG] 10 mg PO HS 05/30/22 [History] Ondansetron [Ondansetron Odt] 4 mg PO Q8H PRN PRN 05/30/22 [History] Ubrogepant [Ubrelvy] 100 mg PO Q2H/PRN PRN 05/30/22 [History] lamoTRIgine [Lamotrigine] 200 mg PO UD 05/30/22 [History] Gabapentin [Neurontin ] 100 mg PO HS 05/31/22 [History] Temazepam [Restoril] 45 mg PO HS 05/31/22 [History] Hx Tetanus, Diphtheria Vaccination/Date Given: Yes Hx Influenza Vaccination/Date Given: Yes Hx Pneumococcal Vaccination/Date Given: No Immunizations Up to Date: Yes Travel Risk - International Travel Have you traveled outside of the country in past 3 weeks: No - Emerging Infectious Disease Are you exhibiting symptoms associated with any current EIDs: No - Review of Systems Constitutional: No Symptoms, No Fever, No Chills Eyes: No Symptoms Ears, Nose, & Throat: No Symptoms Respiratory: No Symptoms, No Cough, No Dyspnea Cardiac: No Symptoms, No Chest Pain, No Edema, No Syncope Abdominal/Gastrointestinal: No Symptoms, No Abdominal Pain, No Nausea, No Vomiting, No Diarrhea Genitourinary Symptoms: No Symptoms, No Dysuria Musculoskeletal: No Symptoms, No Back Pain, No Neck Pain Skin: No Symptoms, No Rash Neurological: No Symptoms, No Dizziness, No Focal Weakness, No Sensory Changes Psychological: No Symptoms Endocrine: No Symptoms Hematologic/Lymphatic: No Symptoms Immunological/Allergic: No Symptoms All Other Systems: Reviewed and Negative - Past Medical History Pertinent Past Medical History: Yes Neurological History: Migraines ENT History: Cataracts Cardiac History: No Pertinent History Respiratory History: Asthma, COPD Endocrine Medical History: No Pertinent History Musculoskeletal History: No Pertinent History GI Medical History: Gallbladder Disease History: No Pertinent History Psycho-Social History: Anxiety, Depression Female Reproductive Disorders: No Pertinent History Other Medical History: HYPOGLYCEMIA - Past Surgical History Past Surgical History: Yes Neuro Surgical History: No Pertinent History Cardiac: No Pertinent History Respiratory: No Pertinent History Gastrointestinal: Cholecystectomy, Other Genitourinary: No Pertinent History Female Surgical History: Section, Other Other Surgical History: gastric bypass Significant Family History: no pertinent family hx - Social History Smoking Status: Heavy tobacco smoker How long have you smoked: 20 years Exposure to second hand smoke: Yes Drug Use: none - Social Determinants of Health Will the patient participate in the screening: Declined to provide - Nursing Vital Signs Nursing Vital Signs: Initial Vital Signs Temperature 97.2 F 06/14/24 16:00 Pulse Rate 74 06/14/24 16:00 Respiratory Rate 16 06/14/24 16:00 Blood Pressure 139/94 06/14/24 16:00 O2 Sat by Pulse Oximetry 98 06/14/24 16:00 Pain Scale Pain Intensity 0 - Physical Exam General Appearance: no apparent distress, alert Eye Exam: PERRL/EOMI, eyes nml inspection Ears, Nose, Throat Exam: normal ENT inspection, TMs normal, pharynx normal, moist mucous membranes Neck Exam: normal inspection, non-tender, supple, full range of motion Respiratory Exam: normal breath sounds, lungs clear, No respiratory distress Cardiovascular Exam: regular rate/rhythm, normal heart sounds, normal peripheral pulses Gastrointestinal/Abdomen Exam: soft, normal bowel sounds, No tenderness, No mass Back Exam: normal inspection, normal range of motion, No CVA tenderness, No vertebral tenderness Extremity Exam: normal inspection, normal range of motion, pelvis stable Neurologic Exam: alert, oriented x 3, cooperative, normal mood/affect, nml cerebellar function, nml station & gait, sensation nml, No motor deficits Skin Exam: normal color, warm, dry, No rash Lymphatic Exam: No adenopathy SpO2 Interpretation: normal SpO2: 98 O2 Delivery: Room Air - Course Nursing assessment & vital signs reviewed: Yes EKG Interpreted by Me: RATE (69), Sinus Rhythm, NORMAL AXIS, NORMAL INTERVALS, NORMAL QRS - CT Exams Head CT Interpretation: Tele-radiologist Report (Small vessel disease, old lacunar infarct left basal ganglia right maxillary sinus disease) Ordered Tests: Active Orders 24 hr Category Date Time Status Nursery Helper STAT Care 06/14/24 16:31 Active EKG-ER Only STAT Care 06/14/24 16:30 Active IV Insertion STAT Care 06/14/24 16:30 Active Pulse Oximetry (ED) STAT Care 06/14/24 16:30 Active HEAD WITHOUT CONTRAST [CT] Stat Exams 06/14/24 17:09 Completed CBC W DIFF Stat Lab 06/14/24 17:29 Completed CMP Stat Lab 06/14/24 17:29 Completed CULTURE,URINE Stat Lab 06/14/24 16:40 Received ETHYL ALCOHOL Stat Lab 06/14/24 17:29 Completed Lactic Acid Stat Lab 06/14/24 17:31 Completed MAGNESIUM Stat Lab 06/14/24 17:29 Completed NT PRO BNPII Stat Lab 06/14/24 17:29 Completed TROPONIN Q4H Lab 06/14/24 17:29 Completed TROPONIN Q4H Lab 06/14/24 20:45 Ordered TROPONIN Q4H Lab 06/15/24 00:45 Ordered TSH [TSH, 3RD Generation] Stat Lab 06/14/24 17:29 Received UA W/RFX UR CULTURE Stat Lab 06/14/24 16:40 Completed Urine Triage Profile Stat Lab 06/14/24 16:40 Completed Transfer Order Routine Transfer 06/14/24 Ordered Medication Summary Generic Name Dose Route Start Last Admin Trade Name Freq PRN Reason Stop Dose Admin Sodium Chloride 1,000 mls @ 100 mls/hr 06/14/24 16:30 06/14/24 17:31 Sodium Chloride 0.9% 1000 Ml IV 07/14/24 16:29 100 mls/hr .Q10H GERI Administration Discontinued Medications Generic Name Dose Route Start Last Admin Trade Name Freq PRN Reason Stop Dose Admin Aspirin 324 mg 06/14/24 18:04 06/14/24 18:14 Aspirin 81 Mg Tab.Chew PO 06/14/24 18:05 324 mg STAT ONE Administration Aspirin Confirm 06/14/24 18:13 Aspirin 81 Mg Tab.Chew Administered 06/14/24 18:14 Dose 324 mg .ROUTE .STK-MED ONE Lab/Rad Data: Laboratory Result Diagrams 06/14/24 17:29 06/14/24 17:29 Laboratory Results 06/14/24 06/14/24 06/14/24 Range/Units 17:31 17:29 17:29 WBC (3.98-10.04) x10^3/uL RBC (3.93-5.22) x10^6/uL Hgb (11.2-15.7) g/dL Hct (34.1-44.9) % MCV (79.4-94.8) fL MCH (25.6-32.2) pg MCHC (32.2-35.5) g/dL RDW (11.7-14.4) % Plt Count (182-369) x10^3/uL MPV (9.4-12.3) fL Gran % (34.0-71.1) % Immature Gran % (Auto) (0.001-0.429) % Nucleat RBC Rel Count (0.00-0.2) % Eos # (Auto) (0.04-0.36) x10^3/uL Immature Gran # (Auto) (0.001-0.031) x10^3u/L Absolute Lymphs (auto) (1.18-3.74) x10^3/uL Absolute Monos (auto) (0.24-0.86) x10^3/uL Absolute Nucleated RBC (0.00-0.012) x10^3u/L Lymphocytes % (19.3-51.7) % Monocytes % (4.7-12.5) % Eosinophils % (0.7-5.8) % Basophils % (0.1-1.2) % Absolute Granulocytes (1.56-6.13) x10^3/uL Basophils # (0.01-0.08) x10^3/uL Sodium (135-145) mmol/L Potassium (3.5-5.1) mmol/L Chloride (98-107) mmol/L Carbon Dioxide (22-30) mmol/L Anion Gap (5-15) MEQ/L BUN (7-17) mg/dL Creatinine (0.52-1.04) mg/dL Estimated GFR ML/MIN Glucose (74-106) mg/dL Lactic Acid 0.8 (0.4-2.0) Calcium (8.4-10.2) mg/dL Magnesium (1.6-2.3) mg/dL Total Bilirubin (0.2-1.3) mg/dL AST (14-36) U/L ALT (0-35) U/L Alkaline Phosphatase (38-126) U/L Ammonia < 9 L (9-30) umol/L Troponin I < 0.012 (0.000-0.033) ng/mL NT-Pro-B Natriuret Pep 147 (<300) pg/mL Serum Total Protein (6.3-8.2) g/dL Albumin (3.5-5.0) g/dL Urine Color (Yellow) Urine Appearance (Clear) Urine pH (4.6-8.0) Ur Specific [place] (1.005-1.030) Urine Protein (Negative) Urine Glucose (UA) (Negative) mg/dL Urine Ketones (Negative) Urine Blood (Negative) Urine Nitrite (Negative) Urine Bilirubin (Negative) Urine Urobilinogen (0.2) mg/dL Ur Leukocyte Esterase (Negative) U Hyaline Cast (Auto) (0-2) /LPF Urine Microscopic RBC (0-5) /HPF Urine Microscopic WBC (0-5) /HPF Ur Epithelial Cells (None Seen) /HPF Urine Bacteria (None Seen) /HPF Urine Culture Reflexed (NO) Urine Opiates Level (NEGATIVE) Ur Methadone (NEGATIVE) Urine Barbiturates (NEGATIVE) Ur Phencyclidine (PCP) (NEGATIVE) Urine Amphetamine (NEGATIVE) U Benzodiazepine Level (NEGATIVE) Urine Cocaine (NEGATIVE) Urine Marijuana (THC) (NEGATIVE) Ethyl Alcohol (0-10) mg/dL 06/14/24 06/14/24 06/14/24 Range/Units 17:29 17:29 16:40 WBC 7.9 (3.98-10.04) x10^3/uL RBC 4.43 (3.93-5.22) x10^6/uL Hgb 12.2 (11.2-15.7) g/dL Hct 38.1 (34.1-44.9) % MCV 86.0 (79.4-94.8) fL MCH 27.5 (25.6-32.2) pg MCHC 32.0 L (32.2-35.5) g/dL RDW 19.2 H (11.7-14.4) % Plt Count 388 H (182-369) x10^3/uL MPV 8.8 L (9.4-12.3) fL Gran % 50.7 (34.0-71.1) % Immature Gran % (Auto) 0.4 (0.001-0.429) % Nucleat RBC Rel Count 0.0 (0.00-0.2) % Eos # (Auto) 0.11 (0.04-0.36) x10^3/uL Immature Gran # (Auto) 0.03 (0.001-0.031) x10^3u/L Absolute Lymphs (auto) 2.88 (1.18-3.74) x10^3/uL Absolute Monos (auto) 0.79 (0.24-0.86) x10^3/uL Absolute Nucleated RBC 0.00 (0.00-0.012) x10^3u/L Lymphocytes % 36.5 (19.3-51.7) % Monocytes % 10.0 (4.7-12.5) % Eosinophils % 1.4 (0.7-5.8) % Basophils % 1.0 (0.1-1.2) % Absolute Granulocytes 4.00 (1.56-6.13) x10^3/uL Basophils # 0.08 (0.01-0.08) x10^3/uL Sodium 137 (135-145) mmol/L Potassium 3.9 (3.5-5.1) mmol/L Chloride 104 (98-107) mmol/L Carbon Dioxide 28 (22-30) mmol/L Anion Gap 9.9 (5-15) MEQ/L BUN 19 H (7-17) mg/dL Creatinine 1.31 H (0.52-1.04) mg/dL Estimated GFR 47.5 ML/MIN Glucose 74 (74-106) mg/dL Lactic Acid (0.4-2.0) Calcium 8.7 (8.4-10.2) mg/dL Magnesium 2.0 (1.6-2.3) mg/dL Total Bilirubin 0.60 (0.2-1.3) mg/dL AST 42 H (14-36) U/L ALT 23 (0-35) U/L Alkaline Phosphatase 183 H (38-126) U/L Ammonia (9-30) umol/L Troponin I (0.000-0.033) ng/mL NT-Pro-B Natriuret Pep (<300) pg/mL Serum Total Protein 6.3 (6.3-8.2) g/dL Albumin 3.2 L (3.5-5.0) g/dL Urine Color (Yellow) Urine Appearance (Clear) Urine pH (4.6-8.0) Ur Specific [place] (1.005-1.030) Urine Protein (Negative) Urine Glucose (UA) (Negative) mg/dL Urine Ketones (Negative) Urine Blood (Negative) Urine Nitrite (Negative) Urine Bilirubin (Negative) Urine Urobilinogen (0.2) mg/dL Ur Leukocyte Esterase (Negative) U Hyaline Cast (Auto) (0-2) /LPF Urine Microscopic RBC (0-5) /HPF Urine Microscopic WBC (0-5) /HPF Ur Epithelial Cells (None Seen) /HPF Urine Bacteria (None Seen) /HPF Urine Culture Reflexed (NO) Urine Opiates Level NEGATIVE (NEGATIVE) Ur Methadone NEGATIVE (NEGATIVE) Urine Barbiturates NEGATIVE (NEGATIVE) Ur Phencyclidine (PCP) NEGATIVE (NEGATIVE) Urine Amphetamine NEGATIVE (NEGATIVE) U Benzodiazepine Level POSITIVE A (NEGATIVE) Urine Cocaine NEGATIVE (NEGATIVE) Urine Marijuana (THC) NEGATIVE (NEGATIVE) Ethyl Alcohol < 10 (0-10) mg/dL 06/14/24 Range/Units 16:40 WBC (3.98-10.04) x10^3/uL RBC (3.93-5.22) x10^6/uL Hgb (11.2-15.7) g/dL Hct (34.1-44.9) % MCV (79.4-94.8) fL MCH (25.6-32.2) pg MCHC (32.2-35.5) g/dL RDW (11.7-14.4) % Plt Count (182-369) x10^3/uL MPV (9.4-12.3) fL Gran % (34.0-71.1) % Immature Gran % (Auto) (0.001-0.429) % Nucleat RBC Rel Count (0.00-0.2) % Eos # (Auto) (0.04-0.36) x10^3/uL Immature Gran # (Auto) (0.001-0.031) x10^3u/L Absolute Lymphs (auto) (1.18-3.74) x10^3/uL Absolute Monos (auto) (0.24-0.86) x10^3/uL Absolute Nucleated RBC (0.00-0.012) x10^3u/L Lymphocytes % (19.3-51.7) % Monocytes % (4.7-12.5) % Eosinophils % (0.7-5.8) % Basophils % (0.1-1.2) % Absolute Granulocytes (1.56-6.13) x10^3/uL Basophils # (0.01-0.08) x10^3/uL Sodium (135-145) mmol/L Potassium (3.5-5.1) mmol/L Chloride (98-107) mmol/L Carbon Dioxide (22-30) mmol/L Anion Gap (5-15) MEQ/L BUN (7-17) mg/dL Creatinine (0.52-1.04) mg/dL Estimated GFR ML/MIN Glucose (74-106) mg/dL Lactic Acid (0.4-2.0) Calcium (8.4-10.2) mg/dL Magnesium (1.6-2.3) mg/dL Total Bilirubin (0.2-1.3) mg/dL AST (14-36) U/L ALT (0-35) U/L Alkaline Phosphatase (38-126) U/L Ammonia (9-30) umol/L Troponin I (0.000-0.033) ng/mL NT-Pro-B Natriuret Pep (<300) pg/mL Serum Total Protein (6.3-8.2) g/dL Albumin (3.5-5.0) g/dL Urine Color Dark Yellow A (Yellow) Urine Appearance Clear (Clear) Urine pH 5.5 (4.6-8.0) Ur Specific [place] >=1.030 A (1.005-1.030) Urine Protein Trace A (Negative) Urine Glucose (UA) Negative (Negative) mg/dL Urine Ketones Trace A (Negative) Urine Blood Negative (Negative) Urine Nitrite Negative (Negative) Urine Bilirubin Negative (Negative) Urine Urobilinogen 1.0 A (0.2) mg/dL Ur Leukocyte Esterase Negative (Negative) U Hyaline Cast (Auto) NONE SEEN (0-2) /LPF Urine Microscopic RBC 0-2 (0-5) /HPF Urine Microscopic WBC 3-5 (0-5) /HPF Ur Epithelial Cells Few (None Seen) /HPF Urine Bacteria Rare A (None Seen) /HPF Urine Culture Reflexed NO (NO) Urine Opiates Level (NEGATIVE) Ur Methadone (NEGATIVE) Urine Barbiturates (NEGATIVE) Ur Phencyclidine (PCP) (NEGATIVE) Urine Amphetamine (NEGATIVE) U Benzodiazepine Level (NEGATIVE) Urine Cocaine (NEGATIVE) Urine Marijuana (THC) (NEGATIVE) Ethyl Alcohol (0-10) mg/dL - Progress Progress: improved Progress Note: 58-year-old female presents to our ED for evaluation of confusion weakness falls. CT head negative for acute pathology. Workup reveals benzodiazepines however patient is prescribed benzodiazepine. There is no indication at this point that she has been taking more than she is supposed to. Remaining of laboratory workup essentially nonremarkable. Magnesium level is normal. Ammonia level is normal. Patient will be admitted for further workup of encephalopathy. Plan of care discussed with patient and her . They agree to admission at [facility] for further evaluation and treatment. Plan of care discussed with hospitalist who accepts admission to observation at 6:10 PM. Portions of this note were created with voice recognition technology. There may be grammatical, spelling, punctuation or sound alike errors Complexity of problem addressed is moderate acute complicated no critical care t jose antonio. Complex of data reviewed and analyzed is extensive. Test ordered test reviewed results analyzed and correlated clinically with history and physical exam. Management discussed with hospitalist who accepts admission to observation. Risk of complication and or risk of morbidity/mortality of patient management is high. Patient requires hospitalization for further evaluation and treatment. Vital stable. Time spent to admit patient is approximately 15 minutes. Plan of care established for shared decision making. No social determinants of health present to impede follow-up. Portions of this note were created with voice recognition technology. There may be grammatical, spelling, punctuation or sound alike errors 06/14/24 18:19 Counseled pt/family regarding: lab results, diagnosis, rad results - Departure Departure Disposition: Observation Clinical Impression: Encephalopathy, Dehydration Condition: Stable Critical Care Time: No Referrals: VIRGEN JONES MD [Primary Care Provider] - Follow up/PCP as directed
[2024-06-14 17:27] LABS: Appearance Clear (Clear); Bacteria Rare /HPF (None Seen); Bilirubin Negative (Negative); Blood Negative (Negative); Epithelial Cells Few /HPF (None Seen); Glucose, Urine Negative (Negative); Hyaline Casts NONE SEEN /LPF (0-2); Ketones Trace (Negative); Leukocyte Esterase Negative (Negative); Nitrite Negative (Negative); Ph 5.5 (4.6-8.0); Protein,Urine Dip Trace (Negative); RBC 0-2 /HPF (0-5); Specific Gravity >=1.030 (1.005-1.030)
[2024-06-14] MEDS: Sodium Chloride 0.9% 1000 ML 1,000 ML IV SCH (17:31)
[2024-06-14 17:32] LABS: Basophil (Absolute #) 0.08 x10^3/uL (0.01-0.08); Eosinophil % 1.4 % (0.7-5.8); Eosinophil (Absolute #) 0.11 x10^3/uL (0.04-0.36); Hematocrit 38.1 % (34.1-44.9); Hemoglobin 12.2 g/dL (11.2-15.7); IMMATURE GRAN # 0.03 x10^3u/L (0.001-0.031); IMMATURE GRAN % 0.4 % (0.001-0.429); Lymphocyte (Absolute #) 2.88 x10^3/uL (1.18-3.74); Lymphocytes % 36.5 % (19.3-51.7); Mean Corpuscular Hemoglobin 27.5 pg (25.6-32.2); Mean Platelet Volume 8.8 fL (9.4-12.3); Monocyte (Absolute #) 0.79 x10^3/uL (0.24-0.86); Neutrophil % 50.7 % (34.0-71.1); Platelet Count 388 x10^3/uL (182-369); Red Blood Count 4.43 x10^6/uL (3.93-5.22); Red Cell Distribution Width 19.2 % (11.7-14.4); White Blood Count 7.9 x10^3/uL (3.98-10.04)
[2024-06-14 17:46] LABS: ALBUMIN 3.2 g/dL (3.5-5.0); ALKALINE PHOSPHATASE 183 U/L (38-126); ANION GAP 9.9 MEQ/L (5-15); BLOOD UREA NITROGEN 19 mg/dL (7-17); CHLORIDE 104 mmol/L (98-107); Calcium 8.7 mg/dL (8.4-10.2); Carbon Dioxide 28 mmol/L (22-30); Creatinine 1 1.31 mg/dL (0.52-1.04); EST GLOMERULAR FILTRATION RATE 47.5 ML/MIN; ETHYL ALCOHOL < 10 mg/dL (0-10); Glucose 74 mg/dL (74-106); Potassium 3.9 mmol/L (3.5-5.1); SGOT/AST 42 U/L (14-36); SGPT/ALT 23 U/L (0-35); SODIUM 137 mmol/L (135-145); Total Protein 6.3 g/dL (6.3-8.2)
--- NOTE | 2024-06-14 17:48 | XRAY ---
CLINICAL HISTORY: weakness COMPARISON: 06/18/2022 CT TECHNIQUE: Axial non-contrast CT scan of the brain was performed from the skull base to the high parietal region. One of the following dose reduction techniques were utilized for this exam: Automated exposure control, adjustment of the mA and/or kV according to patient size, use of iterative reconstruction. FINDINGS: Brain Parenchyma: Bilateral small hypodense foci are seen at both pearson radiate and centrum semi ovale of both cerebral hemispheres suggesting small vessel disease. Also noted small hypodense old lacunar infarction at left basal ganglia region. Prominent cortical sulci and both Sylvian fissures Normal attenuation of the cerebellum, and brainstem. No evidence of acute infarct, hemorrhage, or mass effect. No other abnormal areas of hypo- or hyperattenuation. Ventricular System: Ventricles are normal in size and configuration. No evidence of hydrocephalus or ventricular enlargement. Subarachnoid Spaces: Normal sulci and cisterns. No evidence of subarachnoid hemorrhage or extra-axial fluid collections. Cerebellum and Brainstem: Normal size and signal. No masses, lesions, or areas of abnormal signal. Orbits: Normal appearance of the globes, optic nerves, and extraocular muscles. No evidence of orbital masses or abnormal signal. Sinuses: Mild right maxillary sinusitis. Mastoid Air Cells: Clear mastoid air cells. No evidence of mastoiditis. Skull: Normal skull morphology. IMPRESSION: 1. No acute cerebral infarction or hematoma, MRI is recommended to rule out hyperacute infarctions if clinically warranted. 2. Bilateral cerebral chronic small vessel disease. 3. Brain involutional changes. 4. No time interval changes compared to the last study Electronically Signed by: Corby Faustin MD. (06/14/2024 17:43:12 EST) ADDENDUM: 06/14/2024 17:47:40 EST [facility] ER was called at [phone] at 04:41 PM [employer], 06/14/2024, and MALATHI [place], was informed regarding Negative stroke results in report. Electronically Signed by: Corby Faustin MD. (06/14/2024 17:47:40 EST)
[2024-06-14 17:49] LABS: Amphetamine,Urine NEGATIVE (NEGATIVE); Barbiturate,Urine NEGATIVE (NEGATIVE); Benzodiazepine,Urine POSITIVE (NEGATIVE); Cocaine,Urine NEGATIVE (NEGATIVE); Methadone,Urine NEGATIVE (NEGATIVE); Opiate,Urine NEGATIVE (NEGATIVE); PCP,Urine NEGATIVE (NEGATIVE); THC,Urine NEGATIVE (NEGATIVE)
[2024-06-14 17:58] LABS: NT PRO BNPII 147 pg/mL (<300); TROPONIN < 0.012 ng/mL (0.000-0.033)
[2024-06-14] MEDS ORDERED: BABY ASPIRIN 81 MG CHEW ONE (18:13)
[2024-06-14] MEDS: BABY ASPIRIN 81 MG CHEW PO ONE (18:14)
--- NOTE | 2024-06-14 20:19 | PCM.HP ---
History of Present Illness - Chief Complaint Chief Complaint: Encephalopathy Date: 06/14/24 History of Present Illness: Ms. ANDERSON is a 58 year old female with a past medical history significant for tobacco use, previous EtOH abuse, hypertension and recent cardiac event requiring transfer to another facility where she was told she had a mild heart attack who was brought back to the ER by her due to recurrent falls and increasing weakness. She reports falling face first onto the floor with some sensation of lightheadedness and legs giving out. No fever/chills. No chest pain or shortness of breath. No nausea, vomiting or diarrhea. No dysuria, hematuria or urgency. - Review of Systems Constitutional: No Fever, No Chills Eyes: No Vision Changes, No Double Vision Ears, Nose, & Throat: No Nose Discharge, No Sinus Drainage Respiratory: No Orthopnea, No Short Of Breath Cardiac: Syncope, No Chest Pain, No Palpitations Abdominal/Gastrointestinal: No Abdominal Pain, No Nausea, No Vomiting, No Diarrhea Genitourinary Symptoms: No Dysuria, No Frequency, No Hematuria Musculoskeletal: Fall Skin: No Pruritis, No Rash Neurological: No Dizziness, No Focal Weakness, No Gait Changes Psychological: Alcohol Abuse Endocrine: No Polyuria, No Polydipsia Hematologic/Lymphatic: No Anemia, No Blood Clots Medications & Allergies Home Medications: Home Medication List Citalopram Hydrobromide 20 mg* [ceLEXa 20 MG] 20 mg PO DAILY 04/23/17 [History Confirmed 06/06/24] Famotidine 20 mg [Pepcid 20 MG] 20 mg PO HS 04/23/17 [History Confirmed 06/06/24] Meloxicam 15 mg [Meloxicam 15 MG] 15 mg PO HS 04/23/17 [History Confirmed 06/06/24] Pantoprazole Sodium [Protonix] 40 mg PO DAILY 04/23/17 [History Confirmed 06/06/24] Fluoxetine HCl 20 mg [Prozac 20 MG] 20 mg PO DAILY 05/30/22 [History Confirmed 06/06/24] Fluticasone/Umeclidin/Vilanter [Trelegy Ellipta 100-62.5-25] 1 puff IH DAILY 05/30/22 [History Confirmed 06/06/24] Loratadine 10 mg [Claritin 10 mg] 10 mg PO DAILY 05/30/22 [History Confirmed 06/06/24] Montelukast Sodium 10 mg [Singulair 10 MG] 10 mg PO HS 05/30/22 [History Confirmed 06/06/24] Ondansetron [Ondansetron Odt] 4 mg PO Q8H PRN PRN 05/30/22 [History Confirmed 06/06/24] Ubrogepant [Ubrelvy] 100 mg PO Q2H/PRN PRN 05/30/22 [History Confirmed 06/06/24] lamoTRIgine [Lamotrigine] 200 mg PO UD 05/30/22 [History Confirmed 06/06/24] Gabapentin [Neurontin ] 100 mg PO HS 05/31/22 [History Confirmed 06/06/24] Temazepam [Restoril] 45 mg PO HS 05/31/22 [History Confirmed 06/06/24] Allergies/Adverse Reactions: Allergies Allergy/AdvReac Type Severity Reaction Status Date / Time divalproex sodium Allergy Verified 06/14/24 15:50 [From Depakote] morphine Allergy Verified 06/14/24 15:50 Sulfa (Sulfonamide Allergy Verified 06/14/24 15:50 Antibiotics) - Past Medical History Past Medical History: Yes Neurological History: Migraines ENT History: Cataracts Cardiac History: No Pertinent History Respiratory History: Asthma, COPD Endocrine Medical History: No Pertinent History Musculoskelatal History: No Pertinent History GI Medical History: Gallbladder Disease History: No Pertinent History Pyscho-Social History: Anxiety, Depression Reproductive Disorders: No Pertinent History Comment: HYPOGLYCEMIA - Past Surgical History Past Surgical History: Yes Neuro Surgical History: No Pertinent History Cardiac History: No Pertinent History Respiratory Surgery: No Pertinent History GI Surgical History: Cholecystectomy, Other Genitourinary Surgical Hx: No Pertinent History Female Surgical History: Section, Other Other Surgical History: gastric bypass Significant Family History: no pertinent family hx - Social History Smoking Status: Heavy tobacco smoker How long have you smoked: 20 years Exposure to second hand smoke: Yes Alcohol: None Drug Use: none - Social Determinants of Health Will the patient participate in the screening: Declined to provide - Physical Exam Vital Signs: Vital Signs - 24 hr Temp Pulse Resp BP BP Pulse Ox 06/14/24 19:00 79 18 131/100 86 L 02/16/25 18:30 73 14 144/84 93 L 06/14/24 18:22 98 06/14/24 18:01 75 23 142/77 99 06/14/24 17:31 74 33 H 101/79 92 L 06/14/24 16:41 96 06/14/24 16:30 72 16 146/90 96 06/14/24 16:01 87 16 145/66 98 06/14/24 16:00 97.2 F 74 16 139/94 98 General Appearance: no apparent distress Neurologic Exam: cooperative Ears, Nose, Throat Exam: No dry mucous membranes Neck Exam: supple Respiratory Exam: No respiratory distress Cardiovascular Exam: regular rate/rhythm Gastrointestinal/Abdomen Exam: soft Extremity Exam: No pedal edema, No swelling Skin Exam: normal color, No rash Results - Labs Lab/Micro Results: Lab Results-Last 24 Hours 06/14/24 06/14/24 06/14/24 Range/Units 16:40 16:40 17:29 WBC 7.9 (3.98-10.04) x10^3/uL RBC 4.43 (3.93-5.22) x10^6/uL Hgb 12.2 (11.2-15.7) g/dL Hct 38.1 (34.1-44.9) % MCV 86.0 (79.4-94.8) fL MCH 27.5 (25.6-32.2) pg MCHC 32.0 L (32.2-35.5) g/dL RDW 19.2 H (11.7-14.4) % Plt Count 388 H (182-369) x10^3/uL MPV 8.8 L (9.4-12.3) fL Gran % 50.7 (34.0-71.1) % Immature Gran % (Auto) 0.4 (0.001-0.429) % Nucleat RBC Rel Count 0.0 (0.00-0.2) % Eos # (Auto) 0.11 (0.04-0.36) x10^3/uL Immature Gran # (Auto) 0.03 (0.001-0.031) x10^3u/L Absolute Lymphs (auto) 2.88 (1.18-3.74) x10^3/uL Absolute Monos (auto) 0.79 (0.24-0.86) x10^3/uL Absolute Nucleated RBC 0.00 (0.00-0.012) x10^3u/L Lymphocytes % 36.5 (19.3-51.7) % Monocytes % 10.0 (4.7-12.5) % Eosinophils % 1.4 (0.7-5.8) % Basophils % 1.0 (0.1-1.2) % Absolute Granulocytes 4.00 (1.56-6.13) x10^3/uL Basophils # 0.08 (0.01-0.08) x10^3/uL Sodium (135-145) mmol/L Potassium (3.5-5.1) mmol/L Chloride (98-107) mmol/L Carbon Dioxide (22-30) mmol/L Anion Gap (5-15) MEQ/L BUN (7-17) mg/dL Creatinine (0.52-1.04) mg/dL Estimated GFR ML/MIN Glucose (74-106) mg/dL Lactic Acid (0.4-2.0) Calcium (8.4-10.2) mg/dL Magnesium (1.6-2.3) mg/dL Total Bilirubin (0.2-1.3) mg/dL AST (14-36) U/L ALT (0-35) U/L Alkaline Phosphatase (38-126) U/L Ammonia (9-30) umol/L Troponin I (0.000-0.033) ng/mL NT-Pro-B Natriuret Pep (<300) pg/mL Serum Total Protein (6.3-8.2) g/dL Albumin (3.5-5.0) g/dL TSH 3rd Generation (0.470-4.680) mIU/L Urine Color Dark Yellow A (Yellow) Urine Appearance Clear (Clear) Urine pH 5.5 (4.6-8.0) Ur Specific Cost >=1.030 A (1.005-1.030) Urine Protein Trace A (Negative) Urine Glucose (UA) Negative (Negative) mg/dL Urine Ketones Trace A (Negative) Urine Blood Negative (Negative) Urine Nitrite Negative (Negative) Urine Bilirubin Negative (Negative) Urine Urobilinogen 1.0 A (0.2) mg/dL Ur Leukocyte Esterase Negative (Negative) U Hyaline Cast (Auto) NONE SEEN (0-2) /LPF Urine Microscopic RBC 0-2 (0-5) /HPF Urine Microscopic WBC 3-5 (0-5) /HPF Ur Epithelial Cells Few (None Seen) /HPF Urine Bacteria Rare A (None Seen) /HPF Urine Culture Reflexed NO (NO) Urine Opiates Level NEGATIVE (NEGATIVE) Ur Methadone NEGATIVE (NEGATIVE) Urine Barbiturates NEGATIVE (NEGATIVE) Ur Phencyclidine (PCP) NEGATIVE (NEGATIVE) Urine Amphetamine NEGATIVE (NEGATIVE) U Benzodiazepine Level POSITIVE A (NEGATIVE) Urine Cocaine NEGATIVE (NEGATIVE) Urine Marijuana (THC) NEGATIVE (NEGATIVE) Ethyl Alcohol (0-10) mg/dL 06/14/24 06/14/24 06/14/24 Range/Units 17:29 17:29 17:29 WBC (3.98-10.04) x10^3/uL RBC (3.93-5.22) x10^6/uL Hgb (11.2-15.7) g/dL Hct (34.1-44.9) % MCV (79.4-94.8) fL MCH (25.6-32.2) pg MCHC (32.2-35.5) g/dL RDW (11.7-14.4) % Plt Count (182-369) x10^3/uL MPV (9.4-12.3) fL Gran % (34.0-71.1) % Immature Gran % (Auto) (0.001-0.429) % Nucleat RBC Rel Count (0.00-0.2) % Eos # (Auto) (0.04-0.36) x10^3/uL Immature Gran # (Auto) (0.001-0.031) x10^3u/L Absolute Lymphs (auto) (1.18-3.74) x10^3/uL Absolute Monos (auto) (0.24-0.86) x10^3/uL Absolute Nucleated RBC (0.00-0.012) x10^3u/L Lymphocytes % (19.3-51.7) % Monocytes % (4.7-12.5) % Eosinophils % (0.7-5.8) % Basophils % (0.1-1.2) % Absolute Granulocytes (1.56-6.13) x10^3/uL Basophils # (0.01-0.08) x10^3/uL Sodium 137 (135-145) mmol/L Potassium 3.9 (3.5-5.1) mmol/L Chloride 104 (98-107) mmol/L Carbon Dioxide 28 (22-30) mmol/L Anion Gap 9.9 (5-15) MEQ/L BUN 19 H (7-17) mg/dL Creatinine 1.31 H (0.52-1.04) mg/dL Estimated GFR 47.5 ML/MIN Glucose 74 (74-106) mg/dL Lactic Acid (0.4-2.0) Calcium 8.7 (8.4-10.2) mg/dL Magnesium 2.0 (1.6-2.3) mg/dL Total Bilirubin 0.60 (0.2-1.3) mg/dL AST 42 H (14-36) U/L ALT 23 (0-35) U/L Alkaline Phosphatase 183 H (38-126) U/L Ammonia (9-30) umol/L Troponin I < 0.012 (0.000-0.033) ng/mL NT-Pro-B Natriuret Pep 147 (<300) pg/mL Serum Total Protein 6.3 (6.3-8.2) g/dL Albumin 3.2 L (3.5-5.0) g/dL TSH 3rd Generation 2.083 (0.470-4.680) mIU/L Urine Color (Yellow) Urine Appearance (Clear) Urine pH (4.6-8.0) Ur Specific Cost (1.005-1.030) Urine Protein (Negative) Urine Glucose (UA) (Negative) mg/dL Urine Ketones (Negative) Urine Blood (Negative) Urine Nitrite (Negative) Urine Bilirubin (Negative) Urine Urobilinogen (0.2) mg/dL Ur Leukocyte Esterase (Negative) U Hyaline Cast (Auto) (0-2) /LPF Urine Microscopic RBC (0-5) /HPF Urine Microscopic WBC (0-5) /HPF Ur Epithelial Cells (None Seen) /HPF Urine Bacteria (None Seen) /HPF Urine Culture Reflexed (NO) Urine Opiates Level (NEGATIVE) Ur Methadone (NEGATIVE) Urine Barbiturates (NEGATIVE) Ur Phencyclidine (PCP) (NEGATIVE) Urine Amphetamine (NEGATIVE) U Benzodiazepine Level (NEGATIVE) Urine Cocaine (NEGATIVE) Urine Marijuana (THC) (NEGATIVE) Ethyl Alcohol < 10 (0-10) mg/dL 06/14/24 06/14/24 Range/Units 17:29 17:31 WBC (3.98-10.04) x10^3/uL RBC (3.93-5.22) x10^6/uL Hgb (11.2-15.7) g/dL Hct (34.1-44.9) % MCV (79.4-94.8) fL MCH (25.6-32.2) pg MCHC (32.2-35.5) g/dL RDW (11.7-14.4) % Plt Count (182-369) x10^3/uL MPV (9.4-12.3) fL Gran % (34.0-71.1) % Immature Gran % (Auto) (0.001-0.429) % Nucleat RBC Rel Count (0.00-0.2) % Eos # (Auto) (0.04-0.36) x10^3/uL Immature Gran # (Auto) (0.001-0.031) x10^3u/L Absolute Lymphs (auto) (1.18-3.74) x10^3/uL Absolute Monos (auto) (0.24-0.86) x10^3/uL Absolute Nucleated RBC (0.00-0.012) x10^3u/L Lymphocytes % (19.3-51.7) % Monocytes % (4.7-12.5) % Eosinophils % (0.7-5.8) % Basophils % (0.1-1.2) % Absolute Granulocytes (1.56-6.13) x10^3/uL Basophils # (0.01-0.08) x10^3/uL Sodium (135-145) mmol/L Potassium (3.5-5.1) mmol/L Chloride (98-107) mmol/L Carbon Dioxide (22-30) mmol/L Anion Gap (5-15) MEQ/L BUN (7-17) mg/dL Creatinine (0.52-1.04) mg/dL Estimated GFR ML/MIN Glucose (74-106) mg/dL Lactic Acid 0.8 (0.4-2.0) Calcium (8.4-10.2) mg/dL Magnesium (1.6-2.3) mg/dL Total Bilirubin (0.2-1.3) mg/dL AST (14-36) U/L ALT (0-35) U/L Alkaline Phosphatase (38-126) U/L Ammonia < 9 L (9-30) umol/L Troponin I (0.000-0.033) ng/mL NT-Pro-B Natriuret Pep (<300) pg/mL Serum Total Protein (6.3-8.2) g/dL Albumin (3.5-5.0) g/dL TSH 3rd Generation (0.470-4.680) mIU/L Urine Color (Yellow) Urine Appearance (Clear) Urine pH (4.6-8.0) Ur Specific Cost (1.005-1.030) Urine Protein (Negative) Urine Glucose (UA) (Negative) mg/dL Urine Ketones (Negative) Urine Blood (Negative) Urine Nitrite (Negative) Urine Bilirubin (Negative) Urine Urobilinogen (0.2) mg/dL Ur Leukocyte Esterase (Negative) U Hyaline Cast (Auto) (0-2) /LPF Urine Microscopic RBC (0-5) /HPF Urine Microscopic WBC (0-5) /HPF Ur Epithelial Cells (None Seen) /HPF Urine Bacteria (None Seen) /HPF Urine Culture Reflexed (NO) Urine Opiates Level (NEGATIVE) Ur Methadone (NEGATIVE) Urine Barbiturates (NEGATIVE) Ur Phencyclidine (PCP) (NEGATIVE) Urine Amphetamine (NEGATIVE) U Benzodiazepine Level (NEGATIVE) Urine Cocaine (NEGATIVE) Urine Marijuana (THC) (NEGATIVE) Ethyl Alcohol (0-10) mg/dL - Radiology Impressions Radiology Exams & Impressions: Radiology Procedures Category Date Time Status HEAD WITHOUT CONTRAST [CT] Stat Exams 06/14/24 17:09 Completed Assessment/Plan (1) Encephalopathy Current Visit: Yes Status: Acute Assessment & Plan: Unclear etiology but suspect it is related to polypharmacy versus prerenal azotemia 1. Admit to hospital 2. Hold neuroleptics 3. IVFs 4. Check orthostatics 5. PT eval 6. DVT/GI prophylaxis Code(s): G93.40 - ENCEPHALOPATHY, UNSPECIFIED (2) Acute kidney injury Current Visit: No Status: Resolved Assessment & Plan: Likely from prerenal azotemia 1. IVFs 2. Check urine lytes, urine creatinine 3. Follow I/Os 4. Watch electrolytes, creatinine closely Code(s): N17.9 - ACUTE KIDNEY FAILURE, UNSPECIFIED (3) NSTEMI (non-ST elevated myocardial infarction) Current Visit: No Status: Acute Assessment & Plan: Recent admission for NSTEMI 1. Continue beta david, ASA 2. Monitor on telemetry 3. Trend troponin Code(s): I21.4 - NON-ST ELEVATION (NSTEMI) MYOCARDIAL INFARCTION Telemedicine Encounter - Telemedicine Encounter Telemedicine Encounter: "The entirety of this encounter was performed via Telemedicine" This visit was performed using real-time audio and video connection between my location and thepatients locationwith the assistance of a surrogateat the patients location. Written or verbal consent was obtained from the patient/guardian to perform this visit [facility] technology. Any patient questions regarding the telemedicine interaction were answered.
[2024-06-14] MEDS ORDERED: TYLENOL 325 MG PO PRN (20:29)
[2024-06-14] MEDS ORDERED: NON-FORMULARY ITEM (Ondansetron 4 MG Tab.Rapdis) PO PRN (20:30)
[2024-06-14] MEDS ORDERED: DUONEB 0.5-3 MG/3 ml Neb IH PRN (20:31)
[2024-06-14] MEDS: Singulair 10 MG PO SCH (21:46)
[2024-06-15 02:34] LABS: Absolute Neutrophil Ct (ANC) 2.43 x10^3/uL (1.56-6.13); Basophil (Absolute #) 0.06 x10^3/uL (0.01-0.08); Eosinophil % 2.2 % (0.7-5.8); Eosinophil (Absolute #) 0.13 x10^3/uL (0.04-0.36); Hematocrit 33.9 % (34.1-44.9); IMMATURE GRAN # 0.01 x10^3u/L (0.001-0.031); IMMATURE GRAN % 0.2 % (0.001-0.429); Lymphocyte (Absolute #) 2.73 x10^3/uL (1.18-3.74); Lymphocytes % 45.7 % (19.3-51.7); Mean Corpuscular Hemoglobin 27.9 pg (25.6-32.2); Mean Corpuscular Hgb Concent. 32.4 g/dL (32.2-35.5); Mean Platelet Volume 8.9 fL (9.4-12.3); Monocyte (Absolute #) 0.62 x10^3/uL (0.24-0.86); Monocytes % 10.4 % (4.7-12.5); Neutrophil % 40.5 % (34.0-71.1); Platelet Count 325 x10^3/uL (182-369); Red Blood Count 3.94 x10^6/uL (3.93-5.22); Red Cell Distribution Width 19.1 % (11.7-14.4)
[2024-06-15 02:53] LABS: ALBUMIN 2.7 g/dL (3.5-5.0); ANION GAP 5.7 MEQ/L (5-15); BILIRUBIN,TOTAL 0.6 mg/dL (0.2-1.3); Calcium 8.1 mg/dL (8.4-10.2); Creatinine 1 1.23 mg/dL (0.52-1.04); EST GLOMERULAR FILTRATION RATE 51.3 ML/MIN; MAGNESIUM 1.9 mg/dL (1.6-2.3); Potassium 3.5 mmol/L (3.5-5.1); Total Protein 5.5 g/dL (6.3-8.2)
--- NOTE | 2024-06-15 05:29 | PCM.NOTE ---
Date and Time: 06/15/24522 Subjective Assessment: HPI: Ms. ANDERSON is a 58 year old female with a past medical history significant for tobacco use, previous EtOH abuse, hypertension and recent cardiac event requiring transfer to another facility where she was told she had a mild heart attack who was brought back to the ER 06/13/24 by her due to recurrent falls and increasing weakness. She reports falling face first onto the floor with some sensation of lightheadedness and legs giving out. CT head with no acute cerebral infarction or hematoma. Initial labs showing GUS and positive benzos on UDS. Patient admitted for encephalopathy and GUS. 06/15: Met with patient bedside. A&O x 3 during interview. Feeling better today. No dizziness since admission. Patient reports near syncopal vs syncopal episodes. She does not remember the events exactly but states this is what her and grandson have reported. Will order echo and carotid US. will recheck orthostatic vitals. - Review of Systems Constitutional: Weakness Eyes: No Symptoms Ears, Nose, & Throat: No Symptoms Respiratory: No Symptoms Cardiac: No Symptoms Abdominal/Gastrointestinal: No Symptoms Genitourinary Symptoms: No Symptoms Musculoskeletal: No Symptoms Skin: No Symptoms Neurological: No Symptoms Psychological: No Symptoms Endocrine: No Symptoms Hematologic/Lymphatic: No Symptoms Immunological/Allergic: No Symptoms Objective Exam General Appearance: no apparent distress Neurologic Exam: alert, oriented x 3, cooperative Eye Exam: PERRL Ears, Nose, Throat Exam: normal ENT inspection Neck Exam: normal inspection Respiratory Exam: normal breath sounds, lungs clear Cardiovascular Exam: regular rate/rhythm, normal heart sounds Gastrointestinal/Abdomen Exam: soft, normal bowel sounds Extremity Exam: normal inspection Back Exam: normal inspection Pelvic Exam: deferred Rectal Exam: deferred Objective Data Vital Signs: Vital Signs - 24 hr Temp Pulse Resp BP BP Pulse Ox 06/15/24 04:00 97.2 F 61 20 122/64 93 L 06/15/24 00:00 96.5 F 64 18 123/66 88 L 06/14/24 21:48 92 L 06/14/24 21:20 97.2 F 76 20 157/70 97 06/14/24 19:38 65 06/14/24 19:00 79 18 131/100 86 L 06/14/24 18:30 73 14 144/84 93 L 06/14/24 18:22 98 06/14/24 18:01 75 23 142/77 99 06/14/24 17:31 74 33 H 101/79 92 L 06/14/24 16:41 96 06/14/24 16:30 72 16 146/90 96 06/14/24 16:01 87 16 145/66 98 06/14/24 16:00 97.2 F 74 16 139/94 98 Pain Assessment - Last Documented Pain Intensity 0 Intake and Output: Intake & Output 06/12/24 06/13/24 06/14/24 06/15/24 11:59 11:59 11:59 11:59 Intake Total 120 Balance 120 Weight 75 kg Lab Results: Lab Results-Last 24 Hours 06/14/24 06/14/24 06/14/24 Range/Units 16:40 16:40 17:29 WBC 7.9 (3.98-10.04) x10^3/uL RBC 4.43 (3.93-5.22) x10^6/uL Hgb 12.2 (11.2-15.7) g/dL Hct 38.1 (34.1-44.9) % MCV 86.0 (79.4-94.8) fL MCH 27.5 (25.6-32.2) pg MCHC 32.0 L (32.2-35.5) g/dL RDW 19.2 H (11.7-14.4) % Plt Count 388 H (182-369) x10^3/uL MPV 8.8 L (9.4-12.3) fL Gran % 50.7 (34.0-71.1) % Immature Gran % (Auto) 0.4 (0.001-0.429) % Nucleat RBC Rel Count 0.0 (0.00-0.2) % Eos # (Auto) 0.11 (0.04-0.36) x10^3/uL Immature Gran # (Auto) 0.03 (0.001-0.031) x10^3u/L Absolute Lymphs (auto) 2.88 (1.18-3.74) x10^3/uL Absolute Monos (auto) 0.79 (0.24-0.86) x10^3/uL Absolute Nucleated RBC 0.00 (0.00-0.012) x10^3u/L Lymphocytes % 36.5 (19.3-51.7) % Monocytes % 10.0 (4.7-12.5) % Eosinophils % 1.4 (0.7-5.8) % Basophils % 1.0 (0.1-1.2) % Absolute Granulocytes 4.00 (1.56-6.13) x10^3/uL Basophils # 0.08 (0.01-0.08) x10^3/uL Sodium (135-145) mmol/L Potassium (3.5-5.1) mmol/L Chloride (98-107) mmol/L Carbon Dioxide (22-30) mmol/L Anion Gap (5-15) MEQ/L BUN (7-17) mg/dL Creatinine (0.52-1.04) mg/dL Estimated GFR ML/MIN Glucose (74-106) mg/dL Lactic Acid (0.4-2.0) Calcium (8.4-10.2) mg/dL Magnesium (1.6-2.3) mg/dL Total Bilirubin (0.2-1.3) mg/dL AST (14-36) U/L ALT (0-35) U/L Alkaline Phosphatase (38-126) U/L Ammonia (9-30) umol/L Troponin I (0.000-0.033) ng/mL NT-Pro-B Natriuret Pep (<300) pg/mL Serum Total Protein (6.3-8.2) g/dL Albumin (3.5-5.0) g/dL TSH 3rd Generation (0.470-4.680) mIU/L Urine Color Dark Yellow A (Yellow) Urine Appearance Clear (Clear) Urine pH 5.5 (4.6-8.0) Ur Specific [place] >=1.030 A (1.005-1.030) Urine Protein Trace A (Negative) Urine Glucose (UA) Negative (Negative) mg/dL Urine Ketones Trace A (Negative) Urine Blood Negative (Negative) Urine Nitrite Negative (Negative) Urine Bilirubin Negative (Negative) Urine Urobilinogen 1.0 A (0.2) mg/dL Ur Leukocyte Esterase Negative (Negative) U Hyaline Cast (Auto) NONE SEEN (0-2) /LPF Urine Microscopic RBC 0-2 (0-5) /HPF Urine Microscopic WBC 3-5 (0-5) /HPF Ur Epithelial Cells Few (None Seen) /HPF Urine Bacteria Rare A (None Seen) /HPF Urine Culture Reflexed NO (NO) Urine Opiates Level NEGATIVE (NEGATIVE) Ur Methadone NEGATIVE (NEGATIVE) Urine Barbiturates NEGATIVE (NEGATIVE) Ur Phencyclidine (PCP) NEGATIVE (NEGATIVE) Urine Amphetamine NEGATIVE (NEGATIVE) U Benzodiazepine Level POSITIVE A (NEGATIVE) Urine Cocaine NEGATIVE (NEGATIVE) Urine Marijuana (THC) NEGATIVE (NEGATIVE) Ethyl Alcohol (0-10) mg/dL 06/14/24 06/14/24 06/14/24 Range/Units 17:29 17:29 17:29 WBC (3.98-10.04) x10^3/uL RBC (3.93-5.22) x10^6/uL Hgb (11.2-15.7) g/dL Hct (34.1-44.9) % MCV (79.4-94.8) fL MCH (25.6-32.2) pg MCHC (32.2-35.5) g/dL RDW (11.7-14.4) % Plt Count (182-369) x10^3/uL MPV (9.4-12.3) fL Gran % (34.0-71.1) % Immature Gran % (Auto) (0.001-0.429) % Nucleat RBC Rel Count (0.00-0.2) % Eos # (Auto) (0.04-0.36) x10^3/uL Immature Gran # (Auto) (0.001-0.031) x10^3u/L Absolute Lymphs (auto) (1.18-3.74) x10^3/uL Absolute Monos (auto) (0.24-0.86) x10^3/uL Absolute Nucleated RBC (0.00-0.012) x10^3u/L Lymphocytes % (19.3-51.7) % Monocytes % (4.7-12.5) % Eosinophils % (0.7-5.8) % Basophils % (0.1-1.2) % Absolute Granulocytes (1.56-6.13) x10^3/uL Basophils # (0.01-0.08) x10^3/uL Sodium 137 (135-145) mmol/L Potassium 3.9 (3.5-5.1) mmol/L Chloride 104 (98-107) mmol/L Carbon Dioxide 28 (22-30) mmol/L Anion Gap 9.9 (5-15) MEQ/L BUN 19 H (7-17) mg/dL Creatinine 1.31 H (0.52-1.04) mg/dL Estimated GFR 47.5 ML/MIN Glucose 74 (74-106) mg/dL Lactic Acid (0.4-2.0) Calcium 8.7 (8.4-10.2) mg/dL Magnesium 2.0 (1.6-2.3) mg/dL Total Bilirubin 0.60 (0.2-1.3) mg/dL AST 42 H (14-36) U/L ALT 23 (0-35) U/L Alkaline Phosphatase 183 H (38-126) U/L Ammonia (9-30) umol/L Troponin I < 0.012 (0.000-0.033) ng/mL NT-Pro-B Natriuret Pep 147 (<300) pg/mL Serum Total Protein 6.3 (6.3-8.2) g/dL Albumin 3.2 L (3.5-5.0) g/dL TSH 3rd Generation 2.083 (0.470-4.680) mIU/L Urine Color (Yellow) Urine Appearance (Clear) Urine pH (4.6-8.0) Ur Specific [place] (1.005-1.030) Urine Protein (Negative) Urine Glucose (UA) (Negative) mg/dL Urine Ketones (Negative) Urine Blood (Negative) Urine Nitrite (Negative) Urine Bilirubin (Negative) Urine Urobilinogen (0.2) mg/dL Ur Leukocyte Esterase (Negative) U Hyaline Cast (Auto) (0-2) /LPF Urine Microscopic RBC (0-5) /HPF Urine Microscopic WBC (0-5) /HPF Ur Epithelial Cells (None Seen) /HPF Urine Bacteria (None Seen) /HPF Urine Culture Reflexed (NO) Urine Opiates Level (NEGATIVE) Ur Methadone (NEGATIVE) Urine Barbiturates (NEGATIVE) Ur Phencyclidine (PCP) (NEGATIVE) Urine Amphetamine (NEGATIVE) U Benzodiazepine Level (NEGATIVE) Urine Cocaine (NEGATIVE) Urine Marijuana (THC) (NEGATIVE) Ethyl Alcohol < 10 (0-10) mg/dL 06/14/24 06/14/24 06/14/24 Range/Units 17:29 17:31 21:13 WBC (3.98-10.04) x10^3/uL RBC (3.93-5.22) x10^6/uL Hgb (11.2-15.7) g/dL Hct (34.1-44.9) % MCV (79.4-94.8) fL MCH (25.6-32.2) pg MCHC (32.2-35.5) g/dL RDW (11.7-14.4) % Plt Count (182-369) x10^3/uL MPV (9.4-12.3) fL Gran % (34.0-71.1) % Immature Gran % (Auto) (0.001-0.429) % Nucleat RBC Rel Count (0.00-0.2) % Eos # (Auto) (0.04-0.36) x10^3/uL Immature Gran # (Auto) (0.001-0.031) x10^3u/L Absolute Lymphs (auto) (1.18-3.74) x10^3/uL Absolute Monos (auto) (0.24-0.86) x10^3/uL Absolute Nucleated RBC (0.00-0.012) x10^3u/L Lymphocytes % (19.3-51.7) % Monocytes % (4.7-12.5) % Eosinophils % (0.7-5.8) % Basophils % (0.1-1.2) % Absolute Granulocytes (1.56-6.13) x10^3/uL Basophils # (0.01-0.08) x10^3/uL Sodium (135-145) mmol/L Potassium (3.5-5.1) mmol/L Chloride (98-107) mmol/L Carbon Dioxide (22-30) mmol/L Anion Gap (5-15) MEQ/L BUN (7-17) mg/dL Creatinine (0.52-1.04) mg/dL Estimated GFR ML/MIN Glucose (74-106) mg/dL Lactic Acid 0.8 (0.4-2.0) Calcium (8.4-10.2) mg/dL Magnesium (1.6-2.3) mg/dL Total Bilirubin (0.2-1.3) mg/dL AST (14-36) U/L ALT (0-35) U/L Alkaline Phosphatase (38-126) U/L Ammonia < 9 L (9-30) umol/L Troponin I < 0.012 (0.000-0.033) ng/mL NT-Pro-B Natriuret Pep (<300) pg/mL Serum Total Protein (6.3-8.2) g/dL Albumin (3.5-5.0) g/dL TSH 3rd Generation (0.470-4.680) mIU/L Urine Color (Yellow) Urine Appearance (Clear) Urine pH (4.6-8.0) Ur Specific [place] (1.005-1.030) Urine Protein (Negative) Urine Glucose (UA) (Negative) mg/dL Urine Ketones (Negative) Urine Blood (Negative) Urine Nitrite (Negative) Urine Bilirubin (Negative) Urine Urobilinogen (0.2) mg/dL Ur Leukocyte Esterase (Negative) U Hyaline Cast (Auto) (0-2) /LPF Urine Microscopic RBC (0-5) /HPF Urine Microscopic WBC (0-5) /HPF Ur Epithelial Cells (None Seen) /HPF Urine Bacteria (None Seen) /HPF Urine Culture Reflexed (NO) Urine Opiates Level (NEGATIVE) Ur Methadone (NEGATIVE) Urine Barbiturates (NEGATIVE) Ur Phencyclidine (PCP) (NEGATIVE) Urine Amphetamine (NEGATIVE) U Benzodiazepine Level (NEGATIVE) Urine Cocaine (NEGATIVE) Urine Marijuana (THC) (NEGATIVE) Ethyl Alcohol (0-10) mg/dL 06/15/24 06/15/24 06/15/24 Range/Units 02:31 02:31 02:31 WBC 6.0 (3.98-10.04) x10^3/uL RBC 3.94 (3.93-5.22) x10^6/uL Hgb 11.0 L (11.2-15.7) g/dL Hct 33.9 L (34.1-44.9) % MCV 86.0 (79.4-94.8) fL MCH 27.9 (25.6-32.2) pg MCHC 32.4 (32.2-35.5) g/dL RDW 19.1 H (11.7-14.4) % Plt Count 325 (182-369) x10^3/uL MPV 8.9 L (9.4-12.3) fL Gran % 40.5 (34.0-71.1) % Immature Gran % (Auto) 0.2 (0.001-0.429) % Nucleat RBC Rel Count 0.0 (0.00-0.2) % Eos # (Auto) 0.13 (0.04-0.36) x10^3/uL Immature Gran # (Auto) 0.01 (0.001-0.031) x10^3u/L Absolute Lymphs (auto) 2.73 (1.18-3.74) x10^3/uL Absolute Monos (auto) 0.62 (0.24-0.86) x10^3/uL Absolute Nucleated RBC 0.00 (0.00-0.012) x10^3u/L Lymphocytes % 45.7 (19.3-51.7) % Monocytes % 10.4 (4.7-12.5) % Eosinophils % 2.2 (0.7-5.8) % Basophils % 1.0 (0.1-1.2) % Absolute Granulocytes 2.43 (1.56-6.13) x10^3/uL Basophils # 0.06 (0.01-0.08) x10^3/uL Sodium 137 (135-145) mmol/L Potassium 3.5 (3.5-5.1) mmol/L Chloride 106 (98-107) mmol/L Carbon Dioxide 29 (22-30) mmol/L Anion Gap 5.7 (5-15) MEQ/L BUN 16 (7-17) mg/dL Creatinine 1.23 H (0.52-1.04) mg/dL Estimated GFR 51.3 ML/MIN Glucose 83 (74-106) mg/dL Lactic Acid (0.4-2.0) Calcium 8.1 L (8.4-10.2) mg/dL Magnesium 1.9 (1.6-2.3) mg/dL Total Bilirubin 0.60 (0.2-1.3) mg/dL AST 36 (14-36) U/L ALT 20 (0-35) U/L Alkaline Phosphatase 150 H (38-126) U/L Ammonia (9-30) umol/L Troponin I 0.013 (0.000-0.033) ng/mL NT-Pro-B Natriuret Pep (<300) pg/mL Serum Total Protein 5.5 L (6.3-8.2) g/dL Albumin 2.7 L (3.5-5.0) g/dL TSH 3rd Generation (0.470-4.680) mIU/L Urine Color (Yellow) Urine Appearance (Clear) Urine pH (4.6-8.0) Ur Specific [place] (1.005-1.030) Urine Protein (Negative) Urine Glucose (UA) (Negative) mg/dL Urine Ketones (Negative) Urine Blood (Negative) Urine Nitrite (Negative) Urine Bilirubin (Negative) Urine Urobilinogen (0.2) mg/dL Ur Leukocyte Esterase (Negative) U Hyaline Cast (Auto) (0-2) /LPF Urine Microscopic RBC (0-5) /HPF Urine Microscopic WBC (0-5) /HPF Ur Epithelial Cells (None Seen) /HPF Urine Bacteria (None Seen) /HPF Urine Culture Reflexed (NO) Urine Opiates Level (NEGATIVE) Ur Methadone (NEGATIVE) Urine Barbiturates (NEGATIVE) Ur Phencyclidine (PCP) (NEGATIVE) Urine Amphetamine (NEGATIVE) U Benzodiazepine Level (NEGATIVE) Urine Cocaine (NEGATIVE) Urine Marijuana (THC) (NEGATIVE) Ethyl Alcohol (0-10) mg/dL Radiology Exams: Radiology Procedures Category Date Time Status HEAD WITHOUT CONTRAST [CT] Stat Exams 06/14/24 17:09 Completed Assessment/Plan (1) Syncope Current Visit: Yes Status: Acute Assessment & Plan: -echo -carotid -CT head reviewed with no acute findings -orthostatic vitals -TSH reviewed and WNL -CMP/CBC reviewed -tele -UDS positive for benzodiazepines Code(s): R55 - SYNCOPE AND COLLAPSE (2) Encephalopathy Current Visit: Yes Status: Acute Assessment & Plan: -CT head reviewed showin no acute findings -Unclear etiology but suspect it is related to polypharmacy versus prerenal azotemia -PT eval -ortho vitals -IVF Code(s): G93.40 - ENCEPHALOPATHY, UNSPECIFIED (3) Acute kidney injury Current Visit: No Status: Resolved Assessment & Plan: -Baseline creat around 1.2-1.4 -creat reviewed at 1.23 - at baseline -monitor renal/lytes -avoid nephrotoxic agents Code(s): N17.9 - ACUTE KIDNEY FAILURE, UNSPECIFIED (4) NSTEMI (non-ST elevated myocardial infarction) Current Visit: No Status: Acute Assessment & Plan: Recent admission for NSTEMI -Continue beta david, ASA - telemetry -Trop negative x 3 Code(s): I21.4 - NON-ST ELEVATION (NSTEMI) MYOCARDIAL INFARCTION
[2024-06-15] MEDS ORDERED: Sodium Chloride 0.9% 1000 ML 1,000 ML ONE (05:33)
[2024-06-15] MEDS: CLARITIN 10 MG PO SCH (09:49)
[2024-06-15] MEDS: Protonix 40MG Tablet PO SCH (09:49)
[2024-06-15] MEDS ORDERED: Protonix 40MG Tablet PO SCH (10:00)
[2024-06-15] MEDS ORDERED: VENTOLIN COMMON CANISTER IH PRN (14:18)
[2024-06-15] MEDS ORDERED: LAMOTRIGINE 200 MG PO SCH (15:00)
[2024-06-15] MEDS: ECOTRIN 81 MG PO SCH (15:19)
[2024-06-15] MEDS: lamICTAL 100MG TABLET PO SCH ×2 (15:19→21:23)
[2024-06-15] MEDS: ceLEXa 20 MG PO SCH (15:20)
[2024-06-15] MEDS: Neurontin PO SCH (21:23)
[2024-06-15] MEDS: Pepcid 20 MG PO SCH (21:23)
[2024-06-15] MEDS: ZOFRAN ODT 4 MG PO PRN (22:37)
--- NOTE | 2024-06-16 05:13 | PCM.NOTE ---
Date and Time: 06/16/24511 Subjective Assessment: HPI: Ms. ANDERSON is a 58 year old female with a past medical history significant for tobacco use, previous EtOH abuse, hypertension and recent cardiac event requiring transfer to another facility where she was told she had a mild heart attack who was brought back to the ER 06/13/24 by her due to recurrent falls and increasing weakness. She reports falling face first onto the floor with some sensation of lightheadedness and legs giving out. CT head with no acute cerebral infarction or hematoma. Initial labs showing GUS and positive benzos on UDS. Patient admitted for encephalopathy and GUS. 06/15: Met with patient bedside. A&O x 3 during interview. Feeling better today. No dizziness since admission. Patient reports near syncopal vs syncopal episodes. She does not remember the events exactly but states this is what her and grandson have reported. Will order echo and carotid US. will recheck orthostatic vitals. 06/16: Met with patient bedside. Remains A&O x 3. No further confusion. Endorses continued weakness. No dizziness today. Patient to work with PT. Echo and carotid scheduled for today to evaluate syncopal episodes. Denies fever,cough, sob, cp, abdominal pain, MUKHERJEE, dizziness, N/V/D. - Review of Systems Constitutional: Weakness Eyes: No Symptoms Ears, Nose, & Throat: No Symptoms Respiratory: No Symptoms Cardiac: No Symptoms Abdominal/Gastrointestinal: No Symptoms Genitourinary Symptoms: No Symptoms Musculoskeletal: No Symptoms Skin: No Symptoms Neurological: No Symptoms Psychological: No Symptoms Endocrine: No Symptoms Hematologic/Lymphatic: No Symptoms Immunological/Allergic: No Symptoms Objective Exam General Appearance: no apparent distress Neurologic Exam: alert, oriented x 3, cooperative Skin Exam: normal color Eye Exam: PERRL Ears, Nose, Throat Exam: normal ENT inspection Neck Exam: normal inspection Respiratory Exam: normal breath sounds, lungs clear Cardiovascular Exam: regular rate/rhythm, normal heart sounds Gastrointestinal/Abdomen Exam: soft, normal bowel sounds Extremity Exam: normal inspection Back Exam: normal inspection Pelvic Exam: deferred Rectal Exam: deferred Objective Data Vital Signs: Vital Signs - 24 hr Temp Pulse Resp BP Pulse Ox 06/16/24 04:00 97.7 F 60 18 112/56 95 06/16/24 00:00 97.0 F 60 20 136/63 96 06/15/24 20:00 97.9 F 65 18 140/68 96 06/15/24 18:57 66 16 95 06/15/24 16:00 97.6 F 63 20 118/57 96 06/15/24 12:00 20 06/15/24 11:54 97.2 F 69 20 148/90 97 06/15/24 08:00 20 06/15/24 07:33 97.1 F 62 20 129/68 95 Pain Assessment - Last Documented Pain Intensity 0 Intake and Output: Intake & Output 06/13/24 06/14/24 06/15/24 06/16/24 11:59 11:59 11:59 11:59 Intake Total 1070 2991 Output Total 600 750 Balance 470 2241 Weight 75 kg Radiology Exams: Radiology Procedures Category Date Time Status HEAD WITHOUT CONTRAST [CT] Stat Exams 06/14/24 17:09 Completed Multi-Disciplinary Progress Notes: Multi-Disciplinary Progress Notes 06/15/24 13:54 Case Management Note by Anjali Mcintosh S/W VIA PHONE- HE REPORTS PATIENT IS FALLING EVEN WITH ASSISTANCE AT HOME BUT THAT 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 HE REPORTS SHE DOES NOT WALK WHEN HOME ALONE, SHE STAYS ON HER COUCH DURING THE 2 HOURS THAT SHE IS ALONE. HE IS AGREEABLE TO PROVIDE TRANSPORTATION TO OTPT THERAPY AND WOULD LIKE PATIENT TO GET THAT AT [facility] THAT IS CLOSER TO WHERE THEY LIVE. HE DENIES ANY OTHER NEEDS OR CONCERNS. Initialized on 06/15/24 13:54 - END OF NOTE Assessment/Plan (1) Syncope Current Visit: Yes Status: Acute Assessment & Plan: echo -carotid -CT head reviewed with no acute findings -orthostatic vitals -TSH reviewed and WNL -CMP/CBC reviewed -tele -UDS positive for benzodiazepines 06/16: -Carotid doppler negative for hemodynamically significant flow limiting stenosis -Echo pending -PT eval recommending discharge to facility for short-term rehab or 24 hour help at home with HHC and PT - patient declines IP rehab -will set up with [facility] PT as OP Code(s): R55 - SYNCOPE AND COLLAPSE (2) Encephalopathy Current Visit: Yes Status: Acute Assessment & Plan: -CT head reviewed showin no acute findings -Unclear etiology but suspect it is related to polypharmacy versus prerenal azotemia -PT eval -ortho vitals -IVF 06/16: -resolved Code(s): G93.40 - ENCEPHALOPATHY, UNSPECIFIED (3) Acute kidney injury Current Visit: No Status: Resolved Assessment & Plan: -Baseline creat around 1.2-1.4 -creat reviewed at 1.23 - at baseline -monitor renal/lytes -avoid nephrotoxic agents 06/16: -Creat reviewed at 1.15- baseline around 1.4- continue IVF Code(s): N17.9 - ACUTE KIDNEY FAILURE, UNSPECIFIED (4) NSTEMI (non-ST elevated myocardial infarction) Current Visit: No Status: Acute Assessment & Plan: Recent admission for NSTEMI -Continue beta david, ASA - telemetry -Trop negative x 3 Code(s): R55 - SYNCOPE AND COLLAPSE (2) Encephalopathy Current Visit: Yes Status: Acute Code(s): G93.40 - ENCEPHALOPATHY, UNSPECIFIED (3) Acute kidney injury Current Visit: No Status: Resolved Code(s): N17.9 - ACUTE KIDNEY FAILURE, UNSPECIFIED (4) NSTEMI (non-ST elevated myocardial infarction) Current Visit: No Status: Acute Code(s): I21.4 - NON-ST ELEVATION (NSTEMI) MYOCARDIAL INFARCTION
[2024-06-16 08:12] LABS: Absolute Neutrophil Ct (ANC) 2.63 x10^3/uL (1.56-6.13); Basophil (Absolute #) 0.06 x10^3/uL (0.01-0.08); Eosinophil % 2.5 % (0.7-5.8); Eosinophil (Absolute #) 0.15 x10^3/uL (0.04-0.36); Hematocrit 34.1 % (34.1-44.9); Hemoglobin 10.9 g/dL (11.2-15.7); IMMATURE GRAN # 0.02 x10^3u/L (0.001-0.031); IMMATURE GRAN % 0.3 % (0.001-0.429); Lymphocyte (Absolute #) 2.74 x10^3/uL (1.18-3.74); Lymphocytes % 44.9 % (19.3-51.7); Mean Cell Volume 88.6 fL (79.4-94.8); Mean Corpuscular Hemoglobin 28.3 pg (25.6-32.2); Mean Platelet Volume 9.4 fL (9.4-12.3); Monocytes % 8.2 % (4.7-12.5); Neutrophil % 43.1 % (34.0-71.1); Platelet Count 318 x10^3/uL (182-369); Red Blood Count 3.85 x10^6/uL (3.93-5.22); Red Cell Distribution Width 19.8 % (11.7-14.4); White Blood Count 6.1 x10^3/uL (3.98-10.04)
[2024-06-16 08:34] LABS: ALBUMIN 2.6 g/dL (3.5-5.0); BILIRUBIN,TOTAL 0.5 mg/dL (0.2-1.3); Calcium 7.7 mg/dL (8.4-10.2); Creatinine 1 1.15 mg/dL (0.52-1.04); EST GLOMERULAR FILTRATION RATE 55.6 ML/MIN; MAGNESIUM 1.9 mg/dL (1.6-2.3); Potassium 3.7 mmol/L (3.5-5.1); Total Protein 5.4 g/dL (6.3-8.2)
--- NOTE | 2024-06-16 16:11 | XRAY ---
Indication: Syncope. Two-dimensional sonogram and color Doppler imaging carotid arteries of the neck performed. Comparison: April 24, 2017 Examination right carotid circulation again demonstrates widely patent common carotid artery. Carotid bulb again demonstrates very minimal arteriosclerotic plaquing extending into origin internal and external carotid arteries. PSV CCA is 74 cm/s. PSV ICA is 90 cm/s. ICA/CCA ratio is 1.2. Normal antegrade vertebral artery flow. Examination left carotid circulation again demonstrates widely patent common carotid, carotid bulb, internal carotid, and additional carotid arteries. PSV CCA is 81 cm/s. PSV ICA is 98 cm/s. ICA/CCA ratio is 1.2. Normal antegrade vertebral artery flow. Impression: Again very minimal arteriosclerotic disease in right carotid circulation. Widely patent left carotid circulation. Velocity measurements and ratios again negative for hemodynamically significant flow limiting stenosis.
[2024-06-16 21:47] LABS: CREATININE,URINE RANDOM 332.9 MG/DL
--- NOTE | 2024-06-17 05:04 | PCM.DS ---
Discharge Summary Date of Admission: 06/14/24 19:31 Date of Discharge: 06/17/24 Admitting Physician: DWAYNE DISLA MD Primary Care Provider: ROBERT,VIRGEN Allergies Allergies divalproex sodium [From Depakote] Allergy (Verified 06/14/24 15:50) hives morphine Allergy (Verified 06/14/24 15:50) migraine Sulfa (Sulfonamide Antibiotics) Allergy (Verified 06/14/24 15:50) nausea and vomiting Hospital Summary - Hospital Course Hospital Course: HPI: Ms. ANDERSON is a 58 year old female with a past medical history significant for tobacco use, previous EtOH abuse, hypertension and recent cardiac event requiring transfer to another facility where she was told she had a mild heart attack who was brought back to the ER 06/13/24 by her due to recurrent falls and increasing weakness. She reports falling face first onto the floor with some sensation of lightheadedness and legs giving out. CT head with no acute cerebral infarction or hematoma. Initial labs showing GUS and positive benzos on UDS. Patient states she does not drink alcohol or use benzodiazipines. Patient admitted for syncope evaluation and GUS. Patient A&O x 3 and GUS reso lved. Physical therapy evaluation recommending discharge to facility for short- term rehab or 24 hour help at home with HHC and PT - patient declines IP rehab - will set up with [facility] PT as OP. Carotid doppler negative for hemodynamically significant flow limiting stenosis. Echo reviewed from previous hospitalization. No further episodes of syncope or dizziness. Orthostatic vitals are negative. Patient family -Ashwini endorsing patient may not be taking medications correctly and concern for alcohol abuse, although she is not sure about this. HHC to aid in medication distribution. UA with no growth on culture. She will follow up with Dr. Montero tomorrow. Advised follow up with PCP for med review. Discharge Note New Diagnosis: Syncope New Medications: None Follow Up: Cardiology/PCP I spent 35 minutes [id number] with the patient on the day of discharge performing discharge exam, discussing hospital stay and discharge instructions with patient and caregivers, preparation of discharge records, prescriptions & referral forms and addressing any questions/concerns the patient had as documented above. stenosis. - Vitals & Intake/Output Vital Signs: Vital Signs Temperature 97.3 F 06/17/24 04:00 Pulse Rate 63 06/17/24 04:00 Respiratory Rate 15 06/17/24 04:00 Blood Pressure 135/74 06/17/24 04:00 O2 Sat by Pulse Oximetry 94 L 06/17/24 04:00 Intake & Output: Intake & Output 06/14/24 06/15/24 06/16/24 06/17/24 11:59 11:59 11:59 11:59 Intake Total 1070 3471 1080 Output Total 600 1550 1600 Balance 470 1921 -520 Weight 75 kg - Lab Result Diagrams: 06/17/24 05:16 06/17/24 05:16 Lab Results-Last 24 Hrs: Lab Results-Last 24 Hours 06/14/24 06/16/24 06/16/24 Range/Units 20:29 06:20 06:20 WBC 6.1 (3.98-10.04) x10^3/uL RBC 3.85 L (3.93-5.22) x10^6/uL Hgb 10.9 L (11.2-15.7) g/dL Hct 34.1 (34.1-44.9) % MCV 88.6 (79.4-94.8) fL MCH 28.3 (25.6-32.2) pg MCHC 32.0 L (32.2-35.5) g/dL RDW 19.8 H (11.7-14.4) % Plt Count 318 (182-369) x10^3/uL MPV 9.4 (9.4-12.3) fL Gran % 43.1 (34.0-71.1) % Immature Gran % (Auto) 0.3 (0.001-0.429) % Nucleat RBC Rel Count 0.0 (0.00-0.2) % Eos # (Auto) 0.15 (0.04-0.36) x10^3/uL Immature Gran # (Auto) 0.02 (0.001-0.031) x10^3u/L Absolute Lymphs (auto) 2.74 (1.18-3.74) x10^3/uL Absolute Monos (auto) 0.50 (0.24-0.86) x10^3/uL Absolute Nucleated RBC 0.00 (0.00-0.012) x10^3u/L Lymphocytes % 44.9 (19.3-51.7) % Monocytes % 8.2 (4.7-12.5) % Eosinophils % 2.5 (0.7-5.8) % Basophils % 1.0 (0.1-1.2) % Absolute Granulocytes 2.63 (1.56-6.13) x10^3/uL Basophils # 0.06 (0.01-0.08) x10^3/uL Sodium 140 (135-145) mmol/L Potassium 3.7 (3.5-5.1) mmol/L Chloride 110 H (98-107) mmol/L Carbon Dioxide 27 (22-30) mmol/L Anion Gap 7.0 (5-15) MEQ/L BUN 14 (7-17) mg/dL Creatinine 1.15 H (0.52-1.04) mg/dL Estimated GFR 55.6 ML/MIN Glucose 80 (74-106) mg/dL Calcium 7.7 L (8.4-10.2) mg/dL Magnesium 1.9 (1.6-2.3) mg/dL Total Bilirubin 0.50 (0.2-1.3) mg/dL AST 38 H (14-36) U/L ALT 21 (0-35) U/L Alkaline Phosphatase 140 H (38-126) U/L Serum Total Protein 5.4 L (6.3-8.2) g/dL Albumin 2.6 L (3.5-5.0) g/dL Ur Random Creatinine 332.9 MG/DL Urine Sodium 155 H (30-90) mmol/L Micro Results-Entire Visit: Microbiology 06/14/24 16:40 Urine Culture - Final Catherized NO GROWTH - Radiology Exams Ordered Rad Exams-Entire Visit: Radiology Procedures Category Date Time Status CAROTID BILATERAL [US] Routine Exams 06/16/24 14:01 Completed ECHO W/2D AND DOPPLER [US] Routine Exams 06/16/24 14:00 Taken - Procedures and Test Procedures and Tests throughout Hospitalization: Therapy Orders & Screens 06/14/24 20:29 PT Eval & Treat ( Order) ONCE Reason for Eval:: falls Diagnosis: Encephalopathy 06/14/24 21:29 OT Screen per Nursing Assess ONCE Comment: Protocol Order Physician Instructions: Greater than 3 points order OT Admission Screening Reason For Exam: Triggered on Admission Diagnosis: Encephalopathy Open Wound/Cellutlitis/Pressure Ulcers: No Acute Fx/ORIF/Change in wt bearing status: No Severe MUSCULOSKELETAL pain: No ADL Dysfunction: Yes Acute CVA w/Hemiparesis/Hemiplegia: No Decreased Functional Mobility/Strength: Yes Sprain/Strain: No Acute Post-op Mobility Dysfunction: No Total Points: 4 PT Screen per Nursing Assess ONCE Comment: Protocol Order Physician Instructions: Greater than 3 points order PT Admission Screenin Reason For Exam: Triggered on Admission Diagnosis: Encephalopathy Open Wound/Cellutlitis/Pressure Ulcers: No Acute Fx/ORIF/Change in wt bearing status: No Severe MUSCULOSKELETAL pain: No ADL Dysfunction: Yes Acute CVA w/Hemiparesis/Hemiplegia: No Decreased Functional Mobility/Strength: Yes Sprain/Strain: No Acute Post-op Mobility Dysfunction: No Total Points: 4 RT Screen per Nursing Assess ONCE Comment: Protocol Order Physician Instructions: Greater than 3 points order RT Admission Screen Reason For Exam: Triggered on Admission Diagnosis: Encephalopathy Diagnosis: Encephalopathy Pneumonia: Yes Home O2: No Asthma: Yes CHF: No Home CPAP/BIPAP: No Home Nebs/MDI: No Total Points: 7 Smoking Cessation Education ONCE Comment: Diagnosis: Encephalopathy Smoking Status: Current every day smoker How long have you smoked: 20 years Have you smoked in the past 12 months: Yes Approximately how many cigarettes per day: 20 Do you dip or chew tobacco: No 06/15/24 18:57 Respiratory Therapy Assessment DAILY Comment: Diagnosis: Encephalopathy Discharge Exam General Appearance: no apparent distress Neurologic Exam: alert, oriented x 3, cooperative Eye Exam: PERRL Ears, Nose, Throat Exam: normal ENT inspection Neck Exam: normal inspection Respiratory Exam: normal breath sounds, lungs clear Cardiovascular Exam: regular rate/rhythm, normal heart sounds Gastrointestinal/Abdomen Exam: soft, normal bowel sounds Pelvic Exam: deferred Rectal Exam: deferred Back Exam: normal inspection Extremity Exam: normal inspection Skin Exam: normal color Final Diagnosis/Problem List - Final Discharge Diagnosis/Problem (1) Syncope Current Visit: Yes Status: Acute Assessment & Plan: echo -carotid -CT head reviewed with no acute findings -orthostatic vitals -TSH reviewed and WNL -CMP/CBC reviewed -tele -UDS positive for benzodiazepines 06/16: -Carotid doppler negative for hemodynamically significant flow limiting stenosis -Echo -PT eval recommending discharge to facility for short-term rehab or 24 hour help at home with HHC and PT - patient declines IP rehab -will set up with [facility] PT as OP Code(s): R55 - SYNCOPE AND COLLAPSE (2) Encephalopathy Current Visit: Yes Status: Acute Assessment & Plan: -CT head reviewed showing no acute findings -Unclear etiology but suspect it is related to polypharmacy versus prerenal azotemia -PT eval -ortho vitals negative -IVF 06/16: -resolved Code(s): G93.40 - ENCEPHALOPATHY, UNSPECIFIED (3) Acute kidney injury Current Visit: No Status: Resolved Assessment & Plan: -Baseline creat around 1.2-1.4 -creat reviewed at 1.23 - at baseline -monitor renal/lytes -avoid nephrotoxic agents 06/16: -Creat reviewed at 1.15- baseline around 1.15 Code(s): N17.9 - ACUTE KIDNEY FAILURE, UNSPECIFIED (4) NSTEMI (non-ST elevated myocardial infarction) Current Visit: No Status: Acute Assessment & Plan: Recent admission for NSTEMI -Continue beta david, ASA - telemetry -Trop negative x 3 Code(s): R55 - SYNCOPE AND COLLAPSE Code(s): R55 - SYNCOPE AND COLLAPSE (2) Encephalopathy Current Visit: Yes Status: Acute Code(s): G93.40 - ENCEPHALOPATHY, UNSPECIFIED (3) Acute kidney injury Current Visit: No Status: Resolved Code(s): N17.9 - ACUTE KIDNEY FAILURE, UNSPECIFIED (4) NSTEMI (non-ST elevated myocardial infarction) Current Visit: No Status: Acute Code(s): I21.4 - NON-ST ELEVATION (NSTEMI) MYOCARDIAL INFARCTION - Discharge Discharge Date: 06/17/24 Disposition: HOME HEALTH SERVICE Condition: Stable Prescriptions: Continue Pantoprazole Sodium [Protonix] 40 mg PO BID Famotidine 20 mg [Pepcid 20 MG] 20 mg PO BID Citalopram Hydrobromide 20 mg* [ceLEXa 20 MG] 20 mg PO DAILY Montelukast Sodium 10 mg [Singulair 10 MG] 10 mg PO DAILY Ondansetron [Ondansetron Odt] 4 mg PO Q8H PRN PRN PRN Reason: Nausea Ubrogepant [Ubrelvy] 100 mg PO Q2H/PRN PRN PRN Reason: Headache lamoTRIgine [Lamotrigine] 200 mg PO UD Loratadine 10 mg [Claritin 10 mg] 10 mg PO DAILY PRN PRN Reason: Allergies Gabapentin [Neurontin ] 100 mg PO HS Prochlorperazine Maleate [Compazine] 10 mg PO BID PRN PRN PRN Reason: Nausea Aspirin EC 81 mg [Ecotrin 81 mg] 81 mg PO DAILY Albuterol Common Canister [Ventolin Common Canister] 2 puff IH Q4HPRN PRN PRN Reason: Shortness Of Breath/Wheezing Outpatient Orders: Physical Therapy Eval & Treat Facility: [facility]osp, Location: PHYSICAL THERAPY Additional Instructions: ORDER FOR OUTPATIENT PHYSICAL THERAPY WAS SENT TO [facility]- THEY WILL CONTACT YOU TO ARRANGE AN APPOINTMENT. THEIR PHONE NUMBER IS [phone] IF YOU NEED TO FOLLOW UP WITH THEM Follow up with: AMNA MONTERO [CONSULTING PHYSICIAN] - 06/18/24 9:30 am VIRGEN JONES MD [Primary Care Provider] - 06/24/24 10:15 am ([facility] )
[2024-06-17 05:28] LABS: Absolute Neutrophil Ct (ANC) 3.32 x10^3/uL (1.56-6.13); BASOPHIL % 0.6 % (0.1-1.2); Basophil (Absolute #) 0.04 x10^3/uL (0.01-0.08); Eosinophil % 2.2 % (0.7-5.8); Eosinophil (Absolute #) 0.16 x10^3/uL (0.04-0.36); Hematocrit 32.2 % (34.1-44.9); Hemoglobin 10.3 g/dL (11.2-15.7); IMMATURE GRAN # 0.02 x10^3u/L (0.001-0.031); IMMATURE GRAN % 0.3 % (0.001-0.429); Lymphocyte (Absolute #) 3.02 x10^3/uL (1.18-3.74); Lymphocytes % 42.3 % (19.3-51.7); Mean Cell Volume 87.7 fL (79.4-94.8); Mean Corpuscular Hemoglobin 28.1 pg (25.6-32.2); Mean Platelet Volume 9.3 fL (9.4-12.3); Monocyte (Absolute #) 0.58 x10^3/uL (0.24-0.86); Monocytes % 8.1 % (4.7-12.5); Neutrophil % 46.5 % (34.0-71.1); Platelet Count 319 x10^3/uL (182-369); Red Blood Count 3.67 x10^6/uL (3.93-5.22); Red Cell Distribution Width 19.9 % (11.7-14.4); White Blood Count 7.1 x10^3/uL (3.98-10.04)
[2024-06-17 05:43] LABS: ALBUMIN 2.6 g/dL (3.5-5.0); ANION GAP 6.9 MEQ/L (5-15); BILIRUBIN,TOTAL 0.5 mg/dL (0.2-1.3); Calcium 7.9 mg/dL (8.4-10.2); Creatinine 1 1.12 mg/dL (0.52-1.04); EST GLOMERULAR FILTRATION RATE 57.4 ML/MIN; MAGNESIUM 2.1 mg/dL (1.6-2.3); Potassium 3.8 mmol/L (3.5-5.1); Total Protein 5.3 g/dL (6.3-8.2)
[2024-06-17 12:09] VITALS: BP 145/67; PULSE 66; RESP 18; TEMP 97; O2SAT 96
== END 2024-06-17 13:48 | disposition home or self-care (01) ==
LOC: ED 15:48 → MED SURG 19:31
PROVIDERS: ADMIT Internal Medicine Nephrology; ATTEND Internal Medicine Nephrology
DX: R55 Syncope and collapse (principal); G93.40 Encephalopathy, unspecified; N17.9 Acute kidney failure, unspecified; I25.2 Old myocardial infarction; F17.200 Nicotine dependence, unspecified, uncomplicated; F10.21 Alcohol dependence, in remission; Z79.899 Other long term (current) drug therapy
CPT/HCPCS: 36415; 70450; 80053; 80307; 81001; 82077; 82140; 82570; 83605; 83735; 83880; 84300; 84443; 84484; 85025; 87086; 93005; 93041; 93268; 93306; 93880; 94760; 97110; 97116; 97161; 97530; 99285; G0378; P9612; Q3014; 99284; Q0162; A9270-GY

== ENCOUNTER 2024-08-11 14:00 | Observation (INO) | payer BC ==
[2024-08-11 14:40] LABS: Absolute Neutrophil Ct (ANC) 10.87 x10^3/uL (1.56-6.13); BASOPHIL % 0.5 % (0.1-1.2); Basophil (Absolute #) 0.07 x10^3/uL (0.01-0.08); Eosinophil % 0.5 % (0.7-5.8); Eosinophil (Absolute #) 0.08 x10^3/uL (0.04-0.36); Hematocrit 38.6 % (34.1-44.9); Hemoglobin 12.7 g/dL (11.2-15.7); IMMATURE GRAN # 0.24 x10^3u/L (0.001-0.031); IMMATURE GRAN % 1.6 % (0.001-0.429); Lymphocyte (Absolute #) 2.94 x10^3/uL (1.18-3.74); Lymphocytes % 19.4 % (19.3-51.7); Mean Cell Volume 88.9 fL (79.4-94.8); Mean Corpuscular Hemoglobin 29.3 pg (25.6-32.2); Mean Corpuscular Hgb Concent. 32.9 g/dL (32.2-35.5); Mean Platelet Volume 8.7 fL (9.4-12.3); Monocyte (Absolute #) 0.99 x10^3/uL (0.24-0.86); Monocytes % 6.5 % (4.7-12.5); Neutrophil % 71.5 % (34.0-71.1); Platelet Count 605 x10^3/uL (182-369); Red Blood Count 4.34 x10^6/uL (3.93-5.22); Red Cell Distribution Width 15.5 % (11.7-14.4); White Blood Count 15.2 x10^3/uL (3.98-10.04)
[2024-08-11 14:45] LABS: ALBUMIN 3.8 g/dL (3.5-5.0); ANION GAP 15.2 MEQ/L (5-15); BILIRUBIN,TOTAL 0.6 mg/dL (0.2-1.3); Calcium 8.7 mg/dL (8.4-10.2); Creatinine 1 1.43 mg/dL (0.52-1.04); EST GLOMERULAR FILTRATION RATE 42.8 ML/MIN; Potassium 3.4 mmol/L (3.5-5.1); Total Protein 7.1 g/dL (6.3-8.2)
[2024-08-11] MEDS: Sodium Chloride 0.9% 1000 ML 1,000 ML IV SCH (15:10)
[2024-08-11] MEDS ORDERED: Sodium Chloride 0.9% 1000 ML 1,000 ML ONE (15:44)
--- NOTE | 2024-08-11 16:01 | ERPHSYRPT ---
- History of Present Illness Time Seen by Provider: 08/11/24 15:57 Source: patient Exam Limitations: no limitations Patient Subjective Stated Complaint: pt has been falling all week and has had numbness for some time and it has been progressivly getting worse this week and today she called Dr. Jones's office and he told her to come to the ER, pt's states that she has been having trouble with speaking and keeping thoughts since Saturday, pt can't walk on her own and can only go to the bathroom if someone is there, reports always falling to the right Triage Nursing Assessment: Pt brought to the ER, vitals wnl, denies pain, numbness on the entire right side and falls to the right, pulses normal, skin n/w/d, trouble with thoughts, sounds winded, denies chest pain, doesn't appear to be in any distress Physician History: Patient is a 58-year-old female presents to our ED for evaluation of numbness to the right side of her body. For the past week before the onset of the numbness patient has been falling at home. Patient believes her symptoms are getting progressively worse. Patient called her primary care doctor to inform him of her concerns. Primary care doctor advised patient to come to our ED for an evaluation. believes that patient has been having difficulty with speech. Her thoughts are hard believes to be somewhat incoherent at times. No trauma no fever. Patient denies injury. No pain. No chest pain or shortness of breath. No nausea vomiting or diaphoresis. Patient voices no other complaints or concerns at this time. Portions of this note were created with voice recognition technology. There may be grammatical, spelling, punctuation or sound alike errors Timing/Duration: week(s) Severity: moderate (1 week) Modifying Factors: Improves With: nothing Associated Symptoms: denies symptoms Allergies/Adverse Reactions: divalproex sodium [From Depakote] Allergy (Verified 08/11/24 14:23) hives morphine Allergy (Verified 08/11/24 14:23) migraine Sulfa (Sulfonamide Antibiotics) Allergy (Verified 08/11/24 14:23) nausea and vomiting Home Medications: Citalopram Hydrobromide 20 mg* [ceLEXa 20 MG] 20 mg PO DAILY 04/23/17 [History] Famotidine 20 mg [Pepcid 20 MG] 20 mg PO BID 04/23/17 [History] Pantoprazole Sodium [Protonix] 40 mg PO BID 04/23/17 [History] Loratadine 10 mg [Claritin 10 mg] 10 mg PO DAILY PRN 05/30/22 [History] Montelukast Sodium 10 mg [Singulair 10 MG] 10 mg PO DAILY 05/30/22 [History] Ondansetron [Ondansetron Odt] 4 mg PO Q8H PRN PRN 05/30/22 [History] Ubrogepant [Ubrelvy] 100 mg PO Q2H/PRN PRN 05/30/22 [History] lamoTRIgine [Lamotrigine] 200 mg PO UD 05/30/22 [History] Gabapentin [Neurontin ] 100 mg PO HS 05/31/22 [History] Albuterol Common Canister [Ventolin Common Canister] 2 puff IH Q4HPRN PRN 06/15/24 [History] Aspirin EC 81 mg [Ecotrin 81 mg] 81 mg PO DAILY 06/15/24 [History] Prochlorperazine Maleate [Compazine] 10 mg PO BID PRN PRN 06/15/24 [History] Fluticasone/Umeclidin/Vilanter [Trelegy Ellipta 100-62.5-25] 1 each IH DAILY 08/11/24 [History] Hx Tetanus, Diphtheria Vaccination/Date Given: Yes Hx Influenza Vaccination/Date Given: Yes Hx Pneumococcal Vaccination/Date Given: No Travel Risk - International Travel Have you traveled outside of the country in past 3 weeks: No - Emerging Infectious Disease Are you exhibiting symptoms associated with any current EIDs: No - Review of Systems Constitutional: No Symptoms, No Fever, No Chills Eyes: No Symptoms Ears, Nose, & Throat: No Symptoms Respiratory: No Symptoms, No Cough, No Dyspnea Cardiac: No Symptoms, No Chest Pain, No Edema, No Syncope Abdominal/Gastrointestinal: No Symptoms, No Abdominal Pain, No Nausea, No Vo miting, No Diarrhea Genitourinary Symptoms: No Symptoms, No Dysuria Musculoskeletal: No Symptoms, No Back Pain, No Neck Pain Skin: No Symptoms, No Rash Neurological: No Symptoms, No Dizziness, No Focal Weakness, No Sensory Changes Psychological: No Symptoms Endocrine: No Symptoms Hematologic/Lymphatic: No Symptoms Immunological/Allergic: No Symptoms All Other Systems: Reviewed and Negative - Past Medical History Pertinent Past Medical History: Yes Neurological History: Migraines, Other ENT History: Cataracts Cardiac History: Hypertension, Myocardial Infarction (MT) Respiratory History: COPD Endocrine Medical History: No Pertinent History Musculoskeletal History: Other GI Medical History: No Pertinent History History: No Pertinent History Psycho-Social History: Anxiety, Depression, Other Female Reproductive Disorders: No Pertinent History Other Medical History: CT SCAN SHOWS CHRONIC BILATERAL SMALL VESSEL DISEASE. NO ACUTE FINDINGS. PATIENT REPORTS HX OF RIGHT THR DUE TO "IT FORMED EXTRA BONE" AND STATES HAD TO HAVE INFUSIONS AFTERWARDS TO "WASH IT OUT". REPORTS WAS DONE IN AUGUST BUT CAN'T REMEMBER IF 2022 OR 2023. - Past Surgical History Past Surgical History: Yes Neuro Surgical History: No Pertinent History Cardiac: No Pertinent History Respiratory: No Pertinent History Gastrointestinal: Cholecystectomy, Other Genitourinary: No Pertinent History Musculoskeletal: Joint Replacement Female Surgical History: Section, Other Other Surgical History: gastric bypass Significant Family History: no pertinent family hx - Social History Smoking Status: Current every day smoker Exposure to second hand smoke: Yes Drug Use: none - Social Determinants of Health Will the patient participate in the screening: Yes Do you worry about a steady place to live?: No Do you have any problems with any of the following?: No known problems In the past 12 months,have you had to go without utilities?: No Transportation Issues: No Has anyone in your support network made you feel unsafe?: No Have you or anyone in your house had to go w/o enough food: No - Nursing Vital Signs Nursing Vital Signs: Initial Vital Signs Temperature 98.5 F 08/11/24 14:12 Pulse Rate 89 08/11/24 14:12 Respiratory Rate 23 08/11/24 14:12 Blood Pressure 150/86 08/11/24 14:12 O2 Sat by Pulse Oximetry 98 08/11/24 14:12 Pain Scale Pain Intensity 0 - Physical Exam General Appearance: no apparent distress, alert Eye Exam: PERRL/EOMI, eyes nml inspection Ears, Nose, Throat Exam: normal ENT inspection, pharynx normal, moist mucous membranes Neck Exam: normal inspection, non-tender, supple, full range of motion Respiratory Exam: normal breath sounds, lungs clear, No respiratory distress Cardiovascular Exam: regular rate/rhythm, normal heart sounds, normal peripheral pulses Gastrointestinal/Abdomen Exam: soft, normal bowel sounds, No tenderness, No mass Back Exam: normal inspection, normal range of motion, No CVA tenderness, No vertebral tenderness Extremity Exam: normal inspection, normal range of motion, pelvis stable Neurologic Exam: alert, oriented x 3, cooperative, normal mood/affect, sensation nml, No motor deficits Skin Exam: normal color, warm, dry, No rash Lymphatic Exam: No adenopathy SpO2 Interpretation: normal SpO2: 98 O2 Delivery: Room Air - Course Nursing assessment & vital signs reviewed: Yes EKG Interpreted by Me: RATE (85), Sinus Rhythm, NORMAL AXIS, NORMAL INTERVALS, NORMAL QRS - CT Exams Head CT Interpretation: Tele-radiologist Report (Right maxillary sinus disease, CTA head no acute pathology) Other CT Interpretation: Tele-radiologist Report (CT neck no acute pathology) Ordered Tests: Active Orders 24 hr Category Date Time Status Pressure Steamer Tender STAT Care 08/11/24 14:34 Active EKG-ER Only STAT Care 08/11/24 14:33 Active IV Insertion STAT Care 08/11/24 14:33 Active Pulse Oximetry (ED) STAT Care 08/11/24 14:[address] ANGIOGRAPHY NECK [CT] Stat Exams 08/11/24 14:36 Completed CTA HEAD W AND/OR WO CONTRAST [CT] Stat Exams 08/11/24 14:35 Completed HEAD WITHOUT CONTRAST [CT] Stat Exams 08/11/24 14:35 Completed CBC W DIFF Stat Lab 08/11/24 14:20 Completed CMP Stat Lab 08/11/24 14:20 Completed POCT GLUCOSE Stat Lab 08/11/24 14:25 Completed TROPONIN Q4H Lab 08/11/24 14:20 Completed TROPONIN Q4H Lab 08/11/24 18:45 Ordered TROPONIN Q4H Lab 08/11/24 22:45 Ordered Medication Summary Generic Name Dose Route Start Last Admin Trade Name Freq PRN Reason Stop Dose Admin Sodium Chloride 1,000 mls @ 50 mls/hr 08/11/24 14:45 08/11/24 15:10 Sodium Chloride 0.9% 1000 Ml IV 09/10/24 14:44 50 mls/hr .Q20H GERI Administration Discontinued Medications Generic Name Dose Route Start Last Admin Trade Name Edwige PRN Reason Stop Dose Admin Aspirin 324 mg 08/11/24 17:38 Aspirin 81 Mg Tab.Chew PO 08/11/24 17:39 STAT ONE Lab/Rad Data: Laboratory Result Diagrams 08/11/24 14:20 08/11/24 14:20 Laboratory Results 08/11/24 08/11/24 08/11/24 Range/Units 14: 14:20 14:20 WBC (3.98-10.04) x10^3/uL RBC (3.93-5.22) x10^6/uL Hgb (11.2-15.7) g/dL Hct (34.1-44.9) % MCV (79.4-94.8) fL MCH (25.6-32.2) pg MCHC (32.2-35.5) g/dL RDW (11.7-14.4) % Plt Count (182-369) x10^3/uL MPV (9.4-12.3) fL Gran % (34.0-71.1) % Immature Gran % (Auto) (0.001-0.429) % Nucleat RBC Rel Count (0.00-0.2) % Eos # (Auto) (0.04-0.36) x10^3/uL Immature Gran # (Auto) (0.001-0.031) x10^3u/L Absolute Lymphs (auto) (1.18-3.74) x10^3/uL Absolute Monos (auto) (0.24-0.86) x10^3/uL Absolute Nucleated RBC (0.00-0.012) x10^3u/L Lymphocytes % (19.3-51.7) % Monocytes % (4.7-12.5) % Eosinophils % (0.7-5.8) % Basophils % (0.1-1.2) % Absolute Granulocytes (1.56-6.13) x10^3/uL Basophils # (0.01-0.08) x10^3/uL Sodium 136 (135-145) mmol/L Potassium 3.4 L (3.5-5.1) mmol/L Chloride 100 (98-107) mmol/L Carbon Dioxide 24 (22-30) mmol/L Anion Gap 15.2 H (5-15) MEQ/L BUN 16 (7-17) mg/dL Creatinine 1.43 H (0.52-1.04) mg/dL Estimated GFR 42.8 ML/MIN Glucose 93 (74-106) mg/dL POC Glucometer 96 (74 to 106) mg/dL Calcium 8.7 (8.4-10.2) mg/dL Total Bilirubin 0.60 (0.2-1.3) mg/dL AST 30 (14-36) U/L ALT 25 (0-35) U/L Alkaline Phosphatase 220 H (38-126) U/L Troponin I < 0.012 (0.000-0.033) ng/mL Serum Total Protein 7.1 (6.3-8.2) g/dL Albumin 3.8 (3.5-5.0) g/dL 08/11/24 Range/Units 14:20 WBC 15.2 H (3.98-10.04) x10^3/uL RBC 4.34 (3.93-5.22) x10^6/uL Hgb 12.7 (11.2-15.7) g/dL Hct 38.6 (34.1-44.9) % MCV 88.9 (79.4-94.8) fL MCH 29.3 (25.6-32.2) pg MCHC 32.9 (32.2-35.5) g/dL RDW 15.5 H (11.7-14.4) % Plt Count 605 H (182-369) x10^3/uL MPV 8.7 L (9.4-12.3) fL Gran % 71.5 H (34.0-71.1) % Immature Gran % (Auto) 1.6 H (0.001-0.429) % Nucleat RBC Rel Count 0.0 (0.00-0.2) % Eos # (Auto) 0.08 (0.04-0.36) x10^3/uL Immature Gran # (Auto) 0.24 H (0.001-0.031) x10^3u/L Absolute Lymphs (auto) 2.94 (1.18-3.74) x10^3/uL Absolute Monos (auto) 0.99 H (0.24-0.86) x10^3/uL Absolute Nucleated RBC 0.00 (0.00-0.012) x10^3u/L Lymphocytes % 19.4 (19.3-51.7) % Monocytes % 6.5 (4.7-12.5) % Eosinophils % 0.5 L (0.7-5.8) % Basophils % 0.5 (0.1-1.2) % Absolute Granulocytes 10.87 H (1.56-6.13) x10^3/uL Basophils # 0.07 (0.01-0.08) x10^3/uL Sodium (135-145) mmol/L Potassium (3.5-5.1) mmol/L Chloride (98-107) mmol/L Carbon Dioxide (22-30) mmol/L Anion Gap (5-15) MEQ/L BUN (7-17) mg/dL Creatinine (0.52-1.04) mg/dL Estimated GFR ML/MIN Glucose (74-106) mg/dL POC Glucometer (74 to 106) mg/dL Calcium (8.4-10.2) mg/dL Total Bilirubin (0.2-1.3) mg/dL AST (14-36) U/L ALT (0-35) U/L Alkaline Phosphatase (38-126) U/L Troponin I (0.000-0.033) ng/mL Serum Total Protein (6.3-8.2) g/dL Albumin (3.5-5.0) g/dL - Progress Progress: improved Progress Note: Case discussed with teleneurologist who feels patient requires an MRI with and without contrast. He also advises a full dose aspirin. I spoke to the neurologist at 5:29 PM. He will enter a note with his recommendations. Plan of care discussed with patient. She agrees to admission to [facility] for further evaluation and treatment. Patient accepted by hospitalist at 5:40 PM Patient is a 58-year-old female presents to our ED for evaluation of numbness. Patient has had several falls over the past week. Patient's says that symptoms started approximately 1 month ago. Symptoms have gotten progressively worse. Physical exam shows no focal or lateralizing objective findings. However patient will be admitted for further evaluation and treatment. Complexity of problem addressed is moderate acute complicated. No critical care time. Complex of data reviewed and analyzed is extensive. Test ordered chest reviewed results analyzed and correlated clinically with history and physical exam. Risk of complication and or risk of morbidity/mortality of patient management is high. Patient requires hospitalization for further evaluation and treatment. Vital stable. Time spent admit patient is approximately 15 minutes. Plan of care established for shared decision making. No social determinants of health present to impede follow-up. Portions of this note were created with voice recognition technology. There may be grammatical, spelling, punctuation or sound alike errors 08/11/24 17:33 Leukocytosis UA pending 08/11/24 17:51 Counseled pt/family regarding: lab results, diagnosis, rad results - Departure Departure Disposition: Observation Clinical Impression: Right maxillary sinus disease, Numbness, Acute renal injury, Leukocytosis Condition: Stable Critical Care Time: No Referrals: VIRGEN JONES MD [Primary Care Provider] - Follow up/PCP as directed
--- NOTE | 2024-08-11 16:25 | XRAY ---
Indication: Numbness. Difficulty speaking 4 days. Falls. Multiple contiguous axial images obtained without contrast. Comparison: June 14, 2024 Normal appearing brain parenchyma, ventricles, and bony calvarium for patient's age. Worsening moderate mucosal thickening right maxillary sinus with increasing fluid leveling. Mastoid air cells are clear. Impression: Worsening right maxillary sinus disease. Continued normal CT head without contrast exam.
--- NOTE | 2024-08-11 16:31 | XRAY ---
Indication: Numbness. Difficulty speaking 4 days. Falls. Conventional contrast enhanced CTA neck performed using 80 cc Isovue 370 contrast. 2-D sagittal and coronal reformatted images obtained. Additional 3-D reformatted images obtained using separate workstation. Comparison: None. Visualized aortic arch is normal in course and caliber with normal patent branching right brachiocephalic, left common carotid, and left subclavian arteries. Minimal calcifications origin left subclavian artery. Right carotid circulation demonstrates very minimal eccentric calcifications origin/proximal internal carotid artery. Remaining common carotid, carotid bulb, internal carotid, and external carotid arteries are widely patent. Examination left carotid circulation demonstrates widely patent common carotid, carotid bulb, internal carotid, and external carotid arteries. Vertebral arteries are normal in CTA appearance bilaterally. Visualized soft tissues are negative for pathologic cervical/supraclavicular lymphadenopathy. Thyroid gland enhances with 5 mm right lobe round benign calcification. Supra and infraglottic airway widely patent. Normal epiglottis. Osseous structures intact with osteopenia, moderate/advanced C3-C6 degenerative spondylosis, and 3-4 mm anterolisthesis C3 on C4. Lung apices are clear. Impression: 1. Very minimal calcifications right internal carotid artery. Remaining left/right carotid and left/right vertebral arteries of the neck widely patent. This was reported on carotid ultrasound June 16, 2024. 2. Incidental chronic bony findings.
--- NOTE | 2024-08-11 16:33 | XRAY ---
Indication: Numbness. Difficulty speaking 4 days. Falls. Conventional contrast enhanced CTA head performed using 80 cc Isovue 370 contrast. 2-D sagittal and coronal reformatted images obtained. Additional 3-D reformatted images obtained using separate workstation. Comparison: None. Distal internal carotid arteries are bilaterally symmetric without critical stenosis, obstruction, or AV malformation. Normal carotid terminus with normal branching A1 and M1 segments bilaterally. More distal anterior and middle cerebral arteries are normal in CTA appearance bilaterally. Posterior circulation demonstrates normal CTA appearance to the basilar, left/right posterior cerebral, and left/right cerebellar arteries. Venous sinuses/drainage unremarkable. Brain parenchyma negative for abnormal enhancing intra or extra-axial mass/lesion. Impression: Normal CTA head with contrast exam.
--- NOTE | 2024-08-11 17:03 | PCM.CONS ---
History of Present Illness - Neuro Consultation Date of Consultation Date: 08/11/24 ED Arrival Date & Time: 08/11/24 14:00 Providers: Attending Provider: ED Provider: DMITRIY TAYLOR Consulting Provider: RITA NGUYEN MD Reason for Consult: code stroke cc:: The requesting physician will be sent a copy of the consult. - Chief Complaint Patient Subjective Stated Complaint: right sided numbness, vision, speech issues - History of Present Illness HPI: The patient is a 58 F with a history of migraines, prior EtOH abuse, reported seizures, COPD, depression, hypertension and mood disorder who presents today with subacute right sided deficits and speech deficits. The patient reports that for at least the past week or so, she has noticed right arm/leg sensory loss and weakness. This has markedly impaired her ability to ambulate. She has had multiple falls during this time. For the past 4 days, she has also had some speech issues including word finding difficulty and slurred speech. She has also noticed some diffuse vision blurring. The patient reports she has never had symptoms like this before. She has a history of migraine but no stroke/brain bleeds. She takes no antithrombotics at home. No neck/back pain. No bowel/bladder incontinence. Does report some constipation. CTH: no acute intracranial abnormality CTA: no large vessel occlusion or high grade stenosis Review of Systems - Review of Systems Review of Systems (Narrative): Pertinent positive and negative findings as per HPI. - Past Medical History Past Medical History: Yes Neurological History: Migraines, Other ENT History: Cataracts Cardiac History: Hypertension, Myocardial Infarction ([place]) Respiratory History: COPD Endocrine Medical History: No Pertinent History Musculoskelatal History: Other GI Medical History: No Pertinent History History: No Pertinent History Pyscho-Social History: Anxiety, Depression, Other Reproductive Disorders: No Pertinent History Comment: CT SCAN SHOWS CHRONIC BILATERAL SMALL VESSEL DISEASE. NO ACUTE FINDINGS. PATIENT REPORTS HX OF RIGHT THR DUE TO "IT FORMED EXTRA BONE" AND STATES HAD TO HAVE INFUSIONS AFTERWARDS TO "WASH IT OUT". REPORTS WAS DONE IN AUGUST BUT CAN'T REMEMBER IF 2022 OR 2023. - Past Surgical History Past Surgical History: Yes Neuro Surgical History: No Pertinent History Cardiac History: No Pertinent History Respiratory Surgery: No Pertinent History GI Surgical History: Cholecystectomy, Other Genitourinary Surgical Hx: No Pertinent History Musculskeletal Surgical Hx: Joint Replacement Female Surgical History: Section, Other Other Surgical History: gastric bypass Significant Family History: no pertinent family hx - Social History Smoking Status: Current every day smoker How long have you smoked: 20 years Exposure to second hand smoke: Yes Alcohol: None Drug Use: none - Social Determinants of Health Will the patient participate in the screening: Yes Do you worry about a steady place to live?: No Do you have any problems with any of the following?: No known problems In the past 12 months,have you had to go without utilities?: No Have you or anyone in your house had to go without enough: No Transportation Issues: No Has anyone in your support network made you feel unsafe?: No Physical Exam - Vital Signs Vital Signs: Vital Signs - 24 hr 08/11/24 08/11/24 08/11/24 14:12 14:31 14:36 Temperature 98.5 F Pulse Rate 89 84 Respiratory 23 20 Rate Blood Pressure 99/80 Blood Pressure 150/86 [Right Arm] O2 Sat by Pulse 98 93 L 98 Oximetry 08/11/24 08/11/24 08/11/24 14:45 15:11 15:15 Temperature Pulse Rate 73 64 69 Respiratory 18 20 22 Rate Blood Pressure 111/72 111/71 107/64 Blood Pressure [Right Arm] O2 Sat by Pulse 98 90 L 92 L Oximetry 08/11/24 08/11/24 08/11/24 15:31 15:46 16:00 Temperature Pulse Rate 80 82 83 Respiratory 16 21 15 Rate Blood Pressure 113/62 117/71 97/74 Blood Pressure [Right Arm] O2 Sat by Pulse 92 L 96 97 Oximetry 08/11/24 16:03 Temperature Pulse Rate Respiratory Rate Blood Pressure Blood Pressure [Right Arm] O2 Sat by Pulse 98 Oximetry - Physical Exam Tele-Neuro Physical Exam (Narrative): Exam Awake, alert, pleasant Her speech is slightly dysarthric Language with intact naming, some aprosodia, difficulty repeating, briskly follows commands EOMI Face symmetric Face sensation intact Tongue midline Bilateral upper extremities without drift Left lower extremity without drift Right lower extremity drifts Reports decreased sensation to light touch in right arm/leg - NIHSS Stroke Scale Date Completed: 08/11/24 Time Stroke Scale Completed: 14:26 Level of Consciousness: Alert Level of Questions: Answers both correctly LOC Commands: Obeys both correctly Best Gaze: Normal Visual: No visual loss Facial Palsy: Normal Motor Arm-Left: No Drift Motor Arm-Right: No Drift Motor Leg-Left: No Drift Motor Leg Right: Drift Limb Ataxia: Absent Sensory: Partial Loss Best Language: Mild to moderate aphasia Dysarthria: Mild to mod dysarthria Extinction and Inattention: No Neglect Stroke Risk Level: 4 Results - Labs Lab/Micro Results: Lab Results-Last 24 Hours 08/11/24 08/11/24 08/11/24 Range/Units 14:20 14:20 14:20 WBC 15.2 H (3.98-10.04) x10^3/uL RBC 4.34 (3.93-5.22) x10^6/uL Hgb 12.7 (11.2-15.7) g/dL Hct 38.6 (34.1-44.9) % MCV 88.9 (79.4-94.8) fL MCH 29.3 (25.6-32.2) pg MCHC 32.9 (32.2-35.5) g/dL RDW 15.5 H (11.7-14.4) % Plt Count 605 H (182-369) x10^3/uL MPV 8.7 L (9.4-12.3) fL Gran % 71.5 H (34.0-71.1) % Immature Gran % (Auto) 1.6 H (0.001-0.429) % Nucleat RBC Rel Count 0.0 (0.00-0.2) % Eos # (Auto) 0.08 (0.04-0.36) x10^3/uL Immature Gran # (Auto) 0.24 H (0.001-0.031) x10^3u/L Absolute Lymphs (auto) 2.94 (1.18-3.74) x10^3/uL Absolute Monos (auto) 0.99 H (0.24-0.86) x10^3/uL Absolute Nucleated RBC 0.00 (0.00-0.012) x10^3u/L Lymphocytes % 19.4 (19.3-51.7) % Monocytes % 6.5 (4.7-12.5) % Eosinophils % 0.5 L (0.7-5.8) % Basophils % 0.5 (0.1-1.2) % Absolute Granulocytes 10.87 H (1.56-6.13) x10^3/uL Basophils # 0.07 (0.01-0.08) x10^3/uL Sodium 136 (135-145) mmol/L Potassium 3.4 L (3.5-5.1) mmol/L Chloride 100 (98-107) mmol/L Carbon Dioxide 24 (22-30) mmol/L Anion Gap 15.2 H (5-15) MEQ/L BUN 16 (7-17) mg/dL Creatinine 1.43 H (0.52-1.04) mg/dL Estimated GFR 42.8 ML/MIN Glucose 93 (74-106) mg/dL POC Glucometer (74 to 106) mg/dL Calcium 8.7 (8.4-10.2) mg/dL Total Bilirubin 0.60 (0.2-1.3) mg/dL AST 30 (14-36) U/L ALT 25 (0-35) U/L Alkaline Phosphatase 220 H (38-126) U/L Troponin I < 0.012 (0.000-0.033) ng/mL Serum Total Protein 7.1 (6.3-8.2) g/dL Albumin 3.8 (3.5-5.0) g/dL 04/ Range/Units 14:25 WBC (3.98-10.04) x10^3/uL RBC (3.93-5.22) x10^6/uL Hgb (11.2-15.7) g/dL Hct (34.1-44.9) % MCV (79.4-94.8) fL MCH (25.6-32.2) pg MCHC (32.2-35.5) g/dL RDW (11.7-14.4) % Plt Count (182-369) x10^3/uL MPV (9.4-12.3) fL Gran % (34.0-71.1) % Immature Gran % (Auto) (0.001-0.429) % Nucleat RBC Rel Count (0.00-0.2) % Eos # (Auto) (0.04-0.36) x10^3/uL Immature Gran # (Auto) (0.001-0.031) x10^3u/L Absolute Lymphs (auto) (1.18-3.74) x10^3/uL Absolute Monos (auto) (0.24-0.86) x10^3/uL Absolute Nucleated RBC (0.00-0.012) x10^3u/L Lymphocytes % (19.3-51.7) % Monocytes % (4.7-12.5) % Eosinophils % (0.7-5.8) % Basophils % (0.1-1.2) % Absolute Granulocytes (1.56-6.13) x10^3/uL Basophils # (0.01-0.08) x10^3/uL Sodium (135-145) mmol/L Potassium (3.5-5.1) mmol/L Chloride (98-107) mmol/L Carbon Dioxide (22-30) mmol/L Anion Gap (5-15) MEQ/L BUN (7-17) mg/dL Creatinine (0.52-1.04) mg/dL Estimated GFR ML/MIN Glucose (74-106) mg/dL POC Glucometer 96 (74 to 106) mg/dL Calcium (8.4-10.2) mg/dL Total Bilirubin (0.2-1.3) mg/dL AST (14-36) U/L ALT (0-35) U/L Alkaline Phosphatase (38-126) U/L Troponin I (0.000-0.033) ng/mL Serum Total Protein (6.3-8.2) g/dL Albumin (3.5-5.0) g/dL - Radiology Orders Radiology Orders: Radiology Procedures Category Date Time Status CT ANGIOGRAPHY NECK [CT] Stat Exams 08/11/24 14:36 Completed CTA HEAD W AND/OR WO CONTRAST [CT] Stat Exams 08/11/24 14:35 Completed HEAD WITHOUT CONTRAST [CT] Stat Exams 08/11/24 14:35 Completed Impressions & Recommendations - ED Arrival Time ED Arrival Date & Time: ED Arrival Date and Time 08/11/24 14:00 Last known well time: - NIHSS Is patient an IV TPA candidate (if no specify reason): No If not, specify reason:: >1 week of symptoms Is patient a thrombectomy candidate:: No Candidate (No): Reason: Patient is not a candidate for EVT given absence of disabling deficits IV Thrombolysis Standard of Care: IV thrombolysis as a standard of care in acute stroke discussed with DMITRIY TAYLOR. Risk, benefits, and options of IV thrombolytic therapy for acute ischemic stroke were discussed with the patient/family CHARLETTE ANDERSON. We discussed that use of IV tenecteplase is in line with national stroke guidelines. We discussed that risks of IV thrombolytic use include intracranial hemorrhage, other fatal bleeding risks, and angioedema. Alternatives of treatment, including not proceeding with thrombolytic therapy were discussed. - Recommendations Recommendations: -Serial neurological assessments -Administer ASA 324 mg now, start ASA 81 mg daily starting tomorrow -MRI brain WWO -PT/OT/[facility] -Further recommendations pending MRI findings Assessment & Plan - Encounter Encounter: "The entirety of this encounter was performed via Telemedicine using audio and visual "
[2024-08-11] MEDS ORDERED: BABY ASPIRIN 81 MG CHEW ONE (18:39)
[2024-08-11] MEDS: BABY ASPIRIN 81 MG CHEW PO ONE (18:40)
[2024-08-11] MEDS ORDERED: CLARITIN 10 MG PO PRN (21:41)
[2024-08-11] MEDS ORDERED: NON-FORMULARY ITEM (Ondansetron 4 MG Tab.Rapdis) PO PRN (21:41)
[2024-08-11] MEDS ORDERED: TYLENOL 325 MG PO PRN (21:42)
[2024-08-11] MEDS ORDERED: DUONEB 0.5-3 MG/3 ml Neb IH PRN (21:42)
[2024-08-11] MEDS ORDERED: LAMOTRIGINE 200 MG PO SCH (21:45)
[2024-08-11] MEDS: Nicoderm CQ 21 MG TOP SCH (21:53)
[2024-08-11] MEDS: Neurontin PO SCH (23:36)
[2024-08-11] MEDS: Singulair 10 MG PO SCH (23:36)
[2024-08-11] MEDS: Protonix 40MG Tablet PO SCH (23:37)
--- NOTE | 2024-08-11 23:51 | PCM.HP ---
History of Present Illness - Chief Complaint Chief Complaint: weakness Date: 08/11/24 History of Present Illness: 58-year-old woman with history of hypertension, COPD, migraine, seizures, depression, who presents with progressive weakness and falling. Patient notes that for about 2 weeks, she has been having intermittent difficulties with finding words. Denies any dysarthria, but noted some when she gets "stuck" on the word, but she knows what words she is trying to say. For the last week, she has been having right sided leg weakness with somewhat less impaired arm mobility, but that is been progressively getting worse over the week. Denies any numbness or tingling (note, is different from what she told the neurologist earlier). Denies any diplopia, vertigo, or nausea. No fevers, headaches, chest pain, or dysuria. However, she notes that she has been falling because of the right-sided weakness, despite using her cane. She is also had poor p.o. intake for the last day and a half. - Review of Systems All Other Systems: Reviewed and Negative Medications & Allergies Home Medications: Home Medication List Citalopram Hydrobromide 20 mg* [ceLEXa 20 MG] 20 mg PO DAILY 04/23/17 [History Confirmed 08/11/24] Famotidine 20 mg [Pepcid 20 MG] 20 mg PO BID 04/23/17 [History Confirmed 08/11/24] Pantoprazole Sodium [Protonix] 40 mg PO BID 04/23/17 [History Confirmed ] Loratadine 10 mg [Claritin 10 mg] 10 mg PO DAILY PRN 05/30/22 [History Confirmed 08/11/24] Montelukast Sodium 10 mg [Singulair 10 MG] 10 mg PO QHS 05/30/22 [History Confirmed 08/11/24] Ondansetron [Ondansetron Odt] 4 mg PO Q8H PRN PRN 05/30/22 [History Confirmed 08/11/24] Ubrogepant [Ubrelvy] 100 mg PO Q2H/PRN PRN 05/30/22 [History Confirmed 08/11/24] lamoTRIgine [Lamotrigine] 200 mg PO UD 05/30/22 [History Confirmed 08/11/24] Gabapentin [Neurontin ] 100 mg PO HS 05/31/22 [History Confirmed 08/11/24] Albuterol Common Canister [Ventolin Common Canister] 2 puff IH Q4HPRN PRN 06/15/24 [History Confirmed 08/11/24] Aspirin EC 81 mg [Ecotrin 81 mg] 81 mg PO DAILY 06/15/24 [History Confirmed 08/11/24] Prochlorperazine Maleate [Compazine] 10 mg PO BID PRN PRN 06/15/24 [History Confirmed 08/11/24] Fluticasone/Umeclidin/Vilanter [Trelegy Ellipta 100-62.5-25] 1 each IH DAILY 08/11/24 [History Confirmed 08/11/24] Allergies/Adverse Reactions: Allergies Allergy/AdvReac Type Severity Reaction Status Date / Time divalproex sodium Allergy Verified 08/11/24 14:23 [From Depakote] morphine Allergy Verified 08/11/24 14:23 Sulfa (Sulfonamide Allergy Verified 08/11/24 14:23 Antibiotics) - Past Medical History Past Medical History: Yes Neurological History: Migraines, Other ENT History: Cataracts Cardiac History: Hypertension, Myocardial Infarction ([place]) Respiratory History: COPD Endocrine Medical History: No Pertinent History Musculoskelatal History: Other GI Medical History: No Pertinent History History: No Pertinent History Pyscho-Social History: Anxiety, Depression, Other Reproductive Disorders: No Pertinent History Comment: CT SCAN SHOWS CHRONIC BILATERAL SMALL VESSEL DISEASE. NO ACUTE FINDINGS. PATIENT REPORTS HX OF RIGHT THR DUE TO "IT FORMED EXTRA BONE" AND STATES HAD TO HAVE INFUSIONS AFTERWARDS TO "WASH IT OUT". REPORTS WAS DONE IN AUGUST BUT CAN'T REMEMBER IF 2022 OR 2023. - Past Surgical History Past Surgical History: Yes Neuro Surgical History: No Pertinent History Cardiac History: No Pertinent History Respiratory Surgery: No Pertinent History GI Surgical History: Cholecystectomy, Other Genitourinary Surgical Hx: No Pertinent History Musculskeletal Surgical Hx: Joint Replacement Female Surgical History: Section, Other Other Surgical History: gastric bypass Significant Family History: no pertinent family hx - Social History Smoking Status: Current every day smoker How long have you smoked: 40 Exposure to second hand smoke: No Alcohol: None Drug Use: none - Social Determinants of Health Will the patient participate in the screening: Yes Do you worry about a steady place to live?: No Do you have any problems with any of the following?: No known problems In the past 12 months,have you had to go without utilities?: No Have you or anyone in your house had to go without enough: No Transportation Issues: No Has anyone in your support network made you feel unsafe?: No Does the patient want assistance with any of the above?: No - Physical Exam Vital Signs: Vital Signs - 24 hr Temp Pulse Resp BP BP Pulse Ox 08/11/24 23:45 98.5 F 84 19 130/63 95 08/11/24 20:39 93 L 08/11/24 19:47 97.6 F 95 H 18 113/75 94 L 08/11/24 19:07 95 H 94 L 08/11/24 18:31 66 19 115/62 94 L 08/11/24 18:30 65 21 89 L 08/11/24 18:20 82 20 95 08/11/24 18:10 64 14 97 08/11/24 18:00 68 16 92 L 08/11/24 17:51 98 08/11/24 17:50 66 15 97 08/11/24 17:40 70 17 96 08/11/24 17:32 67 20 98 08/11/24 17:15 66 18 103/68 95 08/11/24 17:00 69 15 100/69 94 L 08/11/24 16:46 72 19 118/61 94 L 08/11/24 16:30 66 15 119/68 96 08/11/24 16:16 80 13 102/81 97 08/11/24 16:00 83 15 97/74 97 08/11/24 15:46 82 21 117/71 96 08/11/24 15:31 80 16 113/62 92 L 08/11/24 15:15 69 22 107/64 92 L 08/11/24 15:11 64 20 111/71 90 L 08/11/24 14:45 73 18 111/72 98 08/11/24 14:36 98 08/11/24 14:31 84 20 99/80 93 L 08/11/24 14:12 98.5 F 89 23 150/86 98 Physical Exam GEN: Sitting up in bed in no acute distress. HENT: Normocephalic, atraumatic. Moist mucous membranes. EYES: Normal inspection, anicteric sclera, extraocular movements intact. NECK: Supple, full range of motion CV: Regular rate and rhythm, no murmurs, no gallops. No JVD or edema. PULM: Clear to auscultation bilaterally, no work of breathing. On room air. ABD: Nondistended, nontender. MSK: No joint effusions, full range of motion SKIN: No rashes, normal color. NEURO: Face symmetric, no focal sensory deficits. Slightly weaker leg raise on the right. PSYCH: Alert, oriented x 3 Results - Labs Lab/Micro Results: Lab Results-Last 24 Hours 08/11/24 08/11/24 08/11/24 Range/Units 14:20 14:20 14:20 WBC 15.2 H (3.98-10.04) x10^3/uL RBC 4.34 (3.93-5.22) x10^6/uL Hgb 12.7 (11.2-15.7) g/dL Hct 38.6 (34.1-44.9) % MCV 88.9 (79.4-94.8) fL MCH 29.3 (25.6-32.2) pg MCHC 32.9 (32.2-35.5) g/dL RDW 15.5 H (11.7-14.4) % Plt Count 605 H (182-369) x10^3/uL MPV 8.7 L (9.4-12.3) fL Gran % 71.5 H (34.0-71.1) % Immature Gran % (Auto) 1.6 H (0.001-0.429) % Nucleat RBC Rel Count 0.0 (0.00-0.2) % Eos # (Auto) 0.08 (0.04-0.36) x10^3/uL Immature Gran # (Auto) 0.24 H (0.001-0.031) x10^3u/L Absolute Lymphs (auto) 2.94 (1.18-3.74) x10^3/uL Absolute Monos (auto) 0.99 H (0.24-0.86) x10^3/uL Absolute Nucleated RBC 0.00 (0.00-0.012) x10^3u/L Lymphocytes % 19.4 (19.3-51.7) % Monocytes % 6.5 (4.7-12.5) % Eosinophils % 0.5 L (0.7-5.8) % Basophils % 0.5 (0.1-1.2) % Absolute Granulocytes 10.87 H (1.56-6.13) x10^3/uL Basophils # 0.07 (0.01-0.08) x10^3/uL Sodium 136 (135-145) mmol/L Potassium 3.4 L (3.5-5.1) mmol/L Chloride 100 (98-107) mmol/L Carbon Dioxide 24 (22-30) mmol/L Anion Gap 15.2 H (5-15) MEQ/L BUN 16 (7-17) mg/dL Creatinine 1.43 H (0.52-1.04) mg/dL Estimated GFR 42.8 ML/MIN Glucose 93 (74-106) mg/dL POC Glucometer (74 to 106) mg/dL Calcium 8.7 (8.4-10.2) mg/dL Total Bilirubin 0.60 (0.2-1.3) mg/dL AST 30 (14-36) U/L ALT 25 (0-35) U/L Alkaline Phosphatase 220 H (38-126) U/L Troponin I < 0.012 (0.000-0.033) ng/mL Serum Total Protein 7.1 (6.3-8.2) g/dL Albumin 3.8 (3.5-5.0) g/dL 08/11/24 08/11/24 08/11/24 Range/Units 14:25 18:30 22:55 WBC (3.98-10.04) x10^3/uL RBC (3.93-5.22) x10^6/uL Hgb (11.2-15.7) g/dL Hct (34.1-44.9) % MCV (79.4-94.8) fL MCH (25.6-32.2) pg MCHC (32.2-35.5) g/dL RDW (11.7-14.4) % Plt Count (182-369) x10^3/uL MPV (9.4-12.3) fL Gran % (34.0-71.1) % Immature Gran % (Auto) (0.001-0.429) % Nucleat RBC Rel Count (0.00-0.2) % Eos # (Auto) (0.04-0.36) x10^3/uL Immature Gran # (Auto) (0.001-0.031) x10^3u/L Absolute Lymphs (auto) (1.18-3.74) x10^3/uL Absolute Monos (auto) (0.24-0.86) x10^3/uL Absolute Nucleated RBC (0.00-0.012) x10^3u/L Lymphocytes % (19.3-51.7) % Monocytes % (4.7-12.5) % Eosinophils % (0.7-5.8) % Basophils % (0.1-1.2) % Absolute Granulocytes (1.56-6.13) x10^3/uL Basophils # (0.01-0.08) x10^3/uL Sodium (135-145) mmol/L Potassium (3.5-5.1) mmol/L Chloride (98-107) mmol/L Carbon Dioxide (22-30) mmol/L Anion Gap (5-15) MEQ/L BUN (7-17) mg/dL Creatinine (0.52-1.04) mg/dL Estimated GFR ML/MIN Glucose (74-106) mg/dL POC Glucometer 96 (74 to 106) mg/dL Calcium (8.4-10.2) mg/dL Total Bilirubin (0.2-1.3) mg/dL AST (14-36) U/L ALT (0-35) U/L Alkaline Phosphatase (38-126) U/L Troponin I < 0.012 < 0.012 (0.000-0.033) ng/mL Serum Total Protein (6.3-8.2) g/dL Albumin (3.5-5.0) g/dL - Radiology Impressions Radiology Exams & Impressions: Radiology Procedures Category Date Time Status CT ANGIOGRAPHY NECK [CT] Stat Exams 08/11/24 14:36 Completed CTA HEAD W AND/OR WO CONTRAST [CT] Stat Exams 08/11/24 14:35 Completed HEAD WITHOUT CONTRAST [CT] Stat Exams 08/11/24 14:35 Completed MRI BRAIN W & W/O CONTRAST [MRI] Routine Exams 08/11/24 21:[address] head normal CT head except for right maxillary sinus disease. CTA head, no acute findings CTA neck very minimal calcifications in the right internal carotid artery. Remainder is widely patent. Assessment/Plan (1) Weakness Current Visit: No Status: Acute Assessment & Plan: 58-year-old woman with history of COPD, hypertension, depression, and migraine, here with right leg weakness. ## Right leg weakness and falls timeline of symptoms, with progressive worsening over 5 to 7 days, is not consistent with CVA. Of note, patient was also here in May complaining of falls. Seen by neurology in the ED, and no discussion of the assessment was noted. However, requested MRI brain with and without contrast. Presumably ordering with contrast to look for inflammatory lesion such as MS, although patient does not have history of prior episodes like this. CTA head and neck did not show any occlusion. Place in observation overnight Neurochecks MRI brain with and without contrast to evaluate for stroke versus MS versus other autoimmune condition PT/OT evaluation Daily aspirin 81 mg per neurology recommendation ## Acute kidney injury baseline creatinine is 1.1-1.2, currently up to 1.4. Mild increase. Continue NS continuous at 50 mL/h Repeat BMP in the morning ## Leukocytosis no clear explanation for this. Patient not complaining of any infectious symptoms. Possible evaluation for inflammatory condition as per problem #1, but that does not normally cause a systemic leukocytosis. Patient has history of COPD, but denies any recent steroid usage. Repeat CBC in the morning If patient declares symptoms, consider infectious workup ## COPD currently on room air. PRN DuoNeb Continue home Singulair 10 mg ## Tobacco use disorder currently smokes 2/3 pack/day, but decreased from 2 packs/day previously. Start nicotine 21 mg patch Encouraged smoking cessation ## History of migraines Continue Lamictal 200 mg daily CODE STATUS: Full code Prophylaxis: Low risk, encourage ambulation Diet: Regular Dispo: Place in observation, expect eventual discharge to home. Entirety of encounter took place via live audio/video telemedicine device, with remote physician and patient in hospital, with the assistance of bedside nurse. Code(s): R53.1 - WEAKNESS Telemedicine Encounter - Telemedicine Encounter Telemedicine Encounter: "The entirety of this encounter was performed via Telemedicine" This visit was performed using real-time audio and video connection between my location and thepatients locationwith the assistance of a surrogateat the patients location. Written or verbal consent was obtained from the patient/guardian to perform this visit usingsynchronoustelemedicine technology. Any patient questions regarding the telemedicine interaction were answered.
[2024-08-12 04:48] LABS: Absolute Neutrophil Ct (ANC) 3.44 x10^3/uL (1.56-6.13); BASOPHIL % 0.7 % (0.1-1.2); Basophil (Absolute #) 0.05 x10^3/uL (0.01-0.08); Eosinophil % 2.2 % (0.7-5.8); Eosinophil (Absolute #) 0.16 x10^3/uL (0.04-0.36); Hemoglobin 10.9 g/dL (11.2-15.7); IMMATURE GRAN # 0.14 x10^3u/L (0.001-0.031); IMMATURE GRAN % 1.9 % (0.001-0.429); Lymphocyte (Absolute #) 2.85 x10^3/uL (1.18-3.74); Lymphocytes % 39.4 % (19.3-51.7); Mean Cell Volume 90.2 fL (79.4-94.8); Mean Corpuscular Hemoglobin 28.9 pg (25.6-32.2); Mean Corpuscular Hgb Concent. 32.1 g/dL (32.2-35.5); Mean Platelet Volume 8.5 fL (9.4-12.3); Monocytes % 8.3 % (4.7-12.5); Neutrophil % 47.5 % (34.0-71.1); Platelet Count 467 x10^3/uL (182-369); Red Blood Count 3.77 x10^6/uL (3.93-5.22); Red Cell Distribution Width 15.8 % (11.7-14.4); White Blood Count 7.2 x10^3/uL (3.98-10.04)
--- NOTE | 2024-08-12 05:08 | PCM.NOTE ---
Date and Time: 08/12/24 0501 Subjective Assessment: Ms. Treadwell is 58-year-old woman with a history of hypertension, COPD, migraines, seizures, and depression presents with progressive right-sided weakness (leg greater than arm) and intermittent word-finding difficulty over the past one to two weeks, resulting in multiple falls. While initial CT and CTA imaging were unremarkable, an MRI of the brain with and without contrast has been ordered to further evaluate. She has a history of seizures, raising the possibility of a postictal deficit, although there is no recent seizure activity reported. She is currently being monitored with neuro checks and placed in observation overnight. Additional concerns include a mild acute kidney injury (creatinine increased from baseline 1.11.2 to 1.4), which is being managed with IV fluids and follow- up labs. She also has unexplained leukocytosis in the absence of infectious symptoms, possibly related to underlying inflammation. COPD is stable on home medications, and she remains on room air. She continues to smoke, but reports a reduction in use, and nicotine replacement therapy has been initiated to support cessation. Objective Data Vital Signs: Vital Signs - 24 hr Temp Pulse Resp BP BP Pulse Ox 08/12/24 03:56 97.9 F 63 16 102/61 93 L 08/11/24 23:45 98.5 F 84 19 130/63 95 08/11/24 20:39 93 L 08/11/24 19:47 97.6 F 95 H 18 113/75 94 L 08/11/24 19:07 95 H 94 L 08/11/24 18:31 66 19 115/62 94 L 08/11/24 18:30 65 21 89 L 08/11/24 18:20 82 20 95 08/11/24 18:10 64 14 97 08/11/24 18:00 68 16 92 L 08/11/24 17:51 98 08/11/24 17:50 66 15 97 08/11/24 17:40 70 17 96 08/11/24 17:32 67 20 98 08/11/24 17:15 66 18 103/68 95 08/11/24 17:00 69 15 100/69 94 L 08/11/24 16:46 72 19 118/61 94 L 08/11/24 16:30 66 15 119/68 96 08/11/24 16:16 80 13 102/81 97 08/11/24 16:00 83 15 97/74 97 08/11/24 15:46 82 21 117/71 96 08/11/24 15:31 80 16 113/62 92 L 08/11/24 15:15 69 22 107/64 92 L 08/11/24 15:11 64 20 111/71 90 L 08/11/24 14:45 73 18 111/72 98 08/11/24 14:36 98 08/11/24 14:31 84 20 99/80 93 L 08/11/24 14:12 98.5 F 89 23 150/86 98 Pain Assessment - Last Documented Pain Intensity 0 Intake and Output: Intake & Output 08/09/24 08/10/24 08/11/24 08/12/24 11:59 11:59 11:59 11:59 Intake Total 739 Balance 739 Weight 73.3 kg Lab Results: Lab Results-Last 24 Hours 08/11/24 08/11/24 08/11/24 Range/Units 14:20 14:20 14:20 WBC 15.2 H (3.98-10.04) x10^3/uL RBC 4.34 (3.93-5.22) x10^6/uL Hgb 12.7 (11.2-15.7) g/dL Hct 38.6 (34.1-44.9) % MCV 88.9 (79.4-94.8) fL MCH 29.3 (25.6-32.2) pg MCHC 32.9 (32.2-35.5) g/dL RDW 15.5 H (11.7-14.4) % Plt Count 605 H (182-369) x10^3/uL MPV 8.7 L (9.4-12.3) fL Gran % 71.5 H (34.0-71.1) % Immature Gran % (Auto) 1.6 H (0.001-0.429) % Nucleat RBC Rel Count 0.0 (0.00-0.2) % Eos # (Auto) 0.08 (0.04-0.36) x10^3/uL Immature Gran # (Auto) 0.24 H (0.001-0.031) x10^3u/L Absolute Lymphs (auto) 2.94 (1.18-3.74) x10^3/uL Absolute Monos (auto) 0.99 H (0.24-0.86) x10^3/uL Absolute Nucleated RBC 0.00 (0.00-0.012) x10^3u/L Lymphocytes % 19.4 (19.3-51.7) % Monocytes % 6.5 (4.7-12.5) % Eosinophils % 0.5 L (0.7-5.8) % Basophils % 0.5 (0.1-1.2) % Absolute Granulocytes 10.87 H (1.56-6.13) x10^3/uL Basophils # 0.07 (0.01-0.08) x10^3/uL Sodium 136 (135-145) mmol/L Potassium 3.4 L (3.5-5.1) mmol/L Chloride 100 (98-107) mmol/L Carbon Dioxide 24 (22-30) mmol/L Anion Gap 15.2 H (5-15) MEQ/L BUN 16 (7-17) mg/dL Creatinine 1.43 H (0.52-1.04) mg/dL Estimated GFR 42.8 ML/MIN Glucose 93 (74-106) mg/dL POC Glucometer (74 to 106) mg/dL Calcium 8.7 (8.4-10.2) mg/dL Total Bilirubin 0.60 (0.2-1.3) mg/dL AST 30 (14-36) U/L ALT 25 (0-35) U/L Alkaline Phosphatase 220 H (38-126) U/L Troponin I < 0.012 (0.000-0.033) ng/mL Serum Total Protein 7.1 (6.3-8.2) g/dL Albumin 3.8 (3.5-5.0) g/dL 08/11/24 08/11/24 08/11/24 Range/Units 14:25 18:30 22:55 WBC (3.98-10.04) x10^3/uL RBC (3.93-5.22) x10^6/uL Hgb (11.2-15.7) g/dL Hct (34.1-44.9) % MCV (79.4-94.8) fL MCH (25.6-32.2) pg MCHC (32.2-35.5) g/dL RDW (11.7-14.4) % Plt Count (182-369) x10^3/uL MPV (9.4-12.3) fL Gran % (34.0-71.1) % Immature Gran % (Auto) (0.001-0.429) % Nucleat RBC Rel Count (0.00-0.2) % Eos # (Auto) (0.04-0.36) x10^3/uL Immature Gran # (Auto) (0.001-0.031) x10^3u/L Absolute Lymphs (auto) (1.18-3.74) x10^3/uL Absolute Monos (auto) (0.24-0.86) x10^3/uL Absolute Nucleated RBC (0.00-0.012) x10^3u/L Lymphocytes % (19.3-51.7) % Monocytes % (4.7-12.5) % Eosinophils % (0.7-5.8) % Basophils % (0.1-1.2) % Absolute Granulocytes (1.56-6.13) x10^3/uL Basophils # (0.01-0.08) x10^3/uL Sodium (135-145) mmol/L Potassium (3.5-5.1) mmol/L Chloride (98-107) mmol/L Carbon Dioxide (22-30) mmol/L Anion Gap (5-15) MEQ/L BUN (7-17) mg/dL Creatinine (0.52-1.04) mg/dL Estimated GFR ML/MIN Glucose (74-106) mg/dL POC Glucometer 96 (74 to 106) mg/dL Calcium (8.4-10.2) mg/dL Total Bilirubin (0.2-1.3) mg/dL AST (14-36) U/L ALT (0-35) U/L Alkaline Phosphatase (38-126) U/L Troponin I < 0.012 < 0.012 (0.000-0.033) ng/mL Serum Total Protein (6.3-8.2) g/dL Albumin (3.5-5.0) g/dL /16 Range/Units 04:30 WBC 7.2 (3.98-10.04) x10^3/uL RBC 3.77 L (3.93-5.22) x10^6/uL Hgb 10.9 L (11.2-15.7) g/dL Hct 34.0 L (34.1-44.9) % MCV 90.2 (79.4-94.8) fL MCH 28.9 (25.6-32.2) pg MCHC 32.1 L (32.2-35.5) g/dL RDW 15.8 H (11.7-14.4) % Plt Count 467 H (182-369) x10^3/uL MPV 8.5 L (9.4-12.3) fL Gran % 47.5 (34.0-71.1) % Immature Gran % (Auto) 1.9 H (0.001-0.429) % Nucleat RBC Rel Count 0.0 (0.00-0.2) % Eos # (Auto) 0.16 (0.04-0.36) x10^3/uL Immature Gran # (Auto) 0.14 H (0.001-0.031) x10^3u/L Absolute Lymphs (auto) 2.85 (1.18-3.74) x10^3/uL Absolute Monos (auto) 0.60 (0.24-0.86) x10^3/uL Absolute Nucleated RBC 0.00 (0.00-0.012) x10^3u/L Lymphocytes % 39.4 (19.3-51.7) % Monocytes % 8.3 (4.7-12.5) % Eosinophils % 2.2 (0.7-5.8) % Basophils % 0.7 (0.1-1.2) % Absolute Granulocytes 3.44 (1.56-6.13) x10^3/uL Basophils # 0.05 (0.01-0.08) x10^3/uL Sodium (135-145) mmol/L Potassium (3.5-5.1) mmol/L Chloride (98-107) mmol/L Carbon Dioxide (22-30) mmol/L Anion Gap (5-15) MEQ/L BUN (7-17) mg/dL Creatinine (0.52-1.04) mg/dL Estimated GFR ML/MIN Glucose (74-106) mg/dL POC Glucometer (74 to 106) mg/dL Calcium (8.4-10.2) mg/dL Total Bilirubin (0.2-1.3) mg/dL AST (14-36) U/L ALT (0-35) U/L Alkaline Phosphatase (38-126) U/L Troponin I (0.000-0.033) ng/mL Serum Total Protein (6.3-8.2) g/dL Albumin (3.5-5.0) g/dL Radiology Exams: Radiology Procedures Category Date Time Status CT ANGIOGRAPHY NECK [CT] Stat Exams 08/11/24 14:36 Completed CTA HEAD W AND/OR WO CONTRAST [CT] Stat Exams 08/11/24 14:35 Completed HEAD WITHOUT CONTRAST [CT] Stat Exams 08/11/24 14:35 Completed MRI BRAIN W & W/O CONTRAST [MRI] Routine Exams 08/11/24 21:46 Ordered Medications: Medications Generic Name Dose Route Start Last Admin Trade Name Freq PRN Reason Stop Dose Admin Acetaminophen 650 mg 08/11/24 21:42 Acetaminophen 325 Mg Tablet PO 09/10/24 21:41 Q6H PRN PRN PAIN AND/OR FEVER Albuterol/Ipratropium 3 ml 08/11/24 21:42 Ipratropium/Albuterol Sulfate 3 Ml Ampul.Neb IH 09/10/24 21:41 Q4HPRN PRN SHORTNESS OF BREATH/WHEEZING Aspirin 81 mg 08/12/24 10:00 Aspirin 81 Mg Tablet.Ec PO 09/11/24 09:59 DAILY GERI Citalopram Hydrobromide 20 mg 08/12/24 10:00 Citalopram Hydrobromide 20 Mg Tablet PO 09/11/24 09:59 DAILY GERI Gabapentin 100 mg 08/11/24 22:00 08/11/24 23:36 Gabapentin 100 Mg Capsule PO 09/10/24 21:59 100 mg HS GERI Administration Sodium Chloride 1,000 mls @ 50 mls/hr 08/11/24 14:45 08/11/24 15:10 Sodium Chloride 0.9% 1000 Ml IV 09/10/24 14:44 50 mls/hr .Q20H GERI Administration Loratadine 10 mg 08/11/24 21:41 Loratadine 10 Mg Tablet PO 09/10/24 21:40 DAILY PRN ALLERGIES Montelukast Sodium 10 mg 08/11/24 22:00 08/11/24 23:36 Montelukast Sodium 10 Mg Tablet PO 09/10/24 21:59 10 mg QHS GERI Administration Nicotine 21 mg 08/11/24 21:45 08/11/24 21:53 Nicotine 21 Mg/Patch Patch TOP 09/10/24 21:44 Not Given Q24H GERI Non-Formulary Medication 200 mg 08/11/24 21:45 Lamotrigine [Lamotrigine] PO 09/10/24 21:44 UD GERI Non-Formulary Medication 4 mg 08/11/24 21:41 Ondansetron PO Q8H PRN PRN NAUSEA Pantoprazole Sodium 40 mg 08/11/24 22:00 08/11/24 23:37 Protonix (Pantoprazole) 40 Mg Tablet PO 09/10/24 21:59 40 mg BID GERI Administration Discontinued Medications Generic Name Dose Route Start Last Admin Trade Name Freq PRN Reason Stop Dose Admin Aspirin 324 mg 08/11/24 17:38 08/11/24 18:40 Aspirin 81 Mg Tab.Chew PO 08/11/24 17:39 324 mg STAT ONE Administration Aspirin Confirm 08/11/24 18:39 Aspirin 81 Mg Tab.Chew Administered 08/11/24 18:40 Dose 324 mg .ROUTE .STK-MED ONE Assessment/Plan (1) Right leg weakness Current Visit: Yes Status: Acute Assessment & Plan: -CT and CTA imaging were unremarkable -Neurology consulted - MRI of the brain w/wo recommended and 81mg ASA - further rec s/p MRI results -PT/OT eval - Code(s): R29.898 - [facility] SYMPTOMS AND SIGNS INVOLVING THE MUSCULOSKELETAL SYSTEM (2) COPD (chronic obstructive pulmonary disease) Current Visit: Yes Status: Acute Assessment & Plan: PRN DuoNeb Continue home Singulair 10 mg (3) Tobacco abuse Current Visit: Yes Status: Acute Assessment & Plan: -Advised cessation -Nicotine patch Code(s): Z72.0 - TOBACCO USE (4) History of migraine Current Visit: Yes Status: Acute Assessment & Plan: -continue lamictal 200mg daily Code(s): Z86.69 - PERSONAL HISTORY OF DIS OF THE NERVOUS SYS AND SENSE ORGANS (5) Recurrent falls Current Visit: Yes Status: Acute Assessment & Plan: -PT OT eval - see weakness above Code(s): R29.6 - REPEATED FALLS (6) Acute renal injury Current Visit: Yes Status: Acute Assessment & Plan: baseline creatinine is 1.1-1.2 Continue NS continuous at 50 mL/h Code(s): N17.9 - ACUTE KIDNEY FAILURE, UNSPECIFIED (7) Leukocytosis Current Visit: Yes Status: Acute Assessment & Plan: -no clear etiology -trend CODE STATUS: Full code Prophylaxis: Low risk, encourage ambulation Diet: Regular Dispo: Place in observation, expect eventual discharge to [facility] Code(s): D72.829 - ELEVATED WHITE BLOOD CELL COUNT, UNSPECIFIED
[2024-08-12 05:24] LABS: ANION GAP 10.2 MEQ/L (5-15); Calcium 7.9 mg/dL (8.4-10.2); Creatinine 1 1.37 mg/dL (0.52-1.04); Potassium 3.1 mmol/L (3.5-5.1)
[2024-08-12] MEDS ORDERED: ZOFRAN ODT 4 MG PO PRN (06:55)
[2024-08-12] MEDS: Klor Con PO SCH (08:35)
[2024-08-12] MEDS: ECOTRIN 81 MG PO SCH (08:35)
[2024-08-12] MEDS: ceLEXa 20 MG PO SCH (08:36)
[2024-08-12] MEDS: lamICTAL 100MG TABLET PO SCH (08:36)
[2024-08-12 09:47] LABS: Appearance Clear (Clear); Bacteria Rare /HPF (None Seen); Bilirubin Negative (Negative); Blood Negative (Negative); Epithelial Cells Few /HPF (None Seen); Glucose, Urine Negative (Negative); Hyaline Casts NONE SEEN /LPF (0-2); Ketones Negative (Negative); Leukocyte Esterase Moderate (Negative); Nitrite Negative (Negative); Ph 5.5 (4.6-8.0); Protein,Urine Dip Negative (Negative); RBC 0-2 /HPF (0-5); Specific Gravity >=1.030 (1.005-1.030)
[2024-08-12 12:05] VITALS: TEMP 97.8
--- NOTE | 2024-08-12 13:57 | XRAY ---
Indication: Progressive right weakness. Sagittal, coronal, and axial MRI brain performed without contrast using T1, T2, FLAIR, diffusion, and ADC sequences. Comparison: None Age-appropriate global atrophy and minimal periventricular degenerative micro-ischemia signal bilaterally. No acute intracranial hemorrhage, abnormal extra-axial fluid collection, or mass effect. Diffusion images negative for restricted signal. Fourth ventricle is midline without hydrocephalus. 7/8 cranial nerve complex bilaterally symmetric. Normal flow void signal within the major intracerebral circulation. Normal appearing craniocervical junction and sella turcica. Moderate mucosal thickening right maxillary sinus with fluid leveling. Impression: 1. Atrophy and degenerative micro-ischemia within normal limits. 2. Right maxillary sinus disease. 3. Remaining MRI brain without contrast exam is negative.
[2024-08-12] MEDS: ROCEPHIN 1 GM / 100 ML NaCl 1 GM/100 ML IVPB IV SCH (14:02)
--- NOTE | 2024-08-12 14:51 | PCM.DS ---
Discharge Summary Date of Admission: 08/11/24 19:04 Date of Discharge: 08/12/24 Admitting Physician: CARLOS JEAN MD Consults: Consults on Case 08/12/24 13:24 Consult Neurology ROUTINE Primary Care Provider: ROBERT,VIRGEN Allergies Allergies divalproex sodium [From Depakote] Allergy (Verified 08/11/24 14:23) hives morphine Allergy (Verified 08/11/24 14:23) migraine Sulfa (Sulfonamide Antibiotics) Allergy (Verified 08/11/24 14:23) nausea and vomiting Hospital Summary - Hospital Course Hospital Course: Ms. Treadwell is a 58-year-old woman with a history of hypertension, COPD, migr aines, seizures, depression, and tobacco use who was admitted 08/11/24 for evaluation of progressive right-sided weakness (leg greater than arm), intermittent word-finding difficulty, and recurrent falls over [address] head and CTA were unremarkable. MRI brain showed no acute infarct or mass, but did reveal age-appropriate atrophy, chronic microvascular ischemic changes, and right maxillary sinus disease. Symptoms may reflect a postictal state, given her seizure history, though no recent seizure activity was observed. Neurology recommended outpatient follow-up, and low-dose aspirin. She showed mild improvement during admission but remained limited in ambulation and was evaluated by PT/OT for safety planning. She will continue with PT as OP. She also had a mild acute kidney injury (creatinine peaked at 1.4 from baseline 1.11.2), likely related to volume status; this improved with IV fluids. Leukocytosis was noted without clear infectious symptoms, though UA was suspicious for a UTI, and she was empirically treated with Ceftriaxone and will be dismissed on cefpodoxime, also covering suspected sinusitis. COPD remained stable on home medications; she did not require supplemental oxygen. She continues to smoke, though she reports a decrease in use; nicotine replacement therapy was initiated, and cessation was reinforced. She was discharged in stable condition with outpatient neurology follow-up, continued physical therapy, and close monitoring of kidney function and UTI with PCP next week. Discharge Note New Diagnosis: right sided weakness/UTI/ sinusitis New Medications: Cefpodoxime Follow Up: PCP/neurology Results pending: Dean Kam spent 35 minutes [id number] with the patient on the day of discharge performing discharge exam, discussing hospital stay and discharge instructions with patient and caregivers, preparation of discharge records, prescriptions & referral forms and addressing any questions/concerns the patient had as docume nted above. - Vitals & Intake/Output Vital Signs: Vital Signs Temperature 97.8 F 08/12/24 12:00 Pulse Rate 56 L 08/12/24 12:00 Respiratory Rate 16 08/12/24 12:00 Blood Pressure 119/57 08/12/24 12:00 O2 Sat by Pulse Oximetry 95 08/12/24 12:00 Intake & Output: Intake & Output 08/10/24 08/11/24 08/12/24 08/13/24 11:59 11:59 11:59 11:59 Intake Total 859 120 Balance 859 120 Weight 73.3 kg - Lab Result Diagrams: 08/12/24 04:30 08/12/24 12:10 Lab Results-Last 24 Hrs: Lab Results-Last 24 Hours 08/11/24 08/11/24 08/11/24 Range/Units 14:20 14:20 14:20 WBC 15.2 H (3.98-10.04) x10^3/uL RBC 4.34 (3.93-5.22) x10^6/uL Hgb 12.7 (11.2-15.7) g/dL Hct 38.6 (34.1-44.9) % MCV 88.9 (79.4-94.8) fL MCH 29.3 (25.6-32.2) pg MCHC 32.9 (32.2-35.5) g/dL RDW 15.5 H (11.7-14.4) % Plt Count 605 H (182-369) x10^3/uL MPV 8.7 L (9.4-12.3) fL Gran % 71.5 H (34.0-71.1) % Immature Gran % (Auto) 1.6 H (0.001-0.429) % Nucleat RBC Rel Count 0.0 (0.00-0.2) % Eos # (Auto) 0.08 (0.04-0.36) x10^3/uL Immature Gran # (Auto) 0.24 H (0.001-0.031) x10^3u/L Absolute Lymphs (auto) 2.94 (1.18-3.74) x10^3/uL Absolute Monos (auto) 0.99 H (0.24-0.86) x10^3/uL Absolute Nucleated RBC 0.00 (0.00-0.012) x10^3u/L Lymphocytes % 19.4 (19.3-51.7) % Monocytes % 6.5 (4.7-12.5) % Eosinophils % 0.5 L (0.7-5.8) % Basophils % 0.5 (0.1-1.2) % Absolute Granulocytes 10.87 H (1.56-6.13) x10^3/uL Basophils # 0.07 (0.01-0.08) x10^3/uL Sodium 136 (135-145) mmol/L Potassium 3.4 L (3.5-5.1) mmol/L Chloride 100 (98-107) mmol/L Carbon Dioxide 24 (22-30) mmol/L Anion Gap 15.2 H (5-15) MEQ/L BUN 16 (7-17) mg/dL Creatinine 1.43 H (0.52-1.04) mg/dL Estimated GFR 42.8 ML/MIN Glucose 93 (74-106) mg/dL Calcium 8.7 (8.4-10.2) mg/dL Magnesium (1.6-2.3) mg/dL Total Bilirubin 0.60 (0.2-1.3) mg/dL AST 30 (14-36) U/L ALT 25 (0-35) U/L Alkaline Phosphatase 220 H (38-126) U/L Troponin I < 0.012 (0.000-0.033) ng/mL Serum Total Protein 7.1 (6.3-8.2) g/dL Albumin 3.8 (3.5-5.0) g/dL Urine Color (Yellow) Urine Appearance (Clear) Urine pH (4.6-8.0) Ur Specific Hinckley (1.005-1.030) Urine Protein (Negative) Urine Glucose (UA) (Negative) mg/dL Urine Ketones (Negative) Urine Blood (Negative) Urine Nitrite (Negative) Urine Bilirubin (Negative) Urine Urobilinogen (0.2) mg/dL Ur Leukocyte Esterase (Negative) U Hyaline Cast (Auto) (0-2) /LPF Urine Microscopic RBC (0-5) /HPF Urine Microscopic WBC (0-5) /HPF Ur Epithelial Cells (None Seen) /HPF Urine Bacteria (None Seen) /HPF Urine Culture Reflexed (NO) 08/11/24 08/11/24 08/12/24 Range/Units 18:30 22:55 04:30 WBC 7.2 (3.98-10.04) x10^3/uL RBC 3.77 L (3.93-5.22) x10^6/uL Hgb 10.9 L (11.2-15.7) g/dL Hct 34.0 L (34.1-44.9) % MCV 90.2 (79.4-94.8) fL MCH 28.9 (25.6-32.2) pg MCHC 32.1 L (32.2-35.5) g/dL RDW 15.8 H (11.7-14.4) % Plt Count 467 H (182-369) x10^3/uL MPV 8.5 L (9.4-12.3) fL Gran % 47.5 (34.0-71.1) % Immature Gran % (Auto) 1.9 H (0.001-0.429) % Nucleat RBC Rel Count 0.0 (0.00-0.2) % Eos # (Auto) 0.16 (0.04-0.36) x10^3/uL Immature Gran # (Auto) 0.14 H (0.001-0.031) x10^3u/L Absolute Lymphs (auto) 2.85 (1.18-3.74) x10^3/uL Absolute Monos (auto) 0.60 (0.24-0.86) x10^3/uL Absolute Nucleated RBC 0.00 (0.00-0.012) x10^3u/L Lymphocytes % 39.4 (19.3-51.7) % Monocytes % 8.3 (4.7-12.5) % Eosinophils % 2.2 (0.7-5.8) % Basophils % 0.7 (0.1-1.2) % Absolute Granulocytes 3.44 (1.56-6.13) x10^3/uL Basophils # 0.05 (0.01-0.08) x10^3/uL Sodium (135-145) mmol/L Potassium (3.5-5.1) mmol/L Chloride (98-107) mmol/L Carbon Dioxide (22-30) mmol/L Anion Gap (5-15) MEQ/L BUN (7-17) mg/dL Creatinine (0.52-1.04) mg/dL Estimated GFR ML/MIN Glucose (74-106) mg/dL Calcium (8.4-10.2) mg/dL Magnesium (1.6-2.3) mg/dL Total Bilirubin (0.2-1.3) mg/dL AST (14-36) U/L ALT (0-35) U/L Alkaline Phosphatase (38-126) U/L Troponin I < 0.012 < 0.012 (0.000-0.033) ng/mL Serum Total Protein (6.3-8.2) g/dL Albumin (3.5-5.0) g/dL Urine Color (Yellow) Urine Appearance (Clear) Urine pH (4.6-8.0) Ur Specific H[place] (1.005-1.030) Urine Protein (Negative) Urine Glucose (UA) (Negative) mg/dL Urine Ketones (Negative) Urine Blood (Negative) Urine Nitrite (Negative) Urine Bilirubin (Negative) Urine Urobilinogen (0.2) mg/dL Ur Leukocyte Esterase (Negative) U Hyaline Cast (Auto) (0-2) /LPF Urine Microscopic RBC (0-5) /HPF Urine Microscopic WBC (0-5) /HPF Ur Epithelial Cells (None Seen) /HPF Urine Bacteria (None Seen) /HPF Urine Culture Reflexed (NO) 08/12/24 08/12/24 08/12/24 Range/Units 04:30 04:48 09:36 WBC (3.98-10.04) x10^3/uL RBC (3.93-5.22) x10^6/uL Hgb (11.2-15.7) g/dL Hct (34.1-44.9) % MCV (79.4-94.8) fL MCH (25.6-32.2) pg MCHC (32.2-35.5) g/dL RDW (11.7-14.4) % Plt Count (182-369) x10^3/uL MPV (9.4-12.3) fL Gran % (34.0-71.1) % Immature Gran % (Auto) (0.001-0.429) % Nucleat RBC Rel Count (0.00-0.2) % Eos # (Auto) (0.04-0.36) x10^3/uL Immature Gran # (Auto) (0.001-0.031) x10^3u/L Absolute Lymphs (auto) (1.18-3.74) x10^3/uL Absolute Monos (auto) (0.24-0.86) x10^3/uL Absolute Nucleated RBC (0.00-0.012) x10^3u/L Lymphocytes % (19.3-51.7) % Monocytes % (4.7-12.5) % Eosinophils % (0.7-5.8) % Basophils % (0.1-1.2) % Absolute Granulocytes (1.56-6.13) x10^3/uL Basophils # (0.01-0.08) x10^3/uL Sodium 137 (135-145) mmol/L Potassium 3.1 L (3.5-5.1) mmol/L Chloride 103 (98-107) mmol/L Carbon Dioxide 27 (22-30) mmol/L Anion Gap 10.2 (5-15) MEQ/L BUN 15 (7-17) mg/dL Creatinine 1.37 H (0.52-1.04) mg/dL Estimated GFR 45.0 ML/MIN Glucose 75 (74-106) mg/dL Calcium 7.9 L (8.4-10.2) mg/dL Magnesium 2.3 (1.6-2.3) mg/dL Total Bilirubin (0.2-1.3) mg/dL AST (14-36) U/L ALT (0-35) U/L Alkaline Phosphatase (38-126) U/L Troponin I (0.000-0.033) ng/mL Serum Total Protein (6.3-8.2) g/dL Albumin (3.5-5.0) g/dL Urine Color Yellow (Yellow) Urine Appearance Clear (Clear) Urine pH 5.5 (4.6-8.0) Ur Specific H[place]ck[place] >=1.030 A (1.005-1.030) Urine Protein Negative (Negative) Urine Glucose (UA) Negative (Negative) mg/dL Urine Ketones Negative (Negative) Urine Blood Negative (Negative) Urine Nitrite Negative (Negative) Urine Bilirubin Negative (Negative) Urine Urobilinogen 1.0 A (0.2) mg/dL Ur Leukocyte Esterase Moderate A (Negative) U Hyaline Cast (Auto) NONE SEEN (0-2) /LPF Urine Microscopic RBC 0-2 (0-5) /HPF Urine Microscopic WBC 6-10 A (0-5) /HPF Ur Epithelial Cells Few (None Seen) /HPF Urine Bacteria Rare A (None Seen) /HPF Urine Culture Reflexed YES (NO) 08/12/24 Range/Units 12:10 WBC (3.98-10.04) x10^3/uL RBC (3.93-5.22) x10^6/uL Hgb (11.2-15.7) g/dL Hct (34.1-44.9) % MCV (79.4-94.8) fL MCH (25.6-32.2) pg MCHC (32.2-35.5) g/dL RDW (11.7-14.4) % Plt Count (182-369) x10^3/uL MPV (9.4-12.3) fL Gran % (34.0-71.1) % Immature Gran % (Auto) (0.001-0.429) % Nucleat RBC Rel Count (0.00-0.2) % Eos # (Auto) (0.04-0.36) x10^3/uL Immature Gran # (Auto) (0.001-0.031) x10^3u/L Absolute Lymphs (auto) (1.18-3.74) x10^3/uL Absolute Monos (auto) (0.24-0.86) x10^3/uL Absolute Nucleated RBC (0.00-0.012) x10^3u/L Lymphocytes % (19.3-51.7) % Monocytes % (4.7-12.5) % Eosinophils % (0.7-5.8) % Basophils % (0.1-1.2) % Absolute Granulocytes (1.56-6.13) x10^3/uL Basophils # (0.01-0.08) x10^3/uL Sodium (135-145) mmol/L Potassium 4.2 D (3.5-5.1) mmol/L Chloride (98-107) mmol/L Carbon Dioxide (22-30) mmol/L Anion Gap (5-15) MEQ/L BUN (7-17) mg/dL Creatinine (0.52-1.04) mg/dL Estimated GFR ML/MIN Glucose (74-106) mg/dL Calcium (8.4-10.2) mg/dL Magnesium (1.6-2.3) mg/dL Total Bilirubin (0.2-1.3) mg/dL AST (14-36) U/L ALT (0-35) U/L Alkaline Phosphatase (38-126) U/L Troponin I (0.000-0.033) ng/mL Serum Total Protein (6.3-8.2) g/dL Albumin (3.5-5.0) g/dL Urine Color (Yellow) Urine Appearance (Clear) Urine pH (4.6-8.0) Ur Specific [place] (1.005-1.030) Urine Protein (Negative) Urine Glucose (UA) (Negative) mg/dL Urine Ketones (Negative) Urine Blood (Negative) Urine Nitrite (Negative) Urine Bilirubin (Negative) Urine Urobilinogen (0.2) mg/dL Ur Leukocyte Esterase (Negative) U Hyaline Cast (Auto) (0-2) /LPF Urine Microscopic RBC (0-5) /HPF Urine Microscopic WBC (0-5) /HPF Ur Epithelial Cells (None Seen) /HPF Urine Bacteria (None Seen) /HPF Urine Culture Reflexed (NO) - Radiology Exams Ordered Rad Exams-Entire Visit: Radiology Procedures Category Date Time Status CT ANGIOGRAPHY NECK [CT] Stat Exams 08/11/24 14:36 Completed CTA HEAD W AND/OR WO CONTRAST [CT] Stat Exams 08/11/24 14:35 Completed HEAD WITHOUT CONTRAST [CT] Stat Exams 08/11/24 14:35 Completed MRI BRAIN W/O CONTRAST [MRI] Routine Exams 08/11/24 21:46 Completed - Procedures and Test Procedures and Tests throughout Hospitalization: Therapy Orders & Screens 08/12/24 06:59 Respiratory Therapy Assessment DAILY Comment: Diagnosis: weakness 08/12/24 06:59 RT Screen per Nursing Assess ONCE Comment: Protocol Order Physician Instructions: Greater than 3 points order RT Admission Screen Reason For Exam: Triggered on Admission Diagnosis: Numbness, falls Diagnosis: Numbness, falls Pneumonia: No Home O2: No Asthma: Yes CHF: No Home CPAP/BIPAP: No Home Nebs/MDI: Yes: inhaler Total Points: 9 08/12/24 08:14 PT Eval & Treat ( Order) ONCE Reason for Eval:: R side weakness Diagnosis: weakness OT Eval and Treat ( Order) ONCE Comment: Physician Instructions: Reason For Exam: Diagnosis: weakness 08/12/24 10:00 OT Screen per Nursing Assess ONCE Comment: Protocol Order Physician Instructions: Greater than 3 points order OT Admission Screening Reason For Exam: Triggered on Admission Diagnosis: Numbness, falls Open Wound/Cellutlitis/Pressure Ulcers: No Acute Fx/ORIF/Change in wt bearing status: No Severe MUSCULOSKELETAL pain: No ADL Dysfunction: Yes Acute CVA w/Hemiparesis/Hemiplegia: No Decreased Functional Mobility/Strength: Yes Sprain/Strain: No Acute Post-op Mobility Dysfunction: No Total Points: 4 PT Screen per Nursing Assess ONCE Comment: Protocol Order Physician Instructions: Greater than 3 points order PT Admission Screenin Reason For Exam: Triggered on Admission Diagnosis: Numbness, falls Open Wound/Cellutlitis/Pressure Ulcers: No Acute Fx/ORIF/Change in wt bearing status: No Severe MUSCULOSKELETAL pain: No ADL Dysfunction: Yes Acute CVA w/Hemiparesis/Hemiplegia: No Decreased Functional Mobility/Strength: Yes Sprain/Strain: No Acute Post-op Mobility Dysfunction: No Total Points: 4 Discharge Exam General Appearance: no apparent distress Neurologic Exam: alert, oriented x 3, cooperative Eye Exam: PERRL Ears, Nose, Throat Exam: normal ENT inspection Neck Exam: normal inspection Respiratory Exam: normal breath sounds, lungs clear Cardiovascular Exam: regular rate/rhythm, normal heart sounds Gastrointestinal/Abdomen Exam: soft, normal bowel sounds Pelvic Exam: deferred Rectal Exam: deferred Back Exam: normal inspection Extremity Exam: normal inspection Skin Exam: normal color Final Diagnosis/Problem List - Final Discharge Diagnosis/Problem (1) Right leg weakness Current Visit: Yes Status: Acute Code(s): R29.898 - [facility] [place] SYMPTOMS AND SIGNS INVOLVING THE MUSCULOSKELETAL SYSTEM (2) COPD (chronic obstructive pulmonary disease) Current Visit: Yes Status: Chronic (3) Tobacco abuse Current Visit: Yes Status: Chronic Code(s): Z72.0 - TOBACCO USE (4) History of migraine Current Visit: Yes Status: Chronic Code(s): Z86.69 - PERSONAL HISTORY OF DIS OF THE NERVOUS SYS AND SENSE ORGANS (5) Recurrent falls Current Visit: Yes Status: Chronic Code(s): R29.6 - REPEATED FALLS (6) Acute renal injury Current Visit: Yes Status: Acute Code(s): N17.9 - ACUTE KIDNEY FAILURE, UNSPECIFIED (7) Leukocytosis Current Visit: Yes Status: Acute Code(s): D72.829 - ELEVATED WHITE BLOOD CELL COUNT, UNSPECIFIED - Discharge Discharge Date: 08/12/24 Disposition: Home, Self-Care Condition: Stable Prescriptions: New Cefpodoxime Proxetil 200 mg PO BID 10 Days #20 tablet Continue Pantoprazole Sodium [Protonix] 40 mg PO BID Famotidine 20 mg [Pepcid 20 MG] 20 mg PO BID Citalopram Hydrobromide 20 mg* [ceLEXa 20 MG] 20 mg PO DAILY Montelukast Sodium 10 mg [Singulair 10 MG] 10 mg PO QHS Ondansetron [Ondansetron Odt] 4 mg PO Q8H PRN PRN PRN Reason: Nausea Ubrogepant [Ubrelvy] 100 mg PO Q2H/PRN PRN PRN Reason: Headache lamoTRIgine [Lamotrigine] 200 mg PO UD Loratadine 10 mg [Claritin 10 mg] 10 mg PO DAILY PRN PRN Reason: Allergies Gabapentin [Neurontin ] 100 mg PO HS Prochlorperazine Maleate [Compazine] 10 mg PO BID PRN PRN PRN Reason: Nausea Aspirin EC 81 mg [Ecotrin 81 mg] 81 mg PO DAILY Albuterol Common Canister [Ventolin Common Canister] 2 puff IH Q4HPRN PRN PRN Reason: Shortness Of Breath/Wheezing Fluticasone/Umeclidin/Vilanter [Trelegy Ellipta 100-62.5-25] 1 each IH DAILY Instructions: Preventing falls in adults Additional Instructions: USE WALKER EVERY TIME YOU ARE UP AND ONLY WALK WHEN ASSISTANCE IS AVAILABLE YOU CAN CALL [facility] AT [phone] TO SCHEDULED YOUR NEXT APPOINTMENT WITH THEM. Follow up with: ALEXANDRE MILLER DO [NON-STAFF PHY W/O PRIVILEGES] - Call for Appointment VIRGEN JONES MD [Primary Care Provider] - 08/19/24 10:00 am (at [facility] [place])
[2024-08-12 16:21] VITALS: BP 112/57; PULSE 80; RESP 17; O2SAT 94
[2024-08-12] MEDS ORDERED: lamICTAL 100MG TABLET PO SCH (22:00)
== END 2024-08-12 16:51 | disposition home or self-care (01) ==
LOC: ED 14:00 → MED SURG 19:04
PROVIDERS: ADMIT Internal Medicine; ATTEND Internal Medicine
DX: R53.1 Weakness (principal); R20.0 Anesthesia of skin; R47.1 Dysarthria and anarthria; R47.01 Aphasia; N17.9 Acute kidney failure, unspecified; N39.0 Urinary tract infection, site not specified; R29.6 Repeated falls; Z79.899 Other long term (current) drug therapy; D72.829 Elevated white blood cell count, unspecified; Z72.0 Tobacco use; J44.9 Chronic obstructive pulmonary disease, unspecified; Z86.69 Personal history of other diseases of the nervous system and sense organs
CPT/HCPCS: 36415; 70450; 70496; 70498; 70551; 80048; 80053; 81001; 82947; 83735; 84132; 84484; 85025; 87086; 93005; 93041; 93268; 94760; 97161; 97165; 99285; G0378; Q3014; J0696; A9270-GY